=== PATIENT | male | born 1940 | race Two or more races ===

== ENCOUNTER 2018-08-03 16:08 | Inpatient (IN) | payer OTHER, MEDICARE, MEDICAID ==
[~2018-08-03] VITALS: Ht 170.2 cm; Wt 69.4 kg
--- NOTE | 2018-08-03 16:08 | NUR ---
[facility] TO ER BED 07
[2018-08-03 16:14] VITALS: BP 98/42
--- NOTE | 2018-08-03 16:15 | NUR ---
PT BIBA FOR WITNESSED SYCOPAL EPISODE AT [facility]. PT WAS VISITING WITH FAMILY AND WENT TO GO TO BATHROOM AND "PASSED OUT" PT WAS ASSISTED TO GROUND BY FAMILY. PT IS AWAKE AND ALERT ON ARRIVAL. PT HAS TRACH AND PEG TUBE IN PLACE. B/S 100 ON ARRIVAL. VSS. PMH: HYPOTENSION, EPIGLOTTIS CA
[2018-08-03] MEDS ORDERED: HYDR-5092 GT (16:31)
[2018-08-03] MEDS ORDERED: DORZ10SO3 OP (16:31)
[2018-08-03] MEDS ORDERED: CIPR7.5S OT (16:31)
[2018-08-03] MEDS ORDERED: CLOP75TA26 GT (16:31)
[2018-08-03] MEDS ORDERED: ATOR20TA GT (16:31)
[2018-08-03] MEDS ORDERED: BRIM10DR2 OP (16:31)
[2018-08-03] MEDS ORDERED: DOCU-299 GT (16:31)
[2018-08-03] MEDS ORDERED: HYDR10TA1 GT (16:48)
[2018-08-03] MEDS ORDERED: [UNRECOGNIZED DRUG - OTHER] PO (16:48)
[2018-08-03] MEDS ORDERED: XALOS OP (16:48)
[2018-08-03] MEDS ORDERED: LANS15EC28 GT (16:48)
[2018-08-03] MEDS ORDERED: LEVO0.083 GT (16:48)
[2018-08-03] MEDS ORDERED: NYST100022 PO (16:48)
[2018-08-03] MEDS ORDERED: LACT10SO1 GT (16:48)
[2018-08-03] MEDS ORDERED: ONDA8TAB PO (16:48)
[2018-08-03] MEDS ORDERED: NACL 0.9% 1,000 ML IV ONE (17:05)
--- NOTE | 2018-08-03 17:17 | NUR ---
LAB AT BEDSIDE
[2018-08-03 17:36] LABS: BASOPHILS % (AUTO) 0.2 % (0.0-2.0); EOSINOPHILS # (AUTO) 0.1 K/uL (0-0.4); EOSINOPHILS % (AUTO) 0.8 % (0.0-4.0); HEMATOCRIT 33.2 % (36-52); LYMPHOCYTES # (AUTO) 0.8 K/uL (2.0-11.5); LYMPHOCYTES % (AUTO) 11.7 % (20.5-51.1); MEAN CORPUSCULAR HEMOGLOBIN 35 pg (27-31); MEAN CORPUSCULAR HGB CONC 33 g/dL (33-37); MONOCYTES # (AUTO) 0.7 K/uL (0.8-1.0); MONOCYTES % (AUTO) 9.4 % (1.7-9.3); NEUTROPHILS # (AUTO) 5.4 K/uL (1.8-7.7); NEUTROPHILS % (AUTO) 77.9 % (42.2-75.2); PLATELET COUNT (AUTO) 217 K/uL (140-450); RED BLOOD CELL COUNT(AUTO) 3.11 MIL/uL (4.20-6.10); RED CELL DISTRIBUTION WIDTH 14.8 % (11.6-13.7)
[2018-08-03 18:09] LABS: ANION GAP 10.2 (8-16); ASPARTATE AMINOTRANSFERASE 18 U/L (15-37); CHLORIDE 98 mmol/L (98-107); CREATININE 0.7 mg/dL (0.7-1.3); GLUCOSE 107 mg/dL (74-106); POTASSIUM 4.2 mmol/L (3.5-5.1); SODIUM SERUM 133 mmol/L (136-145); TOTAL BILIRUBIN 0.3 mg/dL (0.0-1.0); UREA NITROGEN, BLOOD 18 mg/dL (7-18)
--- NOTE | 2018-08-03 19:34 | NUR ---
Dr. Medina examining patient.
--- NOTE | 2018-08-03 19:37 | NUR ---
AT 1937 PT WAS FOUND TO BE HYPOTENSIVE- B/P 51/29. DR ZAYAS AT BEDSIDE EVALUATING PT. PT WAS REPOSITIONED. HOB ELEVATED. 1 L NS BOLUS STARTED. B/P INCREASED AT 194 TO 91/70. FAMILY AT BEDSIDE. WILL CONTINUE TO MONITOR CLOSELY.
[2018-08-03] MEDS ORDERED: ONDANSETRON 4 MG/2 ML VIAL IVP ONE (20:00)
[2018-08-03] MEDS ORDERED: MORPHINE SULFATE 4 MG/ML SYR IVP ONE (20:00)
--- NOTE | 2018-08-03 20:14 | NUR ---
Pt report given to EMA Vaughn. Transfer of care at this time. Pt is stable; vss updated. Family at bedside.
[2018-08-03] MEDS ORDERED: fentaNYL 0.05 MG/ML VIAL IVP ONE (20:15)
[2018-08-03] MEDS ORDERED: ALBUTEROL 0.083% 2.5 MG/3 ML NEBU INH PRN (20:30)
[2018-08-03] MEDS ORDERED: MORPHINE SULFATE 4 MG/ML SYR IVP PRN (20:30)
[2018-08-03] MEDS ORDERED: ONDANSETRON 4 MG/2 ML VIAL IVP PRN (20:30)
[2018-08-03] MEDS ORDERED: MORPHINE SULFATE 2 MG/ML SYR IVP PRN (20:30)
[2018-08-03] MEDS ORDERED: LORazepam 2 MG/ML VIAL IVP PRN (20:30)
--- NOTE | 2018-08-03 20:35 | NUR ---
MEDICATION ADM, PT POSITIONED FOR COMFORT. DAUGHTER AT BEDSIDE. PT ACTING APPRORPRIATLY TO BASELINE.
[2018-08-03 20:55] VITALS: BP 143/87
--- NOTE | 2018-08-03 20:55 | NUR ---
REPORT RECEIVED FROM ED NURSE AT BEDSIDE. PT IN STABLE CONDITION. AAOX4. INTRODUCED SELF TO PT AND FAMILY. BOARD UPDATED. NO COMPLAINTS OF PAIN. NO SOB ON TRACH TO T-PIECE@4LPM. AFEBRILE. IV L AC 18 RUNNING LR@80ML/HR PATENT AND INTACT. SKIN WARM, DRY, AND INTACT WITH NO OPEN WOUNDS. BED LOCKED IN LOW POSITION. CALL TERAN WITHIN REACH. SAFETY PRECAUTION IN PLACE. ALL NEEDS MET AT THIS TIME. Addendum: 08/04/18 at 0135 by Timmy Feranndez RN ER REPORTS ABRASIONS ON THE LEFT UPPER BACK. BUT NO OPEN WOUNDS. Addendum: 08/04/18 at 0137 by Timmy Fernandez RN GTUBE IN PLACE.
--- NOTE | 2018-08-03 20:55 | NUR ---
APatient will be admitted to care of Dr. Lira. Admited to Med-Surg. Patient went to room 124-B via gurverona, by RN and EMT; patients son at bedside; VSS and patient acting appropriatly to baseline at this time. Belongings list completed. Report to EMA Warner.
[2018-08-03] MEDS: BRIMONIDINE TARTRATE 0.2% OP 5 ML BTL OP SCH (21:00)
[2018-08-03] MEDS: LATANOPROST 0.005% OP 2.5 ML BTL OP SCH (21:00)
--- NOTE | 2018-08-03 21:00 | NUR ---
ALPHAGAN AND TRUSOPT UNAVAILABLE. UNABLE TO GIVE MEDICATION.
[2018-08-03] MEDS ORDERED: HYDROCORTISONE 10 MG TAB GT SCH (22:00)
[2018-08-03] MEDS: LACTATED RINGERS 1,000 ML IV SCH (22:00)
--- NOTE | 2018-08-03 22:00 | NUR ---
LACTATED RINGER HUNG AND RUNNING@80ML/HR.
--- NOTE | 2018-08-03 22:10 | NUR ---
FRANCISCO VALVE CHANGED.
--- NOTE | 2018-08-03 22:15 | NUR ---
CORTEF GIVEN THROUGH GTUBE. PT TOLERATED WELL.
--- NOTE | 2018-08-04 | NUR ---
PT WOUND COVERED BY TRANSPARENT DRESSING AND TAPE. THERE ARE MULTIPLE WOUNDS. UNABLE TO ASSESS WOUND.
--- NOTE | 2018-08-04 00:10 | NUR ---
PT SLEEPING COMFORTABLY SUPINE BUT AROUSABLE. NO S/S OF DISTRESS NOTED. WILL CONTINUE TO MONITOR.
--- NOTE | 2018-08-04 01:30 | NUR ---
PT SLEEPING COMFORTABLY IN BED. NO S/S OF DISTRESS NOTED. RESPIRATIONS EVEN, UNLABORED, AND WNL. WILL CONTINUE TO MONITOR.
[2018-08-04] MEDS ORDERED: TRANSPARENT DRESSING MC PRN (02:30)
[2018-08-04] MEDS: ACETAMINOPHEN 325 MG TAB PO PRN ×2 (04:42→11:57)
[2018-08-04] MEDS: HYDROCORTISONE 10 MG TAB GT SCH ×3 (04:42→20:26)
--- NOTE | 2018-08-04 05:09 | NUR ---
Discovered trach patient. Replaced soiled portex 8 inner cannula and gauze. Pt coughed up sputum plug mixed with old blood. Placed on 30% cool aerosol. EMA Warner aware.
--- NOTE | 2018-08-04 06:00 | NUR ---
UNABLE TO OBTAIN MEDICATION SYNTHROID 0.088 MG UNTIL PHARMACY COMES. WILL ENDORSE TO MORNING SHIFT TO TALK TO PHARMACY AND GIVEN.
[2018-08-04 06:01] LABS: FREE T4 (FREE THYROXINE) 0.57 ng/dL (0.76-1.46); THYROID STIMULATING HORMONE 38.55 uIU/mL (0.34-3.74)
[2018-08-04 06:05] LABS: ALBUMIN 2.5 g/dL (3.4-5.0); ANION GAP 9.3 (8-16); ASPARTATE AMINOTRANSFERASE 14 U/L (15-37); CHLORIDE 103 mmol/L (98-107); CREATININE 0.8 mg/dL (0.7-1.3); GLUCOSE 124 mg/dL (74-106); MAGNESIUM 1.9 mg/dL (1.8-2.4); POTASSIUM 4.3 mmol/L (3.5-5.1); SODIUM SERUM 136 mmol/L (136-145); TOTAL BILIRUBIN 0.4 mg/dL (0.0-1.0); UREA NITROGEN, BLOOD 15 mg/dL (7-18)
[2018-08-04] MEDS ORDERED: LEVOTHYROXINE 0.088 MG TAB GT SCH (06:30)
[2018-08-04 06:42] LABS: BASOPHILS % (AUTO) 0.3 % (0.0-2.0); EOSINOPHILS # (AUTO) 0.1 K/uL (0-0.4); HEMATOCRIT 29.8 % (36-52); LYMPHOCYTES # (AUTO) 1.9 K/uL (2.0-11.5); MEAN CORPUSCULAR HEMOGLOBIN 36 pg (27-31); MEAN CORPUSCULAR HGB CONC 34 g/dL (33-37); MEAN CORPUSCULAR VOLUME 106.9 fL (80-94); MONOCYTES # (AUTO) 0.7 K/uL (0.8-1.0); MONOCYTES % (AUTO) 11.8 % (1.7-9.3); NEUTROPHILS % (AUTO) 52.9 % (42.2-75.2); PLATELET COUNT (AUTO) 229 K/uL (140-450); RED BLOOD CELL COUNT(AUTO) 2.79 MIL/uL (4.20-6.10); WHITE BLOOD COUNT (AUTO) 5.6 K/uL (4.8-10.8)
--- NOTE | 2018-08-04 07:15 | NUR ---
REPORT GIVEN TO AM NURSE AT BEDSIDE. PT IN STABLE CONDITION.
--- NOTE | 2018-08-04 07:17 | NUR ---
RECEIVED BEDSIDE REPORT FROM ACCOUNT GROUP SUPERVISOR NURSE FOR CONTINUITY OF CARE. PATIENT IS AWAKE AND RESTING ON BED AT THIS TIME. PATIENT IS AAOX4. PATIENT SPEAKS LITHUANIAN AND ABLE TO UNDERSTAND SOME OCCITAN. PATIENT IS ABLE TO MAKE NEEDS KNOWN AND COMMUNICATE BY SHAKING, NODDING HEAD AND BY HAND GESTURES.RESPIRATION EVEN AND UNLABORED ON 4LPM VIA T-PIECE. DENIES PAIN AND SOB. WHEN ASK IF HE HAS ANY PAIN, PATIENT SHAKES HIS HEAD. NO SIGNS OF DISTRESS NOTED. IV ON LAC 18G, INTACT AND CLEAN, INFUSING PER MD ORDER. G-TUBE ON ABDOMINAL AREA NOTED, NOT FEEDING AT THIS TIME. LEFT ANKLE SKIN TEAR AND L UPPER SHOULDER ABRASION NOTED, WOUND CONSULT ORDER AND PENDING. DISCUSSED PLAN OF CARE WITH PATIENT, AND PATIENT NODDED HIS HEAD. BED IN LOW POSITION AND CALL LIGHT WITHIN REACH. INSTRUCTED PATIENT TO USE THE CALL LIGHT FOR ANY ASSISTANCE, PATIENT IS AWARE.
--- NOTE | 2018-08-04 08:10 | NUR ---
ADMINISTERED LEVOTHYROID VIA G-TUBE PER MD ORDER, FLUSH BEFORE AND AFTER MED ADMINISTER, PATIENT TOLERATED WELL. PATIENT IS RESTING ON BED AT THIS TIME. NO SIGNS OF DISTRESS NOTED. FALL RISK PROTOCOL IN PLACE. SAFETY MEASURES IN PLACE. BED IN LOW POSITION AND CALL LIGHT WITHIN REACH. INSTRUCTED PATIENT TO USE THE CALL LIGHT FOR ANY ASSISTANCE AND PATIENT WAS AWARE.
[2018-08-04 08:32] VITALS: BP 116/71
[2018-08-04] MEDS: BRIMONIDINE TARTRATE 0.2% OP 5 ML BTL OP SCH ×2 (09:18→20:27)
[2018-08-04] MEDS: DORZOLAMIDE 2% OP 10 ML BTL OP SCH ×2 (09:19→20:28)
--- NOTE | 2018-08-04 09:20 | NUR ---
REASON FOR EVALUATION: LEFT LOWER LEG WOUNDS SKIN ASSESSMENT DONE ON THIS 77 Y/O MALE PATIENT FROM [facility] TO [facility], WITH INITIAL DIAGNOSIS OF SYNCOPE. PAST MEDICAL HISTORY INCLUDE SQUAMOUS CELL CARCINOMA WITH CHEMOTHERAPY. ALL ABOVE INFORMATION WAS OBTAINED FROM THE ADMISSION H&P. PATIENT IS AWAKE, ORIENTED TO PERSON, PLACE, DATE AND TIME. PT. WITH TRACH. SKIN WARM TO TOUCH WNL, TOENAILS ARE LONG AND THICKENED, NO EDEMA, NO HAIR GROWTH, BLE ARE DRY AND FLAKY, NEEDS LIMITED ASSISTANCE IN TURNING. PLAN OF CARE DISCUSSED WITH PRIMARY RN. CLARIFICATION: LEFT ANKLE NO SKIN TEAR INTEGUMENTARY: -MULTIPLE SKIN TEARS TO BILATERAL LOWER EXTREMITIES WITH LARGEST TO LLE ANTERIOR COOPER 5 CM IN LENGTH AND STERIL STRIPS IN PLACE, WOUND BEDS ARE PINK AND MOIST, NO ODOR, NO S/S OF INFECTION, ROBERT WOUND SKIN INTACT -MULTIPLE DRY FRONTAL SCABS WITH OLD HEALED SCAR TO LEFT FACIAL TOWARD LEFT EAR AND TO RIGHT LATERAL ANKLES -BLANCHABLE REDNESS TO SACRALCOCCYX, RIGHT AND LEFT HEELS AND R/L MEDIAL FIRST METATARSAL -TRACH STOMA SITE ROBERT-SKIN CLEAN AND INTACT RECOMMENDATIONS: -CLEANSE MULTIPLE SKIN TEAR TO BLE WITH NS, PAT DRY, APPLY DRY DRESSING QD AND PRN WITH SOILING. DO NOT REMOVE STERI STRIPS UNLESS HEAVILY SOILED -ENCOURAGE AND ASSIST PT TO TURN AND REPOSITION PATIENT Q 2H -ASSESS AND MONITOR SKIN CONDITION DURING POSITION CHANGE, PLEASE PAY PARTICULAR ATTENTION TO SACRALCOCCYX, ELBOWS AND HEELS -OFFLOAD BILATERAL HEELS BY PLACING PILLOWS UNDER CALVES AT ALL TIMES, UNLESS OTHERWISE CONTRAINDICATED -PRESSURE REDISTRIBUTION SURFACE THERAPY -BLE ARTERIAL AND VENOUS U/S PENDING RESULTS -KEEP SKIN CLEAN AND DRY AT ALL TIMES. RECOMMENDATIONS DISCUSSED WITH PRIMARY RN PLEASE CONTACT WOUND CARE NURSE FOR ANY QUESTIONS AND CHANGES IN SKIN CONDITION. Addendum: 08/04/18 at 1333 by Reuben Vyas (Grace) RN WOUND TREATMENT CARE EXPLAINED TO PT. AND WITH LOPEZ BOO, SALES AGENT PROTECTIVE SERVICE, TRANSLATES TO SPANISH, ON NECK SKIN ALTERATION, SKIN INTACT , NO OPEN WOUND, SLIGHTLY REDNESS WITH FEW SCARS AND SCABS LIKED POSSIBLE SKIN CANCER, INFORM PT. TO CONTINUE TO FOLLOW ONCOLOGY OUT PATIENT. SKIN TEARS TO BLE NO S/S OF INFECTIONS. PT IS ON IV VANCOMYCIN FOR CELLULITIS. AND PT. VERBALIZES UNDERSTANDING.
--- NOTE | 2018-08-04 09:22 | NUR ---
ADMINISTERED EYE DROPS PER MD ORDER, PATIENT TOLERATED WELL. PATIENT IS AWAKE AND RESTING ON BED. DENIES PAIN AND SOB. NO SIGNS OF DISTRESS NOTED. BED IN LOW POSITION AND CALL LIGHT WITHIN REACH. INSTRUCTED PATIENT TO USE THE CALL LIGHT FOR ANY ASSISTANCE AND PATIENT WAS AWARE.
--- NOTE | 2018-08-04 09:50 | NUR ---
SOA ENGINEER IS CHANGING PATIENT AND FAMILY IS BY BEDSIDE. NO SIGNS OF DISTRESS NOTED,
--- NOTE | 2018-08-04 10:10 | NUR ---
PROVIDED ORAL CARE TO PATIENT, AND PATIENT TOLERATED WELL. NO SIGNS OF DISTRESS NOTED. IS BY BEDSIDE. SAFETY MEASURES IN PLACE. BED IN LOW POSITION AND CALL LIGHT WITHIN REACH.
[2018-08-04] MEDS: LACTATED RINGERS 1,000 ML IV SCH ×2 (10:18→21:29)
--- NOTE | 2018-08-04 11:23 | NUR ---
PATIENT IS SITTING UP ON BED. DENIES DIZZINESS AND SOB. NO SIGNS OF DISTRESS NOTED. FAMILY IS BY BEDSIDE. OFF LOAD BILATERAL HEELS PRESSURE WITH PILLOWS. SAFETY MEASURES IN PLACE. BED IN LOW POSITION AND CALL LIGHT WITHIN REACH. INSTRUCTED PATIENT AND FAMILY TO USE THE CALL LIGHT FOR ASSISTANCE AND ALL AWARE.
--- NOTE | 2018-08-04 11:45 | NUR ---
DR WORRELL IS ASSESSING AND TALKING TO PATIENT AND PATIENT'S FAMILY AT BEDSIDE. NO SIGNS OF DISTRESS NOTED. SAFETY MEASURES IN PLACE. BED IN LOW POSITION AND CALL LIGHT WITHIN REACH.
--- NOTE | 2018-08-04 11:57 | NUR ---
PATIENT COMPLAINED OF 3/10 HEADACHE, ADMINISTERED PRN PAIN MED ACETAMINOPHEN VIA G-TUBE, PATIENT TOLERATED WELL. PATIENT IS AWAKE AND LISTENING TO MUSIC ON BED. FAMILY IS BY BEDSIDE. SAFETY MEASURES IN PLACE. BED IN LOW POSITION AND CALL LIGHT WITHIN REACH. INSTRUCTED PATIENT AND FAMILY TO USE CALL LIGHT FOR ANY ASSISTANCE AND ALL VERBALIZED OK.
[2018-08-04] MEDS ORDERED: LEVOTHYROXINE 0.025 MG TAB PO SCH (12:55)
[2018-08-04] MEDS ORDERED: VANCOMYCIN PER PHARMACY MC PRN (13:05)
[2018-08-04] MEDS: GAUZE TP SCH (13:33)
--- NOTE | 2018-08-04 13:34 | NUR ---
ADMINISTERED MED PER MD ORDER VIA G-TUBE, FLUSH BEFORE AND AFTER,MED ADMINISTER, PATIENT TOLERATED WELL. PATIENT IS LYING ON BED AND RESTING. IS BY BEDSIDE. SAFETY MEASURES IN PLACE. BED IN LOW POSITION AND CALL LIGHT WITHIN REACH.
--- NOTE | 2018-08-04 13:49 | NUR ---
Spoke to f the patient and his daughter Selwyn and stated that has cancer and unable to care for patient at this time at home. Daughter said that they all work and no one will be with dad at home for long period. Daughter wants dad to go [place] SNF but [place] [facility] [facility] since they [place] in [place] [facility]. will inform MD and daughter will call back with name of SNF in [place]
--- NOTE | 2018-08-04 14:11 | NUR ---
Daughter called and gave the name of SNF in [place], [facility] [place]. called [phone] and spoke to Tate in admitting and do have a male bed with trach, Faxed all papers [phone].
[2018-08-04] MEDS: VANCOMYCIN 750 MG in DEXTROSE 5% 250 ML IV SCH (14:29)
--- NOTE | 2018-08-04 14:42 | NUR ---
Faxed all papers to Mati at [facility] at [phone]. phone number [phone]
--- NOTE | 2018-08-04 14:46 | NUR ---
Called [facility] per Lakeshia recommendation and spoke to Karen and no male bed available.
--- NOTE | 2018-08-04 14:47 | NUR ---
manager quality improvement Lakeshia at [facility] stated that [facility] in [place] will not accept patient her ground products director will not accept patient to go to [facility]. Lakeshia stated to try [facility], [facility] and places in [place]. Spoke to daughter of the patient and does not want [place] area. I asked Lakeshia to assist with placement as well.
--- NOTE | 2018-08-04 15:00 | NUR ---
STARTED G-TUBE FEEDING AT 55ML/HR, PATIENT TOLERATED WELL. PATIENT IS RESTING ON BED AND IS BY BEDSIDE. NO SIGNS OF DISTRESS NOTED, SAFETY MEASURE IN PLACE. BED IN LOW POSITION AND CALL LIGHT WITHIN REACH. INSTRUCTED PATIENT AND TO UES THE CALL LIGHT FOR ANY ASSISTANCE AND BOTH ARE AWARE.
[2018-08-04 16:00] VITALS: BP 115/74
--- NOTE | 2018-08-04 16:05 | NUR ---
CHECKED RESIDUAL AND RECEIVED <10ML, PATIENT TOLERATED FEEDING WELL. PATIENT IS AWAKE AND RESTING ON BED AT THIS TIME. IS BY BEDSIDE. NO SIGNS OF DISTRESS NOTED. SAFETY MEASURES IN PLACE. BED IN LOW POSITION AND CALL LIGHT WITHIN REACH.
--- NOTE | 2018-08-04 16:34 | NUR ---
JOSIAH faxed clinicals to the following SNFs for review: [facility] [phone] [facility] [phone] [facility] [phone] [facility] [phone] Per Director of Case Management, [facility] is still pending review and will call nursing station. JOSIAH was informed that Davon from [facility] will meet with patient for evaluation. Davon was informed to contact nursing station. Davon's contact information is [phone]. JOSIAH/GADIEL will follow up as needed.
--- NOTE | 2018-08-04 17:21 | NUR ---
PATIENT IS DOING ECHOCARDIOGRAM AT BEDSIDE. NO SIGNS OF DISTRESS NOTED. DAUGHTER RANBREANNA AND IS BY BEDSIDE. SAFETY MEASURES IN PLACE. BED IN LOW POSITION AND CALL LIGHT WITHIN REACH. INSTRUCTED PATIENT AND FAMILY TO USE THE CALL LIGHT FOR ANY ASSISTANCE AND ALL VERBALIZED UNDERSTANDING.
--- NOTE | 2018-08-04 19:10 | NUR ---
RECEIVED BEDSIDE REPORT FROM DAY SHIFT NURSE. PATIENT IS AWAKE, ALERT, AND COOPERATIVE. RESPIRATION EVEN UNLABORED ON T-PIECE 4L. NO DISTRESS NOTED. SKIN IS WARM AND DRY. IV PATENT AND INTACT. PATIENT SPEAK MALTESE AND ABLE TO UNDERSTAND SOME ST HELENIAN. G-TUBE NOTED. LEFT ANKLE SKIN TEAR AND LEFT UPPER SHOULDER ABRASION NOTED. FAMILY AT BEDSIDE. PLAN OF CARE WAS DISCUSSED. ALL SAFETY MEASURES IN PLACE. BED IS AT LOW POSITION. CALL LIGHT WITHIN REACH. WILL CONTINUE TO MONITOR.
--- NOTE | 2018-08-04 19:17 | NUR ---
ENDORSED PATIENT AT BEDSIDE TO VEHICLE AND EQUIPMENT CLEANER NURSE FOR CONTINUITY OF CARE. PATIENT IS AWAKEN AND RESTING ON BED AT THIS TIME. FAMILY AT BEDSIDE. NO SIGNS OF DISTRESS NOTED. SAFETY MEASURES IN PLACE.
--- NOTE | 2018-08-04 20:00 | NUR ---
INITIAL ASSESSMENT DONE. VITALS WERE TAKEN. PATIENT BP 88/59. PRN BP MEDS ADMINISTERED PER ORDER. WILL CONTINUE TO MONITOR.
[2018-08-04] MEDS: MIDODRINE 5 MG TAB PO PRN (20:26)
[2018-08-04] MEDS: LATANOPROST 0.005% OP 2.5 ML BTL OP SCH (20:27)
--- NOTE | 2018-08-04 20:30 | NUR ---
RT INCREASE O2 NOW ITS AT 6L. PATIENT TOLERATING IT WELL. WILL CONTINUE TO MONITOR.
--- NOTE | 2018-08-04 21:00 | NUR ---
ALL SCHEDULED MEDS WERE GIVEN PER ORDER NO ASE NOTED. WILL CONTINUE TO MONITOR.
--- NOTE | 2018-08-04 21:12 | NUR ---
RECHECKED PATIENT BP. PATIENT BP 90/57 WILL CONTINUE TO MONITOR.
--- NOTE | 2018-08-04 22:30 | NUR ---
PATIENT SLEEPING RESPIRATION EVEN UNLABORED ON TRACH TO T-PIECE 6L. NO DISTRESS NOTED WILL CONTINUE TO MONITOR
[2018-08-05] VITALS: BP 112/72
--- NOTE | 2018-08-05 | NUR ---
VITALS WERE TAKEN. PATIENT CONDITION STABLE. NO DISTRESS NOTED. WILL CONTINUE TO MONITOR.
[2018-08-05] MEDS: LACTATED RINGERS 1,000 ML IV SCH ×2 (00:28→21:04)
[2018-08-05] MEDS: VANCOMYCIN 750 MG in DEXTROSE 5% 250 ML IV SCH ×2 (01:16→13:21)
--- NOTE | 2018-08-05 02:00 | NUR ---
CHECKED ON PATIENT. PATIENT SLEEPING RESPIRATION EVEN UNLABORED ON 6L TRACH TO T-PIECE. NO DISTRESS NOTED. WILL CONTINUE TO MONITOR.
--- NOTE | 2018-08-05 04:20 | NUR ---
PATIENT TOOK OFF HIS INNER CANNULA FROM THE TRACH. CALLED RT TO INSERT NEW ONE. NO DISTRESS NOTED. WILL CONTINUE TO MONITOR.
--- NOTE | 2018-08-05 04:52 | NUR ---
INNER CANNULA REPLACED PATIENT WAS SUCTIONED AIRWAY IS PATENT AND CLEAR AT THIS TIME. SPO2 98 HEART RATE 88 NO CHANGE IN CONDITION PATIENT IS STABLE AND ALERT.
[2018-08-05] MEDS: HYDROCORTISONE 10 MG TAB GT SCH ×3 (05:32→21:02)
[2018-08-05] MEDS: LEVOTHYROXINE 0.1 MG TAB GT SCH (05:32)
--- NOTE | 2018-08-05 05:51 | NUR ---
CHECKED G-TUBE RESIDUAL OBTAINED 5CC. PATIENT TOLERATING THE FEEDING. WILL CONTINUE TO MONITOR
[2018-08-05 07:08] LABS: BASOPHILS % (AUTO) 0.2 % (0.0-2.0); EOSINOPHILS # (AUTO) 0.1 K/uL (0-0.4); EOSINOPHILS % (AUTO) 1.4 % (0.0-4.0); HEMATOCRIT 31.7 % (36-52); HEMOGLOBIN 10.8 g/dL (12.0-18.0); LYMPHOCYTES # (AUTO) 1.3 K/uL (2.0-11.5); LYMPHOCYTES % (AUTO) 25.3 % (20.5-51.1); MEAN CORPUSCULAR HEMOGLOBIN 36 pg (27-31); MEAN CORPUSCULAR HGB CONC 34 g/dL (33-37); MEAN CORPUSCULAR VOLUME 105.6 fL (80-94); MONOCYTES # (AUTO) 0.8 K/uL (0.8-1.0); MONOCYTES % (AUTO) 14.4 % (1.7-9.3); NEUTROPHILS # (AUTO) 3.1 K/uL (1.8-7.7); NEUTROPHILS % (AUTO) 58.7 % (42.2-75.2); PLATELET COUNT (AUTO) 214 K/uL (140-450); RED CELL DISTRIBUTION WIDTH 14.8 % (11.6-13.7); WHITE BLOOD COUNT (AUTO) 5.3 K/uL (4.8-10.8)
--- NOTE | 2018-08-05 07:25 | NUR ---
RECEIVED BEDSIDE REPORT FROM EMA GILLIAM. PT STABLE, SLEEPING, BUT EASILY AROUSABLE. DENIES PAIN OR SOB. NO SIGNS OF DISTRESS NOTED. ON T-PIECE AT 6L/MIN. NO REDNESS, SWELLING, OR INFLAMMATION NOTED ON IV SITE. CALL TERAN WITHIN REACH. BED IN LOWEST POSITION, BED ALARM ON. SAFETY MEASURES IN PLACE. PLAN OF CARE REVIEWED.
--- NOTE | 2018-08-05 07:26 | NUR ---
ENDORSED PATIENT TO DAY SHIFT NURSE FOR CONTINUITY OF CARE. PATIENT CONDITION IS STABLE.
[2018-08-05 07:48] LABS: ALBUMIN 2.6 g/dL (3.4-5.0); ANION GAP 10.3 (8-16); ASPARTATE AMINOTRANSFERASE 14 U/L (15-37); CARBON DIOXIDE 31.1 mmol/L (21-32); CHLORIDE 99 mmol/L (98-107); CREATININE 0.7 mg/dL (0.7-1.3); GLUCOSE 101 mg/dL (74-106); POTASSIUM 4.4 mmol/L (3.5-5.1); SODIUM SERUM 136 mmol/L (136-145); TOTAL BILIRUBIN 0.3 mg/dL (0.0-1.0); UREA NITROGEN, BLOOD 16 mg/dL (7-18)
[2018-08-05 08:00] VITALS: BP 129/78
--- NOTE | 2018-08-05 09:30 | NUR ---
PATIENT HAS BEEN SCREENED AND CATEGORIZED HIGH NUTRITION RISK. PATIENT WILL BE SEEN WITHIN 1-2 DAYS OF ADMISSION. 08/04/18-08/05/[address]
[2018-08-05] MEDS: DORZOLAMIDE 2% OP 10 ML BTL OP SCH ×2 (09:53→21:07)
[2018-08-05] MEDS: BRIMONIDINE TARTRATE 0.2% OP 5 ML BTL OP SCH ×2 (09:54→21:07)
[2018-08-05] MEDS: ACETAMINOPHEN 325 MG TAB PO PRN (09:58)
--- NOTE | 2018-08-05 09:58 | NUR ---
ADMINISTERED SCHEDULED MEDICATIONS AND PRN TYLENOL FOR 6/10 HEADACHE. PT TOLERATED WELL. NO OTHER NEEDS AT THIS TIME. FAMILY AT THE BEDSIDE.
--- NOTE | 2018-08-05 10:16 | NUR ---
PT PULLED OUT IV, CATHETER TIP INTACT, BLEEDING CONTROLLED. REINSERTED NEW IV ON LEFT UA 20G. ASYMPTOMATIC, INTACT, AND PATENT. PT TOLERATED WELL.
--- NOTE | 2018-08-05 11:20 | NUR ---
FAMILY AT THE BEDSIDE. PT STABLE.
[2018-08-05] MEDS: GAUZE TP SCH (13:21)
--- NOTE | 2018-08-05 13:25 | NUR ---
ADMINISTERED SCHEDULED MEDICATIONS, PT TOLERATED WELL. RESIDUAL CHECKED, 98ML. NO OTHER NEEDS AT THIS TIME.
--- NOTE | 2018-08-05 14:11 | NUR ---
CALLED FOLLOWING SNF's TO SEE PT HAS BEEN ACCEPTED ZUNILDA SHARMA [phone] LEFT MESSAGE ME[facility] [phone], PER ADIS, FAXED INFORMATION FOR [facility] [phone] [facility] (ADMISSION) NO BED AVAILABLE
--- NOTE | 2018-08-05 14:51 | NUR ---
MEI ARCEO CALLED TO INFORM THAT PATIENT HAS BEEN ACCEPTED. SHE WILL CALL US BACK WITH ROOM NUMBER.
--- NOTE | 2018-08-05 15:50 | NUR ---
VITAL SIGNS TAKEN, PT STABLE. FAMILY AT THE BEDSIDE.
[2018-08-05 16:00] VITALS: BP 99/64
--- NOTE | 2018-08-05 16:02 | NUR ---
CALLED [facility] RAM[facility] [phone], TO FOLLOW UP ON BED, PER ADIS, THEY ARE NOW UNABLE TO ACCEPT THIS PATIENT.
[2018-08-05 16:50] VITALS: BP 130/81
--- NOTE | 2018-08-05 17:20 | NUR ---
08/05/18 RD INITIAL ASSESSMENT COMPLETED PLEASE REFER TO NUTRITION ASSESSMENT UNDER CARE ACTIVITY FOR ESTIMATED NUTRITIONAL NEEDS. RD RECOMMENDATIONS: 1.RECOMMEND CHANGING PT�S TUBE FEEDING FORMULA TO TWOCAL HN AT 45 ML/HR TO PROVIDE 2160 KCAL, 90 GM OF PROTEIN, AND 783 ML OF FREE WATER + 250 ML OF FREE WATER Q6H (WILL MEET 100% OF ESTIMATED ENERGY AND PROTEIN NEEDS) --THIS WILL BETTER MEET PT�S NUTRITIONAL NEEDS 2. CONSIDER ORDERING 1 TAB OF MVI/MIN DAILY TO PROMOTE WOUND HEALING. --PT WITH MULTIPLE SKIN TEARS. 3. RD WILL F/U 2-3 DAYS; HIGH RISK. CLAUDIA DE PAZ RD
--- NOTE | 2018-08-05 17:45 | NUR ---
PT AWAKE AND ALERT, RESTING IN BED. AT THE BEDSIDE. NO SIGNS OF DISTRESS NOTED. WILL CONTINUE TO MONITOR PT.
--- NOTE | 2018-08-05 19:15 | NUR ---
ENDORSED PT TO RN BIMAL FOR CONTINUITY OF CARE. PT STABLE.
--- NOTE | 2018-08-05 19:15 | NUR ---
RECEIVED REPORT FROM AM SHIFT NURSE FOR CONTINUITY OF CARE. PATIENT IS AWAKE, ALERT, SITTING UP IN BED WITH AT BEDSIDE. PATIENT IS ON 6L O2 VIA TRACH TUBE. HAS A LEFT UPPER ARM IV 20 GA. ON GTUBE FEEDING. DENIES ANY PAIN AT THIS TIME. WILL MONITOR PATIENT THROUGHOUT SHIFT.
--- NOTE | 2018-08-05 20:00 | NUR ---
PT ALSO HAS RT LOWER LEG DRESSING ASIDE FROM X2 DRESSING ON THE LT LOWER LEG.
[2018-08-05] MEDS: LATANOPROST 0.005% OP 2.5 ML BTL OP SCH (21:06)
--- NOTE | 2018-08-05 21:07 | NUR ---
ADMINISTERED MEDICATION THROUGH G-TUBE, AND OPHTHALMIC MEDICATIONS, ORDERED. PERFORMED ORAL CARE. PATIENT TOLERATED THEM WELL. HUNG NEW LACTATED RINGER AT 80 ML/HR. WILL CONTINUE TO MONITOR PATIENT.
--- NOTE | 2018-08-05 22:00 | NUR ---
EMA LANCE ENGINEERING TEAM SUPERVISOR MADE AWARE THAT MD ORDERED COMPRESSION STOCKING FOR PT. HE SAID IT IS NOT AVAILABLE . WILL ENDORSE TO AM NURSE.
--- NOTE | 2018-08-05 23:00 | NUR ---
MADE ROUNDS. PATIENT IS LYING DOWN, ASLEEP, WITH NO SIGNS OF DISTRESS. WILL CONTINUE TO MONITOR PATIENT.
[2018-08-06] VITALS (7 sets, daily range): BP systolic 54–146; BP diastolic 35–81
--- NOTE | 2018-08-06 00:15 | NUR ---
PATIENT LYING DOWN IN BED, ASLEEP. HUNG A NEW FEEDING BAG. VITAL SIGNS TAKEN AND CHARTED. PATIENT DENIES ANY PAIN AT THIS TIME. WILL CONTINUE TO MONITOR PATIENT.
[2018-08-06] MEDS: VANCOMYCIN 750 MG in DEXTROSE 5% 250 ML IV SCH ×2 (01:42→13:31)
--- NOTE | 2018-08-06 01:42 | NUR ---
HUNG IV ANTIBIOTICS. PATIENT LYING DOWN ASLEEP, WITH NO SIGNS OF DISTRESS. WILL CONTINUE TO MONITOR PATIENT
--- NOTE | 2018-08-06 02:30 | NUR ---
PATIENT LYING DOWN, APPEARS TO BE ASLEEP WITH NO SIGNS OF DISTRESS. WILL CONTINUE TO MONITOR PATIENT.
--- NOTE | 2018-08-06 04:00 | NUR ---
MADE ROUNDS. PATIENT LYING IN BED, ASLEEP, WITH NO SIGNS OF DISTRESS. WILL CONTINUE TO MONITOR PATIENT.
--- NOTE | 2018-08-06 04:44 | NUR ---
NEEDS ATTENDED. ANOTHER MOUTH CARE DONE ON PT. NO C/O ANY DISCOMFORT NOTED.
[2018-08-06] MEDS: LEVOTHYROXINE 0.1 MG TAB GT SCH (05:48)
[2018-08-06] MEDS: HYDROCORTISONE 10 MG TAB GT SCH ×3 (05:48→21:50)
--- NOTE | 2018-08-06 06:00 | NUR ---
ADMINISTERED MEDICATIONS THROUGH GTUBE ORDERED. NO RESIDUAL ASPIRATED. PATIENT TOLERATED IT WELL. WILL CONTINUE TO MONITOR PATIENT.
--- NOTE | 2018-08-06 07:20 | NUR ---
ENDORSED PATIENT TO AM SHIFT NURSE FOR CONTINUITY OF CARE. PATIENT IS LYING DOWN, AWAKE, ALERT, AND IN STABLE CONDITION. BED IS IN LOW POSITION, SIDE RAILS ARE UP, AND CALL LIGHT WITHIN REACH.
--- NOTE | 2018-08-06 07:22 | NUR ---
RECEIVED BED SIDE REPORT FROM CALENDER MACHINE OPERATOR HELPER RN BIMAL AND SONIDO. PT AWAKE, T-PIECE TO TRACH HOOKED UP TO 6L O2. 1 DRESSING ON LOWER LEFT ANKLE, ANOTHER [id number] ABOVE THE LEFT ANKLE DRESSING, AND ANOTHER DRESSING ON THE RIGHT UPPER ANKLE. PT ON G TUBE FEEDING JEVITY 1.2 RUNNING AT 55CC WITH FWF 250CC Q6H. BILAT HEEL PROTECTORS OFF. L FOREARM 22G RUNNING LF AT 80CC/HR. URINAL AT BEDSIDE. APHASIC, PT IS INDEPENDENT AND CAN SUCTION AND USE THE URINAL HIMSELF. BED ALARM ON, WILL CONTINUE TO MONITOR
--- NOTE | 2018-08-06 09:11 | NUR ---
caalled to pt's room to snx pt. small amt of thick yellow secretions, changed inner cannula pt is awake and alert.
[2018-08-06] MEDS: BRIMONIDINE TARTRATE 0.2% OP 5 ML BTL OP SCH ×2 (09:44→21:50)
[2018-08-06] MEDS: DORZOLAMIDE 2% OP 10 ML BTL OP SCH ×2 (09:45→21:50)
--- NOTE | 2018-08-06 09:49 | NUR ---
GAVE PT HIS 2 EYEDROPS/ PT REFUSED TO PUT ON BILAT HEEL PROTECTORS
--- NOTE | 2018-08-06 10:08 | NUR ---
[facility] CAN'T ACCEPT THIS PATIENT PER EMILIANO.
--- NOTE | 2018-08-06 10:11 | NUR ---
ZUNILDA SHARMA [phone] SPOKE WITH MIGUEL ANGEL, SHE WILL CHECK TO SEE IF PATIENT HAS BEEN ACCEPTED AND CALL BACK
--- NOTE | 2018-08-06 10:23 | NUR ---
ZUNILDA MICHELLE CALLED BACK AND STATED PATIENT WAS DENIED DUE TO INSURANCE.
--- NOTE | 2018-08-06 10:50 | NUR ---
PT'S GRANDDAUGHTER PT FELT DIZZY WITH A GOULD. PT LOOKED PALE AND DIAPHORETIC. INITAL BP 54/35, RETOOK AND WAS 63/35. MADE ARCHITECTURE ANALYST DWAYNE LEVINE. ORDERED TWO 500CC BOLUS THEN TO SET RATE AT 100CC/HR. BLOOD DUGAR 129. STAT BMP AND CBC ORDERED WELL STAT EKG. PT WAS NON-RESPONSIVE FOR A COUPLE MINUTES.
[2018-08-06] MEDS: LACTATED RINGERS 1,000 ML IV SCH (10:59)
--- NOTE | 2018-08-06 11:10 | NUR ---
PT'S BP NOW 80/55, PT MORE RESPONSIVE AND AWAKE. PT COMPLAINS OF A MINOR GOULD. PT DOES NOT LOOK PALE ANYMORE OR DIAPHORETIC. WILL CONTINUE TO MONITOR
[2018-08-06] MEDS ORDERED: NACL 0.9% 500 ML IV SCH (11:45)
[2018-08-06] MEDS: ACETAMINOPHEN 325 MG TAB PO PRN (11:58)
[2018-08-06] MEDS: MIDODRINE 5 MG TAB PO PRN (11:58)
--- NOTE | 2018-08-06 12:00 | NUR ---
SUCTIONED MODERATE AMOUNT OF WHITE SECRETIONS FROM MOUTH. BP 112/71. PT NOT DIAPHORETIC OR PALE. WILL CONTINUE TO MONITOR
[2018-08-06 12:07] LABS: BASOPHILS % (AUTO) 0.5 % (0.0-2.0); EOSINOPHILS % (AUTO) 0.9 % (0.0-4.0); HEMATOCRIT 31.5 % (36-52); HEMOGLOBIN 10.5 g/dL (12.0-18.0); LYMPHOCYTES # (AUTO) 1.1 K/uL (2.0-11.5); LYMPHOCYTES % (AUTO) 23.1 % (20.5-51.1); MEAN CORPUSCULAR HEMOGLOBIN 35 pg (27-31); MEAN CORPUSCULAR HGB CONC 33 g/dL (33-37); MEAN CORPUSCULAR VOLUME 106.5 fL (80-94); MONOCYTES # (AUTO) 0.5 K/uL (0.8-1.0); NEUTROPHILS # (AUTO) 3.1 K/uL (1.8-7.7); NEUTROPHILS % (AUTO) 64.5 % (42.2-75.2); PLATELET COUNT (AUTO) 210 K/uL (140-450); RED BLOOD CELL COUNT(AUTO) 2.96 MIL/uL (4.20-6.10); RED CELL DISTRIBUTION WIDTH 14.6 % (11.6-13.7); WHITE BLOOD COUNT (AUTO) 4.9 K/uL (4.8-10.8)
[2018-08-06 12:24] LABS: ALBUMIN 2.5 g/dL (3.4-5.0); ANION GAP 8.9 (8-16); ASPARTATE AMINOTRANSFERASE 14 U/L (15-37); CHLORIDE 100 mmol/L (98-107); CREATININE 0.7 mg/dL (0.7-1.3); GLUCOSE 119 mg/dL (74-106); POTASSIUM 3.9 mmol/L (3.5-5.1); SODIUM SERUM 137 mmol/L (136-145); TOTAL BILIRUBIN 0.3 mg/dL (0.0-1.0); UREA NITROGEN, BLOOD 12 mg/dL (7-18)
--- NOTE | 2018-08-06 12:40 | NUR ---
SX SCANT BROWN
[2018-08-06] MEDS: GAUZE TP SCH (13:32)
--- NOTE | 2018-08-06 15:00 | NUR ---
PT'S BP 123/71, MAP 88. FAMILY AT BEDSIDE. PT CURRENTLY SLEEPING AND IN NO RESPIRATORY DISTRESS AND DOES NOT APPEAR IN PAIN. WILL CONTINUE TO MONITOR
--- NOTE | 2018-08-06 16:39 | NUR ---
PT COMPLAINS NO DIZZINESS OR GOULD, PT NOT PALE OR DIAPHORETIC. USING URINAL NOW. WILL CONTINUE TO MONITOR
--- NOTE | 2018-08-06 17:58 | NUR ---
STARTED G TUBE FEEDING. PRIMED PRIOR. SETTING SET AT 55CC/HR, FWF 250CC Q6H.
--- NOTE | 2018-08-06 19:30 | NUR ---
RECEIVED REPORT FROM AM SHIFT NURSE FOR CONTINUITY OF CARE. PATIENT IS IN STABLE CONDITION. ON 6L O2 TRACH TO T-PIECE. DENIES ANY PAIN AT THIS TIME. BED IS IN LOW POSITION, SIDE RAILS ARE UP, AND CALL LIGHT WITHIN REACH. WILL MONITOR PATIENT THROUGHOUT SHIFT.
--- NOTE | 2018-08-06 19:30 | NUR ---
ENDORSED PT TO EMT BASIC RN BIMAL. PT IN STABLE CONDITION
--- NOTE | 2018-08-06 21:30 | NUR ---
HUNG NEW LACTATED RINGERS IV FLUID.
[2018-08-06] MEDS: LATANOPROST 0.005% OP 2.5 ML BTL OP SCH (21:50)
--- NOTE | 2018-08-06 21:50 | NUR ---
ADMINISTERED G-TUBE AND EYE DROP MEDICATIONS ORDERED. G-TUBE PLACEMENT VERIFIED AND RESIDUAL AMOUNT 40 ML. PATIENT TOLERATED MEDICATIONS WELL. WILL CONTINUE MONITOR PATIENT.
--- NOTE | 2018-08-06 23:30 | NUR ---
MADE ROUNDS. PATIENT LYING DOWN IN BED, ASLEEP, WITH NO SIGNS OF DISTRESS. WILL CONTINUE TO MONITOR PATIENT.
[2018-08-07] VITALS: BP 133/88
--- NOTE | 2018-08-07 00:30 | NUR ---
VITAL SIGNS TAKEN AND CHARTED. PATIENT LYING DOWN IN BED, ASLEEP, WITH NO SIGNS OF DISTRESS. WILL CONTINUE TO MONITOR PATIENT.
[2018-08-07] MEDS: VANCOMYCIN 750 MG in DEXTROSE 5% 250 ML IV SCH ×2 (01:50→14:35)
--- NOTE | 2018-08-07 01:50 | NUR ---
HUNG IV ANTIBIOTICS PIGGY BACK. PATIENT APPEARS TO BE ASLEEP, WITH NO SIGNS OF DISTRESS. WILL CONTINUE TO MONITOR PATIENT.
--- NOTE | 2018-08-07 04:00 | NUR ---
VITAL SIGNS TAKEN AND CHARTED. PATIENT IS LYING DOWN, ASLEEP, WITH NO SIGNS OF DISTRESS. WILL CONTINUE TO MONITOR PATIENT.
[2018-08-07 04:19] VITALS: BP 133/89
--- NOTE | 2018-08-07 05:52 | NUR ---
DID TRACH CARE FOR PT. CHANGED PT INNER CANULA PORTEX 8, CHANGED DRESSING WITH A SMALL-MODERATE AMOUNT OF YELLOW DRAINAGE, CHANGED PTS TRACH TIES WITH NO ISSUES AND RE-SECURED. PT TOLERATED VERY WELL. NO ISSUES . WILL CONTINUE TO MONITOR THE PT
[2018-08-07] MEDS: HYDROCORTISONE 10 MG TAB GT SCH ×3 (05:55→20:42)
[2018-08-07] MEDS: LEVOTHYROXINE 0.1 MG TAB GT SCH (05:55)
--- NOTE | 2018-08-07 07:03 | NUR ---
WILL ENDORSE PATIENT TO AM SHIFT NURSE FOR CONTINUITY OF CARE. PATIENT IS LYING DOWN IN BED, ASLEEP. PATIENT IS IN STABLE CONDITION.
--- NOTE | 2018-08-07 07:10 | NUR ---
RECEIVED REPORT FROM TANK BUILDER HELPER NURSE. PT LYING IN BED, AAOX4, NON-VERBAL BUT ABLE TO MAKE NEEDS KNOWN BY POINTING AT REQUESTS. LUNG SOUNDS CLEAR, RESPIRATIONS EVEN AND UNLABORED ON 6L O2 VIA TRACH TO T-PIECE. PT HAS A PRODUCTIVE COUGH WITH SMALL AMOUNT OF MUCUS. IV ON LT UPPER ARM 20 GA RUNNING IVF PER ORDER. IV DRESSING CLEAN, DRY, AND INTACT. PT HAS A JOB PLACEMENT COUNSELOR. ACTIVE BOWEL SOUNDS, LBM REPORTED 08/06. G-TUBE IN PLACE TO LT. UPPER QUADRANT, NO RESIDUALS AT THIS TIME, PT IS TOLERATING FEEDING WELL. SKIN COLOR IS APPROPRIATE TO ETHNICITY, WARM TO TOUCH. PT HAS LACERATIONS ON BOTH LEGS, DRESSINGS ARE CLEAN, DRY, AND INTACT. NO EDEMA NOTED AT THIS TIME. REVIEWED PLAN OF CARE WITH PT, PT GAVE THUMBS UP TO SHOW UNDERSTANDING. PT IS ON FALL PRECAUTION, NOTED YELLOW SIGN ON DOOR, YELLOW GOWN, YELLOW BAND AND YELLOW SOCKS. SAFETY MEASURES IN PLACE, BED ON LOW POSITION, BED ALARM ON, CALL LIGHT WITHIN REACH. WILL CONTINUE TO MONITOR. Addendum: 08/07/18 at 0953 by Mariaelena Jauregui RN CLARIFICATION: PT IS ON 6L O2 VIA TRACH MASK.
[2018-08-07 08:00] VITALS: BP 146/91
--- NOTE | 2018-08-07 08:38 | NUR ---
FOLLOW UP EMILIANO GILLETTE [facility], LEFT MESSAGE. WILL FOLLOW UP.
[2018-08-07] MEDS: BRIMONIDINE TARTRATE 0.2% OP 5 ML BTL OP SCH ×2 (08:55→20:42)
[2018-08-07] MEDS: DORZOLAMIDE 2% OP 10 ML BTL OP SCH ×2 (08:56→20:42)
--- NOTE | 2018-08-07 09:40 | NUR ---
SON NAREN AT BEDSIDE. PT CONFIRMED THAT INFORMATION MAY BE SHARED WITH SON NAREN AND DAUGHTER JEREMI. ORAL CARE GIVEN. NO DISTRESS AT THIS TIME.
--- NOTE | 2018-08-07 10:39 | NUR ---
DOCTOR AT BEDSIDE, DISCUSSING SNF PLACEMENT AND DIAGNOSIS WITH PATIENT AND FAMILY.
--- NOTE | 2018-08-07 11:39 | NUR ---
Discharge Planning SW faxed clinical information to the following facilities: [facility] -[phone] [facility] - [phone] [facility] - [phone] [facility] - [phone] SW/CM will follow up as needed.
[2018-08-07 12:00] VITALS: BP 141/88
[2018-08-07] MEDS: LACTATED RINGERS 1,000 ML IV SCH ×3 (12:00→23:45)
[2018-08-07] MEDS: GAUZE TP SCH (13:38)
--- NOTE | 2018-08-07 15:36 | NUR ---
RECEIVED CALL FROM YARITZA FROM [facility]. PER YARITZA, SHE RECOMMENDS NEW FEEDING OF TWO CARMEN HN WITH GOAL RATE 40 ML/HR, START AT 20 ML/HR AND INCREASE BY 10 ML EVERY HOUR WITH 100ML WATER FLUSH Q6H.
[2018-08-07 16:00] VITALS: BP 124/83
--- NOTE | 2018-08-07 17:17 | NUR ---
PT NOTIFIED NURSE THAT HE ACCIDENTALLY SCRATCHED SKIN ON LEFT FOREHEAD. BROKEN SKIN WITH MINIMAL SEROUS DRAINAGE NOTED. CLEANSED AREA WITH NS, PATTED DRY WITH GAUZE, AND LEFT OPEN TO AIR.
--- NOTE | 2018-08-07 17:30 | NUR ---
PT'S SON NOTIFIED NURSE THAT [facility] DOCTOR WANTS TO SPEAK WITH DR. RICHARDSON REGARDING PT'S CHEMO SCHEDULE FOR THURSDAY 08/10. WILL ENDORSE TO ASSOCIATE DRAFTER NURSE.
--- NOTE | 2018-08-07 18:07 | NUR ---
GT feeding of Jevity 1.2 discontinued at this time. Current residual 50ml, abd soft. Initiated GT feeding of TwoCal HN @ 20ml/hr. Pt currently sitting upright in bed, watching videos in his tablet, no signs of distress, FLACC 0. Call light within reach. Will cont to monitor.
--- NOTE | 2018-08-07 19:00 | NUR ---
GT residual 0ml at this time. Pt resting in bed, awake, respirations even & nonlabored, no signs of aspiration, abd soft. GT feeding if TwoCal HN increased to 30ml/hr. Call light within reach.
--- NOTE | 2018-08-07 19:15 | NUR ---
RECEIVED BEDSIDE REPORT FROM DAY SHIFT NURSE. PATIENT IS AWAKE, ALERT, AND COOPERATIVE. RESPIRATION EVEN UNLABORED ON T-PIECE 4L. NO DISTRESS NOTED. SKIN IS WARM AND DRY. IV PATENT AND INTACT. PATIENT SPEAK TELUGU AND ABLE TO UNDERSTAND SOME CAMBODIAN. G-TUBE NOTED. BILATERAL LOWER EXTREMITY SKIN TEAR NOTED. PLAN OF CARE WAS DISCUSSED. ALL SAFETY MEASURES IN PLACE. BED IS AT LOW POSITION. CALL LIGHT WITHIN REACH. WILL CONTINUE TO MONITOR.
--- NOTE | 2018-08-07 19:15 | NUR ---
ENDORSED PT TO FILTER PULP WASHER NURSE FOR CONTINUITY OF CARE. NO SIGNS OF DISTRESS NOTED AT THIS TIME.
[2018-08-07 20:00] VITALS: BP 138/87
--- NOTE | 2018-08-07 20:00 | NUR ---
INITIAL ASSESSMENT DONE. VITALS WERE TAKEN. CHECKED G-TUBE RESIDUAL. OBTAINED 0CC. WILL CONTINUE TO MONITOR.
[2018-08-07] MEDS: LATANOPROST 0.005% OP 2.5 ML BTL OP SCH (20:42)
--- NOTE | 2018-08-07 21:00 | NUR ---
ALL SCHEDULED MEDS WERE GIVEN AND TOLERATED THEM WELL. WILL CONTINUE TO MONITOR.
--- NOTE | 2018-08-07 22:30 | NUR ---
PATIENT IN BED SLEEPING RESPIRATION EVEN UNLABORED ON 6L TRACH TO T-PIECE. NO DISTRESS NOTED. WILL CONTINUE TO MONITOR.
[2018-08-08] VITALS (12 sets, daily range): BP systolic 50–140; BP diastolic 31–90
--- NOTE | 2018-08-08 | NUR ---
VITALS WERE TAKEN. PATIENT CONDITION STABLE. NO DISTRESS NOTED. WILL CONTINUE TO MONITOR.
[2018-08-08] MEDS: VANCOMYCIN 750 MG in DEXTROSE 5% 250 ML IV SCH ×2 (01:57→13:35)
--- NOTE | 2018-08-08 02:00 | NUR ---
CHECKED PATIENT. PATIENT SLEEPING RESPIRATION EVEN UNLABORED ON 6L TRACH TO T-PIECE. NO DISTRESS NOTED. WILL CONTINUE TO MONITOR.
--- NOTE | 2018-08-08 04:00 | NUR ---
VITALS WERE TAKEN. PATIENT CONDITION STABLE. NO DISTRESS NOTED. WILL CONTINUE TO MONITOR.
--- NOTE | 2018-08-08 04:50 | NUR ---
RT AT BEDSIDE. PATIENT SUCTIONED OBTAINED SMALL AMOUNT OF SECRETION. WILL CONTINUE TO MONITOR.
--- NOTE | 2018-08-08 05:01 | NUR ---
SXN'D PT WITH 10 FR CATHETER USING STERILE TECHNIQUE. NO SOB OR DISTRESS AT THIS TIME. PT IS COMFORTABLE IN BED. PT DOES NOT WANT TRACH CARE NOW. WILL CONTINUE TO MONITOR.
[2018-08-08] MEDS: HYDROCORTISONE 10 MG TAB GT SCH ×3 (05:31→21:19)
[2018-08-08] MEDS: LEVOTHYROXINE 0.1 MG TAB GT SCH (05:31)
--- NOTE | 2018-08-08 06:24 | NUR ---
PATIENT WANTS TO TAKE OFF HIS INNER CANNULA TOLD HIM NOT TO AND WAIT FOR RT. PATIENT BECOME AGITATED AND PULLED OUT INNER CANNULA. RT CAME AND REPLACE INNER CANNULA. WILL CONTINUE TO MONITOR.
--- NOTE | 2018-08-08 07:15 | NUR ---
ENDORSED PATIENT TO DAY SHIFT NURSE. PATIENT IS STABLE AT THIS TIME
--- NOTE | 2018-08-08 07:30 | NUR ---
RECEIVED REPORT FROM SUSPENSION CORD TIER NURSE. PT AAOX4, NONVERBAL BUT ABLE TO MAKE NEEDS KNOWN BY POINTING AT REQUESTS. RESPIRATIONS EVEN AND UNLABORED ON O2 6L VIA TRACH MASK. PT ON DEBRIDGING MACHINE OPERATOR. BOWEL SOUNDS ACTIVE, GTUBE IN PLACE, NO RESIDUALS AT THIS TIME AND FLUSHING WELL, DRESSING CLEAN, DRY AND INTACT. TUBE FEEDING TWO CARMEN HN RUNNING PER ORDER. IV ON LT UPPER ARM 20 GA RUNNING IVF PER ORDER, DRESSING CLEAN, DRY AND INTACT. SKIN COLOR IS APPROPRIATE TO ETHNICITY, WARM TO TOUCH. SKIN TEAR TO BILATERAL LEGS NOTED WITH DRESSING CLEAN, DRY AND INTACT, AND TO LEFT FOREHEAD LEFT OPEN TO AIR. NO EDEMA NOTED. REVIEWED PLAN OF CARE WITH PT, PT NODDED TO SHOW UNDERSTANDING. WILL CONTINUE TO MONITOR.
[2018-08-08] MEDS: BRIMONIDINE TARTRATE 0.2% OP 5 ML BTL OP SCH ×2 (08:53→21:19)
[2018-08-08] MEDS: DORZOLAMIDE 2% OP 10 ML BTL OP SCH ×2 (08:53→21:20)
--- NOTE | 2018-08-08 09:00 | NUR ---
GIVEN MEDICATIONS PER ORDER. NO SIGNS OF DISTRESS AT THIS TIME.
--- NOTE | 2018-08-08 10:04 | NUR ---
PHYSICAL THERAPIST AT BEDSIDE, BP 50/31, HR 71. PT HAD SYNCOPAL EPISODE, PT IMMEDIATELY CALLED FOR NURSE. PT ASSISTED TO SUPINE POSITION IN BED WITH LEGS SLIGHTLY ELEVATED. G-TUBE FEEDING HELD. PT ALERT, ABLE TO COMMUNICATE NEEDS, STATES HE FEELS DIZZY. WILL MONITOR AND MEDICATE.
[2018-08-08] MEDS: MIDODRINE 5 MG TAB PO PRN (10:06)
--- NOTE | 2018-08-08 10:06 | NUR ---
MIDODRINE GIVEN PER ORDER. CURRENT BP 69/40, HR 75.
--- NOTE | 2018-08-08 10:38 | NUR ---
RECEIVED ORDERS FROM DR. RICHARDSON FOR NEURO CONSULT. LEFT VM WITH DR. POWERS.
--- NOTE | 2018-08-08 11:55 | NUR ---
RECEIVED A CALL FROM [facility], SHE PROVIDED THIS MARKETING INFORMATION ANALYST WITH LISTS OF FACILITY THAT ARE CONTRACTED WITH THEM. [facility] [phone], [facility] [phone], [facility] [phone], [facility] [phone] AND [facility] [phone]. CONTACTED [facility]IS [facility] AT [phone], SPOKE TO EMILIANO. HE STATED THEY CAN NOT ACCEPT THE PATIENT BECAUSE OF THE CHEMOTHERAPY. PER EMMA OF [facility] AT [phone], WILL REVIEW CLINICALS. PROVIDED ME OF FAX NUMBER [phone]. FAXED ALL CLINICALS. PER [facility] AT [phone], ADMISSIONS DEPT IS NOT AVAILABLE AT THIS TIME. SHE PROVIDED ME OF DIRECT NUMBER TO CONTACT [phone]. WILL FOLLOW UP. CONTACTED [facility] CARRO[facility] AT [phone] AND GOT TRANSFERRED TO ADMISSIONS DEPT, NO ANSWER, LEFT MESSAGE. WILL FOLLOW UP. CALLED [facility] AT [phone] SPOKE TO ELIZABETH, ASKED TO BE TRANSFERRED TO ADMISSIONS DEPT, NO ANSWER, MESSAGE LEFT. WILL FOLLOW UP.
[2018-08-08] MEDS: LACTATED RINGERS 1,000 ML IV SCH (12:15)
--- NOTE | 2018-08-08 12:15 | NUR ---
PER EMMA RAMESH AT [facility] [phone], THEY HAVE AN AVAILABLE BED AT THIS TIME, BUT STATED THAT WE NEED TO CONTACT THE FAMILY BECAUSE THEY REFUSED PREVIOUS REFERRAL. JOSIAH MADE AWARE.
--- NOTE | 2018-08-08 12:44 | NUR ---
SX LG THICK DARK YELLOW FAMILY BEDSIDE
--- NOTE | 2018-08-08 13:30 | NUR ---
CONTACTED [facility] OF [facility] AT [phone] REGARDING CHEMO THERAPY. SHE STATED INSURANCE WILL COVER CHEMO THERAPY.
[2018-08-08] MEDS: GAUZE TP SCH (13:35)
--- NOTE | 2018-08-08 13:48 | NUR ---
PER DUC RAMESH AT [facility] [phone], THEY CAN NOT ACCEPT THE PATIENT DUE TO CHEMOTHERAPY.
--- NOTE | 2018-08-08 13:55 | NUR ---
CONTACTED [facility]A CARROLL AT [phone], ABLE TO SPEAK TO NAI. SHE REQUESTED CLINICALS TO BE FAXED. ALL CLINICALS FAXED TO [phone].
--- NOTE | 2018-08-08 14:09 | NUR ---
Solar Installation Crew Supervisor Note: Unit Technician Katheryn and I met with patient and patient's son Nichelle at bedside to discuss patient's discharge plan. Per Nichelle, patient does not want to return to [facility] upon discharge because he stated room was too cold and it was too noisy. He also reported [facility] staff did not check to see if patient was okay. He told me nor patient or patient's family notified [facility] staff of their concerns. I explained to him facilities have been contacted and at this time there is no accepting facility. He reported patient was at [facility] in the past and also did not like care he received there. Nichelle told Katheryn and I he wanted a facility close to their home and reported [facility] is too far. I explained to him Unit Technician Katheryn has contacted facilities that are contracted with [facility] including some that are close to their home and some that are not. He verbalized understanding. I offered to contact server administrator from [facility] and ask him if he is able to meet with patient and patient's son Nichelle to discuss concerns. He agreed. I called and spoke with server administrator Kiya from [facility] he told me he was able to come in 15 minutes to meet with patient and patient's son Nichelle. Addendum: 08/08/18 at 1515 by Ayse Tong SS Per Susanne from [facility] , they cannot accommodate patient due to chemo. Per patient's son Nichelle, he spoke with server administrator Luis Angel from [facility] and Luis Angel told him patient they can accept patient. I left a message with Sia at [facility] for Luis Angel to please call me.
--- NOTE | 2018-08-08 14:30 | NUR ---
Son Nichelle is tearful & informs this nurse that he spoke with the oncologist at [facility], and they informed him that "they can't do anything for my dad anymore." Pt also aware of this news, & has informed Nichelle that he wants to keep fighting & they will get another opinion from a different doctor. Active listening provided & offered assistance as needed. Pt & family are thankful & states "we'll be ok."
--- NOTE | 2018-08-08 14:40 | NUR ---
Engineering Assistant from [facility] at bedside speaking with pt, spouse, & son. Pt currently resting on semifowlers in bed, respirations even & nonlabored, no signs of distress. Call light within reach.
--- NOTE | 2018-08-08 16:00 | NUR ---
Per [facility] pharmacist, vancomycin order is due for renewal. Spoke to Dr Horton on the phone re: vancomycin. Per , cont vancomycin per pharmacy dosing. Order noted.
--- NOTE | 2018-08-08 16:03 | NUR ---
08/08/18 INITIAL ASSESSMENT COMPLETED PLEASE REFER TO NUTRITION ASSESSMENT UNDER CARE ACTIVITY FOR ESTIMATED NUTRITIONAL NEEDS. CONTINUE TWO CARMEN HN AT 45 ML/HR -THIS WILL PROVIDE 2,160 KCAL, 90 MG OF PROTEIN AND 738 ML OF FREE WATER, WHICH MEETS 100% OF ESTIMATED NEEDS. 2. FREE WATER FLUSH [address] TO FOLLOW-UP 2-3 DAYS, HIGH RISK YARITZA SERRANO RD
[2018-08-08] MEDS ORDERED: VANCOMYCIN PER PHARMACY MC PRN (16:30)
--- NOTE | 2018-08-08 16:45 | NUR ---
ARRANGED TRANSPORT WITH DG HERNANDEZ WITH RT PROVIDED THE AUTH # [id number] AND PLACE IT WILL CALL NOTIFIED RONEY CHARGE NURSE
--- NOTE | 2018-08-08 17:35 | NUR ---
Received telephone order from Dr. Horton for CT Head w/o contrast for syncope. Order noted.
[2018-08-08] MEDS: ACETAMINOPHEN 325 MG TAB PO PRN (17:54)
--- NOTE | 2018-08-08 19:15 | NUR ---
RECEIVED BEDSIDE REPORT FROM DAY SHIFT NURSE. PATIENT IS AWAKE, ALERT, AND COOPERATIVE. FAMILY AT BEDSIDE. RESPIRATION EVEN UNLABORED ON T-PIECE 4L. NO DISTRESS NOTED. SKIN IS WARM AND DRY. IV PATENT AND INTACT. PATIENT SPEAK LUXEMBOURGISH AND ABLE TO UNDERSTAND SOME IRISH. G-TUBE NOTED. BILATERAL LOWER EXTREMITY SKIN TEAR NOTED. PLAN OF CARE WAS DISCUSSED. ALL SAFETY MEASURES IN PLACE. BED IS AT LOW POSITION. CALL LIGHT WITHIN REACH. WILL CONTINUE TO MONITOR.
--- NOTE | 2018-08-08 19:20 | NUR ---
ENDORESED PT TO FINANCIAL ADVISOR TRAINEE NURSE. PT HAS NO SIGNS OF DISTRESS AT THIS TIME.
--- NOTE | 2018-08-08 20:00 | NUR ---
INITIAL ASSESSMENT DONE. VITALS WERE TAKEN. OBTAINED 0CC RESIDUAL FORM G-TUBE. WILL CONTINUE TO MONITOR.
--- NOTE | 2018-08-08 20:24 | NUR ---
PT TRACH WITH PORTEX 8 ON COOL AEROSOL RESTING COMFORTABLY. NO ISSUES AT THIS TIME. WILL CONTINUE TO MONITOR THE PT
--- NOTE | 2018-08-08 21:00 | NUR ---
ALL SCHEDULED MEDS WERE GIVEN AND TOLERATING THEM WELL. WILL CONTINUE TO MONITOR.
[2018-08-08] MEDS: LATANOPROST 0.005% OP 2.5 ML BTL OP SCH (21:19)
--- NOTE | 2018-08-08 22:00 | NUR ---
TOOK PATIENT TO RADIOLOGY FOR CT-SCAN. NO DISTRESS NOTED. WILL CONTINUE TO MONITOR.
--- NOTE | 2018-08-08 23:30 | NUR ---
PATIENT ACCIDENTALLY PULLED HIS IV. NO ACTIVE BLEEDING NOTED. IV CANNULA INTACT. INSERTED NEW IV SITE TO LEFT FOREARM 24G. WILL CONTINUE TO MONITOR.
[2018-08-09] VITALS: BP 127/70
--- NOTE | 2018-08-09 | NUR ---
VITALS WERE TAKEN. PATIENT CONDITION STABLE. BP IS WITHIN THE NORMAL LIMITS. WILL CONTINUE TO MONITOR.
[2018-08-09] MEDS: LACTATED RINGERS 1,000 ML IV SCH ×2 (01:14→14:17)
[2018-08-09] MEDS ORDERED: VANCOMYCIN 750 MG in DEXTROSE 5% 250 ML IV SCH (02:00)
--- NOTE | 2018-08-09 02:00 | NUR ---
CHECKED PATIENT. PATIENT SLEEPING RESPIRATION EVEN UNLABORED ON TRACH TO T-PIECE. NO DISTRESS NOTED. WILL CONTINUE TO MONITOR.
[2018-08-09 04:00] VITALS: BP 124/75
[2018-08-09] MEDS: LEVOTHYROXINE 0.1 MG TAB GT SCH (05:38)
[2018-08-09] MEDS: HYDROCORTISONE 10 MG TAB GT SCH ×2 (05:38→13:28)
--- NOTE | 2018-08-09 07:28 | NUR ---
ENDORSED PATIENT TO DAY SHIFT NURSE. PATIENT IS STABLE AT THIS TIME.
[2018-08-09 08:00] VITALS: BP_SYST 113; BP_SYST 135; BP_SYST 71; BP_DIAS 43; BP_DIAS 69; BP_DIAS 89
--- NOTE | 2018-08-09 08:00 | NUR ---
PATIENT WAS AWAKE, ALERT. RESPIRATION EVEN, UNLABOR ON 28% VIA TRACH MASK. SKIN DRY AND WARM. IV PATENT AND INTACT. GTUBE DRY AND IN PLACE. ORTHOSTATIC WAS DONE PER ORDER. DENIED PAIN, SOB AT THIS TIME. PLAN OF CARE WAS DISCUSSED WITH PATIENT. BED AT LOW POSITION, SIDE RAILS UP. CALL LIGHT WITHIN REACH
--- NOTE | 2018-08-09 08:32 | NUR ---
CONTACTED LEO LARA AT [phone], ABLE TO SPEAK TO LUCIANO (SUPERVISOR HOUSECLEANER). SHE STATED [facility] ATTENDANT IS NOT IN YET, PROVIDED HER WITH PHONE NUMBER TO RETURN THE CALL. SHE STATED SHE WILL RELAY THE MESSAGE. WILL FOLLOW UP.
--- NOTE | 2018-08-09 08:34 | NUR ---
LATE ENTRY FOR 08/08/18: MET WITH PATIENT'S SON CASI AND DAUGHTER SHABNAM, MADE THEM AWARE THAT THERE IS ONE FACILITY ACCEPTING THE PATIENT WHICH IS [facility] IN [place]. THEY BOTH SAID "IT IS TOO FAR FOR US, WE LIVE IN [place]. WE WANT TO SEE HIM EVERYDAY." AND TA RAHMAN MADE THEM AWARE THAT THE CLOSEST FACILITY WHO IS WILLING TO ACCEPT THE PATIENT IS [facility], BUT THEY STATED THAT THEIR FATHER DO NOT WISH TO GO BACK THERE BECAUSE THE ROOM IS TOO NOISY AND IT HAS 3 BEDS AND IF [facility] CAN PROVIDE A PRIVATE ROOM THEY WILL CONSIDER RETURNING THERE. CALLED UTE DIAMOND SANDER OF [facility] AND MADE HIM AWARE OF FAMILY'S CONCERNS. HE STATED HE IS HAPPY TO MEET WITH THEM. PATIENT'S FAMILY MADE AWARE. [facility] DIAMOND SANDERUTE CAME TO MEET WITH PATIENT'S FAMILY. WHILE TALKING TO PATIENT'S SON CASI, CASI RECEIVED A PHONE CALL FROM THE PATIENT'S ONCOLOGIST REGARDING PATIENT'S CONDITION. PER PATIENT'S SON THE DOCTOR TOLD HIM THAT THEY WILL NOT DO CHEMOTHERAPY ANYMORE, BECAUSE THERE IS NOT MUCH THEY CAN DO.
[2018-08-09] MEDS: DORZOLAMIDE 2% OP 10 ML BTL OP SCH (09:49)
[2018-08-09] MEDS: BRIMONIDINE TARTRATE 0.2% OP 5 ML BTL OP SCH (09:50)
--- NOTE | 2018-08-09 10:00 | NUR ---
PATIENT WAS RESTING COMFORTABLY. RESPIRATION EVEN, UNLABOR ON TRACH COLLAR. NO DISTRESS NOTED AT THIS TIME. SUPPLY CHAIN DIRECTOR WAS AT BEDSIDE
--- NOTE | 2018-08-09 10:19 | NUR ---
SPOKE TO SHARRI (BRASS POURER) AT [facility] [phone], SHE STATED NO MALE SUBACUTE BEDS AT THIS TIME. WILL INFORM PATIENT'S FAMILY.
--- NOTE | 2018-08-09 10:43 | NUR ---
Sock Knitting Machine Operator Note: Late entry for 08/08/18: Servomechanism Designer Katheyrn and I met with patient and patient's son Nichelle at bedside. He stated he does not feel comfortable having patient transfer to a facility at this time because patient's blood pressure has not been stable. He expressed feeling upset and worried about patient because he received a phone call from patient's oncologist from [facility] and oncologist told Annabel there is nothing else they can do for patient regarding cancer. Hiteshtaty told us they (patient and patient's family) have been fighting against cancer for 3 years and he is not going to give up on patient. I provided counseling support during conversation. I explained to him that health insurance plan has right to bill patient for additional day or days patient remains in hospital after MD determines patient is medically stable and there is discharge order. Nichelle verbalized understanding. He once stated he does not think patient is medically stable to transfer to any a facility at this time. Applications Project Manager and/or Servomechanism Designer will continue to follow up as needed.
[2018-08-09 11:00] VITALS: BP_SYST 102; BP_SYST 127; BP_SYST 94; BP_DIAS 59; BP_DIAS 62; BP_DIAS 65
--- NOTE | 2018-08-09 11:56 | NUR ---
PATIENT WAS AWAKE, ALERT. RESPIRATION EVEN, UNLABOR ON 28% TRACH COLLAR. DENIED PAIN, SOB AT THIS TIME. NO DISTRESS NOTED. FAMILY AT BEDSIDE
[2018-08-09 12:00] VITALS: BP 112/69
[2018-08-09] MEDS: GAUZE TP SCH (13:28)
--- NOTE | 2018-08-09 13:30 | NUR ---
PATIENT WAS AWAKE, ALERT. FEEDING RESIDUAL WAS 0, PATIENT TOLERATED FEEDING WELL. MED WAS GIVEN PER ORDER. IVF WAS CHANGED. WOUND CARE WAS GIVEN, DRESSINGS WERE CHANGED PER ORDER. NO DISTRESS NOTED AT THIS TIME
[2018-08-09 13:34] LABS: ANION GAP 8.4 (8-16); CARBON DIOXIDE 32.6 mmol/L (21-32); CHLORIDE 99 mmol/L (98-107); CREATININE 0.7 mg/dL (0.7-1.3); GLUCOSE 114 mg/dL (74-106); SODIUM SERUM 136 mmol/L (136-145); UREA NITROGEN, BLOOD 15 mg/dL (7-18)
--- NOTE | 2018-08-09 13:45 | NUR ---
RECEIVED A CALL FROM ELEMENTARY SCHOOL MUSIC TEACHER MAMI, INFORMING THIS PATTERN MECHANIC THAT PATIENT HAD BEEN CLEARED BY NEUROLOGY. CONTACTED PATIENT'S SON CASI AT [phone], MADE HIM AWARE OF THE DC PLAN FOR TODAY. REMINDED HIM WELL THAT [facility] [place] THE PATIENT [place]. HE STATED "LET ME CALL MY OLDER BROTHER AND DISCUSS THE PLAN." WILL FOLLOW UP.
--- NOTE | 2018-08-09 14:37 | NUR ---
CONTACTED PATIENT'S SON CASI AT [phone] TO FOLLOW UP. HE STATED "MY SISTER SHABNAM WILL BE THERE, YOU CAN DISCUSS THINGS WITH HER. I AM IN [place] RIGHT NOW."
--- NOTE | 2018-08-09 15:00 | NUR ---
RECEIVED A CALL FROM [facility], SHE STATED THAT THEY HAVE A 2 BED ROOM AVAILABLE FOR PATIENT. PATIENT WILL GO TO ROOM 24A. PER KELLIE [facility] MAY USE THE SAME AUTHORIZATION FOR [facility] TRANSPORT. Addendum: 08/09/18 at 1603 by Katheryn Helm ADDITIONAL NOTES: ACCEPTING PHYSICIAN IS DOCTOR MIGUEL
--- NOTE | 2018-08-09 15:20 | NUR ---
SPOKE TO PATIENT'S SON AT BEDSIDE, INFORMED HIM THAT [facility] HAS A 2 BED ROOM AVAILABLE. HE IS AGREEABLE WITH TRANSFER.
[2018-08-09 16:00] VITALS: BP 123/71
--- NOTE | 2018-08-09 16:00 | NUR ---
PATIENT WAS AWAKE, ALERT. RESPIRATION EVEN, UNLABOR ON 28% TRACH. DENIED PAIN, SOB. NO DISTRESS NOTED AT THIS TIME
--- NOTE | 2018-08-09 16:01 | NUR ---
CALLED [facility] FOR TRANSPORT, SPOKE TO PRISCILLA. BEHAVIORAL THERAPIST WILL BE AT 1830, PRIMARY RN MADE AWARE.
--- NOTE | 2018-08-09 16:13 | NUR ---
MADE PATIENT'S FAMILY AWARE OF TRANSPORT PASTEURISER OPERATOR AT 1830, HE IS AGREEABLE. CHARGE NURSE DWAYNE MADE AWARE WELL.
--- NOTE | 2018-08-09 16:15 | NUR ---
DISCHARGE INSTRUCTION WAS GIVEN AND EXPLAINED TO PATIENT AND FAMILY, SON CHARLENE. FAMILY VERBALIZED UNDERSTANDING.
--- NOTE | 2018-08-09 16:29 | NUR ---
CALLED AND GAVE REPORT WITH JOANNA RN AT [facility]. FAMILY CHARLENE WAS MADE AWARE OF SUPERVISOR FISH HATCHERY TIME 630PM. FAMILY VERBALIZED UNDERSTANDING
--- NOTE | 2018-08-09 18:45 | NUR ---
REPORT WAS GIVEN TO EMT AT BEDSIDE. IV WAS REMOVED, CATHETER INTACT, NO ACTIVE BLEEDING SEEN. GTUBE IS PATENT AND INTACT. ALL BELONGINGS WERE TAKEN WITH THE FAMILY. PATIENT IS BEING TRANSFERRED TO [facility]. WOUND PICTURES WERE TAKEN. PATIENT IS STABLE AT THIS TIME
== END 2018-08-09 18:45 | DRG 204 ==
LOC: MED 16:08 → MTU 20:31 → OBSVTOIN 08-05 19:24
PROVIDERS: ADMIT Internal Medicine Pulmonary Disease; ATTEND Internal Medicine Pulmonary Disease
DX: I95.1 Orthostatic hypotension (principal); J96.21 Acute and chronic respiratory failure with hypoxia; E44.0 Moderate protein-calorie malnutrition; Z93.0 Tracheostomy status; Z99.81 Dependence on supplemental oxygen; R13.10 Dysphagia, unspecified; E27.40 Unspecified adrenocortical insufficiency; C32.1 Malignant neoplasm of supraglottis; G90.8 Other disorders of autonomic nervous system; I25.10 Atherosclerotic heart disease of native coronary artery without angina pectoris; I10 Essential (primary) hypertension; E03.9 Hypothyroidism, unspecified; H40.9 Unspecified glaucoma; Z92.21 Personal history of antineoplastic chemotherapy; Z79.899 Other long term (current) drug therapy; Z95.1 Presence of aortocoronary bypass graft; Z87.891 Personal history of nicotine dependence
CPT/HCPCS: 96361; 96374; 96375; 99285; G0378; 36415; 70450; 70490; 71045; 80048; 80053; 80202; 82948; 83735; 84439; 84443; 84484; 85025; 87081; 93005; 94640; 95816; 97110; 97116; 97161-GP; 97530; J2270; J2405; J3010; J3370; J7030; J7060; J7120; J7613; Q0092

== ENCOUNTER 2018-12-05 21:16 | Inpatient (IN) | payer OTHER, MEDICAID ==
[~2018-12-05] VITALS: Ht 175.3 cm; Wt 76.2 kg
[~2018-12-05 21:16] MED LIST: ATOR20TA GT; BRIM10DR2 OP; CIPR7.5S OT; CLOP75TA26 GT; DOCU-299 GT; DORZ10SO3 OP; HYDR-5092 GT; HYDR10TA1 GT; LACT10SO1 GT; LANS15EC28 PO; LEVO0.083 GT; NYST100022 PO; ONDA8TAB GT; XALOS OP; [UNRECOGNIZED DRUG - OTHER] PO
[2018-12-05 21:21] VITALS: BP 138/82
--- NOTE | 2018-12-05 21:35 | NUR ---
PT BIBA BLS FOR ABNORMAL LABS. HEMOGLOBIN 6.7 TODAY. PT SEEN AT [facility] TODAY FOR HYDRATION. PTS SON STATES THAT THE PTS LT ARM WAS SWOLLEN PRIOR TO HYDARTION. PT C/O CONSTANT HEAD PAIN AND WAS GIVEN A NORCO AT 2100. RR EVEN AND UNLABORED. PT ON 4L VIA T-TUBE. VSS. FAMILY AT BEDSIDE. MEDHX: ESOPHAGEAL CANCER, EPILEPSY ALLERGIES: DENIES
--- NOTE | 2018-12-05 22:07 | NUR ---
SON LEFT PHONE NUMBER, REQUESTS CALL FOR PT STATUS CHANGE. [facility]: [phone]
[2018-12-05] MEDS ORDERED: ASPI-1718 GT (22:31)
[2018-12-05] MEDS ORDERED: SYN.1 PO (22:32)
[2018-12-05 22:41] LABS: BASOPHILS % (AUTO) 0.1 % (0.0-2.0); EOSINOPHILS % (AUTO) 0.1 % (0.0-4.0); HEMATOCRIT 21.6 % (36-52); HEMOGLOBIN 7.5 g/dL (12.0-18.0); LYMPHOCYTES # (AUTO) 0.8 K/uL (2.0-11.5); LYMPHOCYTES % (AUTO) 24.5 % (20.5-51.1); MEAN CORPUSCULAR HEMOGLOBIN 36 pg (27-31); MEAN CORPUSCULAR HGB CONC 35 g/dL (33-37); MEAN CORPUSCULAR VOLUME 104.6 fL (80-94); MONOCYTES # (AUTO) 0.7 K/uL (0.8-1.0); MONOCYTES % (AUTO) 20.7 % (1.7-9.3); NEUTROPHILS # (AUTO) 1.9 K/uL (1.8-7.7); NEUTROPHILS % (AUTO) 54.6 % (42.2-75.2); PLATELET COUNT (AUTO) 180 K/uL (140-450); RED BLOOD CELL COUNT(AUTO) 2.07 MIL/uL (4.20-6.10); RED CELL DISTRIBUTION WIDTH 19.8 % (11.6-13.7); WHITE BLOOD COUNT (AUTO) 3.5 K/uL (4.8-10.8)
[2018-12-05 22:59] LABS: ALBUMIN 2.4 g/dL (3.4-5.0); ANION GAP 10.1 (8-16); ASPARTATE AMINOTRANSFERASE 23 U/L (15-37); CARBON DIOXIDE 29.7 mmol/L (21-32); CHLORIDE 82 mmol/L (98-107); CREATININE 0.5 mg/dL (0.7-1.3); GLUCOSE 126 mg/dL (74-106); POTASSIUM 3.8 mmol/L (3.5-5.1); TOTAL BILIRUBIN 0.5 mg/dL (0.0-1.0); UREA NITROGEN, BLOOD 15 mg/dL (7-18)
--- NOTE | 2018-12-05 23:00 | NUR ---
PT RESTING IN BED WITH EYES CLOSED. PT AROUSABLE TO NAME. GRAND DAUGHTER AT BEDSIDE. VSS AT THIS TIME. WILL CONTINUE TO MONITOR.
[2018-12-05 23:15] LABS: SODIUM SERUM 118 mmol/L (136-145)
[2018-12-05 23:19] LABS: PROTHROMBIN TIME 10.1 secs (10.8-13.4)
[2018-12-05] MEDS ORDERED: ATOR20TA PO (23:19)
--- NOTE | 2018-12-05 23:24 | NUR ---
DR ZAYAS AT BEDSIDE.
[2018-12-05] MEDS ORDERED: NACL 0.9% 1,000 ML IV ONE (23:30)
[2018-12-05] MEDS ORDERED: MORPHINE SULFATE 4 MG/ML SYR IVP PRN (23:30)
[2018-12-05] MEDS ORDERED: LORazepam 2 MG/ML VIAL IVP PRN (23:30)
[2018-12-05] MEDS ORDERED: ONDANSETRON 4 MG/2 ML VIAL IVP PRN (23:30)
[2018-12-06] MEDS ORDERED: NACL 0.9% 1,000 ML IV ONE
--- NOTE | 2018-12-06 00:20 | NUR ---
RECEIVED REPORT FROM ER NURSE. PATIENT IS AWAKE, TRACH TO T-PIECE 5L O2. ADMITTING DIAGNOSIS LOW HEMOGLOBIN. RESPIRATION EVEN UNLABORED ON TRACH TO T-PIECE 5L O2. SKIN IS WARM AND DRY. KRISTIAN/BLE BRUISES NOTED. IV PATENT AND INTACT. DENIES PAIN. HEART RATE REGULAR. S1&S2 NOTED. LUNGS SOUNDS CLEAR ON AUSCULTATION. BOWEL SOUNDS ACTIVE IN ALL 4 QUADRANTS. ABDOMEN SOFT AND NON-TENDER. G-TUBE NOTED. MRSA SCREEN DONE. ORIENT PATIENT TO THE ROOM, STAFF, AND CALL LIGHT. PLAN OF CARE WAS UP TO DATE. ALL SAFETY MEASURES IN PLACE. BED IS AT LOW POSITION. CALL LIGHT WITHIN REACH. WILL CONTINUE TO MONITOR.
--- NOTE | 2018-12-06 00:25 | NUR ---
Patient will be admitted to care of DR ZIMMER. Admited to TELE. Will go to room 107-B. Belongings list completed. Report to EMA GILLIAM.
--- NOTE | 2018-12-06 00:45 | NUR ---
PATIENT BP 168/[address] WORRELL, NO NEW ORDERS RECEIVED. WILL CONTINUE TO MONITOR.
--- NOTE | 2018-12-06 01:00 | NUR ---
INSERT FLEMING CATHETER 16FR. PATIENT TOLERATED IT WELL. YELLOW URINE DRAINING NOTED. COLLECTED URINE SPECIMEN FOR URINE OSMOLARITY, SODIUM, AND POTASSIUM. SEND URINE SPECIMEN TO THE LAB. WILL CONTINUE TO MONITOR.
[2018-12-06 01:35] VITALS: BP 168/107
[2018-12-06 01:37] LABS: ALBUMIN 2.6 g/dL (3.4-5.0); ANION GAP 9.1 (8-16); ASPARTATE AMINOTRANSFERASE 24 U/L (15-37); CARBON DIOXIDE 31.8 mmol/L (21-32); CHLORIDE 83 mmol/L (98-107); CREATININE 0.5 mg/dL (0.7-1.3); GLUCOSE 127 mg/dL (74-106); POTASSIUM 3.9 mmol/L (3.5-5.1); SODIUM SERUM 120 mmol/L (136-145); TOTAL BILIRUBIN 0.6 mg/dL (0.0-1.0); UREA NITROGEN, BLOOD 14 mg/dL (7-18)
--- NOTE | 2018-12-06 02:00 | NUR ---
I CALLED LAB AND F/U W/SEND URINE TO [facility] FOR NA URINE,K URINE AND OSMOLALITY.THEY DON'T FIND PERSON TO TAKE IT TO [facility].
--- NOTE | 2018-12-06 02:23 | NUR ---
CALLED LAB FOR FOLLOW UP WITH URINE SPECIMEN FOR NA, K, AND OSMOLALITY. AWAITING FOR WASHER REPAIRMAN SERVICE TO SEND URINE TO [facility].
--- NOTE | 2018-12-06 02:58 | NUR ---
TALKED W/RAY IN LAB SHE STATED THAT SHE CALLED [facility] BUT DIDN'T ANSWER.SO URINE STILL IS IN THE LAB.
[2018-12-06] MEDS: NACL 0.9% 500 ML IV SCH ×2 (03:00→12:01)
--- NOTE | 2018-12-06 03:29 | NUR ---
SAEID FROM LAB CALLED AND SAID THAT [facility] CALLED BACK AND THEY WILL SEND URINE TO [facility].I TOLD HER THAT TELL IT IS URGENT ORDER.SHE SAID SHE WILL CALL [facility] AND TELL THEM THAT ORDER IS URGENT.
[2018-12-06 04:00] VITALS: BP 156/104
--- NOTE | 2018-12-06 04:00 | NUR ---
VITALS WERE TAKEN. PATIENT IN STABLE CONDITION. NO DISTRESS NOTED. WILL CONTINUE TO MONITOR.
[2018-12-06 04:42] LABS: ALBUMIN 2.5 g/dL (3.4-5.0); ANION GAP 13.5 (8-16); ASPARTATE AMINOTRANSFERASE 24 U/L (15-37); CARBON DIOXIDE 27.1 mmol/L (21-32); CHLORIDE 83 mmol/L (98-107); CREATININE 0.4 mg/dL (0.7-1.3); GLUCOSE 121 mg/dL (74-106); POTASSIUM 3.6 mmol/L (3.5-5.1); SODIUM SERUM 120 mmol/L (136-145); TOTAL BILIRUBIN 0.6 mg/dL (0.0-1.0); UREA NITROGEN, BLOOD 13 mg/dL (7-18)
[2018-12-06 04:50] LABS: FREE T4 (FREE THYROXINE) 0.86 ng/dL (0.76-1.46); THYROID STIMULATING HORMONE 11.71 uIU/mL (0.34-3.74)
[2018-12-06] MEDS: HYDROCORTISONE NA SUCC 100 MG/2 ML VIAL IV SCH ×3 (05:37→20:48)
[2018-12-06] MEDS: LEVOTHYROXINE 0.075 MG TAB PO SCH (05:38)
--- NOTE | 2018-12-06 06:08 | NUR ---
SUCTIONED PATIENT. PATIENT IS IRRITATED AND WANTS TO TAKE OFF HIS INNER CANNULA TRACH. PAGED RT TWICE ALREADY. WILL CONTINUE TO MONITOR.
[2018-12-06 06:12] LABS: URINE SODIUM, RANDOM 27 mmol/l (40-220)
[2018-12-06 06:13] LABS: HEMATOCRIT 23.2 % (36-52); MEAN CORPUSCULAR HEMOGLOBIN 36 pg (27-31); MEAN CORPUSCULAR HGB CONC 34 g/dL (33-37); MEAN CORPUSCULAR VOLUME 105.4 fL (80-94); PLATELET COUNT (AUTO) 201 K/uL (140-450); RED CELL DISTRIBUTION WIDTH 19.8 % (11.6-13.7); WHITE BLOOD COUNT (AUTO) 4.7 K/uL (4.8-10.8)
[2018-12-06 06:13] LABS: POTASSIUM,URINE RANDOM 35 mmol/L (12-75)
--- NOTE | 2018-12-06 07:19 | NUR ---
ENDORSED PATIENT TO DAY SHIFT NURSE. PATIENT IN STABLE CONDITION.
--- NOTE | 2018-12-06 07:26 | NUR ---
Received report from turn out worker nurse. Pt sleeping in bed. No signs of distress noted. No C/O pain. Call light in reach. Trach intact. [id number]
[2018-12-06 08:00] VITALS: BP 150/80
--- NOTE | 2018-12-06 08:30 | NUR ---
Pt resting in bed, awake, no signs of distress. Right wrist IV intact with ongoing NS @ 70ml/h. Dr Albert arrived to see pt, gave verbal order to hold IVF. Order carried out. Right wrist IV on saline lock. Son & at bedside talking to physician re: POC.
--- NOTE | 2018-12-06 08:31 | NUR ---
PATIENT HAS BEEN SCREENED AND CATEGORIZED HIGH NUTRITION RISK. PATIENT WILL BE SEEN WITHIN 1-2 DAYS OF ADMISSION. 12/06/18-12/07/[address]
[2018-12-06] MEDS: ASPIRIN 81 MG TAB.CHEW PO SCH (08:52)
[2018-12-06] MEDS: CLOPIDOGREL 75 MG TAB GT SCH (08:52)
[2018-12-06] MEDS ORDERED: DORZOLAMIDE OP SCH (09:00)
[2018-12-06] MEDS ORDERED: BRIMONIDINE OP SCH (09:00)
[2018-12-06 09:03] LABS: ANION GAP 11.7 (8-16); CARBON DIOXIDE 28.6 mmol/L (21-32); CHLORIDE 84 mmol/L (98-107); CREATININE 0.4 mg/dL (0.7-1.3); GLUCOSE 109 mg/dL (74-106); POTASSIUM 3.3 mmol/L (3.5-5.1); SODIUM SERUM 121 mmol/L (136-145); UREA NITROGEN, BLOOD 12 mg/dL (7-18)
[2018-12-06 09:07] LABS: METAMYELOCYTES % 1 % (0-0); MYELOCYTES % 1 % (0-0)
[2018-12-06] MEDS: ENOXAPARIN 40 MG/0.4 ML SYR SUBQ SCH (09:08)
[2018-12-06 09:09] LABS: MONOCYTES % (MANUAL) 20 % (5-12)
[2018-12-06 09:11] LABS: LYMPHOCYTES % (MANUAL) 18 % (20-46)
--- NOTE | 2018-12-06 10:15 | NUR ---
CHANGE PTS MUSE, INNER CANNULA PORTEX 8
[2018-12-06 12:00] VITALS: BP 123/73
--- NOTE | 2018-12-06 12:42 | NUR ---
Spoke to Dr Lira on the phone & read back sodium, potassium & magnesium lab results. New orders received, noted & carried out.
[2018-12-06] MEDS ORDERED: MAG SULF 2000 MG/WATER PREMIX 100 ML IV ONE (12:45)
[2018-12-06 12:53] LABS: ANION GAP 13.1 (8-16); CARBON DIOXIDE 28.2 mmol/L (21-32); CHLORIDE 85 mmol/L (98-107); CREATININE 0.4 mg/dL (0.7-1.3); GLUCOSE 109 mg/dL (74-106); POTASSIUM 3.3 mmol/L (3.5-5.1); UREA NITROGEN, BLOOD 11 mg/dL (7-18)
[2018-12-06 13:08] LABS: SODIUM SERUM 123 mmol/L (136-145)
[2018-12-06] MEDS ORDERED: POTASSIUM CHLORIDE 20% 40 MEQ/15 ML UDC GT SCH (13:15)
--- NOTE | 2018-12-06 13:27 | NUR ---
12/06/18 RD INITIAL ASSESSMENT COMPLETED PLEASE REFER TO NUTRITION ASSESSMENT UNDER CARE ACTIVITY FOR ESTIMATED NUTRITIONAL NEEDS. 1. RECOMMEND VITAL 1.2 AF @ 75 ML/HR X 24 HR WITH FREE WATER FLUSH OF 115 ML Q4H -THIS WILL PROVIDE 1800 ML OF VOLUME, 2160 KCAL AND 135 GM OF PROTEIN. THIS MEETS 100% OF ESTIMATED NEEDS 2. RD TO FOLLOW-UP 2-3 DAYS, HIGH RISK YARITZA SERRANO RD
--- NOTE | 2018-12-06 15:30 | NUR ---
GT feeding of Vital AF 1.2 initiated @ 75ml/h as ordered. GT residual = 35ml prior to start. Abd soft, nondistended, bowel sounds active on all quads. HOB elevated @ 30. Call light within reach.
[2018-12-06 16:00] VITALS: BP 140/86
--- NOTE | 2018-12-06 16:30 | NUR ---
Pt resting in bed, watching TV. No signs of distress. Son & at bedside. Call light within reach.
[2018-12-06 17:15] LABS: ANION GAP 11.5 (8-16); CARBON DIOXIDE 28.7 mmol/L (21-32); CHLORIDE 88 mmol/L (98-107); CREATININE 0.5 mg/dL (0.7-1.3); GLUCOSE 114 mg/dL (74-106); POTASSIUM 4.2 mmol/L (3.5-5.1); SODIUM SERUM 124 mmol/L (136-145); UREA NITROGEN, BLOOD 10 mg/dL (7-18)
--- NOTE | 2018-12-06 19:15 | NUR ---
RECEIVED BEDSIDE REPORT FROM DAY SHIFT NURSE. PATIENT IS AWAKE AND ALERT. RESPIRATION EVEN UNLABORED ON TRACH TO T-PIECE. NO DISTRESS NOTED. SKIN IS WARM AND DRY. IV PATENT AND INTACT. FLEMING CATHETER DRAINING YELLOW URINE NOTED. G-TUBE FEEDING RUNNING AT 75CC/HR NOTED. PLAN OF CARE WAS DISCUSSED. ALL SAFETY MEASURES IN PLACE. BED IS AT LOW POSITION. CALL LIGHT WITHIN REACH. WILL CONTINUE TO MONITOR.
--- NOTE | 2018-12-06 19:30 | NUR ---
Report given to pm nurse George. Pt resting in bed, no signs of distress.
[2018-12-06 20:00] VITALS: BP 100/67
--- NOTE | 2018-12-06 20:00 | NUR ---
CHECKED G-TUBE RESIDUAL. OBTAINED 100CC. WILL CONTINUE TO MONITOR
--- NOTE | 2018-12-06 20:00 | NUR ---
INITIAL ASSESSMENT DONE. VITALS WERE TAKEN. PATIENT IS ASKING FOR SLEEPING AID. WILL PAGE
--- NOTE | 2018-12-06 20:04 | NUR ---
DR. DILLARD GAVE AN ORDER FOR 5MG AMBIEN PO PRN HS.
--- NOTE | 2018-12-06 20:45 | NUR ---
ALL SCHEDULED MEDS WERE GIVEN. ALSO ADMINISTERED PRN AMBIEN PER ORDER. PATIENT STATED HE WANTS TO SLEEP. WILL CONTINUE TO MONITOR.
[2018-12-06] MEDS: ATORVASTATIN 20 MG TAB GT SCH (20:48)
[2018-12-06] MEDS: ZOLPIDEM 5 MG TAB PO PRN (20:49)
--- NOTE | 2018-12-06 21:00 | NUR ---
DR. ARMIJO GAVE AN ORDER TO START PATIENT IV FLUIDS NS@100ML/HR FOR 500ML THEN DECREASED TO 75ML TOTAL OF 2L. MAINTAINED STRICT I&OS. Addendum: 12/07/18 at 0409 by George Kaminski RN DR. ARMIJO GAVE AN ORDER TO START PATIENT IV FLUIDS NS@100ML/HR FOR 500ML. THEN DECREASED NS RATE TO 75ML/HR GIVE 3 BAG FOR A TOTAL OF 1500ML.
[2018-12-06 21:29] LABS: ANION GAP 15.4 (8-16); CARBON DIOXIDE 24.5 mmol/L (21-32); CHLORIDE 87 mmol/L (98-107); CREATININE 0.6 mg/dL (0.7-1.3); GLUCOSE 159 mg/dL (74-106); POTASSIUM 3.9 mmol/L (3.5-5.1); SODIUM SERUM 123 mmol/L (136-145); UREA NITROGEN, BLOOD 13 mg/dL (7-18)
[2018-12-06] MEDS ORDERED: NACL 0.9% 500 ML IV SCH (22:00)
[2018-12-06] MEDS ORDERED: SODIUM CHLORIDE 1 GM TAB PO SCH (22:15)
--- NOTE | 2018-12-06 22:30 | NUR ---
SODIUM TAB IS NOT AVAILABLE ON THE FLOOR. ITS NOT GIVEN WILL ENDORSED TO DAY SHIFT NURSE.
[2018-12-07] VITALS (10 sets, daily range): BP systolic 90–129; BP diastolic 50–77
--- NOTE | 2018-12-07 00:11 | NUR ---
VITALS WERE TAKEN. PATIENT IN STABLE CONDITION. NO DISTRESS NOTED. WILL CONTINUE TO MONITOR.
--- NOTE | 2018-12-07 02:24 | NUR ---
CHECKED ON PATIENT. PATIENT SLEEPING RESPIRATION EVEN UNLABORED ON ROOM AIR. NO DISTRESS NOTED. WILL CONTINUE TO MONITOR.
--- NOTE | 2018-12-07 04:00 | NUR ---
FIRST 500ML OF NS BAG DONE. WILL ADMINISTERED ANOTHER BAG OF NS AT THE RATE OF 75ML/HR.
--- NOTE | 2018-12-07 04:10 | NUR ---
VITALS WERE TAKEN. PATIENT IN STABLE CONDITION. SUCTIONED PATIENT OBTAINED SMALL AMOUNT OF WHITE SECRETION. WILL CONTINUE TO MONITOR.
[2018-12-07] MEDS: NACL 0.9% 500 ML IV SCH ×2 (04:48→10:45)
[2018-12-07] MEDS: LEVOTHYROXINE 0.075 MG TAB PO SCH (05:40)
[2018-12-07] MEDS: HYDROCORTISONE NA SUCC 100 MG/2 ML VIAL IV SCH ×3 (05:40→20:25)
--- NOTE | 2018-12-07 05:54 | NUR ---
HANG G-TUBE FEEDING PATIENT TOLERATING IT WELL. CHECKED RESIDUAL OBTAINED 20CC. WILL CONTINUE TO MONITOR.
--- NOTE | 2018-12-07 06:40 | NUR ---
PATIENT WANTS TO BE SUCTIONED. SUCTIONED PATIENT OBTAINED SMALL AMOUNT OF SECRETION. PATIENT IS TRYING TO PULL OUT HIS INNER CANNULA. INSTRUCT HIM NOT TO PULL AND CALLED RT TO DO DEEP SUCTIONING.
--- NOTE | 2018-12-07 06:43 | NUR ---
PATIENT PULLED HIS INNER CANNULA. PLACED A NEW INNER CANNULA. NO DISTRESS NOTED. WILL CONTINUE TO MONITOR.
--- NOTE | 2018-12-07 06:45 | NUR ---
RT AT BEDSIDE SUCTIONING PATIENT NO DISTRESS NOTED.
[2018-12-07 06:53] LABS: ANION GAP 10.1 (8-16); CARBON DIOXIDE 29.7 mmol/L (21-32); CHLORIDE 90 mmol/L (98-107); CREATININE 0.6 mg/dL (0.7-1.3); GLUCOSE 194 mg/dL (74-106); POTASSIUM 3.8 mmol/L (3.5-5.1); SODIUM SERUM 126 mmol/L (136-145); UREA NITROGEN, BLOOD 21 mg/dL (7-18)
--- NOTE | 2018-12-07 06:59 | NUR ---
PATIENT WENT GRAY ON TELE MONITOR. WENT TO SEE PATIENT. PATIENT IS UNRESPONSIVE. WEAK PULSE. SPO2 85%. CALLED CODE DEMIAN.
--- NOTE | 2018-12-07 07:00 | NUR ---
CODE BLUE STARTED
--- NOTE | 2018-12-07 07:17 | NUR ---
CODE BLUE ENDED
--- NOTE | 2018-12-07 07:25 | NUR ---
TRANSFER PATIENT TO ICU
--- NOTE | 2018-12-07 07:30 | NUR ---
RECEIVED PATIENT TRANSFERRED FROM [facility], BEDSIDE REPORT OBTAINED, PT IS AAOX1, ABLE TO FOLLOW COMMANDS AND MAKE NEEDS KNOWN. VSS, DENIES PAIN, TRACH TO T-PIECE WITH FIO2 50, NO S/S OF DISTRESS, CLEAR LUNG SOUNDS FORREST. O2 SAT 96%, DENIES CHEST PAIN, A-FIB ON PERISHABLE FRUIT INSPECTOR, CAP REFILL <2 SEC, SOFT ABDOMEN WITH ACTIVE BOWEL SOUNDS, GT IN PLACE, PATENT, RUNNING VITAL AF AT 75ML/HR, NO RESIDUALS AT THIS TIME, INCONTINENT, FLEMING CATHETER IN PLACE WITH CLOUDY YELLOW URINE VIA GRAVITY, ABLE TO MOVE ALL EXTREMITIES, GENERALIZED WEAKNESS NOTED, IV SITE TO RIGHT WRIST 20GA, PATENT RUNNING NS AT 75 ML/HR, AFEBRILE, SKIN IS WARM AND DRY TO TOUCH, SKIN TEAR NOTED TO LEFT FOREARM, HOB ELEVATED TO 30 DEGREES, SAFETY MEASURES IN PLACE, CALL LIGHT WITHIN REACH, WILL CONTINUE TO MONITOR.
--- NOTE | 2018-12-07 07:40 | NUR ---
PAGE DR. WORRELL. AWAITING FOR HIS CALL.
--- NOTE | 2018-12-07 07:53 | NUR ---
call place to son twice [phone], phone no answer will endorsed to ICU to ff up.
--- NOTE | 2018-12-07 09:05 | NUR ---
PT'S SON CAME IN TO SEE PATIENT AT BEDSIDE, UPDATED PATIENT'S CONDITION, QUESTIONS ANSWERED.
[2018-12-07] MEDS: ASPIRIN 81 MG TAB.CHEW PO SCH (09:14)
[2018-12-07] MEDS: CLOPIDOGREL 75 MG TAB GT SCH (09:16)
[2018-12-07] MEDS: ENOXAPARIN 40 MG/0.4 ML SYR SUBQ SCH (09:18)
--- NOTE | 2018-12-07 09:30 | NUR ---
SCHEDULED MEDICATION GIVEN VIA GT, PT TOLERATED WELL.
--- NOTE | 2018-12-07 10:00 | NUR ---
NO S/S OF DISTRESS, VSS, PAIN TO MID CHEST, A-FIB ON CAUSTICS LOADER, NO CHANGES, PAIN MEDICATION GIVEN, WILL CONTINUE TO MONITOR.
--- NOTE | 2018-12-07 11:20 | NUR ---
DR. WORRELL CAME IN TO SEE PATIENT, UPDATED PATIENT'S CONDITION, WILL FOLLOW UP WITH NEW ORDERS
[2018-12-07] MEDS: MORPHINE SULFATE 2 MG/ML SYR IVP PRN ×2 (11:26→18:47)
--- NOTE | 2018-12-07 12:00 | NUR ---
PT RESTING IN BED, NO S/S OF DISTRESS, VSS, DENIES PAIN, POSITION CHANGED FOR OFF LOAD PRESSURE.
--- NOTE | 2018-12-07 14:00 | NUR ---
NO CHANGED OF CONDITION AT THIS TIME, VSS, DENIES PAIN. POSITION CHANGED FOR COMFORT.
[2018-12-07 14:14] LABS: BASOPHILS % (AUTO) 0.2 % (0.0-2.0); HEMATOCRIT 21.4 % (36-52); HEMOGLOBIN 7.3 g/dL (12.0-18.0); LYMPHOCYTES # (AUTO) 0.7 K/uL (2.0-11.5); LYMPHOCYTES % (AUTO) 9.1 % (20.5-51.1); MEAN CORPUSCULAR HEMOGLOBIN 36 pg (27-31); MEAN CORPUSCULAR HGB CONC 34 g/dL (33-37); MEAN CORPUSCULAR VOLUME 106.1 fL (80-94); MONOCYTES # (AUTO) 0.8 K/uL (0.8-1.0); MONOCYTES % (AUTO) 10.4 % (1.7-9.3); NEUTROPHILS # (AUTO) 6.3 K/uL (1.8-7.7); NEUTROPHILS % (AUTO) 80.3 % (42.2-75.2); PLATELET COUNT (AUTO) 210 K/uL (140-450); RED BLOOD CELL COUNT(AUTO) 2.02 MIL/uL (4.20-6.10); WHITE BLOOD COUNT (AUTO) 7.9 K/uL (4.8-10.8)
[2018-12-07 14:23] LABS: APPEARANCE,URINE CLEAR (CLEAR); BILIRUBIN,URINE NEGATIVE (NEGATIVE); BLOOD, URINE TRACE-I (NEGATIVE); COLOR,URINE YELLOW (YELLOW); LEUKOCYTE ESTERASE ,URINE NEGATIVE (NEGATIVE); NITRITE, URINE NEGATIVE (NEGATIVE); UGLUCOSE 3+ (NEGATIVE)
[2018-12-07] MEDS ORDERED: DEXTROSE 5% 1,000 ML IV ONE (14:35)
[2018-12-07] MEDS ORDERED: NACL 0.9% 1,000 ML IV SCH (14:55)
[2018-12-07 15:53] LABS: CARBON DIOXIDE 29.3 mmol/L (21-32); CHLORIDE 90 mmol/L (98-107); CREATININE 0.6 mg/dL (0.7-1.3); GLUCOSE 194 mg/dL (74-106); POTASSIUM 3.3 mmol/L (3.5-5.1); SODIUM SERUM 128 mmol/L (136-145); UREA NITROGEN, BLOOD 23 mg/dL (7-18)
--- NOTE | 2018-12-07 16:00 | NUR ---
PT IS RESTING IN BED, NO S/S OF DISTRESS, VSS, DENIES PAIN, PM CARE AND FLEMING CATHETER CARE AND ORAL CARE PROVIDED, PT TOLERATED WELL. POSITION CHANGED FOR OFF LOAD PRESSURE.
[2018-12-07] MEDS ORDERED: NACL 0.9% 200 ML IV ONE (16:15)
--- NOTE | 2018-12-07 16:15 | NUR ---
SPOKE TO DR. ARMIJO ABOUT PT'S HGB 7.3, NA 128, K 3.3, CARMEN 6.9, NEW ORDER OBTAINED.
[2018-12-07] MEDS ORDERED: CALCIUM GLUCONATE 10% 1,000 MG in NACL 0.9% 100 ML IV SCH (17:00)
--- NOTE | 2018-12-07 18:00 | NUR ---
PT IS RESTING IN BED, NO S/S OF DISTRESS, FAMILY MEMBERS AT BEDSIDE, VSS, DENIES PAIN, POSITION CHANGED FOR OFF LOAD PRESSURE.
[2018-12-07] MEDS: ZOLPIDEM 5 MG TAB PO PRN (18:47)
--- NOTE | 2018-12-07 19:25 | NUR ---
RECEIVED REPORT FROM AM NURSE, PT AT BED EYES CLOSED, BREATHING REGULARLY, TRACH TO TPS FIO2 30%, LUNG SOUNDS CLEAR THROUGHOUT, DIMINISHED AT BASES, HEART RATE REGULAR, S1S2 PRESENT, SINUS RHYTHM ON MONITOR, CAP REFILL <3S, PULSES 2+ BILATERAL UPPER AND LOWER EXTREMITIES, ABDOMEN, SOFT, ROUND, NONDISTENDED, NONTENDER, BOWEL SOUNDS ACTIVE IN ALL QUADRANTS, PT HAS GTUBE RUNNING VITAL AF 1.2 AT 70 ML/HR, NO WATER FLUSH, BLADDER, SOFT, ROUND, NONDISTENDED, NONTENDER, FLEMING CATHETER IN PLACE, DRAINING YELLOW URINE. PT HAS GENERALIZED WEAKNESS, PT SKIN NON INTACT, BILATERAL ECCHYMOSIS ON ANTERIOR FOREARM, SKIN TEAR ON LEFT ARM, TEGADERM IN PLACE, PT HAS RIGHT WRIST AT 20 GAUGE RUNNING NS AT 40 ML/HR. HOB 30 DEGREES, SIDE RAILS UP X2, BED AT LOWEST POSITION.
--- NOTE | 2018-12-07 19:26 | NUR ---
REPORT GIVEN TO TOOL PUSHER NURSE AT BEDSIDE FOR CONTINUE OF CARE, PT IS IN STABLE CONDITION AT THIS TIME.
[2018-12-07] MEDS: ATORVASTATIN 20 MG TAB GT SCH (20:24)
[2018-12-07] MEDS: BRIMONIDINE TARTRATE 0.2% OP 5 ML BTL OP SCH (20:28)
[2018-12-07] MEDS: DORZOLAMIDE 2% OP 10 ML BTL OP SCH (20:28)
[2018-12-07] MEDS: LATANOPROST 0.005% OP 2.5 ML BTL OP SCH (21:00)
--- NOTE | 2018-12-07 21:30 | NUR ---
ADMINISTERED MEDICATIONS, REPOSITIONED PT. PT TOLERATED PROCEDURE WELL.
--- NOTE | 2018-12-07 23:45 | NUR ---
PT AT BED EYES CLOSED, BREATHING REGULARLY, TRACH TO T PIECE. PT AT STABLE CONDITION AT THIS TIME.
[2018-12-08] VITALS (11 sets, daily range): BP systolic 91–136; BP diastolic 53–84
--- NOTE | 2018-12-08 02:00 | NUR ---
REPOSITIONED PT. PT AT BED EYES CLOSED, BREATHING REGULARLY, TRACH TO T PIECE. PT AT STABLE CONDITION AT THIS TIME.
[2018-12-08 06:29] LABS: HEMATOCRIT 22.7 % (36-52); HEMOGLOBIN 7.6 g/dL (12.0-18.0); MEAN CORPUSCULAR HEMOGLOBIN 36 pg (27-31); MEAN CORPUSCULAR HGB CONC 34 g/dL (33-37); MEAN CORPUSCULAR VOLUME 107.5 fL (80-94); PLATELET COUNT (AUTO) 236 K/uL (140-450); RED BLOOD CELL COUNT(AUTO) 2.11 MIL/uL (4.20-6.10); RED CELL DISTRIBUTION WIDTH 21.8 % (11.6-13.7)
[2018-12-08] MEDS: LEVOTHYROXINE 0.075 MG TAB PO SCH (06:31)
[2018-12-08] MEDS: HYDROCORTISONE NA SUCC 100 MG/2 ML VIAL IV SCH ×2 (06:31→22:09)
--- NOTE | 2018-12-08 07:08 | NUR ---
RECEIVE BEDSIDE REPORT FROM SAGR[employer] DATABASE ADMINISTRATION ASSOCIATE RN, FOR CONTINUITY OF CARE. PATIENT IS AAOX2, ABLE TO FOLLOW COMMANDS AND MAKE NEEDS KNOWN. PATIENT SKIN IS WARM, DRY, AFEBRILE, INTACT. PATIENT HAS T-PIECE, BREATHING EVEN AND UNLABORED. HE IS SR ON MONITOR, COMPLAINS OF ABD PAIN 7/10. PATIENT HAS GT IN PLACE TO FEEDING. HE HAS FLEMING CATHETER IN PLACE. HOB IS 30 DEGREES, SIDE RAILS UP 3X, BED LOCKED IN LOW POSITION. CALL LIGHT WITHIN REACH. NO SIGNS OF DISTRESS NOTED, WILL CONTINUE TO MONITOR.
[2018-12-08] MEDS: MORPHINE SULFATE 2 MG/ML SYR IVP PRN (08:07)
[2018-12-08] MEDS: CLOPIDOGREL 75 MG TAB GT SCH (08:07)
[2018-12-08] MEDS: ASPIRIN 81 MG TAB.CHEW PO SCH (08:07)
[2018-12-08] MEDS: BRIMONIDINE TARTRATE 0.2% OP 5 ML BTL OP SCH ×2 (08:21→22:13)
[2018-12-08] MEDS: ENOXAPARIN 40 MG/0.4 ML SYR SUBQ SCH (08:22)
[2018-12-08] MEDS: DORZOLAMIDE 2% OP 10 ML BTL OP SCH ×2 (08:22→21:00)
--- NOTE | 2018-12-08 08:34 | NUR ---
SCHEDULED MEDS GIVEN AND GAVE PRN MORPHINE 2MG IVP, PATIENT TOLERATED WELL
--- NOTE | 2018-12-08 09:16 | NUR ---
DR. ARMIJO IS HERE TO SEE PATIENT, UPDATED ON PATIENT'S CONDITION. WILL FOLLOW UP ON ANY ORDERS.
[2018-12-08 10:10] LABS: ANION GAP 7.8 (8-16); CARBON DIOXIDE 32.7 mmol/L (21-32); CHLORIDE 95 mmol/L (98-107); CREATININE 0.6 mg/dL (0.7-1.3); GLUCOSE 200 mg/dL (74-106); POTASSIUM 3.5 mmol/L (3.5-5.1); SODIUM SERUM 132 mmol/L (136-145); UREA NITROGEN, BLOOD 26 mg/dL (7-18)
[2018-12-08 11:22] LABS: LYMPHOCYTES % (MANUAL) 8 % (20-46); MONOCYTES % (MANUAL) 8 % (5-12)
--- NOTE | 2018-12-08 11:52 | NUR ---
DR. WORRELL IS HERE TO SEE AND EXAMINE PATIENT, UPDATED ON PATIENT'S CONDITION, WILL FOLLOW UP ON ANY ORDERS
--- NOTE | 2018-12-08 11:53 | NUR ---
DR. WORRELL SPOKE WITH PATIENT'S DAUGHTER ON THE PHONE
[2018-12-08] MEDS ORDERED: DOCUSATE 100 MG/10 ML UDC GT PRN (13:00)
--- NOTE | 2018-12-08 15:14 | NUR ---
12/08/18 RD FOLLOW UP COMPLETED PLEASE REFER TO NUTRITION ASSESSMENT UNDER CARE ACTIVITY FOR ESTIMATED NUTRITIONAL NEEDS. 1. RECOMMEND VITAL 1.2 AF @ 75 ML/HR X 24 HR WITH FREE WATER FLUSH OF 115 ML Q4H -THIS WILL PROVIDE 1800 ML OF VOLUME, 2160 KCAL AND 135 GM OF PROTEIN. THIS MEETS 100% OF ESTIMATED NEEDS 2. RD TO FOLLOW-UP 2-3 DAYS, HIGH RISK YARITZA SERRANO RD
--- NOTE | 2018-12-08 15:23 | NUR ---
TRANSFERRED PATIENT TO [facility] BED 107 B VIA BED, ACCOMPANIED BY FAMILY AND SHEET ROCK APPLICATOR. NO SIGNS OF DISTRESS NOTED. ENDORSED CONTINUITY OF CARE TO FARIBA RICE RN.
--- NOTE | 2018-12-08 15:30 | NUR ---
PT COUGHING, TRACH SUCTIONED, THICK GREEN SECRETIONS WITH SMALL BLOOD CLOTS, PT CONTINUES TO REQUEST SUCTIONING, PT REMOVED INNER CANNULA FROM TRACH, AND WANTS IT REPLACED, RT CALLED.
--- NOTE | 2018-12-08 15:45 | NUR ---
PT DEEP SUCTIONED BY RT, THICK SECRETION AND BLOOD CLOTS REMOVED, PT SATISFIED WITH RESULTS NOW.
--- NOTE | 2018-12-08 16:30 | NUR ---
PT SLEEPING QUIETLY IN NO ACUTE DISTRESS, PT REMAINS ON CONTINUOUS PULSE OX AND STATISTICS INTERN, SON, MARY AT BEDSIDE.
--- NOTE | 2018-12-08 17:47 | NUR ---
PT AWAKE ALERT, RESP EVEN UNLABORED, COMMUNICATING WITH SON APPROPRIATELY, REQUESTS SLEEP MEDICATION AT AROUND 7PM, PT DENIES PAIN, O2 SAT 95%, 30 %FIO2 TRACH TO VENT
--- NOTE | 2018-12-08 18:04 | NUR ---
[facility] ANNALEE HERNANDEZ [phone]
[2018-12-08] MEDS: ZOLPIDEM 5 MG TAB PO PRN (19:24)
--- NOTE | 2018-12-08 19:25 | NUR ---
REPORT GIVEN TO HARDENING MACHINE OPERATOR HELPER NURSE, PT IN STABLE CONDITION. RT AT BEDSIDE.
[2018-12-08] MEDS: ALBUTEROL 0.083% 2.5 MG/3 ML NEBU IH PRN (19:30)
--- NOTE | 2018-12-08 19:30 | NUR ---
RECIEVED REPORT FROM AM RN. PT AWAKE, MAKING GESTURES STATING HE WILL LIKE HIS PILL NOW, NURSE UNDERSTOOD BECAUSE SON TRANSLATED BEFORE LEAVING THE ROOM, PT WANTED HIS SLEEPING PILLS EARLY. PT IN NAD.
[2018-12-08] MEDS: ATORVASTATIN 20 MG TAB GT SCH (22:08)
[2018-12-08] MEDS: LATANOPROST 0.005% OP 2.5 ML BTL OP SCH (22:11)
--- NOTE | 2018-12-08 22:32 | NUR ---
LAVAGED AND SXNED PT VIA TRACH. PT HAD LG AMTS OF THICK BLOODY YELLOW SECRETIONS
--- NOTE | 2018-12-08 23:20 | NUR ---
MED PASS DONE. NSG SHIFT ASSESSMENT COMPLETED. PT SUCTIONED BY RESPIRATORY. AT PRESENT PATIENT ASLEEP, NAD NOTED.
[2018-12-09 04:20] VITALS: BP 133/73
--- NOTE | 2018-12-09 04:30 | NUR ---
PT AM CARE DONE. VS DONE, TUBE FEEDING NEW EXCHANGE COMPLETED, TOME SET ON NIGHT STAND. PT MADE GESTURES OF DIFFICULTY BREATHING, RESP CALLED FOR ASSESSMENT OF TRACHE. S/P SUCTIONING AND CANULA CHANGED OUT PT IS CALM, RESTING W/ HIS EYES CLOSED AFTER GESTURING WITH THUMBS UP.
--- NOTE | 2018-12-09 04:57 | NUR ---
0450 lavaged and sxned pt. trach care done. changed tie and gauze. patient has a red bloody trach and wound below trach.
[2018-12-09] MEDS: LEVOTHYROXINE 0.075 MG TAB PO SCH (06:11)
--- NOTE | 2018-12-09 07:34 | NUR ---
REPORT TO CLIFF BOO. PT REMAINS IN BED WITH CONTACT PRECAUTIONS. NAD NOTED. Addendum: 12/09/18 at 0737 by Agency Gabriel BOO RN ENTRY ERROR.... PT IS NOT ON CONTACT PRECAUTIONS
--- NOTE | 2018-12-09 07:34 | NUR ---
REPORT TO AM RN. PT W/ T PIECE TO FIO2 @30 %. NIGHT RESP. THERAPIST CLEANED AND CHANGED OUT CANNULA, AND NECK BAND. PT ASLEEP NAD NOTED.
--- NOTE | 2018-12-09 07:35 | NUR ---
RECEIVED REPORT FROM EMA FRANKLIN. PATIENT IN BED, T PIECE TO FIO2@ 30% INTACT. RESPIRATION EVEN AND UNLABORED. IV INTACT TO RIGHT WRIST 20G SL. GT FEEDING INFUSING AT 75ML/HR. NO ACUTE DISTRESS NOTED. WILL CONTINUE TO MONITOR. CALL LIGHT WITHIN REACH.
[2018-12-09] MEDS: ALBUTEROL 0.083% 2.5 MG/3 ML NEBU IH PRN (07:43)
[2018-12-09 08:00] VITALS: BP 110/65
[2018-12-09] MEDS: ASPIRIN 81 MG TAB.CHEW PO SCH (08:54)
[2018-12-09] MEDS: CLOPIDOGREL 75 MG TAB GT SCH (08:54)
[2018-12-09] MEDS: HYDROCORTISONE NA SUCC 100 MG/2 ML VIAL IV SCH (08:54)
[2018-12-09] MEDS: DORZOLAMIDE 2% OP 10 ML BTL OP SCH (08:59)
[2018-12-09] MEDS: BRIMONIDINE TARTRATE 0.2% OP 5 ML BTL OP SCH (08:59)
[2018-12-09] MEDS: ENOXAPARIN 40 MG/0.4 ML SYR SUBQ SCH (09:00)
--- NOTE | 2018-12-09 09:00 | NUR ---
AM MEDICATIONS GIVEN ORDERED VIA GT. GT IS PATENT AND INTACT. NOTED GT RESIDUAL 160ML. FEEDING ON HOLD. WILL MONITOR. PATIENT IS ALERT, AWAKE ORIENTED X2. TRACH INTACT. RESPIRATION EVEN AND UNLABORED. NO ACUTE DISTRESS NOTED. NOTED IV TO RIGHT WRIST NON PATENT. REINSERTED IV TO RIGHT FOREARM WITH 22G.
--- NOTE | 2018-12-09 11:40 | NUR ---
RECEIVED ORDERS FROM DR. GARVEY, PAT[place] [facility] [place] FAMILY AWARE.
--- NOTE | 2018-12-09 11:58 | NUR ---
CALLED SARWAT AT [facility] [place], PT CAN RETURN TO ROOM 24B AFTER 5PM, WILL ARRANGE [facility] FOR INSTRUMENT AND CONTROL TECHNICIAN AT 5PM.
[2018-12-09 12:00] VITALS: BP 95/51
--- NOTE | 2018-12-09 12:10 | NUR ---
SET UP PT'S TRANSPORTATION THRU [facility] WITH RT, SPOKE WITH BART, ETA WILL BE AT 1730 HRS. DWAYNE-RN MADE AWARE.
--- NOTE | 2018-12-09 12:25 | NUR ---
Matrix Drier Tender Note: I faxed patient's clinical information to [facility].
--- NOTE | 2018-12-09 12:30 | NUR ---
PCS FAXED TO [facility], CONFIRMATION ATTACHED TO CHART.
--- NOTE | 2018-12-09 13:30 | NUR ---
PATIENT C/O 5/10 HEADACHE, REQUESTED TO HAVE TYLENOL. PATIENT REFUSED MORPHINE FOR PAIN PRN. PAGED DR. GARVEY TIE IN HAND FOR DR. WORRELL FOR TYLENOL ORDERS.
--- NOTE | 2018-12-09 13:56 | NUR ---
I\L SX LARGE THICK YELLOW SECRETIONS , BEDSIDE
[2018-12-09 16:00] VITALS: BP 107/61
--- NOTE | 2018-12-09 16:00 | NUR ---
PATIENT C/O CONSTIPATION. COLACE GIVEN ORDERED. Addendum: 12/09/18 at 1740 by Tyler Perez RN DENIES PAIN AT THIS TIME.
--- NOTE | 2018-12-09 17:30 | NUR ---
AT BEDSIDE. PATIENT IS PICKED UP BY [facility] TO TRANSFER BACK TO [facility] [place]. ALL BELONGINGS GIVEN AND DISCHARGE INSTRUCTIONS.
[2018-12-25] MEDS ORDERED: MULT-1640 PO (16:34)
== END 2018-12-09 17:42 | DRG 641 ==
LOC: MED 21:16 → MTU 23:33 → MIC 12-07 07:31 → MTU 12-08 15:00
PROVIDERS: ADMIT Internal Medicine Pulmonary Disease; ATTEND Internal Medicine Pulmonary Disease
PROC: 5A12012 Performance of Cardiac Output, Single, Manual (ICD-10-PCS; principal; 2018-12-07)
DX: E87.1 Hypo-osmolality and hyponatremia (principal); E44.0 Moderate protein-calorie malnutrition; J96.10 Chronic respiratory failure, unspecified whether with hypoxia or hypercapnia; C32.1 Malignant neoplasm of supraglottis; D64.9 Anemia, unspecified; D89.9 Disorder involving the immune mechanism, unspecified; G90.9 Disorder of the autonomic nervous system, unspecified; R13.10 Dysphagia, unspecified; I25.10 Atherosclerotic heart disease of native coronary artery without angina pectoris; J45.909 Unspecified asthma, uncomplicated; G40.909 Epilepsy, unspecified, not intractable, without status epilepticus; E78.5 Hyperlipidemia, unspecified; N18.9 Chronic kidney disease, unspecified; E02 Subclinical iodine-deficiency hypothyroidism; Z79.82 Long term (current) use of aspirin; Z79.899 Other long term (current) drug therapy; Z95.1 Presence of aortocoronary bypass graft; Z93.0 Tracheostomy status; Z68.24 Body mass index [BMI] 24.0-24.9, adult; D63.0 Anemia in neoplastic disease
CPT/HCPCS: 36415; 80048; 80053; 81003; 82533; 82948; 83735; 83935; 84133; 84300; 84439; 84443; 84484; 85025; 85610; 85730; 86886; 86900; 86901; 87081; 94640; 99285; J0610; J1650; J1720; J2270; J3475; J7030; J7613

== ENCOUNTER 2018-12-18 05:40 | Inpatient (IN) | payer OTHER, MEDICAID ==
[~2018-12-18] VITALS: Ht 177.8 cm; Wt 72.6 kg
[~2018-12-18 05:40] MED LIST changes: +ASPI-1718 GT; +ATOR20TA PO; -LEVO0.083 GT; +SYN.1 PO
--- NOTE | 2018-12-18 05:40 | NUR ---
PT PREMA ALS. TAKEN TO BED 10
[2018-12-18 05:43] VITALS: BP 80/52
--- NOTE | 2018-12-18 05:44 | NUR ---
Dr. Baker examining patient.
[2018-12-18] MEDS ORDERED: NACL 0.9% 1,000 ML IV ONE (05:53)
[2018-12-18] MEDS ORDERED: MEROPENEM 500 MG in NACL 0.9% 100 ML IV ONE (05:55)
[2018-12-18] MEDS ORDERED: VANCOMYCIN 1,000 MG in DEXTROSE 5% 250 ML IV ONE (05:55)
--- NOTE | 2018-12-18 05:57 | NUR ---
78 Y/O MALE BIB AMBULANCE. PRESENTS TO ED WITH CHIEF COMPLAINT OF SOB. PER NATURAL FABRICATOR, PT WAS AT RETIREMENT ON 15L O2 VIA T-BAR BUT SPO2 WAS DECLINING TO 70%. ARRIVED TO ED AND PLACED ON 15L O2 AND SPO2 AT 94%. PT DENIES ANY CHEST PAIN. NO SIGNS OF RESPIRATORY DISTRESS. PT VSS. ERMD AWARE. WILL CONTINUE TO MONITOR.
[2018-12-18] MEDS ORDERED: MEROPENEM 1,000 MG VIAL IV ONE (06:00)
[2018-12-18] MEDS ORDERED: VANCOMYCIN 1,000 MG VIAL ONE (06:01)
[2018-12-18] MEDS ORDERED: PRO5 GT (06:02)
--- NOTE | 2018-12-18 06:13 | NUR ---
X-Ray at bedside.
[2018-12-18 06:21] LABS: BASOPHILS % (AUTO) 0.1 % (0.0-2.0); EOSINOPHILS % (AUTO) 0.1 % (0.0-4.0); HEMATOCRIT 33.5 % (36-52); LYMPHOCYTES # (AUTO) 0.4 K/uL (2.0-11.5); LYMPHOCYTES % (AUTO) 4.6 % (20.5-51.1); MEAN CORPUSCULAR HEMOGLOBIN 34 pg (27-31); MEAN CORPUSCULAR HGB CONC 33 g/dL (33-37); MEAN CORPUSCULAR VOLUME 102.1 fL (80-94); MONOCYTES # (AUTO) 0.8 K/uL (0.8-1.0); MONOCYTES % (AUTO) 9.2 % (1.7-9.3); NEUTROPHILS # (AUTO) 7.5 K/uL (1.8-7.7); PLATELET COUNT (AUTO) 263 K/uL (140-450); RED BLOOD CELL COUNT(AUTO) 3.28 MIL/uL (4.20-6.10); RED CELL DISTRIBUTION WIDTH 23.6 % (11.6-13.7); WHITE BLOOD COUNT (AUTO) 8.7 K/uL (4.8-10.8)
--- NOTE | 2018-12-18 06:45 | NUR ---
PERFORMED STRAIGHT CATHERIZATION 15FR WITH NETO RN. PT TOLERATED PROCEDURE. RECEIVED 100ML RETURN.
[2018-12-18 06:47] LABS: ALBUMIN 2.1 g/dL (3.4-5.0); ANION GAP 9.8 (8-16); ASPARTATE AMINOTRANSFERASE 21 U/L (15-37); CARBON DIOXIDE 33.2 mmol/L (21-32); CHLORIDE 94 mmol/L (98-107); CREATININE 0.7 mg/dL (0.7-1.3); GLUCOSE 155 mg/dL (74-106); PROTHROMBIN TIME 10.8 secs (10.8-13.4); SODIUM SERUM 133 mmol/L (136-145); TOTAL BILIRUBIN 0.5 mg/dL (0.0-1.0); UREA NITROGEN, BLOOD 25 mg/dL (7-18)
[2018-12-18 07:20] VITALS: BP 91/55
--- NOTE | 2018-12-18 07:20 | NUR ---
RECEIVED PT FROM ER NURSE, PT IS AWAKE AND FAMILY ON THE BEDSIDE, PT IS ON A TRACH TO T- TUBE AT 15L, SATURATING AT 96%, PERIPHERAL LINE ON THE RT FOOT G. 20 WITH VANCOMYCIN INFUSING AT 165ML/HR, VITAL SIGNS TAKEN AND IS STABLE, PT IS APHASIC WITH G-TUBE IN PLACE, , HAS A LEFT ARM SKIN TEAR, EDEMATOUS AND SACRAL REDNESS NOTED, NO SIGN OF DISTRESS NOTED AND WILL CONTINUE TO BE MONITORED
--- NOTE | 2018-12-18 07:20 | NUR ---
PT ADMITTED TO [facility] 112A. TRANSFERRED VIA [facility] WITH [facility] EMT; PT STABLE CONDITION. REPORT GIVEN TO CHRISTINA BOO. PT CARE TRANSFERRED TO RECEIVING RN.
--- NOTE | 2018-12-18 08:05 | NUR ---
PATIENT HAS BEEN SCREENED AND CATEGORIZED HIGH NUTRITION RISK. PATIENT WILL BE SEEN WITHIN 1-2 DAYS OF ADMISSION. 12/18/18-12/19/[address]
--- NOTE | 2018-12-18 08:19 | NUR ---
INFORMED DR. TELLO THAT PT'S BP IS 77/52, 77/46 AND MADE A TELEPHONE ORDER TO GIVE PT MIDODRINE 10MG PO Q8H, ORDER VERIFIED AND ACKNOWLEDGED AND WILL CARRY OUT ORDER.
[2018-12-18] MEDS ORDERED: MIDODRINE 5 MG TAB PO SCH (09:00)
--- NOTE | 2018-12-18 10:35 | NUR ---
MRSA SWAB DONE AND SAMPLE SENT TO LAB.
[2018-12-18 11:19] LABS: APPEARANCE,URINE CLEAR (CLEAR); BILIRUBIN,URINE NEGATIVE (NEGATIVE); BLOOD, URINE NEGATIVE (NEGATIVE); COLOR,URINE YELLOW (YELLOW); LEUKOCYTE ESTERASE ,URINE NEGATIVE (NEGATIVE); NITRITE, URINE NEGATIVE (NEGATIVE); PH,URINE 7.5 (5.0-9.0); UGLUCOSE TRACE (NEGATIVE)
[2018-12-18 11:31] LABS: RBC,URINE 0-5 /HPF (0-5); WBC,URINE 0-5 /HPF (0-5)
[2018-12-18 12:00] VITALS: BP 114/74
--- NOTE | 2018-12-18 12:43 | NUR ---
12/18/18 RD INITIAL ASSESSMENT COMPLETED PLEASE REFER TO NUTRITION ASSESSMENT UNDER CARE ACTIVITY FOR ESTIMATED NUTRITIONAL NEEDS. 1. CONTINUE NPO MEDICALLY NECESSARY 2. RECOMMEND VITAL AF 1.2 @ 75 ML/HR X 24 HOURS WITH FREE WATER FLUSH OF 35 ML/HR -THIS WILL PROVIDE 1800 ML OF VOLUME, 2160 KCAL, 135 GM OF PROTEIN WHICH WILL MEET 100% OF ESTIMATED NEEDS 3. RD TO FOLLOW-UP 2-3 DAYS, HIGH RISK YARITZA SERRANO, ROSA
--- NOTE | 2018-12-18 12:45 | NUR ---
PT IS ASLEEP AND CALM ON THE BED, NO SIGN OF DISTRESS NOTED.
[2018-12-18] MEDS: MIDODRINE 5 MG TAB PO SCH ×2 (13:12→21:49)
[2018-12-18 16:00] VITALS: BP 140/86
--- NOTE | 2018-12-18 19:15 | NUR ---
RECEIVED BEDSIDE REPORT FROM DAY SHIFT NURSE, DASHA. PT SLEEPING IN BED. PT IS ON A TRACH TO T- TUBE AT 15L, SATURATING AT 96%, IV SITE ON R FOOT 20G, PATENT, INTENT, ASYMPTOMATIC. PT IS APHASIC. G-TUBE IN PLACE, , HAS A LEFT ARM SKIN TEAR, EDEMATOUS AND SACRAL REDNESS NOTED, NO SIGN OF DISTRESS NOTED. ACCORDING TO DASHA, DR. TELLO ADMITTED PT BUT NO MEDICATION RECONCILE DONE. WILL CALL FOR MEDICATION ORDER. BOARD UPDATED, BED IN LOW POSITION, CALL LIGHT WITHIN REACH.
[2018-12-18 20:00] VITALS: BP 121/75
--- NOTE | 2018-12-18 20:00 | NUR ---
CALL DR. WORRELL, FOR MEDICATION ORDER; HOWEVER, HE DOES NOT WANT TO ORDER ANY MEDICATION D/T HE DOES NOT KNOW PATIENT. REPORTED TO CHARGE NURSE, ADAN. ACCORDING TO ADAN, IT IS ONLY WAY TO CONTACT DR. TELLO TO GET MEDICATION ORDER BUT DR. TELLO IS NOT AVAILABLE. SO NOTHING BUT WAIT UNTIL DR. TELLO IS AVAILABLE IN THE MORNING.
--- NOTE | 2018-12-18 21:49 | NUR ---
CHECK BP, 74/55, GIVEN MIDODRINE MD ORDERED. PT TOLERATED WELL. WILL CONTINUE TO MONITOR.
--- NOTE | 2018-12-18 23:59 | NUR ---
VS CHECKED, WITHIN PT'S BASELINE. BED IN LOW POSITION, CALL LIGHT WITHIN REACH.
[2018-12-19] VITALS: BP 126/79
--- NOTE | 2018-12-19 02:00 | NUR ---
PT PULLED T BAR, PT BREATHING LABORED WHILE RT ADJUSTED T BAR. PT BREATHING EVEN AND UNLABORED AFTER RT ADJUSTED T BAR. WILL CONTINUE TO MONITOR.
[2018-12-19 04:00] VITALS: BP 93/68
[2018-12-19] MEDS: MIDODRINE 5 MG TAB PO SCH (05:38)
--- NOTE | 2018-12-19 05:38 | NUR ---
BP 94/68, GIVEN MIDODRINE MD ORDERED. PT TOLERATED WELL, WILL CONTINUE TO MONITOR.
--- NOTE | 2018-12-19 05:41 | NUR ---
0120 found patients oxygen via trach t-piece off patient. patient must of pulled it off. patient was having respiratory distress. connected patient back to his oxygen via trach t-piece and gave him 100% fio2. patients sats improved and patient became less sob.
--- NOTE | 2018-12-19 05:46 | NUR ---
patient has no sob at this time. did trach care. patient has a large wound at trach site.sxned large amounts of thick yellow reddish secretions. changed cool aerosol water
--- NOTE | 2018-12-19 07:15 | NUR ---
ENDORSED PT TO DAY SHIFT NURSE, PT IN STABLE CONDITION.
--- NOTE | 2018-12-19 07:45 | NUR ---
RECEIVED HAND OFF REPORT FROM PM RN PT AWAKE IN BED PT APPEARS STABLE. TRACH TO T PIECE. SP02 MONITORING IN PLACE. GTUBE RUNNING. HEAD OF THE BED ELEVATED ABOVE 30 DEGREES, WILL CONTINUE TO MONITOR.
[2018-12-19 08:06] VITALS: BP 124/80
--- NOTE | 2018-12-19 08:10 | NUR ---
0840 PT TAKEN TO AND RETURNED FROM [facility] DECREASED FIO2 TO 40% AFTER ARRIVING TO ROOM WITH COOL AEROSOL FAMILY PRESENT
--- NOTE | 2018-12-19 08:20 | NUR ---
PT TAKEN OFF UNIT FOR CHEST CT. HALIE BOO WITH RADIOLOGY AND RT AT BEDSIDE. PT REMOVED FROM GTUBE. TRACH IN PLACE. PT ON TRANSPORT MONITORING.
--- NOTE | 2018-12-19 09:00 | NUR ---
PT RETURNED BACK TO THE UNIT. PT IS BACK ON TELE MONITORING PT IS TRACH TO T PIECE. PT AT BEDSIDE. ALL SAFETY MEASURES ARE IN PLACE PT HAS SP02 MONITORING IN PLACE WILL CONTINUE TO MONITOR PT
--- NOTE | 2018-12-19 10:15 | NUR ---
RADIOLOGIST AT BEDSIDE. WITH ULTRASOUND FOR ULTRASOUND GUIDED THORACENTESIS CONSENT IS SIGNED AND I WAS PRESENT FOR THE TIME OUT
[2018-12-19] MEDS ORDERED: LACTULOSE 20 GM/30 ML UDC GT PRN (10:50)
[2018-12-19] MEDS ORDERED: HYDROcodone/APAP 10/325 MG 1 TAB TAB GT PRN (10:50)
[2018-12-19] MEDS ORDERED: ONDANSETRON 4 MG TAB GT PRN (10:50)
--- NOTE | 2018-12-19 11:46 | NUR ---
FREQUENT ROUNDING ON PT PT APPEARS STABLE AND IN NO APPARENT DISTRESS. ALL SAFETY MEASURES ARE IN PLACE WILL CONTINUE TO MONITOR.
[2018-12-19] MEDS ORDERED: [UNRECOGNIZED DRUG - OTHER] PO SCH (12:00)
[2018-12-19 12:30] VITALS: BP 140/68
[2018-12-19] MEDS: NYSTATIN 500 MU/5 ML UDC GT SCH ×3 (12:59→23:58)
[2018-12-19] MEDS: MIDODRINE 5 MG TAB GT SCH ×2 (13:00→20:12)
[2018-12-19] MEDS ORDERED: DEXAMETHASONE OT SCH (13:00)
[2018-12-19] MEDS ORDERED: CIPROFLOXACIN HCL OT SCH (13:00)
[2018-12-19] MEDS ORDERED: MIDODRINE 5 MG TAB GT SCH (13:00)
--- NOTE | 2018-12-19 13:20 | NUR ---
FREQUENT ROUNDING ON PT PT APPEARS STABLE AND IN NO APPARENT DISTRESS. ALL SAFETY MEASURES ARE IN PLACE ALL SAFETY MEASURES ARE IN PLACE.
--- NOTE | 2018-12-19 13:26 | NUR ---
I\L SX PT MOD YELLOW AT BEDSIDE
--- NOTE | 2018-12-19 15:34 | NUR ---
FREQUENT ROUNDING ON PT PT APPEARS STABLE AND IN NO APPARENT DISTRESS. ALL SAFETY MEASURES ARE IN PLACE WILL CONTINUE TO MONITOR
[2018-12-19 15:47] LABS: APPEARANCE,SPUN,BODY FLUID CLEAR (CLEAR); APPEARANCE,UNSPUN,BODY FLUID CLEAR (CLEAR); COLOR,BODY FLUID LT YELLOW (LT YELLOW); GLUCOSE,BODY FLUID 148 mg/dL; SPECIMENTYPE,BODY FLUID THORACENTESIS; TOTAL VOLUME,BODY FLUID 1650 mL
[2018-12-19 16:48] VITALS: BP 120/81
--- NOTE | 2018-12-19 17:13 | NUR ---
FREQUENT ROUNDING ON PT PT APPEARS STABLE AND IN NO APPARENT DISTRESS. ALL SAFETY MEASURES ARE IN PLACE WILL CONTINUE TO MONITOR
[2018-12-19 17:39] LABS: RBC, BODY FLUID 244 /cu. mm.; WBC, BODY FLUID 0 /cu. mm.
--- NOTE | 2018-12-19 19:24 | NUR ---
ENDORSED PT TO PM RN PT APPEARS STABLE AND IN NO APPARENT DISTRESS. TRACH TO T PIECE GTUBE INFUSING HEAD OF BED ABOVE 30 DEGREES ALL SAFETY MEASURES ARE IN PLACE
--- NOTE | 2018-12-19 19:25 | NUR ---
RECEIVED BEDSIDE REPORT FROM DAY RN, PT IS AWAKE AND PT IS APHASIC UNDERSTANDS SOME ARABIC PRIMARILY THAI, PT IS ON A TRACH TO T- TUBE AT 10L, SATURATING AT 91%, RESPIRATIONS ARE EQUAL AND UNLABORED. PERIPHERAL LINE ON THE RT FOOT G. 20 SL. WITH G-TUBE IN PLACE, PT IS ON GLUCERNA AT 65/H FWF 100/Q6H. HOB ELEVATED. HAS A LEFT ARM SKIN TEAR, EDEMATOUS AND SACRAL REDNESS NOTED, NO SIGN OF DISTRESS NOTED. POC DISCUSSED WITH PT. CALL LIGHT IS WITHIN REACH AND WILL CONTINUE TO BE MONITORED.
--- NOTE | 2018-12-19 19:56 | NUR ---
RECEIVED PATIENT TRACH TO COOL AEROSOL AT 40% FIO2, PULSE OX SAT 93%. AIRWAY SECURE AND PATENT. SUCTIONED MODERATE AMOUNT OF THICK, YELLOW SECRETIONS. NO ACUTE RESPIRATORY DISTRESS NOTED AT THIS TIME. WILL CONTINUE TO MONITOR.
[2018-12-19 20:00] VITALS: BP 100/67
--- NOTE | 2018-12-19 20:12 | NUR ---
VSS B/P 100/67 HR 88 NACHO MEDICATION GIVEN PROAMATINE VIA G TUBE, PT TOLERATED WELL. NO RESIDUAL. CALL LIGHT IS WITHIN REACH. WILL CONTINUE TO MONITOR.
[2018-12-19] MEDS ORDERED: DORZOLAMIDE OP SCH (21:00)
[2018-12-19] MEDS ORDERED: NON-FORMULARY ITEM (Dorzolamide HCl/Timolol Maleat (Cosopt Eye Drops) 1 DROP) OP SCH (21:00)
[2018-12-19] MEDS ORDERED: LATANOPROST 0.005% OP 2.5 ML BTL OP SCH (21:00)
[2018-12-19] MEDS ORDERED: BRIMONIDINE OP SCH (21:00)
[2018-12-19] MEDS ORDERED: HYDROcodone/APAP 10/325 MG 1 TAB TAB ONE (21:27)
--- NOTE | 2018-12-19 21:29 | NUR ---
ADMINISTERED NORCO FOR PAIN VIA G TUBE PT TOLERATED WELL.
--- NOTE | 2018-12-19 22:30 | NUR ---
PT IS SLEEPING COMFORTABLY IN BED. NO S/S OF DISTRESS. CALL LIGHT IS WITHIN REACH. BELONGINGS ARE AT BEDSIDE WITHIN REACH. WILL ROUND FREQUENTLY
--- NOTE | 2018-12-19 23:58 | NUR ---
VITAL SIGNS ARE WITHIN NORMAL LIMITS. NACHO MEDICATION GIVEN VIA G TUBE. PT TOLERATED WELL. ALL NEEDS MET AT THIS TIME. WILL CONTINUE TO MONITOR.
[2018-12-20] VITALS: BP 115/73
--- NOTE | 2018-12-20 02:15 | NUR ---
PATIENT IS SLEEPING COMFORTABLY IN BED. NO S/S OF DISTRESS. WILL CONTINUE TO MONITOR.
--- NOTE | 2018-12-20 04:00 | NUR ---
PT IS SLEEPING COMFORTABLY IN BED. CHEST RISE AND FALL. ALL SAFETY MEASURES ARE IN PLACE. CALL LIGHT IS WITHIN REACH
[2018-12-20] MEDS: NYSTATIN 500 MU/5 ML UDC GT SCH ×2 (05:21→12:21)
[2018-12-20] MEDS: MIDODRINE 5 MG TAB GT SCH ×2 (05:21→12:20)
--- NOTE | 2018-12-20 05:21 | NUR ---
NACHO MEDICATIONS GIVEN PER ORDERS. ALL SAFETY MEASURES ARE IN PLACE. CALL LIGHT IS WITHIN REACH
[2018-12-20 05:25] VITALS: BP 108/73
--- NOTE | 2018-12-20 06:30 | NUR ---
NEW BAG OF GLUCERNA STARTED PER ORDERS AT 65ML/H FWF 100ML Q6H. PT TOLERATED WELL. ALL SAFETY MEASURES ARE IN PLACE.
[2018-12-20 07:16] LABS: HEMATOCRIT 34.3 % (36-52); HEMOGLOBIN 11.3 g/dL (12.0-18.0); MEAN CORPUSCULAR HEMOGLOBIN 33 pg (27-31); MEAN CORPUSCULAR HGB CONC 33 g/dL (33-37); MEAN CORPUSCULAR VOLUME 101.2 fL (80-94); PLATELET COUNT (AUTO) 270 K/uL (140-450); RED BLOOD CELL COUNT(AUTO) 3.39 MIL/uL (4.20-6.10); RED CELL DISTRIBUTION WIDTH 23.6 % (11.6-13.7)
--- NOTE | 2018-12-20 07:19 | NUR ---
GAVE BEDSIDE REPORT TO DAY RN. PT ENDORSED IN STABLE CONDITION.
[2018-12-20 07:23] LABS: ANION GAP 9.1 (8-16); CARBON DIOXIDE 32.9 mmol/L (21-32); CHLORIDE 95 mmol/L (98-107); CREATININE 0.6 mg/dL (0.7-1.3); GLUCOSE 132 mg/dL (74-106); SODIUM SERUM 133 mmol/L (136-145); UREA NITROGEN, BLOOD 18 mg/dL (7-18)
--- NOTE | 2018-12-20 07:40 | NUR ---
RECEIVED BEDSIDE REPORT FROM PM RN PT AWAKE IN BED PT APPEARS STABLE AND IN NO APPARENT DISTRESS. ALL SAFETY MEASURES ARE IN PLACE WILL WILL CONTINUE TO MONITOR. Addendum: 12/20/18 at 1020 by Nohemi Root RN PT GTUBE INFUSING AT 65ML/HR. PT HEAD OF THE BED ELEVATED ABOVE 30 DEGREES. PT TRACH TO T PIECE ALL SAFETY MEASURES ARE IN PLACE.
[2018-12-20] MEDS ORDERED: LEVOTHYROXINE 0.1 MG TAB GT SCH (08:00)
[2018-12-20] MEDS ORDERED: ASPIRIN 81 MG TAB.CHEW GT SCH (08:00)
[2018-12-20 08:45] VITALS: BP 119/71
[2018-12-20] MEDS ORDERED: HYDROCORTISONE 10 MG TAB GT SCH (09:00)
[2018-12-20] MEDS ORDERED: ATORVASTATIN 20 MG TAB GT SCH (09:00)
[2018-12-20] MEDS ORDERED: CLOPIDOGREL 75 MG TAB GT SCH (09:00)
[2018-12-20] MEDS ORDERED: LANSOPRAZOLE 30 MG CAPDR GT SCH (09:00)
[2018-12-20 09:14] LABS: LACTATE DEHYDROGENASE 216 IU/L (121-224)
--- NOTE | 2018-12-20 09:46 | NUR ---
FREQUENT ROUNDING ON PT PT APPEARS STABLE AND IN NO APPARENT DISTRESS. PT FAMILY AT BEDSIDE. TRACH TO T PIECE. GTUBE FEEDING INFUSING. HEAD OF BED ELEVATED ABOVE 30 DEGREES WILL CONTINUE TO MONITOR
--- NOTE | 2018-12-20 10:17 | NUR ---
unable to administer cortef at this time both pyxis are empty informed pharmacy attempted multiple times since 0800.
[2018-12-20 11:10] LABS: EOSINOPHILS % (MANUAL) 1 % (0-4); LYMPHOCYTES % (MANUAL) 18 % (20-46); MONOCYTES % (MANUAL) 2 % (5-12)
--- NOTE | 2018-12-20 11:51 | NUR ---
FREQUENT ROUNDING ON PT PT APPEARS STABLE AND IN NO APPARENT DISTRESS ALL SAFETY MEASURES ARE IN PLACE WILL CONTINUE TO MONITOR
--- NOTE | 2018-12-20 11:51 | NUR ---
REASON FOR EVALUATION: MULTIPLE WOUNDS SKIN ASSESSMENT DONE ON THIS 78 Y/O MALE PATIENT FROM SNF TO [facility], WITH INITIAL DIAGNOSIS OF SYNCOPE. PAST MEDICAL HISTORY INCLUDE SQUAMOUS CELL CARCINOMA LEFT LATERAL NECK. ALL ABOVE INFORMATION WAS OBTAINED FROM THE ADMISSION H&P. PATIENT IS AWAKE, ORIENTED TO PERSON, PLACE, DATE AND TIME. PT. WITH TRACH, GT. SKIN WARM TO TOUCH WNL, NO EDEMA, NO HAIR GROWTH, BLE ARE DRY AND FLAKY. PLAN OF CARE DISCUSSED WITH PRIMARY RN. AND PT. PT NOD HIS HEAD. INTEGUMENTARY: -UPPER EXTREMITIES WITH MULTIPLE ECCHYMOSIS AND THIN FRAGILE SKIN -MULTIPLE SKIN TEARS TO BILATERAL UPPER EXTREMITIES LEFT ARM, RIGHT ELBOW, AND WITH LARGEST T O LEFT FOREARM 3X0.5CM SKIN FLAPPED AND STERIL STRIPS IN PLACE, WOUND BEDS ARE PINK AND MOIST, NO ODOR, NO S/S OF INFECTION, ROBERT WOUND SKIN INTACT -LEFT LATERAL NECK SQUAMOUS CELL CARCINOMA LESIONS 2X7CM, WOUND BED YELLOW AND BROWN, SMALL AMOUNT PURULENT DRAINAGE WITH MILD ODOR, ROBERT-WOUND SKIN INTACT. -BLANCHABLE REDNESS TO SACRALCOCCYX SKIN INTACT -TRACH STOMA SITE ROBERT-SKIN CLEAN AND INTACT RECOMMENDATIONS: -CLEANSE MULTIPLE SKIN TEAR TO LEFT FOREARM AND RIGHT ELBOW WITH NS, PAT DRY, APPLY STERI-STRIPS PRN WITH SOILING. CLEANSE LEFT LATERAL NECK CARCINOMA LESIONS WITH NS, PAT DRY, APPLY ALGINATE DRESSING AND COVER WITH DRY DRESSING PRN IF SOILING -APPLY OPTIC FOAM TO SACRALCOCCYX Q5D AND PRN IF SOILING -ENCOURAGE AND ASSIST PT TO TURN AND REPOSITION PATIENT Q 2H -ASSESS AND MONITOR SKIN CONDITION DURING POSITION CHANGE -OFFLOAD BILATERAL HEELS BY PLACING PILLOWS UNDER CALVES AT ALL TIMES, UNLESS OTHERWISE CONTRAINDICATED -PRESSURE REDISTRIBUTION SURFACE THERAPY -KEEP SKIN CLEAN AND DRY AT ALL TIMES. RECOMMENDATIONS DISCUSSED WITH PRIMARY RN
[2018-12-20] MEDS ORDERED: DRY DRESSING TP PRN (11:55)
[2018-12-20] MEDS ORDERED: ALGINATE ROPE TP PRN (11:55)
[2018-12-20 12:34] VITALS: BP 104/61
--- NOTE | 2018-12-20 13:17 | NUR ---
FREQUENT ROUNDING ON PT PT APPEARS STABLE AND IN NO APPARENT DISTRESS. ALL SAFETY MEASURES ARE IN PLACE WILL CONTINUE TO MONITOR
--- NOTE | 2018-12-20 13:53 | NUR ---
12/20/18 RD FOLLOW UP COMPLETED PLEASE REFER TO NUTRITION ASSESSMENT UNDER CARE ACTIVITY FOR ESTIMATED NUTRITIONAL NEEDS. 1. CONTINUE GLUCERNA 1.2 @ 65 ML/HR X 24 HR -THIS WILL PROVIDE 1560 ML, 1872 KCAL, AND 93 GM OF PROTEIN WHICH WILL MEET 100% OF ESTIMATED NEEDS 2. CONTINUE FREE WATER FLUSH [address] TO FOLLOW-UP 2-3 DAYS, HIGH RISK YARITZA SERRANO RD
--- NOTE | 2018-12-20 15:02 | NUR ---
PTS FAMILY WANTS PT TO SLEEP NO TRACH DONE
--- NOTE | 2018-12-20 15:22 | NUR ---
PAGED DR. TELLO ABOUT RESULT OF LEFT UPPER EXTREMITY ULTRASOUND
--- NOTE | 2018-12-20 16:24 | NUR ---
SPOKE WITH DR. TELLO VIA PHONE INFORMED HIM ABOUT US VENOUS LEFT UPPER EXTREMITY IMPRESSION: OCCULSIVE THROMBUS IN LEFT AXILLARY VEIN. PARTIAL OCCULSIVE THROMBUS IN LEFT (A) MID SUBCLAVIAN VEIN (B) PROXIMAL BASILIC VEIN RECEIVED TORB ORDER
[2018-12-20 16:45] VITALS: BP 95/62
--- NOTE | 2018-12-20 17:03 | NUR ---
DISCHARGE PLANNING : PT IS RETURNING TO [facility] ROOM NUMBER [id number] ARRANGED TRANSPORT WITH [facility] BU[facility]FORMAN[facility] SPECIALIST TIME WITH IN 60 MINUTES
[2018-12-20 17:25] VITALS: BP 95/64
[2018-12-20] MEDS ORDERED: APIX2.5 PO (17:31)
[2018-12-20] MEDS ORDERED: APIX2.5 GT (17:31)
--- NOTE | 2018-12-20 17:45 | NUR ---
called pt hair sellers is aware of [facility] called gave report removed iv. Addendum: 12/20/18 at 1748 by Nohemi Root RN gave report to praneeth saenz
[2018-12-20] MEDS ORDERED: APIXABAN 2.5 MG TAB PO SCH (21:00)
[2018-12-23 06:38] LABS: LD1 FRACTION 21 % (17-32); LD2 FRACTION 36 % (25-40); LD3 FRACTION 21 % (17-27); LD4 FRACTION 13 % (5-13); LD5 FRACTION 9 % (4-20)
[2018-12-25] MEDS ORDERED: MULT-1640 PO (16:34)
== END 2018-12-20 17:50 | DRG 146 ==
LOC: MED 05:40 → MTU 06:39
PROVIDERS: ADMIT Internal Medicine Pulmonary Disease; ATTEND Internal Medicine Pulmonary Disease
PROC: 0W9B3ZZ Drainage of Left Pleural Cavity, Percutaneous Approach (ICD-10-PCS; principal; 2018-12-18)
DX: C32.1 Malignant neoplasm of supraglottis (principal); J96.21 Acute and chronic respiratory failure with hypoxia; J69.0 Pneumonitis due to inhalation of food and vomit; E44.0 Moderate protein-calorie malnutrition; J98.11 Atelectasis; J91.8 Pleural effusion in other conditions classified elsewhere; E03.9 Hypothyroidism, unspecified; E78.5 Hyperlipidemia, unspecified; I10 Essential (primary) hypertension; I25.10 Atherosclerotic heart disease of native coronary artery without angina pectoris; J45.909 Unspecified asthma, uncomplicated; R13.10 Dysphagia, unspecified; Z85.21 Personal history of malignant neoplasm of larynx; Z93.1 Gastrostomy status; Z92.21 Personal history of antineoplastic chemotherapy; Z95.1 Presence of aortocoronary bypass graft; Z93.0 Tracheostomy status; Z79.82 Long term (current) use of aspirin; Z79.899 Other long term (current) drug therapy; Z68.23 Body mass index [BMI] 23.0-23.9, adult
CPT/HCPCS: 36415; 36600; 71045; 71250; 76604; 76942; 80048; 80053; 81001; 82803; 82945; 83605; 83625; 84157; 85025; 85610; 85730; 87040; 87070; 87081; 87086; 87186; 87205; 88305; 88313; 88342; 89051; 93005; 93971; 96365; 99291; A4649; C1758; J2001; J2185; J3370; Q0092

== ENCOUNTER 2018-12-25 14:09 | Emergency (ER) | payer OTHER, MEDICAID ==
[~2018-12-25] VITALS: Ht 180.3 cm; Wt 83.9 kg
[~2018-12-25 14:09] MED LIST changes: +APIX2.5 GT; -ATOR20TA PO; +LANS15EC28 GT; -LANS15EC28 PO; +PRO5 GT
[2018-12-25 14:13] VITALS: BP 107/66
--- NOTE | 2018-12-25 14:13 | NUR ---
[place] [facility] 1. RN evaluating patient at bedside.
[2018-12-25] MEDS ORDERED: TETRACAINE HCL/PF 0.5% OPTH 4 ML BTL OP ONE (14:20)
[2018-12-25] MEDS ORDERED: FLUORESCEIN OPTH STRIP 1 MG OP ONE (14:20)
[2018-12-25] MEDS ORDERED: NACL 0.9% 1,000 ML IV ONE (14:40)
--- NOTE | 2018-12-25 15:09 | NUR ---
PT BIBA WITH C/O 4 SEIZURES TODAY AT FACILITY [facility]. FAMILY REPORTS LAST SEIZURE LASTED 1.5 MINUTES. PT REPORTS BODYACHES AND SAYS THAT HE IS "SORE", PT RATES PAIN 4/10 AT THIS TIME. PT IS NONVERBAL AND IS ON 5L O2 VIA TRACH. PEERL 3MM BRISK. BILATERAL MOTOR STRENGTH NORMAL. SEIZURE PADS IN PLACE. FAMILY AT BEDSIDE. PT POSITIONED FOR COMFORT. ER MD AWARE OF PT STATUS. NKA HX: HTN, THROAT CANCER RX: FAMILY IS UNABLE TO RECALL AT THIS TIME.
[2018-12-25 15:59] LABS: BASOPHILS % (AUTO) 0.2 % (0.0-2.0); EOSINOPHILS % (AUTO) 0.3 % (0.0-4.0); HEMATOCRIT 32.2 % (36-52); HEMOGLOBIN 10.7 g/dL (12.0-18.0); LYMPHOCYTES # (AUTO) 0.6 K/uL (2.0-11.5); LYMPHOCYTES % (AUTO) 8.4 % (20.5-51.1); MEAN CORPUSCULAR HEMOGLOBIN 34 pg (27-31); MEAN CORPUSCULAR HGB CONC 33 g/dL (33-37); MEAN CORPUSCULAR VOLUME 102.6 fL (80-94); MONOCYTES # (AUTO) 0.5 K/uL (0.8-1.0); MONOCYTES % (AUTO) 7.1 % (1.7-9.3); NEUTROPHILS # (AUTO) 6.2 K/uL (1.8-7.7); PLATELET COUNT (AUTO) 258 K/uL (140-450); RED BLOOD CELL COUNT(AUTO) 3.13 MIL/uL (4.20-6.10); RED CELL DISTRIBUTION WIDTH 23.8 % (11.6-13.7); WHITE BLOOD COUNT (AUTO) 7.4 K/uL (4.8-10.8)
--- NOTE | 2018-12-25 16:10 | NUR ---
Right upper chest port a cath accessed in x1 attempt utilizing sterile technique. Pt tolerated procedure well.
[2018-12-25 16:11] LABS: ANION GAP 10.2 (8-16); CARBON DIOXIDE 30.6 mmol/L (21-32); CHLORIDE 95 mmol/L (98-107); CREATININE 0.6 mg/dL (0.7-1.3); GLUCOSE 135 mg/dL (74-106); POTASSIUM 4.8 mmol/L (3.5-5.1); SODIUM SERUM 131 mmol/L (136-145); UREA NITROGEN, BLOOD 24 mg/dL (7-18)
--- NOTE | 2018-12-25 16:14 | NUR ---
BP 89/61. ER MD COREY MADE AWARE. NO NEW ORDERS, WILL CONTINUE TO MONITOR.
[2018-12-25 16:18] LABS: ALBUMIN 2.1 g/dL (3.4-5.0); ASPARTATE AMINOTRANSFERASE 34 U/L (15-37); TOTAL BILIRUBIN 0.8 mg/dL (0.0-1.0)
--- NOTE | 2018-12-25 16:27 | NUR ---
FAMILY MEMBER CONTACT INFO: TIFFANY [phone]
[2018-12-25] MEDS ORDERED: MULT-1640 GT (16:34)
[2018-12-25] MEDS ORDERED: MAGN400T7 GT (16:34)
[2018-12-25] MEDS ORDERED: MAGN400S60 GT (16:40)
[2018-12-25] MEDS ORDERED: ACET-2619 GT (16:40)
[2018-12-25] MEDS ORDERED: NA P133E RC (16:40)
[2018-12-25] MEDS ORDERED: BISA-213 RC (16:40)
--- NOTE | 2018-12-25 17:34 | NUR ---
REPORT CALLED TO NURSE FRAUSTO AT [facility] AT [phone].
--- NOTE | 2018-12-25 17:42 | NUR ---
RESPIRATORY AT BEDSIDE.
--- NOTE | 2018-12-25 18:41 | NUR ---
Patient discharged with v/s stable. Written and verbal after care instructions given and explained. Patient verbalized understanding. Ambulatory with steady gait. All questions addressed prior to discharge. Advised to follow up with PMD.
[2018-12-25 18:42] VITALS: BP 107/66
== END 2018-12-25 18:41 ==
LOC: MED 14:09
DX: R56.9 Unspecified convulsions (principal); E03.9 Hypothyroidism, unspecified; J45.909 Unspecified asthma, uncomplicated; Z95.1 Presence of aortocoronary bypass graft; Z85.09 Personal history of malignant neoplasm of other digestive organs; Z79.82 Long term (current) use of aspirin; Z79.899 Other long term (current) drug therapy
CPT/HCPCS: 36415; 80053; 85025; 99283; J7030

== ENCOUNTER 2018-12-28 07:52 | Inpatient (IN) | payer OTHER, MEDICAID ==
[~2018-12-28] VITALS: Ht 180.3 cm; Wt 68.0 kg
[2018-12-28 07:52] VITALS: BP 135/115
[~2018-12-28 07:52] MED LIST changes: +ACET-2619 GT; +BISA-213 RC; -DORZ10SO3 OP; -LANS15EC28 GT; +LANS15EC28 PO; +MAGN400S60 GT; +MAGN400T7 GT; +MULT-1640 PO; +NA P133E RC; -[UNRECOGNIZED DRUG - OTHER] PO
--- NOTE | 2018-12-28 07:52 | NUR ---
Patient PREMA ALS accompanied by Chandra CARSON 151 from [facility], transferred to bed 10. RN evaluating patient at bedside.
--- NOTE | 2018-12-28 07:53 | NUR ---
Dr. Powers is evaluating the patient at bedside.
--- NOTE | 2018-12-28 07:58 | NUR ---
Respiratory therapist at bedside for AB[facility].
--- NOTE | 2018-12-28 08:00 | NUR ---
BIBA from [facility] for SOB, possible syncope/seizures. Per patient's son, he was alerted by his PMD that patient needs to be transferred to the ED for a lung problem. Per son, "right lung has collapsed in the CXR".
[2018-12-28] MEDS ORDERED: DOCU-299 PO (08:03)
[2018-12-28] MEDS ORDERED: HYDR-5092 PO (08:03)
[2018-12-28] MEDS ORDERED: ALBUTEROL SULFATE/IPRATROPIU 3 ML SOL IH ONE ×2 (08:10→08:12)
[2018-12-28] MEDS ORDERED: hydrALAZINE 20 MG/ML VIAL IVP ONE (08:15)
[2018-12-28] MEDS ORDERED: NACL 0.9% 500 ML IV ONE (08:15)
--- NOTE | 2018-12-28 08:15 | NUR ---
Right chest wall portacath accessed utilizing asceptic technique with good blood return.
[2018-12-28] MEDS ORDERED: LACTULOSE 20 GM/30 ML UDC GT ONE (08:20)
[2018-12-28] MEDS ORDERED: NACL 0.9% 1,000 ML IV ONE ×2 (08:20→09:50)
--- NOTE | 2018-12-28 08:26 | NUR ---
RECEIVED PT FROM ENT. PT HAD TO BE BAGGED TO MAINTAIN SATS FROM 88-93%. PT WAS THEN PLACED ON COOL AEROSOL 40% 10L. SUCTIONED THICK, YELLOW, BLOOD-TINGED SECRETIONS OUT OF TRACH SITE. PT SPO2 BETWEEN 88-93%. DUONEB TX GIVEN W NO ADVERSE REACTIONS NOTED. BREATH SOUNDS DECREASED ON THE LEFT SIDE. LEFT CHEST EXPANSION DIMINISHED. WILL MONITOR.
[2018-12-28 08:42] LABS: HEMATOCRIT 30.4 % (36-52); MEAN CORPUSCULAR HEMOGLOBIN 34 pg (27-31); MEAN CORPUSCULAR HGB CONC 33 g/dL (33-37); MEAN CORPUSCULAR VOLUME 102.8 fL (80-94); PLATELET COUNT (AUTO) 241 K/uL (140-450); RED BLOOD CELL COUNT(AUTO) 2.95 MIL/uL (4.20-6.10); RED CELL DISTRIBUTION WIDTH 23.7 % (11.6-13.7); WHITE BLOOD COUNT (AUTO) 9.5 K/uL (4.8-10.8)
[2018-12-28 08:44] LABS: ANION GAP 8.1 (8-16); CARBON DIOXIDE 33.6 mmol/L (21-32); CHLORIDE 95 mmol/L (98-107); CREATININE 0.5 mg/dL (0.7-1.3); GLUCOSE 157 mg/dL (74-106); POTASSIUM 3.7 mmol/L (3.5-5.1); SODIUM SERUM 133 mmol/L (136-145); UREA NITROGEN, BLOOD 18 mg/dL (7-18)
--- NOTE | 2018-12-28 08:45 | NUR ---
PT SPO2 AT 88%, COOL AEROSOL INCREASED TO 60% AT 12L. PT SPO2 93%.
[2018-12-28 08:49] LABS: PROTHROMBIN TIME 10.8 secs (10.8-13.4)
[2018-12-28 09:00] LABS: LYMPHOCYTES % (MANUAL) 6 % (20-46); MONOCYTES % (MANUAL) 9 % (5-12)
[2018-12-28 09:04] LABS: ASPARTATE AMINOTRANSFERASE 29 U/L (15-37); TOTAL BILIRUBIN 0.3 mg/dL (0.0-1.0)
[2018-12-28] MEDS ORDERED: VANCOMYCIN 1,000 MG in DEXTROSE 5% 250 ML IV ONE (09:50)
[2018-12-28] MEDS ORDERED: PIPERACILLIN/TAZOBACTAM 3.375 GM in DEXTROSE 5% 50 ML IV ONE (09:50)
[2018-12-28] MEDS ORDERED: PIPERACILLIN/TAZOBACTAM 3.375 GM VIAL IV ONE (09:53)
[2018-12-28] MEDS ORDERED: VANCOMYCIN 1,000 MG VIAL ONE (09:53)
[2018-12-28] MEDS ORDERED: MORPHINE SULFATE 2 MG/ML SYR IVP PRN (10:05)
[2018-12-28] MEDS ORDERED: LORazepam 2 MG/ML VIAL IVP PRN (10:05)
[2018-12-28] MEDS ORDERED: ONDANSETRON 4 MG/2 ML VIAL IVP PRN (10:05)
[2018-12-28] MEDS ORDERED: MORPHINE SULFATE 4 MG/ML SYR IVP PRN (10:05)
[2018-12-28] MEDS ORDERED: PRO5 GT (10:13)
[2018-12-28] MEDS ORDERED: CILOS OP (10:22)
[2018-12-28] MEDS ORDERED: DORZ10SO23 OP (10:22)
[2018-12-28] MEDS ORDERED: KEP500 GT (10:22)
[2018-12-28] MEDS ORDERED: CLOP75TA26 GT (10:22)
[2018-12-28] MEDS ORDERED: HYDR10TA1 GT (10:22)
[2018-12-28] MEDS ORDERED: MAGN400T7 GT (10:22)
[2018-12-28] MEDS ORDERED: LEVO0.155 GT (10:22)
[2018-12-28] MEDS ORDERED: ATOR20TA GT (10:22)
[2018-12-28] MEDS ORDERED: [UNRECOGNIZED DRUG - CODE] GT (10:22)
--- NOTE | 2018-12-28 10:35 | NUR ---
Dispo and medical decision making, inpatient admission for further management. Patient and family updated accordingly.
--- NOTE | 2018-12-28 10:56 | NUR ---
CM DC PLANNING: THIS IS A 78 YO MALE PATIENT FROM [facility], ADMITTED DUE TO SOB. PAST MEDICAL HISTORY OF HTN AND EPIGLOTTITIS CA. CHRONIC TRACH TO T BAR AT 40% FIO2. CHRONIC G TUBE. ON LEVOFLOXACIN AND VANCOMYCIN. NA 133. DC PLAN PENDING ON PATIENT'S RESPONSE TO TREATMENT.
[2018-12-28 11:00] VITALS: BP 112/77
--- NOTE | 2018-12-28 11:00 | NUR ---
RECEIVED PT FROM ED NURSE SILKE. PT IS ACCOMPANIED BY FAMILY MEMBERS. PT IS TRACH TO T-PIECE 60%. LUNGS ARE DIMINISHED. G-TUBE IS IN PLACE. R CHEST PORTACATH IN PLACE INFUSING VANCO 125 ML/HR, AND NS 125 ML/HR. PT IS NON-VERBAL, BUT IS ORIENTED TO SELF, PLACE, AND SITUATION. HE RESPONDS TO HIS FAMILY MEMBERS BY WRITING ON A PAD IN IRISH. L ARM IS WRAPPED WITH GAUZE BECAUSE IT HAS BEEN WEEPING, ACCORDING TO FAMILY. VS APON ADMISSION: BP 112/77, HR 82, TEMP 97.5, O2 88%, RR 20. ACCORDING TO DR WORRELL, O2 SATS TO MAINTAIN ABOVE 88%. IF THEY DROP, TO NOTIFY DR WORRELL. RT IS AWARE.
--- NOTE | 2018-12-28 11:01 | NUR ---
PT TRANSFERRED TO 106A WITHOUT COMPLICATIONS. PT PLACED BACK ON 60% T PIECE 12L FOLLOWING ARRIVAL TO NEW ROOM. NO RESP DISTRESS NOTED AT THIS TIME. WILL MONITOR.
--- NOTE | 2018-12-28 11:02 | NUR ---
PER VERBAL DR WORRELL, CALL IF PT DECOMPENSATES AND NEEDS VENTILATOR.
--- NOTE | 2018-12-28 11:30 | NUR ---
SKIN ASSESSMENT UPON ADMISSION: BLANCEHABLE REDNESS ON THE SACRAL-COCCYC AREA NOTED. PT'S BILAT UE'S NOTED TO HAVE EXTENSIVE BRUISING AND ECCHYMOSIS. L FOREARM HAS A LARGE PURPLE BRUISE WITH A SMALL AREA OF OPEN SKIN, PER FAMILY THIS IS DUE TO A PREVIOUS IV SITE. LUE IS ALSO WEEPING. PT CAME IN WITH HIS L FOREMARM WRAPPED WITH GAUZE. I APPLIED VERSATEL DRESSING ONTO THE OPEN SKIN AREA AND REWRAPPED WITH NEW GAUZE.
--- NOTE | 2018-12-28 12:05 | NUR ---
OBTAINED PT FAMILY'S CONSENT FOR TUNNELED CATHETER PLACEMENT FOR THORACENTESIS.
--- NOTE | 2018-12-28 14:00 | NUR ---
CALLED [facility] TO FIND OUT WHEN PT HAD ASPIRIN AND PLAVIX LAST. THEY TOLD ME 12/27, AT 0900. I NOTIFIED THE CLINICAL FIELD SPECIALIST.
[2018-12-28] MEDS: LEVOFLOXACIN 750 MG/D5W PREMIX 150 ML IV SCH (14:28)
[2018-12-28] MEDS: MIDODRINE 5 MG TAB GT SCH ×2 (14:28→20:17)
[2018-12-28 16:00] VITALS: BP 97/52
--- NOTE | 2018-12-28 16:00 | NUR ---
PT HAVING THORACENTESIS AT THIS TIME WITH DR KUMAR. TIME OUT FORM COMPLETED.
--- NOTE | 2018-12-28 16:30 | NUR ---
THORACENTESIS COMPLETED, PT TOLERATED WELL, 1500 ML YELLOWISH FLUID REMOVED. FLUID SPECIMENS TAKEN TO LAB.
--- NOTE | 2018-12-28 17:21 | NUR ---
PT IS AWAKE AND VISITING WITH FAMILY AT BEDSIDE. Addendum: 12/28/18 at 1726 by Jordyn Hernandez RN POST THORACENTESIS VS: BP 81/54, HR 85, O2 98%, TEMP 97.4, RR 18.
--- NOTE | 2018-12-28 17:58 | NUR ---
PT BP BACK UP TO 106/62 AT THIS TIME
[2018-12-28] MEDS ORDERED: DOCUSATE SODIUM 100 MG GELCAP PO SCH (19:00)
--- NOTE | 2018-12-28 19:10 | NUR ---
PT'S FAMILY BROUGHT PT'S PO HYDROCORTISONE AND TWO EYE DROP MEDICATIONS FROM [facility]. PHARMACY ALREADY GONE FOR THE DAY. I PACKAGED THE MEDICATIONS IN A MED BAG AND PLACED THEM IN THE MED ROOM BIN FOR PHARMACY TO TAKE IN THE MORNING. ENDORSED TO THE METAL ORGAN PIPE MAKER NURSE.
--- NOTE | 2018-12-28 19:15 | NUR ---
PT ENDORSED TO AUTOMATIC CORN GRINDER OPERATOR NURSE IN STABLE CONDITION
--- NOTE | 2018-12-28 19:17 | NUR ---
RECEIVED BEDSIDE REPORT FROM AM SHIFT NURSE. PATIENT IS LYING IN BED AWAKE WITH FAMILY AT BEDSIDE. PT IS ON TRACH TO T-PIECE. NOTED WITH GAUZE WRAPPED AROUND LEFT ARM DUE TO WEEPING. IV ACCESS, PORTACATH ON RIGHT CHEST, PATENT AND INTACT. PT NOTED WITH GTUBE, INFUSING FEEDING. TOLERATED WELL. PT ON SEIZURE PRECAUTIONS, SAFETY MEASURES IN PLACE. BED IN LOW. INITIAL ASSESSMENT DONE. WILL CONTINUE TO MONITOR PATIENT. Addendum: 12/28/18 at 2227 by Alondra Burch RN PT ALSO ON TELE MONITORING. Addendum: 12/28/18 at 2244 by Alondra Burch RN CALL LIGHT PLACED WITHIN PT REACH.
[2018-12-28 20:10] VITALS: BP 96/66
[2018-12-28] MEDS: ATORVASTATIN 20 MG TAB GT SCH (20:17)
[2018-12-28] MEDS: levETIRAcetam 100 MG/ML ORASYR GT SCH (20:17)
[2018-12-28] MEDS: DOCUSATE 100 MG/10 ML UDC GT SCH (20:17)
[2018-12-28] MEDS ORDERED: LATANOPROST 0.005% OP 2.5 ML BTL OP SCH (21:00)
[2018-12-28] MEDS ORDERED: NON-FORMULARY ITEM (Dorzolamide HCl/Timolol Maleat (Dorzolamide-Timolol Eye Drops) 1 DROP) OP SCH (21:00)
--- NOTE | 2018-12-28 21:06 | NUR ---
ROUNDS DONE. VISIBLE CHEST RISE AND FALL NOTED. WILL CONTINUE TO MONITOR PATIENT.
--- NOTE | 2018-12-28 23:20 | NUR ---
ROUNDS DONE. PT RESTING WITH EYES CLOSED. VISIBLE CHEST RISE AND FALL NOTED. WILL CONTINUE TO MONITOR PATIENT.
[2018-12-29 00:10] VITALS: BP 100/58
--- NOTE | 2018-12-29 01:32 | NUR ---
ROUNDS DONE. PATIENT SUCTIONED. NO DISTRESS NOTED. WILL CONTINUE TO MONITOR PATIENT.
--- NOTE | 2018-12-29 03:47 | NUR ---
ROUNDS DONE. NO DISTRESS OR SOB NOTED. CALL LIGHT WITHIN PT REACH. WILL CONTINUE TO MONITOR PATIENT.
[2018-12-29 04:10] VITALS: BP 112/43
[2018-12-29] MEDS: LEVOTHYROXINE 0.075 MG TAB GT SCH (05:37)
[2018-12-29] MEDS: LANSOPRAZOLE 30 MG CAPDR GT SCH (05:37)
[2018-12-29] MEDS: MIDODRINE 5 MG TAB GT SCH ×3 (05:37→21:59)
[2018-12-29 06:48] LABS: BASOPHILS % (AUTO) 0.4 % (0.0-2.0); EOSINOPHILS % (AUTO) 0.4 % (0.0-4.0); HEMATOCRIT 29.7 % (36-52); HEMOGLOBIN 9.9 g/dL (12.0-18.0); LYMPHOCYTES # (AUTO) 0.9 K/uL (2.0-11.5); LYMPHOCYTES % (AUTO) 9.7 % (20.5-51.1); MEAN CORPUSCULAR HEMOGLOBIN 34 pg (27-31); MEAN CORPUSCULAR HGB CONC 34 g/dL (33-37); MEAN CORPUSCULAR VOLUME 102.4 fL (80-94); MONOCYTES # (AUTO) 0.9 K/uL (0.8-1.0); MONOCYTES % (AUTO) 9.6 % (1.7-9.3); NEUTROPHILS # (AUTO) 7.3 K/uL (1.8-7.7); NEUTROPHILS % (AUTO) 79.9 % (42.2-75.2); PLATELET COUNT (AUTO) 227 K/uL (140-450); RED CELL DISTRIBUTION WIDTH 23.4 % (11.6-13.7); WHITE BLOOD COUNT (AUTO) 9.2 K/uL (4.8-10.8)
--- NOTE | 2018-12-29 07:02 | NUR ---
PT IN STABLE CONDITION. CALL LIGHT WITHIN PATIENT REACH. WILL ENDORSE TO AM SHIFT NURSE FOR CONTINUITY OF CARE.
--- NOTE | 2018-12-29 07:08 | NUR ---
RECEIVED BED SIDE REPORT FROM WHANAU SUPPORT WORKER NURSE, PT IN STABLE CONDITION. CALL LIGHT WITHIN PATIENT REACH. WILL CONTINUE TO MONITOR
[2018-12-29 07:19] LABS: ANION GAP 10.6 (8-16); ASPARTATE AMINOTRANSFERASE 23 U/L (15-37); CARBON DIOXIDE 30.1 mmol/L (21-32); CHLORIDE 97 mmol/L (98-107); CREATININE 0.5 mg/dL (0.7-1.3); GLUCOSE 147 mg/dL (74-106); MAGNESIUM 1.2 mg/dL (1.8-2.4); POTASSIUM 3.7 mmol/L (3.5-5.1); SODIUM SERUM 134 mmol/L (136-145); TOTAL BILIRUBIN 0.4 mg/dL (0.0-1.0); UREA NITROGEN, BLOOD 12 mg/dL (7-18)
[2018-12-29 08:00] VITALS: BP 114/84
--- NOTE | 2018-12-29 08:14 | NUR ---
PATIENT HAS BEEN SCREENED AND CATEGORIZED HIGH NUTRITION RISK. PATIENT WILL BE SEEN WITHIN 1-2 DAYS OF ADMISSION. 12/29/[address]
[2018-12-29] MEDS ORDERED: NON-FORMULARY ITEM (Multivitamin-Min/Iron/FA/Vit K (Multi-Day Plus Minerals Tablet) 1 TAB) GT SCH (09:00)
[2018-12-29] MEDS ORDERED: MAGNESIUM OXIDE 400 MG GT SCH (09:00)
[2018-12-29] MEDS ORDERED: HYDROCORTISONE 5 MG GT SCH (09:00)
[2018-12-29] MEDS ORDERED: NON-FORMULARY ITEM (Lansoprazole* (Prevacid 24Hr*) 30 MG) GT SCH (09:00)
[2018-12-29] MEDS ORDERED: HYDROCORTISONE 10 MG TAB GT SCH ×2 (09:00)
[2018-12-29] MEDS: CLOPIDOGREL 75 MG TAB GT SCH (09:36)
[2018-12-29] MEDS: DOCUSATE 100 MG/10 ML UDC GT SCH ×2 (09:37→21:59)
[2018-12-29] MEDS: MAGNESIUM OXIDE 400 MG TAB GT SCH (09:38)
[2018-12-29] MEDS: ASPIRIN 81 MG TAB.CHEW GT SCH (09:38)
[2018-12-29] MEDS: MULTIVITAMIN/MINERALS 1 TAB GT SCH (09:38)
[2018-12-29] MEDS: levETIRAcetam 100 MG/ML ORASYR GT SCH ×2 (09:39→21:59)
--- NOTE | 2018-12-29 09:42 | NUR ---
SCHEDULED MEDS GIVEN TO PATIENT. PATIENT TOLERATED WELL, NO DISTRESS NOTED. WILL CONTINUE TO MONITOR.
[2018-12-29] MEDS: HYDROCORTISONE 5 MG GT SCH (09:45)
[2018-12-29] MEDS: DORZOLAMIDE OP SCH ×2 (09:46→21:00)
[2018-12-29] MEDS: TIMOLOL EYE OP SCH ×2 (09:46→21:00)
[2018-12-29] MEDS: NYSTATIN 500 MU/5 ML UDC GT SCH (09:47)
[2018-12-29] MEDS: ALBUTEROL 0.083% 2.5 MG/3 ML NEBU INH PRN (10:05)
--- NOTE | 2018-12-29 10:05 | NUR ---
SATURATION 98% ON SUPPLEMENTAL OXYGEN AT 10 LPM VIA COOL AEROSOL TO TRACH POST HHN THERAPY TOTRATED FIO2 TO 35%/7 LPM SY/RN NOTIFIED
[2018-12-29] MEDS ORDERED: FUROSEMIDE 20 MG/2 ML VIAL IVP SCH (11:46)
--- NOTE | 2018-12-29 11:57 | NUR ---
RECEIVED AN ORDER FOR HIGHER LEVEL OF CARE TRANSFER TO [facility] FOR TUNNELED CATHETER PLACEMENT. CONTACTED [facility] AT [phone], ABLE TO SPEAK TO CLARISSE (PHOTOGRAPHIC ENGINEER) REGARDING REFERRAL. SHE PROVIDED ME WITH FAX NUMBER [phone]. ALL CLINICALS FAXED TO THE PROVIDED NUMBER. SPOKE TO DR WORRELL REGARDING ORDER. HE STATED DR. ELIZA WOOD WILL BE THE ACCEPTING PHYSICIAN. CONTACTED CLARISSE AT [facility] AGAIN, SHE STATED SHE DID NOT RECEIVE ANY CALLS FROM DR. WOOD YET. SHE ALSO STATED THAT FAXED REFERRALS ARE JUST COMING THROUGH. SHE WILL REVIEW SOON SHE RECEIVES EVERYTHING. Addendum: 12/29/18 at 1352 by Katheryn Helm CM CONTACTED [facility], ABLE TO SPEAK TO CLARISSE REGARDING REFERRAL. SHE RECOMMENDED AN OUT PATIENT PROCEDURE BECAUSE THEY DO NOT HAVE ANY AVAILABLE BEDS AT THIS TIME AND THEY ARE HOLDING IT FOR THEIR ED. SENT A PAGE TO DR WORRELL. AWAITING FOR CALL BACK. Addendum: 12/29/18 at 14[address] Helm CM DR. WORRELL CALLED BACK AND MADE AWARE OF [facility]'S RECOMMENDATION. HE STATED THAT WE NEED TO TRANSFER THE PATIENT OUT. CONTACTED CLARISSE OF [facility]. MADE HER AWARE THAT PER DR. WORRELL, PATIENT NEED TO BE TRANSFERRED OUT. SHE STATED SHE WILL KEEP THE PATIENT ON THEIR LIST. WILL FOLLOW UP. Addendum: 12/30/18 at 1104 by [address]yn Helm CM DR. GUTIERREZ MADE AWARE THAT STILL NO BEDS AT [facility]. HE STATED HE SPOKE TO THE FAMILY. HE ALSO STATED TO [place]ERR[place] [facility] [place]AC[place]. MET WITH THE PATIENT'S GRAND DAUGHTER JEREMI TO DISCUSS HIGHER LEVEL TRANSFER. SHE IS AGREEABLE TO THE PLAN AND STATED "[facility] IS AVAILABLE". [place]AL [place] [facility] [facility] AND [facility]. CONTACTED [facility] AT [phone], ABLE TO SPEAK TO SOLO REGARDING REFERRAL. SHE STATED SHE WILL OPEN THE CASE AND WILL WAIT FOR THE PACKET AND WILL GO FROM THERE. SHE ALSO STATED THAT THEY CHECK FOR BED AVAILABILITIES EVERY 4 HOURS. WILL CONTACT ME SOON BED IS AVAILABLE. RECEIVED A CALL FROM JATINDER OF [facility] [place], SHE STATED SHE WILL REVIEW THE REFERRAL. Addendum: 12/30/18 at 1125 by Katheryn Helm RECEIVED A CALL FROM YA AT [facility] TO GATHER MORE INFORMATION REGARDING THE PATIENT. SHE STATED SHE WILL REVIEW THE REFERRAL AND WILL CONTACT ME IF SHE NEEDED MORE INFORMATION. Addendum: 12/30/18 at 1209 by Katheryn Helm PER PATIENT'S GRAND DAUGHTER JEREMI, THE FAMILY DECIDED TO WAIT UNTIL TUESDAY FOR [facility]. SHE ALSO STATED I CAN GO AHEAD AND CANCEL REFERRAL SENT TO [facility], [facility] AND [facility]. AND THAT THE FAMILY PREFER [facility]. Addendum: 12/30/18 at 1235 by Katheryn Helm CM SOLO REINOSO [facility], JATINDER OF [facility] AND YA OF [facility] MADE AWARE TO DISREGARD REFERRAL PER FAMILY'S REQUEST. Addendum: 12/30/18 at 1445 by Katheryn Helm CM CONTACTED CLARISSE REINOSO [facility] TO FOLLOW UP REFERRAL. SHE STATED NO BEDS AVAILABLE YET. Addendum: 12/30/18 at 1447 by Katheryn Helm CM CONT: PER CLARISSE REINOSO [facility], NO ACCEPTING PHYSICIAN YET. I REMINDED HER THAT PER DR. WORRELL YESTERDAY, DR. ELIZA WOOD WILL ACCEPT THE PATIENT. SHE STATED THAT DR. WOOD DID NOT CALL HER YET. WILL FOLLOW UP Addendum: 12/30/18 at 1714 by Katheryn Helm CM PER CHARGE NURSE PATIENT'S SON HALIE REQUESTED TO SPEAK TO ME. MET WITH HIM AT THE BEDSIDE. HE CLAIMED HE IS THE MEDICAL DECISION MAKER, BUT WHEN ASK IF HE HAS ANY SIGNED PAPERWORKS HE SAID NO. HE STATED HE WANTS HIS FATHER TO BE TRANSFERRED TO ANY AVAILABLE HOSPITALS BECAUSE THE BP IS GOING LOW AT THIS TIME. I INFORMED HER THAT I CONTACT THE FACILITIES WHERE I FAXED THE REFERRALS EARLIER. Addendum: 12/30/18 at 1729 by Katheryn Helm CM CORRECTION: "I INFORMED HIM THAT I WILL CONTACT THE FACILITIES WHERE I FAXED THAT REFERRAL EARLIER." CONTACTED [facility] [place] [phone], ABLE TO SPEAK TO JATINDER. SHE STATED THEIR PHYSICIAN DECLINED BECAUSE THE PATIENT GOES TO [facility] FOR CHEMOTHERAPY. CONTACTED [facility] TRANSFER CENTER, ABLE TO SPEAK TO SOLO. SHE STATED SHE WILL REOPEN THE REFERRAL. CONTACTED [facility], ABLE TO SPEAK TO YA AT TRANSFER CENTER. SHE STATED SHE WILL START LOOKING FOR A BED. Addendum: 12/30/18 at 1735 by Katheryn Helm CM RECEIVED A CALL FROM JEFFERY FROM [facility], SHE STATED NO BEDS AVAILABLE AT THIS TIME BUT CAN CALL AGAIN TOMORROW TO FOLLOW UP. CHARGE NURSE RUSTY MADE AWARE. Addendum: 01/01/19 at 1059 by Ayse Soto CM Message received on VM from Sandi from [facility] requesting a chest s-ray to continue processing acceptance for higher level of care. Records were faxed to . Sw will continue to follow-up. Yesi SotoMOHAMUD Ext [phone] Addendum: 01/01/19 at 1549 by Nerissa Pfeiffer CM DC PLANNING: CALLED [facility] SPOKE WITH REYNA ,STATED STILL WAITING FOR THE IR TO REVIEW THE CASE AND CALLED BACK. PER LAURA MCKEON SPOKE WITH ELIE MCKEON RECOMMENDATION TO DO THE PROCEDURE OUT PATIENT. NOTIFIED DR WORRELL THE RECOMMENDATION AND DR WORRELL STATED TO DO THE THORACENTESIS TOMORROW AT [facility] AND DC BACK TO [facility] . CM TO FOLLOW Addendum: 01/02/19 at 1142 by Katheryn Helm CM POSSIBLE DC BACK TO [facility] TODAY AFTER THORACENTESIS. Addendum: 01/03/19 at 1409 by Katheryn Helm CM SCHEDULED FOR THORACENTESIS TOMORROW 01/04/[address] JOHNSON Addendum: 01/04/19 at 1158 by Katheryn Helm CM RECEIVED AN ORDER TO DC BACK TO SNF AFTER CATHETER PLACEMENT. FRANCISCO MENDOZA AWARE. CLINICALS FAXED TO [facility]. Addendum: 01/04/19 at 1616 by Katheryn Helm CM PER [facility], PATIENT WILL GO TO ROOM 23A UNDER DR. MIGUEL. PATIENT'S SON MARY MADE AWARE. TRANSPORT WITH [facility] SET UP BY VIKASH BENITEZ CM WILL BE AT 1700. PRIMARY RN YUE MADE AWARE.
[2018-12-29 12:00] VITALS: BP 93/57
[2018-12-29] MEDS: LEVOFLOXACIN 750 MG/D5W PREMIX 150 ML IV SCH (12:13)
--- NOTE | 2018-12-29 12:15 | NUR ---
SCHEDULED MEDS GIVEN TO PATIENT. PATIENT TOLERATED WELL, NO DISTRESS NOTED. WILL CONTINUE TO MONITOR.
--- NOTE | 2018-12-29 12:40 | NUR ---
12/29/18 RD INITIAL ASSESSMENT COMPLETED PLEASE REFER TO NUTRITION ASSESSMENT UNDER CARE ACTIVITY FOR ESTIMATED NUTRITIONAL NEEDS. 1. CONTINUE GLUCERNA 1.2 @ 50 ML/HR WITH PROSOURCE TID TOLERATED -THIS WILL PROVIDE 1620 KCAL, 117 GM OF PROTEIN AND 1200 ML OF VOLUME WHICH MEETS 83% OF ESTIMATED CALORIE NEEDS AND 100% OF ESTIMATED PROTEIN NEEDS. 2. CONTINUE FREE WATER FLUSH OF [address] TO FOLLOW-UP 2-3 DAYS, HIGH RISK YARITZA SERRANO RD
[2018-12-29] MEDS: GAUZE TP SCH (13:03)
[2018-12-29 14:00] VITALS: BP 110/64
--- NOTE | 2018-12-29 14:40 | NUR ---
PER PRIMARY RN REQUEST WOUND ASSESSMENT DONE, WOUNDS WITH NO CHANGE OF CONDITION COMPARE TO LAST ADMISSION, SKIN TEARS NO S/S OF INFECTION, +2 EDEMA TO LEFT FOREARM WITH WEEPING SKIN. AT BED SIDE. PLAN OF CARE DISCUSSED WITH PRIMARY RN. AND PT. PT NOD HIS HEAD. INTEGUMENTARY: -UPPER EXTREMITIES WITH MULTIPLE ECCHYMOSIS AND THIN FRAGILE SKIN -MULTIPLE SKIN TEARS TO BILATERAL UPPER EXTREMITIES LEFT ARM, RIGHT ELBOW, WOUND BEDS ARE PINK AND MOIST, NO ODOR, NO S/S OF INFECTION, ROBERT WOUND SKIN INTACT, COVERED WITH VERSATEL DRESSING -LEFT LATERAL NECK SQUAMOUS CELL CARCINOMA LESIONS 2X7CM, WOUND BED BROWN DRY SCAB WITH NO ODOR, ROBERT-WOUND SKIN INTACT. RECOMMENDATIONS: -CLEANSE MULTIPLE SKIN TEAR TO LEFT FOREARM AND RIGHT ELBOW WITH NS, PAT DRY, APPLY STERI-STRIPS PRN WITH SOILING. CLEANSE LEFT LATERAL NECK CARCINOMA LESIONS WITH NS, PAT DRY, APPLY ALGINATE DRESSING AND COVER WITH DRY DRESSING PRN IF SOILING -APPLY OPTIC FOAM TO SACRALCOCCYX Q5D AND PRN IF SOILING -ENCOURAGE AND ASSIST PT TO TURN AND REPOSITION PATIENT Q 2H -ASSESS AND MONITOR SKIN CONDITION DURING POSITION CHANGE -OFFLOAD BILATERAL HEELS BY PLACING PILLOWS UNDER CALVES AT ALL TIMES, UNLESS OTHERWISE CONTRAINDICATED -PRESSURE REDISTRIBUTION SURFACE THERAPY -KEEP SKIN CLEAN AND DRY AT ALL TIMES. RECOMMENDATIONS DISCUSSED WITH PRIMARY RN
--- NOTE | 2018-12-29 15:17 | NUR ---
PATIENT'S SON AND AT THE BEDSIDE, PATIENT CALM NO DISTRESS NOTED. WILL CONTINUE TO MONITOR
[2018-12-29] MEDS ORDERED: MIDODRINE 5 MG TAB GT PRN (15:30)
--- NOTE | 2018-12-29 15:49 | NUR ---
Seamer Panty Hose Note: Basic Screen: Yes High Risk DC Screen Yes Name: MARY MONTANO Home Relationship: SON Pre-Admission Living Arrangements: SNF Healthcare Decision Maker: Next of Kin Advance Directive No Physician Orders for Life Sustaining Treatment Form No Patient/Family Have Educational Needs No Discipline: Case Mgt/Social Svcs Tentative Discharge Plan/Destination: SNF/ECF Will require assistance post discharge: No Referred to Customer Acquisition Manager: No Tentative Discharge Plan Summary: Patient is a 78 year old male admitted for pleural effusion. Patient has PMHX of cancer of the epiglottis, asthma, chronic respiratory failure, status post traceostomy, and currently on T-bar. [facility] SW contacted [facility] to verify demographics. Per [facility], patient is not a penitentiary patient and is on subacute unit. Patient however does have a bed hold per [facility]. [facility] reports that patient has no advanced directive on file and patient's healthcare decision maker is son, Mary Montano [phone]. No further needs identified. Signature: EVELINE Bautista Date: Dec 29, 2018 Time: 15:49
[2018-12-29] MEDS: ALBUMIN HUMAN 25% 100 ML IV SCH ×2 (16:17→18:37)
--- NOTE | 2018-12-29 19:10 | NUR ---
RECEIVED BEDSIDE REPORT FROM AM SHIFT NURSE. PATIENT IS LYING IN BED WITH EYES CLOSED. PT IS ON TRACH TO T-PIECE. NOTED WITH GAUZE WRAPPED AROUND LEFT ARM DUE TO WEEPING. IV ACCESS, PORTACATH ON RIGHT CHEST, PATENT AND INTACT. PT NOTED WITH GTUBE, INFUSING FEEDING. TOLERATED WELL. PT ON SEIZURE PRECAUTIONS, SAFETY MEASURES IN PLACE. BED IN LOW. CALL LIGHT WITHIN PATIENT REACH. INITIAL ASSESSMENT DONE. WILL CONTINUE TO MONITOR PATIENT.
[2018-12-29 20:05] VITALS: BP 85/48
--- NOTE | 2018-12-29 20:10 | NUR ---
VITAL SIGNS DONE. NO DISTRESS OR SOB NOTED. WILL CONTINUE TO MONITOR PATIENT.
[2018-12-29] MEDS: LATANOPROST EYE DROPS OP SCH (21:00)
[2018-12-29] MEDS: ATORVASTATIN 20 MG TAB GT SCH (21:59)
--- NOTE | 2018-12-29 22:34 | NUR ---
ROUNDS DONE. PT RESTING WITH EYES CLOSED. NO DISTRESS OR SOB NOTED. WILL CONTINUE TO MONITOR PATIENT.
[2018-12-30] VITALS (7 sets, daily range): BP systolic 103–149; BP diastolic 61–95
--- NOTE | 2018-12-30 00:01 | NUR ---
VITALS SIGNS TAKEN AT THIS TIME. VISIBLE CHEST RISE AND FALL NOTED. WILL CONTINUE TO MONITOR PT.
--- NOTE | 2018-12-30 01:33 | NUR ---
RT CALLED TO BEDSIDE. PT WAS COUGHING OUT BRIGHT RED BLOOD FROM TRACH. RT STATES HE CAME IN TO SUCTION PATIENT AND HE SUCTIONED BLOOD CLOTS. T-PIECE CHANGED AND PT CLEANED. NO DISTRESS OR SOB NOTED. WILL CONTINUE TO MONITOR PATIENT.
--- NOTE | 2018-12-30 03:00 | NUR ---
WHILE SUCTIONING PATIENT WE NOTICED BRIGHT RED SECRETIONS COMING FROM TRACH. PATIENT IS STABLE AND ALERT NO RESP DISTRESS AT THIS TIME. SUCTIONING WILL BE DONE PRN AT THIS TIME AND RN WAS NOTIFIED. WE WILL CLOSELY MONITOR PATIENTS TRACH AT THIS TIME.
--- NOTE | 2018-12-30 04:07 | NUR ---
VITAL SIGNS CHECKED AT THIS TIME. PATIENT RESTING WITH EYES CLOSED. NO DISTRESS OR SOB NOTED. WILL CONTINUE TO MONITOR PATIENT.
[2018-12-30] MEDS: MIDODRINE 5 MG TAB GT SCH ×3 (05:55→21:52)
[2018-12-30] MEDS: LANSOPRAZOLE 30 MG CAPDR GT SCH (05:55)
[2018-12-30] MEDS: LEVOTHYROXINE 0.075 MG TAB GT SCH (05:55)
--- NOTE | 2018-12-30 06:05 | NUR ---
CHLORHEXIDINE WIPES/ BATH DONE WITH ASSIST FROM BLOCKERS SKIVER. NO SOB OR DISTRESS NOTED.
--- NOTE | 2018-12-30 06:29 | NUR ---
PT IN STABLE CONDITION. CALL LIGHT WITHIN PATIENT REACH. WILL ENDORSE TO AM SHIFT NURSE FOR CONTINUITY OF CARE.
--- NOTE | 2018-12-30 07:05 | NUR ---
RECEIVED BED SIDE REPORT FROM NIGHT NURSE, PATIENT IS COMFORTABLE AND NO DISTRESS NOTED. WILL CONTINUE TO MONITOR.
[2018-12-30 07:20] LABS: BASOPHILS % (AUTO) 0.3 % (0.0-2.0); EOSINOPHILS # (AUTO) 0.1 K/uL (0-0.4); EOSINOPHILS % (AUTO) 0.8 % (0.0-4.0); HEMATOCRIT 28.2 % (36-52); HEMOGLOBIN 9.4 g/dL (12.0-18.0); LYMPHOCYTES # (AUTO) 0.8 K/uL (2.0-11.5); MEAN CORPUSCULAR HEMOGLOBIN 34 pg (27-31); MEAN CORPUSCULAR HGB CONC 33 g/dL (33-37); MEAN CORPUSCULAR VOLUME 101.9 fL (80-94); MONOCYTES # (AUTO) 1.1 K/uL (0.8-1.0); MONOCYTES % (AUTO) 14.9 % (1.7-9.3); NEUTROPHILS # (AUTO) 5.6 K/uL (1.8-7.7); PLATELET COUNT (AUTO) 237 K/uL (140-450); RED BLOOD CELL COUNT(AUTO) 2.77 MIL/uL (4.20-6.10); RED CELL DISTRIBUTION WIDTH 23.5 % (11.6-13.7); WHITE BLOOD COUNT (AUTO) 7.6 K/uL (4.8-10.8)
[2018-12-30 07:29] LABS: ALBUMIN 2.7 g/dL (3.4-5.0); ASPARTATE AMINOTRANSFERASE 18 U/L (15-37); CARBON DIOXIDE 31.3 mmol/L (21-32); CHLORIDE 97 mmol/L (98-107); CREATININE 0.5 mg/dL (0.7-1.3); GLUCOSE 144 mg/dL (74-106); POTASSIUM 3.3 mmol/L (3.5-5.1); SODIUM SERUM 134 mmol/L (136-145); TOTAL BILIRUBIN 0.3 mg/dL (0.0-1.0); UREA NITROGEN, BLOOD 11 mg/dL (7-18)
[2018-12-30] MEDS: ALBUTEROL 0.083% 2.5 MG/3 ML NEBU INH PRN (07:47)
--- NOTE | 2018-12-30 07:47 | NUR ---
AT THE BEDSIDE WITH RT FOR BREATHING TREATMENT, PATIENT CALM IN BED. WILL FOLLOW UP.
--- NOTE | 2018-12-30 08:16 | NUR ---
RECEIVED PT FROM DRIVER UTILITY WORKER ON 35% COOL AERESOL. CHANGED PT INLINE SX CATHER AND GAVE ALB PRN DUE TO WHEEZES ON THE RIGHT LOWER LUNG. OT TOLERATED TX WELL.
[2018-12-30] MEDS: MAGNESIUM OXIDE 400 MG TAB GT SCH (08:55)
[2018-12-30] MEDS: DOCUSATE 100 MG/10 ML UDC GT SCH ×2 (08:55→21:51)
[2018-12-30] MEDS: NYSTATIN 500 MU/5 ML UDC GT SCH (08:55)
[2018-12-30] MEDS: CLOPIDOGREL 75 MG TAB GT SCH (08:55)
[2018-12-30] MEDS: MULTIVITAMIN/MINERALS 1 TAB GT SCH (08:55)
--- NOTE | 2018-12-30 08:55 | NUR ---
SCHEDULED MEDS GIVEN TO PATIENT VIA G-TUBE, G-TUBE INTACT AND PATIENT WITH 30 ML OF RESIDUAL NOTED. PATIENT TOLERATED MEDS WELL. SON AT BEDSIDE WILL CONTINUE TO MONITOR.
[2018-12-30] MEDS: ASPIRIN 81 MG TAB.CHEW GT SCH (08:56)
[2018-12-30] MEDS: HYDROCORTISONE 5 MG GT SCH (08:56)
[2018-12-30] MEDS: levETIRAcetam 100 MG/ML ORASYR GT SCH ×2 (08:56→21:52)
--- NOTE | 2018-12-30 09:09 | NUR ---
SPOKE TO CLARISSE MCKEON AT [facility] [place] AT [phone], SHE STATED ACCEPTING DR ISRAEL SANZ CALLED HER TO BE THE ACCEPTING DOCTOR AND THAT THEY STILL HAVE NO BED AVAILABLE AT THIS TIME.
[2018-12-30] MEDS: TIMOLOL EYE OP SCH ×2 (09:30→21:53)
[2018-12-30] MEDS: CHLORHEXADINE GLUC 2% CLOTH TP SCH (09:30)
[2018-12-30] MEDS: DORZOLAMIDE OP SCH ×2 (09:30→21:53)
--- NOTE | 2018-12-30 10:30 | NUR ---
PATIENT CALM IN BED, WITH AND SON AT THE BEDSIDE. WILL FOLLOW UP ON PLACEMENT WITH [facility] FOR TUNNELED CATHETER PLACEMENT. WILL CONTINUE TO MONITOR
[2018-12-30] MEDS ORDERED: POTASSIUM CHLORIDE 20% 40 MEQ/15 ML UDC GT SCH (11:00)
[2018-12-30] MEDS: LEVOFLOXACIN 750 MG/D5W PREMIX 150 ML IV SCH (11:14)
[2018-12-30] MEDS: GAUZE TP SCH (13:00)
--- NOTE | 2018-12-30 13:06 | NUR ---
AT THE BEDSIDE WITH PATIENT FOR BLOOD PRESSURE RECHECK. BP FLUCTUATING SYSTOLIC IN THE 90'S. BP MED GIVEN. WILL CONTINUE TO MONITOR.
--- NOTE | 2018-12-30 13:47 | NUR ---
PATIENT IS IN STABLE CONDITION, BLOOD PRESSURE STABILIZED 113/69 WILL CONTINUE TO MONITOR
--- NOTE | 2018-12-30 15:48 | NUR ---
AT THE BEDSIDE WITH PATIENT FOR SUCTIONING. NO RESP DISTRESS NOTED. OX AT 96%. WILL CONTINUE TO MONITOR
[2018-12-30] MEDS: HYDROcodone/APAP 10/325 MG 1 TAB TAB PO PRN ×2 (17:57→18:00)
--- NOTE | 2018-12-30 18:07 | NUR ---
SCHEDULED MEDS GIVEN TO PATIENT. PATIENT IS CALM WITH SON AT THE BEDSIDE. NO DISTRESS NOTED. WILL CONTINUE TO MONITOR.
--- NOTE | 2018-12-30 19:25 | NUR ---
GAVE REPORT TO PLUMBER NURSE FOR CONTINUITY OF CARE. PATIENT IN STABLE CONDITION.
--- NOTE | 2018-12-30 19:25 | NUR ---
RECIEVED PT. NON VEBAL - WITH TRACH TO AEROSOL 35% , O2 SAT 92% , NO SIGNS OF ACUTE DISTRESS NOTED AT THIS TIME , COMMUNICATING THRU HAND GESTURES , HEAD NOODING - BY THIS MEANS PT DENIES PAIN , ON G TUBE - ON CONT. TPN - SOFT ABD. , USES URINAL , WITH OLD BRUISES ON LEFT ARM , WITH ALEJANDRA CATH ON LEFT CHEST , ON BODY SHOP MANAGER. ON SAFETY / FALL PRECAUTION PROTOCOL - CALL LIGHT WITHIN REACH .PLAN OF CARE DISCUSSED AND VERBALIZE UNDERSTANDING BY MEANS OF THUMBS UP. WILL CONT. TO MONITOR.
--- NOTE | 2018-12-30 20:10 | NUR ---
RECEIVED TRACH PT WITH PORTEX SIZE 8 ON COOL AEROSOL 35%, SP02 93%, AND COARSE BREATH SOUNDS. NO RESPIRATORY DISTRESS NOTED. PRN TX NOT GIVEN. SUCTIONED SMALL AMOUNT OF THICK RED SECRETIONS FROM TRACH TUBE. AIRWAY IS PATENT. WILL CONTINUE TO MONITOR PT
[2018-12-30] MEDS: ATORVASTATIN 20 MG TAB GT SCH (21:52)
[2018-12-30] MEDS: LATANOPROST EYE DROPS OP SCH (21:53)
--- NOTE | 2018-12-30 22:00 | NUR ---
MADE ROUNDS . NO SIGNS OF ACUTE DISTRESS NOTED AT THIS TIME . O2 SAT 92% - WILL CONT. TO MONITOR.
[2018-12-31] VITALS (7 sets, daily range): BP systolic 85–144; BP diastolic 57–91
--- NOTE | 2018-12-31 00:11 | NUR ---
MADE ROUNDS , O2 SAT 91% , COMFORTABLY RESTING ON BED - NO SIGNS OF ACUTE DISTRESS NOTED AT THIS TIME. CALL LIGHT WITHIN REACH.
--- NOTE | 2018-12-31 00:30 | NUR ---
PAGED DR LUPIS REYNA ABOUT BLOOD C/S RESULT - WAITING FOR CALL BACK.
[2018-12-31] MEDS ORDERED: ACETAMINOPHEN 325 MG TAB PO PRN (01:25)
[2018-12-31] MEDS ORDERED: ACETAMINOPHEN 325 MG TAB ONE (01:31)
--- NOTE | 2018-12-31 02:22 | NUR ---
DR ESTELLE REYNA CALL BACK - INFORM RESULT OF BLOOD C/S - NO FURTHER ORDER MADE .
--- NOTE | 2018-12-31 03:56 | NUR ---
C/O STOMACH HYPER ACIDITY - PER WRITTEN SLATE - REFER TO DR REYNA THRU PAGER - WAITING FOR CALL BACK .
[2018-12-31] MEDS: MIDODRINE 5 MG TAB GT SCH ×3 (04:19→20:05)
[2018-12-31] MEDS: LANSOPRAZOLE 30 MG CAPDR GT SCH (05:50)
[2018-12-31] MEDS: LEVOTHYROXINE 0.075 MG TAB GT SCH (05:51)
[2018-12-31 07:05] LABS: BASOPHILS % (AUTO) 0.3 % (0.0-2.0); EOSINOPHILS # (AUTO) 0.1 K/uL (0-0.4); EOSINOPHILS % (AUTO) 0.9 % (0.0-4.0); HEMATOCRIT 31.2 % (36-52); HEMOGLOBIN 10.5 g/dL (12.0-18.0); LYMPHOCYTES # (AUTO) 0.9 K/uL (2.0-11.5); LYMPHOCYTES % (AUTO) 15.3 % (20.5-51.1); MEAN CORPUSCULAR HEMOGLOBIN 34 pg (27-31); MEAN CORPUSCULAR HGB CONC 34 g/dL (33-37); MEAN CORPUSCULAR VOLUME 101.7 fL (80-94); MONOCYTES # (AUTO) 1.2 K/uL (0.8-1.0); MONOCYTES % (AUTO) 19.3 % (1.7-9.3); NEUTROPHILS # (AUTO) 3.9 K/uL (1.8-7.7); NEUTROPHILS % (AUTO) 64.2 % (42.2-75.2); PLATELET COUNT (AUTO) 281 K/uL (140-450); RED BLOOD CELL COUNT(AUTO) 3.07 MIL/uL (4.20-6.10); RED CELL DISTRIBUTION WIDTH 24.3 % (11.6-13.7)
--- NOTE | 2018-12-31 07:05 | NUR ---
RECEIVED REPORT FROM EXECUTIVE SEARCH CONSULTANT NURSE. PT AWAKE AND ORIENTED, NON-VERBAL, ABLE TO MAKE NEEDS KNOWN WITH HAND GESTURES AND IPAD. NOTED PORT-A-CATH ON RT SUBCLAVIAN RUNNING IVF PER ORDER, DRESSING CLEAN AND INTACT. PT ON TRACH TO AEROSOL 25%. NOTED OPEN WOUND ON ANTERIOR PART OF NECK, AREA CLEAN AND DRY, JUAN LUIS. NOTED G-TUBE, RUNNING GLUCERNA PER ORDR. LBM 12/31, ABD SOFT, ACTIVE BS. NOTED BRUISES ON LT ARM, WILL CONTINUE TO MONITOR. PT ON FALL RISK PRECAUTIONS, SAFETY MEASURES IN PLACE, CALL LIGHT WITHIN REACH. REVIEWED POC WITH PT, WILL NEED REINFORCEMENT.
[2018-12-31 07:33] LABS: ALBUMIN 2.5 g/dL (3.4-5.0); ANION GAP 12.1 (8-16); ASPARTATE AMINOTRANSFERASE 21 U/L (15-37); CARBON DIOXIDE 27.9 mmol/L (21-32); CHLORIDE 95 mmol/L (98-107); CREATININE 0.5 mg/dL (0.7-1.3); GLUCOSE 149 mg/dL (74-106); SODIUM SERUM 131 mmol/L (136-145); TOTAL BILIRUBIN 0.3 mg/dL (0.0-1.0); UREA NITROGEN, BLOOD 17 mg/dL (7-18)
--- NOTE | 2018-12-31 07:45 | NUR ---
TRACH TUBING DISPLACED, REAPPLIED WITH O2 SAT 90%. PT HAS NO SIGNS OF RESPIRATORY DISTRESS AT THIS TIME. WILL CONTINUE TO MONITOR.
[2018-12-31] MEDS: ASPIRIN 81 MG TAB.CHEW GT SCH (08:00)
[2018-12-31] MEDS: CLOPIDOGREL 75 MG TAB GT SCH (09:00)
[2018-12-31] MEDS: CHLORHEXADINE GLUC 2% CLOTH TP SCH (09:00)
--- NOTE | 2018-12-31 09:16 | NUR ---
FOUND TRACH TUBING DISPLACED AT THIS TIME. NOTED BLOOD IN TUBING, SUCTIONED TRACH AND FOUND CLOT. REPORTED TO RESPIRATORY THERAPIST. PT HAS NO SIGNS OF RESPIRATORY DISTRESS, NO ACCESSORY MUSCLE USE NOTED, O2 SAT 95%. WILL REPORT TO PHYSICIAN REGARDING PT'S CONDITION.
[2018-12-31] MEDS ORDERED: RACEPINEPHRINE 2.25% 13.5 MG/0.5 ML NEBU INH SCH (09:35)
--- NOTE | 2018-12-31 09:36 | NUR ---
REPORTED UPDATE REGARDING PT'S CONDITION TO DR. GUTIERREZ. RECEIVED AND CARRIED OUT ORDERS. PER PHYSICIAN, OK TO HOLD ASPIRIN AND PLAVIX AT THIS TIME. WILL CONTINUE TO MONITOR FOR S/S OF BLEEDING.
[2018-12-31] MEDS: DOCUSATE 100 MG/10 ML UDC GT SCH ×2 (09:59→20:04)
[2018-12-31] MEDS: MAGNESIUM OXIDE 400 MG TAB GT SCH (10:00)
[2018-12-31] MEDS: NYSTATIN 500 MU/5 ML UDC GT SCH (10:03)
[2018-12-31] MEDS: MULTIVITAMIN/MINERALS 1 TAB GT SCH (10:04)
[2018-12-31] MEDS: HYDROcodone/APAP 10/325 MG 1 TAB TAB PO PRN ×2 (10:06→20:05)
[2018-12-31] MEDS: levETIRAcetam 100 MG/ML ORASYR GT SCH ×2 (10:06→20:04)
[2018-12-31] MEDS: HYDROCORTISONE 5 MG GT SCH (10:07)
[2018-12-31] MEDS: LEVOFLOXACIN 750 MG/D5W PREMIX 150 ML IV SCH (10:24)
[2018-12-31] MEDS: DORZOLAMIDE OP SCH ×2 (10:26→21:51)
[2018-12-31] MEDS: TIMOLOL EYE OP SCH ×2 (10:26→21:51)
--- NOTE | 2018-12-31 10:35 | NUR ---
RECEIVED CALL FROM MANJINDER IN [facility]. GIVEN UPDATE ON PT'S CONDITION, PER MANJINDER WILL CALL BACK IF PATIENT IS ACCEPTED.
--- NOTE | 2018-12-31 11:30 | NUR ---
BLOOD PRESSURE AT 85/57, HR 66. NOTIFIED DR. GUTIERREZ, PER PHYSICIAN ADMINISTER MIDODRINE 5 MG AT THIS TIME. WILL REASSESS B/P WITHIN 1 HOUR.
--- NOTE | 2018-12-31 12:20 | NUR ---
BLOOD PRESSURE AT 107/71, HR 66. PT HAS NO SIGNS OF DISTRESS AT THIS TIME.
[2018-12-31] MEDS: GAUZE TP SCH (13:30)
--- NOTE | 2018-12-31 14:10 | NUR ---
SUCTIONED PT PER REQUEST, NOTED BRIGHT RED DRAINAGE, NO NOTED CLOTS. WILL CONTINUE TO MONITOR. O2 SAT 92%, NO RESPIRATORY DISTRESS.
--- NOTE | 2018-12-31 14:21 | NUR ---
Pt on t-piece CCA FIO2 40%, SPO2 97%, Pt FIO2 decreased to 30% flow of 9, SPO2 95%. RN aware.
--- NOTE | 2018-12-31 16:20 | NUR ---
VS WITHIN NORMAL LIMITS, PT HAS NO C/O PAIN, FLACC 0.
--- NOTE | 2018-12-31 17:00 | NUR ---
RECEIVED CALL FROM [facility], NO OPEN BEDS AT THIS TIME BUT WILL CALL IN 4 HOURS IF BED BECOMES AVAILABLE.
--- NOTE | 2018-12-31 17:40 | NUR ---
PT REPOSITIONED IN BED, NO DISTRESS NOTED. FAMILY AT BEDSIDE.
--- NOTE | 2018-12-31 19:05 | NUR ---
ENDORSED PT TO CENTER HOLE REAMER NURSE ROSEMARIE. PT HAS NO SIGNS OF DISTRESS AT THIS TIME.
--- NOTE | 2018-12-31 19:06 | NUR ---
RECEIVED BEDSIDE REPORT FROM AM SHIFT NURSE. PATIENT IS LYING IN BED WITH EYES CLOSED. NO SOB OR DISTRESS NOTED. PT IS ON TRACH TO T-PIECE WITH O2 SATURATION OF 98% AT FIO2 OF 30%. IV ACCESS ON RIGHT CHEST PORTACATH, PATENT AND INFUSING WELL. GTUBE IN PLACE WITH FEEDING INFUSING WELL. ON SEIZURE AND FALL PRECAUTION, SAFETY MEASURES IN PLACE. BED IN LOW. INITIAL ASSESSMENT DONE. CALL LIGHT WITHIN PATIENT REACH. BOARD UPDATED. WILL CONTINUE TO MONITOR PATIENT.
[2018-12-31] MEDS: ATORVASTATIN 20 MG TAB GT SCH (20:05)
--- NOTE | 2018-12-31 20:20 | NUR ---
RECEIVED TRACH PT WITH PORTEX SIZE 8 ON COOL AEROSOL 30%, SP02 92% AND CRACKLES BREATH SOUNDS. NO RESPIRATORY DISTRESS NOTED. PRN TX NOT GIVEN. SUCTIONED SMALL AMOUNT OF THIN RED SECRETIONS FROM TRACH TUBE. AIRWAY IS PATENT. WILL CONTINUE TO MONITOR PT
--- NOTE | 2018-12-31 21:10 | NUR ---
[facility] CALLED THAT NO BED AVAILABLE AT THIS TIME IF SOMETHING COMES UP ARE WE STILL IN NEED OF AND I SAID YES.
--- NOTE | 2018-12-31 21:30 | NUR ---
ROUNDS DONE. PATIENT RESTING WITH EYES CLOSED. NO SOB OR DISTRESS NOTED. WILL CONTINUE TO MONITOR PATIENT.
[2018-12-31] MEDS: LATANOPROST EYE DROPS OP SCH (21:51)
--- NOTE | 2018-12-31 23:02 | NUR ---
ROUNDS DONE. PATIENT RESTING WITH EYES CLOSED. VISIBLE CHEST RISE AND FALL NOTED. WILL CONTINUE TO MONITOR PATIENT.
[2019-01-01] VITALS (7 sets, daily range): BP systolic 87–131; BP diastolic 55–78
--- NOTE | 2019-01-01 00:10 | NUR ---
VITALS TAKEN AT THIS TIME. WILL CONTINUE TO MONITOR PATIENT.
--- NOTE | 2019-01-01 02:10 | NUR ---
ROUNDS DONE. PATIENT RESTING WITH EYES CLOSED. NO SOB OR DISTRESS NOTED. WILL CONTINUE TO MONITOR PATIENT.
--- NOTE | 2019-01-01 05:10 | NUR ---
PT SX MUSE CATHETER, TRACH TIE, AND DRESSING CHANGED. AIRWAY PATENT, PT RESTING IN BED ON COOL AEROSOL 30% @ 9L WITH SP02 92%. PT IN NO RESPIRATORY DISTRESS.
[2019-01-01] MEDS: MIDODRINE 5 MG TAB GT SCH ×3 (06:08→21:26)
[2019-01-01] MEDS: LANSOPRAZOLE 30 MG CAPDR GT SCH (06:08)
[2019-01-01] MEDS: LEVOTHYROXINE 0.075 MG TAB GT SCH (06:08)
[2019-01-01 06:44] LABS: BASOPHILS % (AUTO) 0.3 % (0.0-2.0); EOSINOPHILS # (AUTO) 0.1 K/uL (0-0.4); EOSINOPHILS % (AUTO) 0.9 % (0.0-4.0); HEMATOCRIT 32.4 % (36-52); HEMOGLOBIN 10.7 g/dL (12.0-18.0); LYMPHOCYTES # (AUTO) 0.8 K/uL (2.0-11.5); MEAN CORPUSCULAR HEMOGLOBIN 34 pg (27-31); MEAN CORPUSCULAR HGB CONC 33 g/dL (33-37); MONOCYTES % (AUTO) 17.1 % (1.7-9.3); NEUTROPHILS % (AUTO) 67.7 % (42.2-75.2); PLATELET COUNT (AUTO) 254 K/uL (140-450); RED BLOOD CELL COUNT(AUTO) 3.17 MIL/uL (4.20-6.10); RED CELL DISTRIBUTION WIDTH 24.1 % (11.6-13.7); WHITE BLOOD COUNT (AUTO) 5.9 K/uL (4.8-10.8)
--- NOTE | 2019-01-01 07:05 | NUR ---
PT IN STABLE CONDITION. CALL LIGHT WITHIN PATIENT REACH. ENDORSED TO AM SHIFT NURSE FOR CONTINUITY OF CARE.
[2019-01-01 07:13] LABS: ALBUMIN 2.4 g/dL (3.4-5.0); ANION GAP 11.1 (8-16); ASPARTATE AMINOTRANSFERASE 20 U/L (15-37); CARBON DIOXIDE 30.7 mmol/L (21-32); CHLORIDE 95 mmol/L (98-107); CREATININE 0.5 mg/dL (0.7-1.3); GLUCOSE 132 mg/dL (74-106); POTASSIUM 3.8 mmol/L (3.5-5.1); SODIUM SERUM 133 mmol/L (136-145); TOTAL BILIRUBIN 0.3 mg/dL (0.0-1.0); UREA NITROGEN, BLOOD 17 mg/dL (7-18)
--- NOTE | 2019-01-01 07:34 | NUR ---
Received report from material handler 1st shift nurse. Pt is in stable condition. Call light in reach.
[2019-01-01] MEDS: ASPIRIN 81 MG TAB.CHEW GT SCH (08:00)
--- NOTE | 2019-01-01 08:00 | NUR ---
suctioned pt this morning, noted bloody secretions. Did not give aspirin. notified Soraya Coffey. Call light in reach. Family be bedside.
[2019-01-01] MEDS: MULTIVITAMIN/MINERALS 1 TAB GT SCH (08:31)
[2019-01-01] MEDS: CLOPIDOGREL 75 MG TAB GT SCH (08:31)
[2019-01-01] MEDS: levETIRAcetam 100 MG/ML ORASYR GT SCH ×2 (08:32→21:05)
[2019-01-01] MEDS: NYSTATIN 500 MU/5 ML UDC GT SCH (08:32)
[2019-01-01] MEDS: MAGNESIUM OXIDE 400 MG TAB GT SCH (08:32)
[2019-01-01] MEDS: DOCUSATE 100 MG/10 ML UDC GT SCH ×2 (08:32→21:05)
[2019-01-01] MEDS: DORZOLAMIDE OP SCH ×2 (08:35→21:06)
[2019-01-01] MEDS: TIMOLOL EYE OP SCH ×2 (08:35→21:06)
[2019-01-01] MEDS: HYDROCORTISONE 5 MG GT SCH (08:36)
[2019-01-01] MEDS: HYDROcodone/APAP 10/325 MG 1 TAB TAB PO PRN ×3 (08:51→21:29)
[2019-01-01] MEDS: CHLORHEXADINE GLUC 2% CLOTH TP SCH (09:08)
[2019-01-01] MEDS: ALBUTEROL 0.083% 2.5 MG/3 ML NEBU INH PRN ×2 (09:24→19:00)
--- NOTE | 2019-01-01 09:30 | NUR ---
Pt is in bed in stable condition. Call light in reach. Family by bedside.
--- NOTE | 2019-01-01 11:00 | NUR ---
Pt is in bed resting in stable condition. Repositioned patient. Call light in reach. Family by bedside
[2019-01-01] MEDS: LEVOFLOXACIN 750 MG/D5W PREMIX 150 ML IV SCH (12:43)
--- NOTE | 2019-01-01 13:30 | NUR ---
Left upper clavicle wound dressing assessed. Old dressing was soaked in NS and removed. Wound cleaned with NS pat dry. New dressing applied. No active bleeding noted. Pt tolerated dressing change well. Call light in reach. Family at bedside.
[2019-01-01] MEDS: GAUZE TP SCH (14:00)
--- NOTE | 2019-01-01 14:01 | NUR ---
Spoke to [facility] transfer [facility] at [facility] regarding transfer for higher level for the drainage tube insertion (pig tail) to drain thoracentesis. No bed available, and recommended that can be schedule as outpatient per the IR radiology. Cannot be schedule today, but will try tomorrow if schedule available. will inform
--- NOTE | 2019-01-01 15:00 | NUR ---
Pt is in bed resting in stable condition. Repositioned patient. Call light in reach. Family by bedside
--- NOTE | 2019-01-01 15:24 | NUR ---
01/01/19 RD FOLLOW UP COMPLETED PLEASE REFER TO NUTRITION ASSESSMENT UNDER CARE ACTIVITY FOR ESTIMATED NUTRITIONAL NEEDS. 1. CONTINUE GLUCERNA 1.2 @ 50 ML/HR WITH PROSOURCE TID TOLERATED -THIS WILL PROVIDE 1620 KCAL, 117 GM OF PROTEIN AND 1200 ML OF VOLUME WHICH MEETS 83% OF ESTIMATED CALORIE NEEDS AND 100% OF ESTIMATED PROTEIN NEEDS. 2. CONTINUE FREE WATER FLUSH OF [address] TO FOLLOW-UP 2-3 DAYS, HIGH RISK YARITZA SERRANO RD
--- NOTE | 2019-01-01 17:00 | NUR ---
ASLEEP RESTING WELL WITHOUT SOB NOTED GOOD EQUAL CHEST RISE SATURATION 94% ON SUPPLEMENTAL OXYGEN VIA COOL AEROSOL AT 30%/6 LPM TO TRACHEOSTOMY TUBE/INLINE SUCTION CATHETER DEEP TRACHEAL SUCTION FOR MODERATE THICK BLOODY SECRETIONS WITH SCATTERED PLUGS AIRWAY PATENT MALE FAMILY/FRIEND IN ROOM AT THIS TIME
--- NOTE | 2019-01-01 17:00 | NUR ---
Pt is in bed resting in stable condition. Repositioned patient. Call light in reach. Family by bedside
--- NOTE | 2019-01-01 19:09 | NUR ---
RECEIVED PATIENT TRACH PORTEX 8 TBAR TO COOL AEROSOL AT 30% FIO2. PULSE OX SAT 95%. PRN TX ADMINISTERED. TOLERATED WELL WITHOUT ADVERSE SIDE EFFECTS. SUCTIONED SMALL AMOUNT OF THIN, BLOODY SECRETIONS. NO ACUTE DISTRESS NOTED AT THIS TIME. WILL CONTINUE TO MONITOR.
--- NOTE | 2019-01-01 19:20 | NUR ---
Shift report given to night worker nurse. Pt is in bed in stable condition. Call light in reach.
--- NOTE | 2019-01-01 19:21 | NUR ---
Received endorsement from AM shift RN; patient A/Ox2, able to make needs known by hand gestures, bedbound. Introduced self, updated board. No SOB or distress noted, on trach to t-piece, O2 running at 6LPM. IV site noted on right subclavian Port-A-Cath, running IVF at 10mL/hr. G-tube in place. Bed in the lowest position, call light within reach. Initial assessment done. Will continue to monitor.
--- NOTE | 2019-01-01 20:35 | NUR ---
Vitals taken, no distress noted.
[2019-01-01] MEDS: ATORVASTATIN 20 MG TAB GT SCH (21:05)
[2019-01-01] MEDS: LATANOPROST EYE DROPS OP SCH (21:06)
--- NOTE | 2019-01-01 21:45 | NUR ---
Due meds given, tolerated well. G-tube residual 40mL.
--- NOTE | 2019-01-01 23:55 | NUR ---
Received a call from Dennise in [facility]; stated that there are no beds at this time for patient, but will call back in 4 hours to do follow-up to see if there are beds available.
[2019-01-02] VITALS: BP 155/89
--- NOTE | 2019-01-02 00:02 | NUR ---
Vitals taken, no distress noted.
--- NOTE | 2019-01-02 02:38 | NUR ---
Rounds done; patient asleep, eyes closed, visible chest rise and fall noted.
[2019-01-02 04:00] VITALS: BP 90/63
--- NOTE | 2019-01-02 04:20 | NUR ---
Vitals taken, no distress noted. Patient resting comfortably, visible chest rise and fall noted.
[2019-01-02] MEDS: LEVOTHYROXINE 0.075 MG TAB GT SCH (05:42)
[2019-01-02] MEDS: HYDROcodone/APAP 10/325 MG 1 TAB TAB PO PRN (05:42)
[2019-01-02] MEDS: LANSOPRAZOLE 30 MG CAPDR GT SCH (05:43)
[2019-01-02] MEDS: MIDODRINE 5 MG TAB GT SCH ×3 (05:43→20:33)
--- NOTE | 2019-01-02 06:10 | NUR ---
Vitals stable, due meds given. Will endorse to AM shift RN for continuity of care.
--- NOTE | 2019-01-02 07:15 | NUR ---
RECEIVED BEDSIDE REPORT FROM DIRECTOR TEEN POST NURSE. PT IS ASLEEP, NO S/S OF ACUTE DISTRESS, NO SOB NOTED. PT IS TRACH TO T-PIECE 9 L/MIN. TUBE FEEDING GLUCERNA 1.2 RUNNING 50 ML/HR, WITH WATER FLUSHES 50 ML Q8H. PORTACATH NOTED ON THE R CHEST INFUSING NS 10 ML/HR. L FA IS WRAPPED DUE TO WEEPING. L NECK LESIONS ARE COVERED WITH DRY DRESSING. FALL PRECAUTIONS IN PLACE. CALL LIGHT IS WITHIN REACH.
[2019-01-02 07:18] LABS: BASOPHILS % (AUTO) 0.4 % (0.0-2.0); EOSINOPHILS % (AUTO) 0.7 % (0.0-4.0); HEMATOCRIT 29.5 % (36-52); HEMOGLOBIN 9.7 g/dL (12.0-18.0); LYMPHOCYTES % (AUTO) 15.1 % (20.5-51.1); MEAN CORPUSCULAR HEMOGLOBIN 34 pg (27-31); MEAN CORPUSCULAR HGB CONC 33 g/dL (33-37); MEAN CORPUSCULAR VOLUME 102.6 fL (80-94); MONOCYTES # (AUTO) 0.9 K/uL (0.8-1.0); MONOCYTES % (AUTO) 13.8 % (1.7-9.3); NEUTROPHILS # (AUTO) 4.5 K/uL (1.8-7.7); PLATELET COUNT (AUTO) 247 K/uL (140-450); RED BLOOD CELL COUNT(AUTO) 2.88 MIL/uL (4.20-6.10); RED CELL DISTRIBUTION WIDTH 24.5 % (11.6-13.7); WHITE BLOOD COUNT (AUTO) 6.4 K/uL (4.8-10.8)
[2019-01-02 07:39] LABS: ALBUMIN 2.2 g/dL (3.4-5.0); ANION GAP 10.2 (8-16); ASPARTATE AMINOTRANSFERASE 19 U/L (15-37); CARBON DIOXIDE 28.7 mmol/L (21-32); CHLORIDE 97 mmol/L (98-107); CREATININE 0.5 mg/dL (0.7-1.3); GLUCOSE 136 mg/dL (74-106); POTASSIUM 3.9 mmol/L (3.5-5.1); SODIUM SERUM 132 mmol/L (136-145); TOTAL BILIRUBIN 0.3 mg/dL (0.0-1.0); UREA NITROGEN, BLOOD 16 mg/dL (7-18)
[2019-01-02 08:00] VITALS: BP 131/90
[2019-01-02] MEDS: CHLORHEXADINE GLUC 2% CLOTH TP SCH (09:00)
[2019-01-02] MEDS: DOCUSATE 100 MG/10 ML UDC GT SCH ×2 (09:16→20:33)
[2019-01-02] MEDS: levETIRAcetam 100 MG/ML ORASYR GT SCH ×2 (09:16→20:33)
[2019-01-02] MEDS: MULTIVITAMIN/MINERALS 1 TAB GT SCH (09:17)
[2019-01-02] MEDS: MAGNESIUM OXIDE 400 MG TAB GT SCH (09:17)
[2019-01-02] MEDS: TIMOLOL EYE OP SCH ×2 (09:18→20:33)
[2019-01-02] MEDS: DORZOLAMIDE OP SCH ×2 (09:18→20:33)
[2019-01-02] MEDS: HYDROCORTISONE 5 MG GT SCH (09:19)
[2019-01-02] MEDS ORDERED: NYSTATIN 500 MU/5 ML UDC GT SCH (09:22)
--- NOTE | 2019-01-02 09:40 | NUR ---
AM MEDS ADMINISTERED VIA THE GT, PT TOLERATED WELL. PT IS HAVING ABD US AT THIS TIME. Addendum: 01/02/19 at 0941 by Jordyn Hernandez RN CHEST* US
[2019-01-02 12:00] VITALS: BP 121/82
--- NOTE | 2019-01-02 12:33 | NUR ---
PT CLEANED AND CHANGED, BED SHEETS CHANGED. TOLERATED WELL.
[2019-01-02] MEDS: GAUZE TP SCH (13:00)
[2019-01-02 16:00] VITALS: BP 104/65
--- NOTE | 2019-01-02 17:30 | NUR ---
PT SEEN BY DR ELDER FOR PLEURX CATHETER PLACEMENT EVAL.
--- NOTE | 2019-01-02 17:32 | NUR ---
PER DR ELDER, HE CAN DO PT'S PLEURX CATHETER PLACEMENT ON TUESDAY, 01/04
--- NOTE | 2019-01-02 18:18 | NUR ---
TRIED TO CALL PT'S SON LAURA TO OBTAIN CONSENT FOR PLEURX CATHETER PLACEMENT, CALLED THREE TIMES, NO ANSWER. WILL ENDORSE TO THE NEXT SHIFT NURSE.
--- NOTE | 2019-01-02 19:10 | NUR ---
PT ENDORSED TO MOLDING PROCESS TECHNICIAN NURSE IN STABLE CONDITION.
--- NOTE | 2019-01-02 19:11 | NUR ---
RECEIVED BEDSIDE REPORT FROM DAY RN. PT IS AWAKE AND ALERT, HUNGARIAN SPEAKING . NO S/S OF ACUTE DISTRESS, NO SOB NOTED. PT IS TRACH TO T-PIECE 6 L/MIN. TUBE FEEDING GLUCERNA 1.2 RUNNING 50 ML/HR, WITH WATER FLUSHES 50 ML Q8H. PORTACATH NOTED ON THE R CHEST INFUSING NS 10 ML/HR. L FA IS WRAPPED DUE TO WEEPING. L NECK LESIONS ARE COVERED WITH DRY DRESSING. FALL PRECAUTIONS IN PLACE. POC DISCUSSED WITH PT. CALL LIGHT IS WITHIN REACH.
[2019-01-02 20:00] VITALS: BP 86/47
[2019-01-02] MEDS: ATORVASTATIN 20 MG TAB GT SCH (20:32)
[2019-01-02] MEDS: LATANOPROST EYE DROPS OP SCH (20:33)
--- NOTE | 2019-01-02 20:33 | NUR ---
PTS B/P LOW NACHO PROAMATINE GIVEN. B/P 86/47 HR 70. PT ON TRACH TO T-PIECE AT 6L SAT 92%. OTHER NACHO MEDICATIONS GIVEN VIA G-TUBE. PT WITH NO RESIDUAL. ALL NEEDS MET AT THIS TIME. CALL LIGHT IS WITHIN REACH.
--- NOTE | 2019-01-02 22:19 | NUR ---
PATIENT IS SLEEPING COMFORTABLY IN BED. CHEST RISE AND FALL. NO S/S OF DISTRESS. CALL LIGHT IS WITHIN REACH.
[2019-01-03] VITALS: BP 104/69
--- NOTE | 2019-01-03 | NUR ---
VITAL SIGNS ARE WITHIN NORMAL LIMITS. NO S/S OF DISTRESS. CALL LIGHT IS WITHIN REACH.
--- NOTE | 2019-01-03 01:05 | NUR ---
PATIENT WAS CLEANED AND REPOSITION FOR COMFORT. CALL LIGHT IS WITHIN REACH.
--- NOTE | 2019-01-03 02:29 | NUR ---
PATIENT IS SLEEPING COMFORTABLY IN BED. CHEST RISE AND FALL. SAFETY MEASURES ARE IN PLACE. CALL LIGHT IS WITHIN REACH.
[2019-01-03 04:00] VITALS: BP 132/90
--- NOTE | 2019-01-03 04:00 | NUR ---
VITAL SIGNS ARE WITHIN NORMAL LIMITS. ALL NEEDS MET AT THIS TIME. CALL LIGHT IS WITHIN REACH.
[2019-01-03] MEDS: LEVOTHYROXINE 0.075 MG TAB GT SCH (05:35)
[2019-01-03] MEDS: LANSOPRAZOLE 30 MG CAPDR GT SCH (05:35)
[2019-01-03] MEDS: MIDODRINE 5 MG TAB GT SCH ×3 (05:36→20:32)
[2019-01-03] MEDS: HYDROcodone/APAP 10/325 MG 1 TAB TAB PO PRN ×2 (05:44→19:49)
--- NOTE | 2019-01-03 07:28 | NUR ---
GAVE BEDSIDE REPORT TO DAY RN. PT ENDORSED IN STABLE CONDITION.
--- NOTE | 2019-01-03 07:34 | NUR ---
RECEIVED BEDSIDE REPORT FROM PATIENT BILLER RN. PT IS AAOX4, PORTUGUESE SPEAKING . NO S/S OF ACUTE DISTRESS, NO SOB NOTED. PT IS TRACH TO T-PIECE @ 6 L/MIN SATING 96%. TUBE FEEDING GLUCERNA 1.2 RUNNING 50 ML/HR, WITH WATER FLUSHES 50 ML Q8H. PORTACATH NOTED ON THE R CHEST INFUSING NS 10 ML/HR. L FA IS WRAPPED DUE TO WEEPING. L NECK LESIONS ARE COVERED WITH DRY DRESSING. FALL PRECAUTIONS IN PLACE. POC DISCUSSED WITH PT. CALL LIGHT IS WITHIN REACH. BED IN LOW POSITION. WILL ROUND FREQUENTLY ON PT.
[2019-01-03 07:58] LABS: BASOPHILS % (AUTO) 0.4 % (0.0-2.0); EOSINOPHILS % (AUTO) 0.6 % (0.0-4.0); HEMATOCRIT 30.8 % (36-52); HEMOGLOBIN 10.3 g/dL (12.0-18.0); LYMPHOCYTES % (AUTO) 15.6 % (20.5-51.1); MEAN CORPUSCULAR HEMOGLOBIN 34 pg (27-31); MEAN CORPUSCULAR HGB CONC 33 g/dL (33-37); MEAN CORPUSCULAR VOLUME 102.2 fL (80-94); MONOCYTES # (AUTO) 0.7 K/uL (0.8-1.0); MONOCYTES % (AUTO) 11.5 % (1.7-9.3); NEUTROPHILS # (AUTO) 4.6 K/uL (1.8-7.7); NEUTROPHILS % (AUTO) 71.9 % (42.2-75.2); PLATELET COUNT (AUTO) 246 K/uL (140-450); RED BLOOD CELL COUNT(AUTO) 3.02 MIL/uL (4.20-6.10); RED CELL DISTRIBUTION WIDTH 24.2 % (11.6-13.7); WHITE BLOOD COUNT (AUTO) 6.4 K/uL (4.8-10.8)
[2019-01-03 08:00] VITALS: BP 132/91
[2019-01-03 08:24] LABS: ALBUMIN 2.2 g/dL (3.4-5.0); ANION GAP 12.6 (8-16); ASPARTATE AMINOTRANSFERASE 19 U/L (15-37); CARBON DIOXIDE 27.3 mmol/L (21-32); CHLORIDE 96 mmol/L (98-107); CREATININE 0.5 mg/dL (0.7-1.3); GLUCOSE 139 mg/dL (74-106); POTASSIUM 3.9 mmol/L (3.5-5.1); SODIUM SERUM 132 mmol/L (136-145); TOTAL BILIRUBIN 0.3 mg/dL (0.0-1.0); UREA NITROGEN, BLOOD 14 mg/dL (7-18)
[2019-01-03] MEDS: DORZOLAMIDE OP SCH ×3 (09:00→20:17)
[2019-01-03] MEDS: TIMOLOL EYE OP SCH ×3 (09:00→20:17)
--- NOTE | 2019-01-03 09:54 | NUR ---
ADMINISTERED MORNING MEDS TO PT. PT TOLERATED WELL. WILL CONTINUE TO ROUND FREQUENTLY ON PT. BED IN LOW POSITION, CALL LIGHT WITHIN REACH.
[2019-01-03] MEDS: MULTIVITAMIN/MINERALS 1 TAB GT SCH (09:58)
[2019-01-03] MEDS: levETIRAcetam 100 MG/ML ORASYR GT SCH ×2 (09:58→20:21)
[2019-01-03] MEDS: NYSTATIN 500 MU/5 ML UDC GT SCH (09:58)
[2019-01-03] MEDS: MAGNESIUM OXIDE 400 MG TAB GT SCH (09:58)
[2019-01-03] MEDS: DOCUSATE 100 MG/10 ML UDC GT SCH ×2 (09:59→20:21)
[2019-01-03] MEDS: HYDROCORTISONE 5 MG GT SCH (09:59)
[2019-01-03] MEDS: CHLORHEXADINE GLUC 2% CLOTH TP SCH (10:00)
--- NOTE | 2019-01-03 11:39 | NUR ---
PT RESTING IN BED. ALL NEEDS MET. WILL CONTINUE TO ROUND FREQUENTLY ON PT. FAMILY VISITING IN ROOM WITH PT.
[2019-01-03 12:00] VITALS: BP 143/70
[2019-01-03] MEDS: GAUZE TP SCH (13:43)
--- NOTE | 2019-01-03 13:54 | NUR ---
PROAMATINE HELD DUE TO PT BP BEING 143/70. PT IN STABLE CONDITION. WILL CONTINUE TO ROUND FREQUENTLY ON PT.
--- NOTE | 2019-01-03 15:57 | NUR ---
PT RESTING IN BED. ALL NEEDS MET. PT DENIES PAIN OR SOB. FAMILY AT BEDSIDE. WILL CONTINUE TO ROUND FREQUENTLY ON PT. BED IN LOW POSITION, CALL LIGHT WITHIN REACH.
[2019-01-03 16:00] VITALS: BP 147/74
--- NOTE | 2019-01-03 17:18 | NUR ---
PT REFUSED TRACH CARE
--- NOTE | 2019-01-03 17:48 | NUR ---
PT RESTING WITH FAMILY AT BEDSIDE. ALL NEEDS MET.
--- NOTE | 2019-01-03 19:30 | NUR ---
RECEIVED BEDSIDE REPORT FROM AM SHIFT EMA DÍAZ, FOR PT'S CONTINUITY OF CARE. PT IS AAOX4, JAPANESE SPEAKING, NON-VERBAL, FAMILY MEMBERS AT BEDSIDE, HAS TRACH TO T-PIECE WITH 6L O2, IS ON GLASS LAMINATING OPERATOR, HAS LUQ G-TUBE WITH GLUCERNA CONTINUOUS FEEDING, HAS RIGHT SUBCLAVIAN PORTACATH, HAS LESIONS ON NECK FROM CARCINOMA SCARS, LEFT FA WEEPING EDEMA WITH DRESSING, C/O GEN PAIN. EXPLAINED TO PT AND FAMILY MEMBERS THE YOUTH PASTOR ROUTINE, THEY VERBALIZED UNDERSTANDING. SAFETY PRECAUTION IN PLACE, SEIZURE PRECAUTION IN PLACE, AND CALL LIGHT IS WITHIN REACH. WILL MONITOR PT THROUGHOUT SHIFT.
--- NOTE | 2019-01-03 19:44 | NUR ---
ENDORSED PT TO SPANISH INTERPRETER/TRANSLATOR FOR CONTINUITY OF CARE. PT IN STABLE CONDITION AT THIS TIME.
[2019-01-03 20:00] VITALS: BP 119/119
[2019-01-03] MEDS: LATANOPROST EYE DROPS OP SCH (20:18)
--- NOTE | 2019-01-03 20:20 | NUR ---
ADMINISTERED SCHEDULED GT AND OPTH MEDICATIONS ORDERED. GT PLACEMENT VERIFIED WITH TOTAL RESIDUAL OF 25ML. PT TOLERATED IT WELL. WILL CONTINUE TO MONITOR PT.
[2019-01-03] MEDS: ATORVASTATIN 20 MG TAB GT SCH (20:22)
--- NOTE | 2019-01-03 22:00 | NUR ---
PT CALLED FOR RN, REQUESTED FOR SUCTION. SUCTIONED MINIMAL SPUTUM. PT DENIES ANY PAIN. WILL CONTINUE TO MONITOR PT.
[2019-01-04] VITALS: BP 95/64
--- NOTE | 2019-01-04 | NUR ---
VS CHECKED AND CHARTED. PT DENIES ANY PAIN. STOPPED GT FEEDING, PT NPO STATUS. WILL CONTINUE TO MONITOR PT.
--- NOTE | 2019-01-04 02:40 | NUR ---
MADE ROUNDS. PT ASLEEP WITH NO SIGNS OF DISTRESS. WILL CONTINUE TO MONITOR PT.
[2019-01-04 04:00] VITALS: BP 156/88
--- NOTE | 2019-01-04 04:30 | NUR ---
VS CHECKED AND CHARTED. PT ASLEEP WITH NO SIGNS OF DISTRESS. WILL CONTINUE TO MONITOR PT.
[2019-01-04] MEDS: MIDODRINE 5 MG TAB GT SCH ×2 (05:00→13:00)
[2019-01-04 06:09] LABS: BASOPHILS % (AUTO) 0.3 % (0.0-2.0); EOSINOPHILS % (AUTO) 0.7 % (0.0-4.0); HEMATOCRIT 30.5 % (36-52); HEMOGLOBIN 10.2 g/dL (12.0-18.0); LYMPHOCYTES # (AUTO) 0.9 K/uL (2.0-11.5); LYMPHOCYTES % (AUTO) 16.4 % (20.5-51.1); MEAN CORPUSCULAR HEMOGLOBIN 34 pg (27-31); MEAN CORPUSCULAR HGB CONC 33 g/dL (33-37); MEAN CORPUSCULAR VOLUME 102.2 fL (80-94); MONOCYTES # (AUTO) 0.6 K/uL (0.8-1.0); MONOCYTES % (AUTO) 11.4 % (1.7-9.3); NEUTROPHILS % (AUTO) 71.2 % (42.2-75.2); PLATELET COUNT (AUTO) 209 K/uL (140-450); RED BLOOD CELL COUNT(AUTO) 2.99 MIL/uL (4.20-6.10); RED CELL DISTRIBUTION WIDTH 24.4 % (11.6-13.7); WHITE BLOOD COUNT (AUTO) 5.7 K/uL (4.8-10.8)
[2019-01-04] MEDS: LANSOPRAZOLE 30 MG CAPDR GT SCH (06:26)
[2019-01-04] MEDS: LEVOTHYROXINE 0.075 MG TAB GT SCH (06:26)
--- NOTE | 2019-01-04 06:35 | NUR ---
ADMINISTERED SCHEDULED GT MEDICATION ORDERED. PT DENIES ANY PAIN AT THIS TIME. WILL ENDORSE TO AM SHIFT RN FOR PT'S CONTINUITY OF CARE.
[2019-01-04 06:46] LABS: ALBUMIN 2.3 g/dL (3.4-5.0); ANION GAP 11.3 (8-16); ASPARTATE AMINOTRANSFERASE 21 U/L (15-37); CARBON DIOXIDE 28.5 mmol/L (21-32); CHLORIDE 98 mmol/L (98-107); CREATININE 0.5 mg/dL (0.7-1.3); GLUCOSE 114 mg/dL (74-106); POTASSIUM 3.8 mmol/L (3.5-5.1); SODIUM SERUM 134 mmol/L (136-145); TOTAL BILIRUBIN 0.4 mg/dL (0.0-1.0); UREA NITROGEN, BLOOD 14 mg/dL (7-18)
--- NOTE | 2019-01-04 07:47 | NUR ---
Received report from fast food shift supervisor nurse. Pt is in stable condition. Call light in reach.
--- NOTE | 2019-01-04 07:58 | NUR ---
PT IS ON COOL AERESOL AT 35%. SAT 98%. B/S WERE CLEAR ON THE RIGHT AND DIMINISHED ON THE LEFT.NO RESP. DISTRESS NOTED.
[2019-01-04 08:00] VITALS: BP 145/93
[2019-01-04] MEDS: DOCUSATE 100 MG/10 ML UDC GT SCH ×2 (09:00→10:15)
[2019-01-04] MEDS: NYSTATIN 500 MU/5 ML UDC GT SCH ×2 (09:00→10:16)
--- NOTE | 2019-01-04 10:00 | NUR ---
Pt is resting in bed in stable condition. by bedside. Call light in reach.
[2019-01-04] MEDS: levETIRAcetam 100 MG/ML ORASYR GT SCH ×2 (10:15→10:54)
[2019-01-04] MEDS: MULTIVITAMIN/MINERALS 1 TAB GT SCH (10:16)
[2019-01-04] MEDS: HYDROCORTISONE 5 MG GT SCH ×2 (10:17→10:56)
[2019-01-04] MEDS: MAGNESIUM OXIDE 400 MG TAB GT SCH ×2 (10:17→10:55)
[2019-01-04] MEDS: DORZOLAMIDE OP SCH ×2 (10:26→10:55)
[2019-01-04] MEDS: TIMOLOL EYE OP SCH ×2 (10:26→10:55)
[2019-01-04 12:00] VITALS: BP 148/79
--- NOTE | 2019-01-04 12:30 | NUR ---
Pt is resting in bed in stable condition. Call light in reach.
[2019-01-04] MEDS ORDERED: LABETALOL 100 MG/20 ML VIAL ONE (12:59)
[2019-01-04] MEDS: GAUZE TP SCH (13:00)
[2019-01-04] MEDS ORDERED: KETAMINE 500 MG/5 ML VIAL ONE (13:09)
[2019-01-04] MEDS ORDERED: ONDANSETRON 4 MG/2 ML VIAL IVP PRN (13:25)
[2019-01-04] MEDS ORDERED: HYDROmorphone 1 MG/ML AMP IVP PRN (13:25)
--- NOTE | 2019-01-04 13:30 | NUR ---
Pt off unit for insertion of left chest tube placement. Pt accompanied by family and OR nurse.
--- NOTE | 2019-01-04 15:35 | NUR ---
Pt came back from OR to unit with chest tube placement to left side. Family be bedside.
[2019-01-04] MEDS ORDERED: PNEUMOCOCCAL VACCINE 23 MCG/0.5 ML VIAL IMVAC SCH (15:40)
--- NOTE | 2019-01-04 15:58 | NUR ---
RECEIVED A CALL FROM EMA TURNER TO ASSIST IN HOLDING THE PT. TRACH TUBE SO HE CAN TAKE A PICTURE OF THE WOUNDS. WOUND PICTURE WAS COMPLETED. NEW GUAZE WAS PLACED ON THE PATIENT. FAMILY WAS AT BEDSIDE. PT WAS SAT 100%. NO RESPIRATORY DISTRESS NOTED.
--- NOTE | 2019-01-04 17:35 | NUR ---
Pt was discharged today to [facility]. Discharge instructions and packet was given to patient and family. Discharge packet given to transport personnels. Chest tube on left side with collection chamber intact. IV fluids were disconnected. G Tube flushed and patent. Trach connected to portable O2. Called [facility] and gave report to EMA Caal. Pt was to go to bed [address] Spring. Pt's wound picture to left neck area and left forearm was taken. No complains of pain. Pt's belongings with patient. Pt was taken in a gurney by transport personnels accompanied by son and . Arm band removed. Vital signs were stable at discharge.
--- NOTE | 2019-01-04 17:35 | NUR ---
RN CALLED TO HELP EMT LIFT THE PATIENT ON A JOURNEY. PT NEEDED SOME SX. PT PLACED ON 8 LPM TRACH COLLAR AND SENT WITH EMT
== END 2019-01-04 17:30 | DRG 146 ==
LOC: MED 07:52 → MTU 10:08
PROVIDERS: ADMIT Internal Medicine Pulmonary Disease; ATTEND Internal Medicine Pulmonary Disease
PROC: 0W9B3ZZ Drainage of Left Pleural Cavity, Percutaneous Approach (ICD-10-PCS; principal; 2018-12-29)
PROC: 0W9B30Z Drainage of Left Pleural Cavity with Drainage Device, Percutaneous Approach (ICD-10-PCS; 2019-01-04)
PROC: 0JH63XZ Insertion of Tunneled Vascular Access Device into Chest Subcutaneous Tissue and Fascia, Percutaneous Approach (ICD-10-PCS; 2019-01-04)
PROC: 3E0234Z Introduction of Serum, Toxoid and Vaccine into Muscle, Percutaneous Approach (ICD-10-PCS; 2019-01-04)
DX: C32.1 Malignant neoplasm of supraglottis (principal); J96.21 Acute and chronic respiratory failure with hypoxia; J98.11 Atelectasis; E44.0 Moderate protein-calorie malnutrition; J91.0 Malignant pleural effusion; J45.909 Unspecified asthma, uncomplicated; I25.10 Atherosclerotic heart disease of native coronary artery without angina pectoris; E03.9 Hypothyroidism, unspecified; K59.00 Constipation, unspecified; E78.5 Hyperlipidemia, unspecified; R13.10 Dysphagia, unspecified; Z85.21 Personal history of malignant neoplasm of larynx; Z93.0 Tracheostomy status; Z93.1 Gastrostomy status; Z79.899 Other long term (current) drug therapy; Z95.1 Presence of aortocoronary bypass graft; Z68.20 Body mass index [BMI] 20.0-20.9, adult; Z74.01 Bed confinement status; Z23 Encounter for immunization
CPT/HCPCS: 36415; 36600; 71045; 76604; 76942; 80053; 82803; 83605; 83735; 84484; 85025; 85610; 85730; 87040; 87081; 87186; 90732; 93005; 94640; 96361; 96365; 99285; A4649; J1644; J1940; J1956; J2001; J2543; J3370; J3490; J7030; J7060; J7613; J7620; P9046; Q0092

== ENCOUNTER 2019-01-08 09:05 | Inpatient (IN) | payer OTHER, MEDICAID ==
[~2019-01-08] VITALS: Ht 177.8 cm; Wt 65.8 kg
[~2019-01-08 09:05] MED LIST changes: -ACET-2619 GT; -BISA-213 RC; -BRIM10DR2 OP; +CILOS OP; -CIPR7.5S OT; -DOCU-299 GT; +DOCU-299 PO; +DORZ10SO23 OP; -HYDR-5092 GT; +HYDR-5092 PO; +KEP500 GT; -LACT10SO1 GT; +LEVO0.155 GT; -MAGN400S60 GT; -NA P133E RC; -NYST100022 PO; -ONDA8TAB GT; -SYN.1 PO; +[UNRECOGNIZED DRUG - CODE] GT
--- NOTE | 2019-01-08 09:05 | NUR ---
Pt francesco ALS from [facility] and placed in bed 10.
[2019-01-08 09:10] VITALS: BP 56/33
--- NOTE | 2019-01-08 09:10 | NUR ---
88 Y/O M ARRIVED BY EMS FROM [facility] WITH C/O SEVERE LETHARGY SINCE 7:00AM TODAY. PATIENT IS NONVERBAL WITH TRACH IN PLACE, COMMUNICATES THROUGH WRITING/SIGN. PRIMARY LANGUAGE CZECH. PATIENT HAS PORT A CATH FOR CHEMOTHERAPY, LEFT SIDECHEST TUBE PLACE LAST WEEK, TRACH, AND G TUBE IN PLACE.
[2019-01-08] MEDS ORDERED: NACL 0.9% 1,000 ML IV SCH (09:20)
--- NOTE | 2019-01-08 09:33 | NUR ---
NEW BP 107/65
--- NOTE | 2019-01-08 09:43 | NUR ---
xr at bedside.
[2019-01-08 09:46] LABS: HEMATOCRIT 28.8 % (36-52); HEMOGLOBIN 9.5 g/dL (12.0-18.0); MEAN CORPUSCULAR HEMOGLOBIN 35 pg (27-31); MEAN CORPUSCULAR HGB CONC 33 g/dL (33-37); MEAN CORPUSCULAR VOLUME 104.3 fL (80-94); PLATELET COUNT (AUTO) 196 K/uL (140-450); RED BLOOD CELL COUNT(AUTO) 2.76 MIL/uL (4.20-6.10); RED CELL DISTRIBUTION WIDTH 24.9 % (11.6-13.7); WHITE BLOOD COUNT (AUTO) 5.9 K/uL (4.8-10.8)
[2019-01-08 10:00] LABS: EOSINOPHILS % (MANUAL) 1 % (0-4); LYMPHOCYTES % (MANUAL) 15 % (20-46); MONOCYTES % (MANUAL) 13 % (5-12)
[2019-01-08 10:05] LABS: ASPARTATE AMINOTRANSFERASE 22 U/L (15-37); CARBON DIOXIDE 27.9 mmol/L (21-32); CHLORIDE 97 mmol/L (98-107); CREATININE 0.7 mg/dL (0.7-1.3); GLUCOSE 125 mg/dL (74-106); POTASSIUM 3.9 mmol/L (3.5-5.1); SODIUM SERUM 131 mmol/L (136-145); TOTAL BILIRUBIN 0.6 mg/dL (0.0-1.0); UREA NITROGEN, BLOOD 18 mg/dL (7-18)
--- NOTE | 2019-01-08 10:05 | NUR ---
PER PT SON, PT WANTS TO ATTEMPT TO USE URINAL BEFORE STRAIGHT CATH
[2019-01-08 10:06] LABS: ALBUMIN 2.1 g/dL (3.4-5.0)
[2019-01-08 10:11] LABS: PROTHROMBIN TIME 10.3 secs (10.8-13.4)
--- NOTE | 2019-01-08 10:38 | NUR ---
# 15 FR Urinary catheter inserted utilizing sterile technique. Immediate return of 200 ml clear urine noted. Urine sample collected and sent to lab. Pt tolerated procedure well.
[2019-01-08] MEDS ORDERED: PIPERACILLIN/TAZOBACTAM 3.375 GM in DEXTROSE 5% 50 ML IV ONE (10:50)
[2019-01-08] MEDS ORDERED: PRO5 PO (10:56)
[2019-01-08] MEDS ORDERED: PIPERACILLIN/TAZOBACTAM 3.375 GM VIAL IV ONE (11:00)
[2019-01-08 11:10] LABS: APPEARANCE,URINE CLEAR (CLEAR); BILIRUBIN,URINE NEGATIVE (NEGATIVE); BLOOD, URINE NEGATIVE (NEGATIVE); COLOR,URINE YELLOW (YELLOW); LEUKOCYTE ESTERASE ,URINE NEGATIVE (NEGATIVE); NITRITE, URINE NEGATIVE (NEGATIVE); UGLUCOSE NEGATIVE (NEGATIVE)
--- NOTE | 2019-01-08 12:15 | NUR ---
PATIENT ARRIVED VIA GURNEY. REPORT RECEIVED FROM LINE ORDERING CLINICIANEMA IRBY AT BEDSIDE FOR CONTINUITY OF CARE. PATIENT ALOC. RESPIRATIONS EVEN AND UNLABORED ON 4L O2 VIA TRACH TO TBAR. PATIENT IS SR WITH PVCS ON TELE MONITOR. RIGHT PORTACATH FOR CHEMOTHERAPY, AND RIGHT HAND IV 24G, SALINE LOCKED. PATIENT HAS GTUBE CLAMPED. HAS LEFT LATERAL CHEST TUBE, NO DRAINAGE AT THIS TIME. PATIENT HAS BLE BRUISING, BUE SKIN TEAR AND RIGHT ELBOW WOUND. PICTURES WILL BE TAKEN. ORIENTED FAMILY TO ROOM, CALL LIGHT. UPDATED BOARD. UPDATED SON AND ON PLAN OF CARE, THEY VERBALIZED UNDERSTANDING. SAFETY AND SEIZURE PRECAUTIONS IN PLACE, CALL LIGHT WITHIN REACH. BED ON LOWEST POSITION WITH ALARM ON. WILL CONTINUE TO MONITOR PATIENT.
[2019-01-08 12:20] VITALS: BP 106/69
--- NOTE | 2019-01-08 12:20 | NUR ---
Patient will be admitted to care of . Admited to MED SURG TELE. Will go to [id number]. Belongings list completed. Report to PIEDAD.
--- NOTE | 2019-01-08 13:00 | NUR ---
Dr. Horton in to see the patient. Spoke to family members. math and science instructor with him. Will wait for new orders.
[2019-01-08] MEDS ORDERED: ACETAMINOPHEN 325 MG TAB PO PRN (13:25)
[2019-01-08] MEDS ORDERED: MAG SULF 2000 MG/WATER PREMIX 50 ML IV PRN (13:25)
[2019-01-08] MEDS ORDERED: ONDANSETRON 4 MG/2 ML VIAL IVP PRN (13:25)
[2019-01-08] MEDS ORDERED: IPRATROPIUM 0.02% 0.5 MG/2.5 ML NEBU INH PRN (13:25)
[2019-01-08] MEDS ORDERED: ALBUTEROL 0.083% 2.5 MG/3 ML NEBU INH PRN (13:25)
[2019-01-08] MEDS ORDERED: HYDROcodone/APAP 10/325 MG 1 TAB TAB PO PRN (13:25)
[2019-01-08] MEDS ORDERED: MAGNESIUM OXIDE 400 MG TAB PO PRN (13:25)
[2019-01-08] MEDS ORDERED: POTASSIUM CHLORIDE 10 MEQ TABER PO PRN (13:25)
[2019-01-08] MEDS ORDERED: NACL 0.9% 250 ML IV SCH (14:45)
--- NOTE | 2019-01-08 14:45 | NUR ---
to 1505 PT TAKEN TO [facility]AN WITHOUT INCIDENT Addendum: 01/08/19 at 1515 by Alena Hager RT INNER CANNULA IS PATENT
--- NOTE | 2019-01-08 14:47 | NUR ---
Dr. Horton called back. Informed him of patient's fluctuating blood pressure. Dr. Horton ordered one time bolus of 250 ml of NS. Also new orders in for Head CT for ALOC. RN verbalized understanding, orders noted and will be carried out. Patient off floor, going to Radiology for CT of Chest and Head without contrast. Will wait for results and updated Dr. Horton.
--- NOTE | 2019-01-08 14:50 | NUR ---
CHEST TUBE BOTTLE FULL. CHEST TUBE CHANGED. 1000 OF PLEURAL FLUID OBTAINED.
[2019-01-08] MEDS ORDERED: HYDRAGUARD CREAM TP PRN (15:20)
--- NOTE | 2019-01-08 15:30 | NUR ---
PATIENT RETURNED FROM RADIOLOGY WITHOUT INCIDENT. IN STABLE CONDITION. FAMILY AT BEDSIDE. CALL LIGHT WITHIN REACH, WILL CONTINUE TO MONITOR PATIENT.
[2019-01-08 16:00] VITALS: BP 139/81
[2019-01-08] MEDS ORDERED: MIDODRINE 5 MG TAB GT SCH (16:00)
--- NOTE | 2019-01-08 16:00 | NUR ---
1600 ORDERED MEDICATION NOT GIVEN D/T PATIENT'S BLOOD PRESSURE 139/81. FAMILY AT BEDSIDE. WANTED TO SPEAK TO DR. RICHARDSON. WILL FORWARD THEIR MESSAGE.
--- NOTE | 2019-01-08 16:35 | NUR ---
PLEASE CONTINUE SAME WOUND CARE RECOMMENDATIONS: -CLEANSE MULTIPLE SKIN TEAR TO LEFT FOREARM AND RIGHT ELBOW WITH NS, PAT DRY, APPLY STERI-STRIPS PRN WITH SOILING. CLEANSE LEFT LATERAL NECK CARCINOMA LESIONS WITH NS, PAT DRY, APPLY ALGINATE DRESSING AND COVER WITH DRY DRESSING PRN IF SOILING -APPLY OPTIC FOAM TO SACRALCOCCYX Q5D AND PRN IF SOILING -ENCOURAGE AND ASSIST PT TO TURN AND REPOSITION PATIENT Q 2H -ASSESS AND MONITOR SKIN CONDITION DURING POSITION CHANGE -OFFLOAD BILATERAL HEELS BY PLACING PILLOWS UNDER CALVES AT ALL TIMES, UNLESS OTHERWISE CONTRAINDICATED -PRESSURE REDISTRIBUTION SURFACE THERAPY -KEEP SKIN CLEAN AND DRY AT ALL TIMES.
[2019-01-08] MEDS: ALBUTEROL SULFATE/IPRATROPIU 3 ML SOL IH PRN (18:57)
--- NOTE | 2019-01-08 19:00 | NUR ---
TOOK PICTURES OF WOUNDS ON PT UPPER ARMS, SEE SKIN AUDIT SHEETS.
--- NOTE | 2019-01-08 19:00 | NUR ---
COOL AEROSOL SET UP ON PATIENT VIA TRACH MUSE T- PIECE FOR SXNING. AT 40% FIO2. PT HAS PORTEX 8 TRACH SIZE. HHNTX GIVEN TO PT. PT HAS BILAT RHONCHI
--- NOTE | 2019-01-08 19:00 | NUR ---
CHEST TUBE CONTAINS 600 ML OF PLEURAL FLUID. WILL INFORM ENT SURGEON RN ABOUT SUCTIONING IF NEEDED.
--- NOTE | 2019-01-08 19:25 | NUR ---
RECIEVED PT SLEEPING BUT AWAKEABLE BY SHAKING , APHASIC BUT CAN COMMUNICATE BY HAND GESTURES AND HEAD NODDING, WITH TRACH TO O2 MIST AT 4LPM , WITH ALEJANDRA CATH ON THE RIGHT CHEST , ON EXTERNAL RELATIONS MANAGER , USES URINAL , ON CHEST TUBE CONNECTING TO DRAINAGE BOTTLE - CONNECTING TO SUCTION - BUT SUCTION OFF THIS TIME - NOD AM SHIFT ENDORSES TO ME SUCTION PRN , THE DRAINAGE ON THE CHEST TUBE DRAINAGE BOTTLE MARKED ON 1, 600 CC LIGHT BROWN IN COLOR OF DRAINAGE , NO BLEEDING NOTED AT THE CHEST OPENING SITE ,WITH ANOTHER SUCTION ( PORTABLE TYPE )AT BEDSIDE - FOR SUCTIONING OF TRACH PRN , WITH G TUBE BUT NO FEEDING ORDER YET , ON EASILY BRUISING - ON ELIQUIS , LOW TODD SCALE , ON S2 PRECAUTION , ON FALL /SAFETY PRECAUTION PROTOCOL - CALL LIGHT WITHIN REACH. PERIPHERAL IV SITE G24 AT LEFT HAND BUT NOT IVF ORDERS YET . ON HOOK ON O2 SAT CONTINOUSLY - O2 SAT WNL . WILL CONT. TO MONITOR Addendum: 01/09/19 at 0031 by Maria Antonia Castillo RN PLAN OF CARE DISCUSSED BUT POOR UNDERSTANDING DUE TO PRESENT MENTAL STATE.
--- NOTE | 2019-01-08 19:25 | NUR ---
REPORT GIVEN TO DIVISION MERCHANDISE MANAGER NURSE AT BEDSIDE FOR CONTINUITY OF CARE. PATIENT IN STABLE CONDITION. CURRENTLY GETTING BREATHING TREATMENT.
[2019-01-08 20:00] VITALS: BP 140/69
--- NOTE | 2019-01-08 20:25 | NUR ---
PAGED SPORTS EDITOR ( DR. GARVEY) ABOUT FURTHER ORDERS
--- NOTE | 2019-01-08 20:30 | NUR ---
DR JOELLEN MACIEL - I INFORMED HIM ABOUT THE DX AND C/O OF PT AND THE PT. IS WITH G TUBE BUT NO FEEDING ORDER YET - PER DR. GARVEY SAID KEEP THE DR. RICHARDSON ORDERS , BUT HE ORDER [id number] IVF FOR 50CC/HR .
[2019-01-08] MEDS ORDERED: DEXT 5% / NACL 0.9% 500 ML IV SCH (20:35)
[2019-01-08] MEDS ORDERED: LATANOPROST 0.005% OP 2.5 ML BTL OP SCH (21:00)
[2019-01-08] MEDS: DEXT 5% /NACL 0.9% 1,000 ML IV SCH (21:27)
[2019-01-08] MEDS: levETIRAcetam 100 MG/ML ORASYR GT SCH (21:35)
[2019-01-08] MEDS: ATORVASTATIN 20 MG TAB GT SCH (21:36)
[2019-01-08] MEDS: DOCUSATE 100 MG/10 ML UDC PO SCH (21:37)
[2019-01-08] MEDS: MIDODRINE 5 MG TAB GT SCH (21:38)
[2019-01-08] MEDS: XALATAN 0.005% OP SCH (21:40)
[2019-01-08] MEDS: APIXABAN 2.5 MG TAB GT SCH (21:40)
[2019-01-08] MEDS: EYE OP SCH (21:40)
--- NOTE | 2019-01-08 22:00 | NUR ---
MADE ROUNDS , NO SIGNS OF ACUTE DISTRESS NOTED AT THIS TIME , O2 SAT 99 % BP 140/77 , NO SAGRARIO PROGRESSING ON THE QUALITY AND QUANTITY OF CHEST DRAINAGE . SLEEPING BUT AWAKABLE BY SHAKING - OPENS EYES SPONTANEOUSLY. WILL CONT. TO MONITOR - CALL LIGHT WITHIN REACH.
[2019-01-09] VITALS (7 sets, daily range): BP systolic 85–142; BP diastolic 53–82
--- NOTE | 2019-01-09 01:38 | NUR ---
VISITING PATIENT - WAVING HIS HANDS HE REQUESTING FOR URINAL - PT VOIDED FREELY WITH 150 CC CLEAR U.O - NO COMPLAIN MADE AT THIS TIME . O2 SAT 99% , WILL CONT. TO MONITOR. - CALL LIGHT WITHIN REACH.
--- NOTE | 2019-01-09 04:00 | NUR ---
MADE ROUNDS - SLEEPING BY AWAKEABLE BY SHAKING , LIFT THUMB UP SIGNALS HE IS OK . O2 SAT 99%
[2019-01-09] MEDS: MIDODRINE 5 MG TAB GT SCH ×3 (05:00→21:00)
--- NOTE | 2019-01-09 06:00 | NUR ---
MADE ROUNDS , NO SIGN OF ACUTE DISTRESS NOTED AT THIS TIME - CALL LIGHT WITHIN REACH.
[2019-01-09] MEDS: LEVOTHYROXINE 0.075 MG TAB GT SCH (06:31)
[2019-01-09 07:14] LABS: BASOPHILS % (AUTO) 0.6 % (0.0-2.0); EOSINOPHILS % (AUTO) 0.5 % (0.0-4.0); HEMATOCRIT 28.9 % (36-52); HEMOGLOBIN 9.6 g/dL (12.0-18.0); LYMPHOCYTES % (AUTO) 21.5 % (20.5-51.1); MEAN CORPUSCULAR HEMOGLOBIN 35 pg (27-31); MEAN CORPUSCULAR HGB CONC 33 g/dL (33-37); MEAN CORPUSCULAR VOLUME 104.6 fL (80-94); MONOCYTES # (AUTO) 0.9 K/uL (0.8-1.0); MONOCYTES % (AUTO) 18.7 % (1.7-9.3); NEUTROPHILS # (AUTO) 2.7 K/uL (1.8-7.7); NEUTROPHILS % (AUTO) 58.7 % (42.2-75.2); PLATELET COUNT (AUTO) 182 K/uL (140-450); RED BLOOD CELL COUNT(AUTO) 2.77 MIL/uL (4.20-6.10); RED CELL DISTRIBUTION WIDTH 24.9 % (11.6-13.7); WHITE BLOOD COUNT (AUTO) 4.6 K/uL (4.8-10.8)
--- NOTE | 2019-01-09 07:20 | NUR ---
ENDORSED TO AM SHIFT . I TOLD HER CALL DR RICHARDSON FOR FEEDING ORDERS - PT AWAKEABLE BY SHAKING . O2 SAT WNL.
--- NOTE | 2019-01-09 07:25 | NUR ---
RECEIVED PATIENT FROM MAIL PROCESSOR RN, ARPITA. PATIENT IS AWAKE, AROUSABLE TO NAME WHEN CALLED. TRACH TO O2, 4L. CHEST TUBE PRESENT, RECEIVED DRAINAGE AT 1650. NO SIGNS OF DISTRESS NOTED. IV R HAND 24G RUNNING D51/2NS AT 50ML/HR. RIGHT PORTACATH PRESENT. G-TUBE IN PLACE, NO FEEDING RUNNING AT THIS TIME. SKIN LOOSE, BRUISING ON THE ARMS AND LOWER LEGS PRESENT. NON-PITTING EDEMA IN BOTH ARMS PRESENT. CAP REFILL <2 SECS. BED IN LOW POSITION. CALL LIGHT IS WITHIN REACH. FALL AND SEIZURE PRECAUTIONS
--- NOTE | 2019-01-09 08:26 | NUR ---
PATIENT HAS BEEN SCREENED AND CATEGORIZED HIGH NUTRITION RISK. PATIENT WILL BE SEEN WITHIN 1-2 DAYS OF ADMISSION. 01/09/[address]
[2019-01-09] MEDS: CLOPIDOGREL 75 MG TAB GT SCH (08:48)
[2019-01-09] MEDS: ASPIRIN 81 MG TAB.CHEW GT SCH (08:48)
--- NOTE | 2019-01-09 08:48 | NUR ---
GIVEN MORNING MEDS VIA G-TUBE. 0 RESIDUAL, NO FEEDING RUNNING AT THIS TIME. EXPLAINED INDICATIONS AND SIDE EFFECTS TO PATIENT. PATIENT TOLERATED WELL.
[2019-01-09] MEDS: APIXABAN 2.5 MG TAB GT SCH ×2 (08:52→21:07)
[2019-01-09] MEDS: DOCUSATE 100 MG/10 ML UDC PO SCH ×2 (08:53→21:00)
[2019-01-09] MEDS: levETIRAcetam 100 MG/ML ORASYR GT SCH ×2 (08:53→21:11)
--- NOTE | 2019-01-09 09:15 | NUR ---
SXN PT LARGE AMT BLOODY SECRETIONS CHANGED ALMAZ
--- NOTE | 2019-01-09 10:43 | NUR ---
chnaged water family at bedside
[2019-01-09 11:02] LABS: CARBON DIOXIDE 27.3 mmol/L (21-32); CHLORIDE 101 mmol/L (98-107); GLUCOSE 126 mg/dL (74-106); POTASSIUM 3.3 mmol/L (3.5-5.1); SODIUM SERUM 136 mmol/L (136-145)
[2019-01-09 11:03] LABS: ASPARTATE AMINOTRANSFERASE 20 U/L (15-37); CREATININE 0.6 mg/dL (0.7-1.3); TOTAL BILIRUBIN 0.6 mg/dL (0.0-1.0); UREA NITROGEN, BLOOD 13 mg/dL (7-18)
[2019-01-09] MEDS ORDERED: POTASSIUM CHLORIDE 20% 40 MEQ/15 ML UDC PO PRN (11:50)
--- NOTE | 2019-01-09 12:48 | NUR ---
01/09/19 RD INITIAL ASSESSMENT COMPLETED PLEASE REFER TO NUTRITION ASSESSMENT UNDER CARE ACTIVITY FOR ESTIMATED NUTRITIONAL NEEDS. 1. RECOMMEND GLUCERNA 1.2 @ 65 ML/HR X 24 HOURS -THIS WILL PROVIDE 1875 KCAL, 93 GM OF PROTEIN AND 1255 ML OF VOLUME WHICH PROVIDES 100% OF ESTIMATED KCAL NEEDS AND 95% OF PROTEIN NEEDS. 2. RECOMMEND FREE WATER FLUSH 50 ML Q8H OR PER MD ORDER D/T PLEURAL EFFUSION 3. RD TO FOLLOW-UP 2-3 DAYS, HIGH RISK YARITZA SERRANO RD
--- NOTE | 2019-01-09 14:14 | NUR ---
DC [age] YRS OLD MALE PATIENT WAS ADMITT[place] [facility] [place] WITH A DX OF SEPSIS . PT TRACH TO T PIECE , HX OF EPIGLOTTIS CA ,PT HAS A PLEURX CATHETER INSERTION BY DR ELDER. ADMINISTER IV ZOSYN , FOLLOW UP SPUTUM C&S, CULTURE AND CYTOLOGY OF THE FLUID SENT TO LAB. DC PLAN TO FOLLOW UP WITH [facility] TO ORDER THE CONTAINER. PT MIGHT GO BACK TO [facility] UP ON DISCHARGE.
[2019-01-09] MEDS ORDERED: VANCOMYCIN PER PHARMACY MC PRN (14:20)
[2019-01-09] MEDS: VANCOMYCIN 750 MG in DEXTROSE 5% 250 ML IV SCH (15:39)
--- NOTE | 2019-01-09 15:39 | NUR ---
GIVEN VANCOMYCIN AT 250 ML/HR VIA PORTACATH. EXPLAINED TO PT. THE PURPOSE AND SIDE EFFECTS. WILL CONTINUE TO MONITOR.
[2019-01-09] MEDS: DEXT 5% /NACL 0.9% 1,000 ML IV SCH (16:35)
--- NOTE | 2019-01-09 17:30 | NUR ---
STARTED TUBE-FEEDING GLUCERNA 1.2 AT 50 ML/HR, H20 FLUSH 100 ML/HR. WILL CONTINUE TO MONITOR.
--- NOTE | 2019-01-09 19:15 | NUR ---
ENDORSED PT TO BRASSWIND INSTRUMENT REPAIRER NURSE FOR CONTINUITY OF CARE.
--- NOTE | 2019-01-09 19:16 | NUR ---
RECEIVED PATIENT FROM AM SHIFT RN. PATIENT IS AWAKE,NONVERBAL BUT COMMUNICATING WITH SIGN LANGUAGE, RESPONDS TO NAME WHEN CALLED. TRACH TO O2, 4L. CHEST TUBE NOT ATTACHED TO CHEST TUBE DRAINAGE. NO SIGNS OF DISTRESS NOTED. IV RUNNING D51/2NS AT 50ML/HR VIA RIGHT PORTACATH . G-TUBE IN PLACE, W/ FEEDING AT 50 ML HR, WATER FLUSH 100ML Q 6. WITH MULTIPLE SKIN TEAR TO LEFT FOREARM RIGHT ELBOW; WITH LEFT LATERAL NECK CARCINOMA LESIONS; SACRALCOCCYX REDNESS. MULTIPLE BRUISES ON THE UPPER ARMS, SKIN LOOSE, BRUISING ON THE ARMS AND LOWER LEGS PRESENT. EDEMA ON LEFT ARM NOTED; LEFT UPPER ARM W/ SEROUS FLUID NOTED, INTACT SKIN . BED IN LOW POSITION. CALL LIGHT IS WITHIN REACH. FALL AND SEIZURE PRECAUTIONS Addendum: 01/10/19 at 0017 by Kayleen Cordero RN W/ CHEST TUBE DRESSING IN PLACE; W/ WOUND DRESSING AND VERSATEL ON SKIN TEARS IN PLACE
--- NOTE | 2019-01-09 20:40 | NUR ---
RT AT BEDSIDE, PER RT FIO2 AT 40%; 6L; O2 SAT AT 98%
[2019-01-09] MEDS: ATORVASTATIN 20 MG TAB GT SCH (21:00)
--- NOTE | 2019-01-09 21:00 | NUR ---
STARTED MEDICATING PATIENT, PT COMMUNICATING TO US THROUGH SIGN LANGUANGE. PT TOLERATING MEDICATION VIA G TUBE. WITH 15 ML RESIDUAL NOTED
[2019-01-09] MEDS: XALATAN 0.005% OP SCH (21:11)
[2019-01-09] MEDS: EYE OP SCH (21:11)
--- NOTE | 2019-01-09 21:29 | NUR ---
CHECKED ON VITALS 100/70; 76% O2 SAT DE SAT NOTED; 136 HR; TEMP 98.O NONVERBAL, NO FACIAL GRIMACING
--- NOTE | 2019-01-09 21:30 | NUR ---
PT'S CHECKED AND PT HAD AGONAL BREATHS. 10 MINS AGO, WAS MEDICATING PATIENT AND PATIENT WAS STILL RESPONDING AT 1999- PT'S EKG WAS 97 BPM; AND 2127- WINDERMAN SAID THAT PT'S EKG IS UP TO 136 INFORMED CHARGE NURSE, AND CHECKED ON PATIENT. Addendum: 01/10/19 at 0004 by Kayleen Cordero RN AMEND MARTIN 10 MINS AGO TO 60 MINS AGO WAS MEDICATING PT AND PT WAS STILL RESPONDING. LEFT BEDSIDE 10 MINS AGO.
--- NOTE | 2019-01-09 21:35 | NUR ---
RAPID RESPONSE ARRIVED; ASSESSED PATIENT, PT HOOKED TO BULLET CASTING OPERATOR BLOOD GLUCOSE CHECKED =236, RT AND MENTAL HEALTH PROGRAM SPECIALIST ARRIVED WITH CHARGE NURSE AND ASSIGNED NURSE AT BEDSIDE
--- NOTE | 2019-01-09 21:50 | NUR ---
[facility] CALLED TO INFORM THEM REGARDING PATIENTS CONDITION.
[2019-01-09] MEDS ORDERED: NACL 0.9% 1,000 ML IV SCH (22:00)
--- NOTE | 2019-01-09 22:00 | NUR ---
ORDERS FROM DR. RICHARDSON RECEIVED; CALLED HIM THROUGH [facility]. ORDERS TRANSCRIBED AND CARRIED OUT
--- NOTE | 2019-01-09 22:30 | NUR ---
TRANSFERRED TO ICU; VITAL SIGNS PRIOR TO TRANSFER 80/47 ; 67% DE SAT NOTED; 140 HR; TEMP 98
--- NOTE | 2019-01-09 22:45 | NUR ---
Ambu bagged pt to ICU without incident, placed on ventilator support at this time, settings AC 18, 500, +5, 100% received from Dr. Horton, tolerating well, spo2 97%, ABG to follow
--- NOTE | 2019-01-09 23:00 | NUR ---
PATIENT'S GRANDDAUGHTER, SON, AND CAME TO THE UNIT AND WENT TO THE ROOM. Addendum: 01/10/19 at 0007 by Kayleen Cordero RN AMEND TIME TO 0
--- NOTE | 2019-01-09 23:39 | NUR ---
RECEIVED PT VIA [facility]. PT AWAKE, ABLE TO FOLLOW SIMPLE COMMANDS. HEART RATE REGULAR ON MONITOR, S1&S2 PRESENT. PULSES 2+ BILAT UPPER AND LOWER EXTREMITY. TRACH TO VENT, ON ORDERED AC/VC VENT SETTINGS. LUNG SOUNDS CLEAR, DIMINISHED AT BASES. PT BREATHING REGULARLY AND UNLABORED. ALEJANDRA CATH ON RIGHT UPPER CHEST. CHEST TUBE ON LEFT CHEST, DRAINING BY GRAVITY. SEROSANGUINEOUS FLUID DRAINING. GTUBE WITH TUBE FEEDING 50 ML/HR. FLUID NS RUNNING BOLUS VIA ALEJANDRA CATH. FLEMING CATHETER INSERTED AT BEDSIDE. URINE COLOR CLEAR, YELLOW. SKIN COLOR IS WARM AND PALE. OPEN WOUND ON RIGHT ELBOW. TEMPERATURE 97.9F. GENERALIZED WEAKNESS. DENIES PAIN. HOB 30 DEGREES. BED LOCKED IN LOWEST POSITION.
[2019-01-10] VITALS (13 sets, daily range): BP systolic 92–151; BP diastolic 50–85
--- NOTE | 2019-01-10 00:08 | NUR ---
FAMILY AT BEDSIDE. PT AWAKE AND ALERT. ABLE TO FOLLOW SIMPLE COMMANDS. VITAL SIGNS STABLE. NO DISTRESS NOTED. CALL LIGHT WITHIN REACH. HOB 30 DEGREES. BED LOCKED IN LOWEST POSITION.
--- NOTE | 2019-01-10 00:37 | NUR ---
TITRATE PT FI02 TO 40%. PT IS SAT 100%
--- NOTE | 2019-01-10 01:15 | NUR ---
PT HAS EYES CLOSED. VITAL SIGNS STABLE. NO DISTRESS NOTED. PT REPOSITIONED. BED LOCKED IN LOWEST POSITON.
--- NOTE | 2019-01-10 02:40 | NUR ---
DR RICHARDSON AT BEDSIDE TO ASSESS PT AND UPDATE CONDITION. ORDERS RECEIVED.
[2019-01-10] MEDS: MIDODRINE 5 MG TAB GT SCH ×3 (04:08→21:35)
[2019-01-10] MEDS: VANCOMYCIN 750 MG in DEXTROSE 5% 250 ML IV SCH ×2 (04:09→15:54)
--- NOTE | 2019-01-10 04:20 | NUR ---
PT EYES CLOSED. VITAL SIGNS STABLE. NO SOB NOTED. FLACC 0. PT REPOSITIONED. HOB 30 DEGREES. BED LOCKED IN LOWEST POSITION.
--- NOTE | 2019-01-10 05:18 | NUR ---
PT IS IN STABLE CONDITION. CURRENT SETTINGS ARE 500,18,+5,30%. SAT 100
--- NOTE | 2019-01-10 06:25 | NUR ---
PT EYES CLOSED. VITAL SIGNS STABLE. NO DISTRESS NOTED. ORAL CARE PROVIDED. FLACC 0. PT REPOSITIONED. HOB 30 DEGREES. BED LOCKED IN LOWEST POSITION.
--- NOTE | 2019-01-10 07:26 | NUR ---
REPORT GIVEN TO AM NURSE FOR CONTINUITY OF CARE.
--- NOTE | 2019-01-10 07:30 | NUR ---
RECEIVED REPORT FROM PM NURSE AT THIS TIME. PT LYING IN BED, EASY TO AROUSE. ALERT AND ABLE TO MAKE NEEDS KNOWN. DENIES PAIN. ABLE TO FOLLOW SIMPLE COMMANDS HR NSR, ON MONITOR WITH S1 AND 2S PRESENT UPON AUSCULTATION. PULSES PRESENT TO UPPER AND LOWER EXTREMITIES. LUNGS CLEAR BILATERALLY WITH DIMINISHED SOUNDS TO BILAT BASES. RESPIRATIONS EVEN AND UNLABORED WITHOUT SOB. TRACH TO VENT INTACT AND FUNCTIONING PROPERLY C PRESCRIBER SETTINGS. CHEST TUBE INTACT TO LEFT, DRAINING TO GRAVITY WITH 140 ML OF BLOOD-TINGED DISCHARGE @ THIS TIME. ALEJANDRA-CATH TO RT CHEST WITH D5 RUNNING @ 50 Ml/HR. LT UE WITH NON-PITTING EDEMA NOTED. SCATTERED SCABS NOTED TO UPPER AND LOWER EXTREMITIES. NO S/S OF INFECTION OR DRAINAGE @ THIS TIME. ST NOTED TO RT ELBOW WITH CLEAN, DRY DRESSING INTACT. GT TO RT UPPER QUAD WITH GLUCERNA 1.2 RUNNING @ 50 CC/HR AND H2O FLUSH @ 100CC Q6 HOURS. INDWELLING URINARY CATH INTACT DRAINING CLEAR, STRAW-COLORED URINE TO GRAVITY. BED LOW AND LOCKED. CALL LIGHT WITHIN REACH. WILL CONTINUE TO MONITOR.
[2019-01-10] MEDS: ASPIRIN 81 MG TAB.CHEW GT SCH (07:48)
[2019-01-10] MEDS: LEVOTHYROXINE 0.075 MG TAB GT SCH (07:50)
[2019-01-10] MEDS: ALBUTEROL SULFATE/IPRATROPIU 3 ML SOL IH PRN (08:08)
--- NOTE | 2019-01-10 08:09 | NUR ---
RECEIVED ON A GE CARESCAPE R860 VENTILATOR PLUGGED INOT RED OUTLET TOLERATING WELL WITHOUT ADVERSE REACTIONS NOTED TO A PORTEX DCT #8 AIRWAY SECURED WITH A COREY TRACH TIE CUFF PRESSURE CHECKED NOTED AMBU BAG NOTED AT HOB LOC AWAKE AND ALERT EQUAL CHEST RISE BREATH SOUNDS DIMINISHED BILATERAL
--- NOTE | 2019-01-10 09:00 | NUR ---
XRAY AT [facility] EAT THIS TIME. Addendum: 01/10/19 at 1024 by Elissa Farrar RN XRAY AT BEDSIDE AT THIS TIME
[2019-01-10] MEDS: CLOPIDOGREL 75 MG TAB GT SCH (09:06)
[2019-01-10] MEDS: DOCUSATE 100 MG/10 ML UDC PO SCH (09:06)
[2019-01-10] MEDS: levETIRAcetam 100 MG/ML ORASYR GT SCH ×2 (09:06→21:34)
[2019-01-10] MEDS ORDERED: ALGINATE ROPE MC PRN (09:10)
--- NOTE | 2019-01-10 09:28 | NUR ---
ORAL CARE PROVIDED.
[2019-01-10] MEDS: APIXABAN 2.5 MG TAB GT SCH ×2 (09:44→21:38)
[2019-01-10 09:52] LABS: BASOPHILS % (AUTO) 0.4 % (0.0-2.0); EOSINOPHILS % (AUTO) 0.2 % (0.0-4.0); HEMATOCRIT 28.5 % (36-52); HEMOGLOBIN 9.3 g/dL (12.0-18.0); LYMPHOCYTES % (AUTO) 19.7 % (20.5-51.1); MEAN CORPUSCULAR HEMOGLOBIN 34 pg (27-31); MEAN CORPUSCULAR HGB CONC 33 g/dL (33-37); MEAN CORPUSCULAR VOLUME 104.8 fL (80-94); MONOCYTES % (AUTO) 18.9 % (1.7-9.3); NEUTROPHILS # (AUTO) 3.2 K/uL (1.8-7.7); NEUTROPHILS % (AUTO) 60.8 % (42.2-75.2); PLATELET COUNT (AUTO) 191 K/uL (140-450); RED BLOOD CELL COUNT(AUTO) 2.72 MIL/uL (4.20-6.10); WHITE BLOOD COUNT (AUTO) 5.2 K/uL (4.8-10.8)
[2019-01-10 10:09] LABS: ALBUMIN 1.9 g/dL (3.4-5.0); ANION GAP 10.7 (8-16); ASPARTATE AMINOTRANSFERASE 31 U/L (15-37); CHLORIDE 100 mmol/L (98-107); CREATININE 0.8 mg/dL (0.7-1.3); GLUCOSE 165 mg/dL (74-106); POTASSIUM 3.7 mmol/L (3.5-5.1); SODIUM SERUM 135 mmol/L (136-145); TOTAL BILIRUBIN 0.3 mg/dL (0.0-1.0); UREA NITROGEN, BLOOD 16 mg/dL (7-18)
--- NOTE | 2019-01-10 10:11 | NUR ---
PT RESTING IN BED AT THIS TIME. EASILY AROUSABLE. DENIES PAIN UPON QUESTIONING. WILL CONTINUE TO MONITOR FOR CHANGES.
--- NOTE | 2019-01-10 10:18 | NUR ---
RESTING WELL NO DISTRESS NOTED DEEP TRACHEAL SUCTION FOR SMALL THICK BLOOD Y SECRETIONS AIRWAY PATENT
--- NOTE | 2019-01-10 10:18 | NUR ---
RESTING WELL WITHOUT DISTRESS NOTED GOOD CHEST RISE DEEP TRACHEAL SUCTION FOR SMALL THICK BLOODY SECRETIONS AIRWAY PATENT
--- NOTE | 2019-01-10 10:23 | NUR ---
RESPIRATORY AT BEDSIDE.
--- NOTE | 2019-01-10 10:59 | NUR ---
SPOUSE AND SON AT BEDSIDE AT THIS TIME
--- NOTE | 2019-01-10 11:00 | NUR ---
DR. RICHARDSON IS HERE AT BEDSIDE WITH PATIENT'S FAMILY, STATES TO PLACE PATIENT ON T-PIECE. RECEIVED ORDER FOR TRANSFER TO TELEMETRY.
--- NOTE | 2019-01-10 11:05 | NUR ---
PER V.OMartin RICHARDSON PATIENT REMOVED FROM VENTILATOR AND PLACED ON A COOL AEROSOL AT 30% TO T-PIECE BY Renita MAYNARD RCP
--- NOTE | 2019-01-10 11:26 | NUR ---
RCV'D A VERBAL ORDER FRM CHANGE AT BEDSIDE TO CHANGE PT TO T-PIECE. CHARGE NURSE AT BEDSIDE. PT ON COOL AEROSOL. PT IS CALM. FAMILY AT BEDSIDE. NO SOB OR DISTRESS NOTED. VENTILATOR AT BEDSIDE FOR BACKUP. FIO2 30% SPO2 98%.
--- NOTE | 2019-01-10 11:45 | NUR ---
AWAKE AND ALERT GOOD CHEST RISE BREATH SOUNDS COARSE RHONCHI BILATERAL DEEP TRACHEAL SUCTION FOR LARGE BLOODY SECRETIONS WITH PLUGS AIRWAY PATENT TOLERATED PROCEDURE WELL WITHOUT INCIDENT FAMILY AT BEDSIDE
[2019-01-10] MEDS ORDERED: DOCUSATE 100 MG/10 ML UDC GT SCH (12:14)
--- NOTE | 2019-01-10 13:20 | NUR ---
AWAKE AND ALERT NO SOB NOTED GOOD CHEST RISES BREATH SOUNDS COARSE RHONCHI BILATERAL DEEP TRACHEAL SUCTIONA FOR MODERATE THICK BLOOD Y SECRETIONS AIRWAY PATENT SATURATION 98% ON SUPPLEMENTAL OXYGENT AT 30%/6 LPM VIA COOL AEROSOL TO INLINE SUCTION CATHETER/TRACHEOSTOMY TUBE
--- NOTE | 2019-01-10 13:21 | NUR ---
RESPIRATORY AT BEDSIDE. PT TOLERATING SUCTION WELL. FAMILY REMAINS AT BEDSIDE. NO ACUTE DISTRESS. WILL CONTINUE TO MONITOR.
--- NOTE | 2019-01-10 15:13 | NUR ---
FAMILY REMAINS AT BEDSIDE. PT IN GOOD SPIRITS. VSS.
[2019-01-10] MEDS: DEXT 5% /NACL 0.9% 1,000 ML IV SCH (18:06)
--- NOTE | 2019-01-10 19:00 | NUR ---
RECEIVED REPORT FROM AM SHIFT NURSE. PT AWAKE,O X 1, ON T-PIECE, NON VERBAL, RESPONDS TO TACTILE STIMULI. CAME FROM ICU EARLIER. WITH CHEST TUBE ON LEFT LATERAL CHEST W/ PLEURAL TUBE, RECEIVED 130 ML OF PLEURAL DRAINAGE FROM PREVIOUS SHIFT. W/ MULTIPLE SCABS , MULTIPLE BRUISES ON BILATERAL UE AND LE. WITH EPIGLOTTIS CA/ MASS ON THE CHEST, NECK AND MOUTH NOTED. RIGHT ELBOW SKIN TEAR W/ DRESSING IN PLACE. REDNESS ON THE BUTTOCKS NOTED.WITH ALEJANDRA CATH ON RIGHT CHEST; WITH GLUCERNA 1.2 G TUBE FEEDING ON ABDOMEN. PLACED ON LOW BED, CALL LIGHT WITHIN REACH. WILL MONITOR
--- NOTE | 2019-01-10 21:00 | NUR ---
PATIENT TURNED AND CLEANED TO ONE SIDE. PILLOWS PLACED FOR COMFORT.
--- NOTE | 2019-01-10 21:23 | NUR ---
PT HAS FACIAL GRIMACING, NORCO ADMINISTERED, WILL RE-ASSESS FOR PAIN LATER
[2019-01-10] MEDS: EYE OP SCH (21:35)
[2019-01-10] MEDS: ATORVASTATIN 20 MG TAB GT SCH (21:35)
[2019-01-10] MEDS: XALATAN 0.005% OP SCH (21:35)
--- NOTE | 2019-01-10 23:05 | NUR ---
PT CLEANED , PT AWAKE NOW AND POINTING TO HIS PENIS, INFORMED HIM THAT HE IS ON FLEMING CATHETER AND THAT HE CAN PEE FREELY AND THE FLEMIGN CATHETER WILL DRAIN IT.
[2019-01-11] VITALS: BP 138/85
--- NOTE | 2019-01-11 | NUR ---
PATIENT SLEEPING, STILL ON T-PIECE, CALM AND VITAL SIGNS STABLE. INFORMED SON, CASI.
[2019-01-11] MEDS: VANCOMYCIN 750 MG in DEXTROSE 5% 250 ML IV SCH (04:27)
[2019-01-11] MEDS: MIDODRINE 5 MG TAB GT SCH ×2 (04:43→13:06)
[2019-01-11 06:00] VITALS: BP 139/85
[2019-01-11] MEDS: LEVOTHYROXINE 0.075 MG TAB GT SCH (06:50)
--- NOTE | 2019-01-11 07:26 | NUR ---
ENDORSED TO NEXT SHIFT;CAN BE AWAKENED W/ TACTILE STIMULI. PT STABLE CONDITION FOR NOW
--- NOTE | 2019-01-11 07:27 | NUR ---
RECEIVED BEDSIDE REPORT FROM PM RN PT APPEARS STABLE AND IN NO APPARENT DISTRESS. ALL SAFETY MEASURES ARE IN PLACE PT HAS LEFT CHEST TUBE IN PLACE. PT IV IS USING PT ALEJANDRA CATH. PT HAS TRACH TO T PIECE. ALL SAFETY MEASURES ARE IN PLACE WILL CONTINUE TO MONITOR.
--- NOTE | 2019-01-11 08:26 | NUR ---
01/11/19 RD FOLLOW UP COMPLETED PLEASE REFER TO NUTRITION ASSESSMENT UNDER CARE ACTIVITY FOR ESTIMATED NUTRITIONAL NEEDS. 1. CONTINUE GLUCERNA 1.2 2 GOAL RATE 50 ML/HR WITH 100 ML FWF Q6, OR PER DOCTORS ORDERS D/T PLEURAL EFFUSION. REGIMEN PROVIDES >75% LOWER END OF ESTIMATED KCAL AND PROTEIN NEEDS. 2. RD TO FOLLOW-UP 2-3 DAYS, HIGH RISK 3. CONSIDER MVI W/MINERALS FOR SKIN INTEGRITY SUPPORT KEESHA MEJIA RD
[2019-01-11] MEDS: CLOPIDOGREL 75 MG TAB GT SCH (08:48)
[2019-01-11] MEDS: levETIRAcetam 100 MG/ML ORASYR GT SCH (08:48)
[2019-01-11] MEDS: ASPIRIN 81 MG TAB.CHEW GT SCH (08:48)
[2019-01-11] MEDS: APIXABAN 2.5 MG TAB GT SCH (08:49)
[2019-01-11] MEDS ORDERED: DOCUSATE 100 MG/10 ML UDC GT SCH (09:00)
[2019-01-11] MEDS: DEXT 5% /NACL 0.9% 1,000 ML IV SCH (09:00)
--- NOTE | 2019-01-11 09:24 | NUR ---
FREQUENT ROUNDING ON PT PT APPPEARS STABLE AND IN NO APPARENT DISTRESS. ALL SAFETY MEASURES ARE IN PLACE WILL CONTINUE TO MONITOR
[2019-01-11] MEDS: ALBUTEROL SULFATE/IPRATROPIU 3 ML SOL IH PRN (10:22)
--- NOTE | 2019-01-11 10:34 | NUR ---
STERILE WATER FOR AEROSOL MIST AT ADEQUATE LEVEL ON AND FUNCTIONING WELL POST TRACHEOSTOMY CARE CHANGED INLINE SUCTION CATHETER, OMINI FLEX FAMILY IN ROOM
--- NOTE | 2019-01-11 11:34 | NUR ---
FREQUENT ROUNDING ON PT PT APPEARS STABLE AND IN NO APPARENT DISTRESS. ALL SAFETY MEASURES ARE IN PLACE WILL CONTINUE TO MONITOR
[2019-01-11 12:00] VITALS: BP 111/65
--- NOTE | 2019-01-11 13:46 | NUR ---
FREQUENT ROUNDING ON PT PT APPEARS STABLE AND IN NO APPARENT DISTRESS. ALL SAFETY MEASURES ARE IN PLACE WILL CONTINUE TO MONITOR
[2019-01-11 15:07] VITALS: BP 111/65
[2019-01-11 16:20] VITALS: BP 119/64
--- NOTE | 2019-01-11 16:43 | NUR ---
AT 1600 HRS: FOLLOWED UP [facility] TO [facility] REGARDING BED FOR PT. SPOKE WITH BIGG FROM [facility], STATED PT IS GOING TO ROOM 24-B. SET UP ALS TRANSPORTATION THRU [facility], SPOKE WITH SY ETA IS AT 1740 HRS TODAY. CONTRERAS-RN ASSIGNED MADE AWARE.
--- NOTE | 2019-01-11 16:58 | NUR ---
CALLED [facility] AND GAVE REPORT TO ROBERTO CARLOS BOO. [phone]
--- NOTE | 2019-01-11 16:59 | NUR ---
FAMILY IS AT PT BEDSIDE, INFORMED FAMILY THAT THE PATIENT WILL BE GOING BACK TO [facility]. THIS EVENING
--- NOTE | 2019-01-11 17:03 | NUR ---
PCS FORM FAXED TO [facility], CONFIRMATION ATTACHED TO PT'S CHART.
--- NOTE | 2019-01-11 18:28 | NUR ---
DISCONTINUED FLEMING CATH. REMOVED CHEST TUBE WITH HOUSE SUPERVISIOR HALIE AND CLAMPED PLEURX CATH. PROVIDED EXTRA DRAINAGE CONTAINER FOR [facility]. DE ACCESSED ALEJANDRA CATH AND APPLIED BANDAGE. REMOVED ID BAND PROVIDED REPORT TO [facility]. GAVE DISCHARGE INSTRUCTIONS TO FAMILY. PROVIDED MEDICATION SHEET FOR [facility]. ALL SAFETY MEASURES ARE IN PLACE PT APPEARS STABLE AND IN NO APPARENT DISTRESS. [facility] AND FAMILY ACCOMPAINED PT DURING TRANSFER PT LEFT WITH ALL PERSONAL BELONGINGS
[2019-01-13 07:06] LABS: HEPATITIS A ANTIBODY IGM Negative (Negative); HEPATITIS B CORE AB TOTAL Negative (Negative); HEPATITIS B SURFACE ANTIBODY Non Reactive (.); HEPATITIS B SURFACE ANTIGEN Negative (Negative)
== END 2019-01-11 18:31 | DRG 208 ==
LOC: MED 09:05 → MTU 11:39 → MIC 01-09 22:30 → MTU 01-10 18:30
PROVIDERS: ADMIT Internal Medicine Pulmonary Disease; ATTEND Internal Medicine Pulmonary Disease
PROC: 5A1935Z Respiratory Ventilation, Less than 24 Consecutive Hours (ICD-10-PCS; principal; 2019-01-10)
PROC: 0BH17EZ Insertion of Endotracheal Airway into Trachea, Via Natural or Artificial Opening (ICD-10-PCS; 2019-01-10)
DX: J90 Pleural effusion, not elsewhere classified (principal); J96.10 Chronic respiratory failure, unspecified whether with hypoxia or hypercapnia; C32.1 Malignant neoplasm of supraglottis; E03.9 Hypothyroidism, unspecified; E78.5 Hyperlipidemia, unspecified; G40.909 Epilepsy, unspecified, not intractable, without status epilepticus; I25.10 Atherosclerotic heart disease of native coronary artery without angina pectoris; H40.9 Unspecified glaucoma; I10 Essential (primary) hypertension; R13.10 Dysphagia, unspecified; Z85.21 Personal history of malignant neoplasm of larynx; Z93.1 Gastrostomy status; Z95.1 Presence of aortocoronary bypass graft
CPT/HCPCS: 36415; 36600; 70450; 71045; 71250; 80053; 80202; 81003; 82803; 82948; 83605; 83735; 83880; 84157; 84484; 85025; 85610; 85730; 86702; 86704; 86706; 86708; 86709; 86803; 87040; 87070; 87075; 87081; 87086; 87186; 87205; 87340; 87804; 93005; 94003; 94640; 96361; 96365; 99285; C1758; J2543; J3370; J3475; J7030; J7042; J7060; J7620; Q0092

== ENCOUNTER 2019-01-14 17:44 | Inpatient (IN) | payer OTHER, MEDICAID ==
[~2019-01-14] VITALS: Ht 180.3 cm; Wt 71.2 kg
[~2019-01-14 17:44] MED LIST changes: -CILOS OP; -PRO5 GT; +PRO5 PO; -[UNRECOGNIZED DRUG - CODE] GT
--- NOTE | 2019-01-14 17:44 | NUR ---
[facility] TO ER BED 09
--- NOTE | 2019-01-14 17:45 | NUR ---
78/M biba from [facility] [place] of bleeding from the mouth and trach site. Per family, pt had been recently suctioned prior to EMS arrival. then noticed pt began bleeding from mouth shortly after. Per EMS, pt lost approximately 40-50ml of blood. Slow active bleeding noted from left corner of patient's mouth. Patient skin appears pale. Pt has a trach to t-piece but was being BVM by EMS with 100% oxygen. Pt placed in bed 9 by EMS, RT called to bedside. Dr. Rosario at bedside.
--- NOTE | 2019-01-14 17:48 | NUR ---
No pulse detected at this time. Dr. Rosario at bedside. CPR initiated.
--- NOTE | 2019-01-14 17:48 | NUR ---
See code sheet
--- NOTE | 2019-01-14 17:50 | NUR ---
IO established by Dr. Rosario to left lower leg.
--- NOTE | 2019-01-14 17:59 | NUR ---
ROSC acheived. Pt noted with a HR of 113, sinus tachycardia. BP 106/77. BS 124. RT to place patient on ventilator.
[2019-01-14] MEDS ORDERED: TRANEXAMIC ACID 1,000 MG/10 ML VIAL MC ONE (18:00)
[2019-01-14 18:20] VITALS: BP 106/77
--- NOTE | 2019-01-14 18:28 | NUR ---
XRAY AT BEDSIDE
--- NOTE | 2019-01-14 18:30 | NUR ---
TXA ADMIN BY DR FORDE.
[2019-01-14] MEDS ORDERED: MULT-1868 GT (18:35)
[2019-01-14 18:45] LABS: BASOPHILS % (AUTO) 0.3 % (0.0-2.0); EOSINOPHILS % (AUTO) 0.4 % (0.0-4.0); HEMATOCRIT 26.7 % (36-52); HEMOGLOBIN 8.5 g/dL (12.0-18.0); LYMPHOCYTES # (AUTO) 4.7 K/uL (2.0-11.5); LYMPHOCYTES % (AUTO) 44.6 % (20.5-51.1); MEAN CORPUSCULAR HEMOGLOBIN 34 pg (27-31); MEAN CORPUSCULAR HGB CONC 32 g/dL (33-37); MEAN CORPUSCULAR VOLUME 107.4 fL (80-94); MONOCYTES # (AUTO) 0.7 K/uL (0.8-1.0); MONOCYTES % (AUTO) 6.5 % (1.7-9.3); NEUTROPHILS # (AUTO) 5.1 K/uL (1.8-7.7); NEUTROPHILS % (AUTO) 48.2 % (42.2-75.2); PLATELET COUNT (AUTO) 216 K/uL (140-450); RED BLOOD CELL COUNT(AUTO) 2.49 MIL/uL (4.20-6.10); WHITE BLOOD COUNT (AUTO) 10.5 K/uL (4.8-10.8)
[2019-01-14 18:58] LABS: ANION GAP 15.7 (8-16); CARBON DIOXIDE 23.3 mmol/L (21-32); CHLORIDE 94 mmol/L (98-107); GLUCOSE 295 mg/dL (74-106); SODIUM SERUM 129 mmol/L (136-145); UREA NITROGEN, BLOOD 17 mg/dL (7-18)
[2019-01-14 19:04] LABS: ALBUMIN 1.6 g/dL (3.4-5.0); ASPARTATE AMINOTRANSFERASE 34 U/L (15-37); TOTAL BILIRUBIN 0.3 mg/dL (0.0-1.0)
--- NOTE | 2019-01-14 19:13 | NUR ---
Pt report given to Schuyler BOO. Transfer of care at this time.
--- NOTE | 2019-01-14 19:27 | NUR ---
REPORT TAKEN FROM ADI BOO. INTRODUCED MYSELF TO FAMILY, NO QUESTIONS AT THIS TIME. INFORMED THEM THAT HE WOULD BE ADMITTED TO THE ICU.
--- NOTE | 2019-01-14 19:39 | NUR ---
Dr. Mercado examining patient.
[2019-01-14 20:28] LABS: APPEARANCE,URINE SL CLOUDY (CLEAR); BILIRUBIN,URINE NEGATIVE (NEGATIVE); BLOOD, URINE NEGATIVE (NEGATIVE); COLOR,URINE YELLOW (YELLOW); LEUKOCYTE ESTERASE ,URINE NEGATIVE (NEGATIVE); NITRITE, URINE NEGATIVE (NEGATIVE); PH,URINE 6.5 (5.0-9.0); UGLUCOSE 1+ (NEGATIVE)
--- NOTE | 2019-01-14 20:32 | NUR ---
Family at bedside. vss on monitor.
[2019-01-14 20:48] LABS: RBC,URINE NONE SEEN /HPF (0-5); WBC,URINE NONE SEEN /HPF (0-5)
[2019-01-14 20:50] LABS: HYALINE CASTS, URINE 0-10 /LPF (None Seen); URINE AMORPHOUS URATE 2+ /HPF (None Seen)
[2019-01-14] MEDS ORDERED: ONDANSETRON 4 MG/2 ML VIAL IVP PRN (20:50)
[2019-01-14] MEDS ORDERED: ACETAMINOPHEN 325 MG TAB PO PRN (20:50)
[2019-01-14] MEDS ORDERED: LORazepam 2 MG/ML VIAL IVP PRN (20:50)
[2019-01-14] MEDS: LATANOPROST 0.005% OP 2.5 ML BTL OP SCH (21:00)
[2019-01-14] MEDS ORDERED: MIDODRINE 5 MG TAB PO SCH (21:00)
--- NOTE | 2019-01-14 21:07 | NUR ---
Dr. Lira at patient bedside.
--- NOTE | 2019-01-14 21:26 | NUR ---
PEAK PRESSURE ALARM GOING OFF. RT MADE AWARE.
--- NOTE | 2019-01-14 21:35 | NUR ---
LAB AT BEDSIDE.
--- NOTE | 2019-01-14 22:24 | NUR ---
PATIENT TRACH TO VENT. UNRESPONSIVE TO PAINFUL STIMULI. VSS ON MONITOR.
[2019-01-14] MEDS ORDERED: levETIRAcetam 100 MG/ML ORASYR GT SCH (23:00)
[2019-01-14] MEDS ORDERED: ATORVASTATIN 20 MG TAB GT SCH (23:00)
--- NOTE | 2019-01-14 23:00 | NUR ---
PT ARRIVED IN THE UNIT VIA GURNEY ACCOMPANIED BY EMT, RN AND RT. VS STABLE AT THIS TIME. PT CONNECTED TO BEDSIDE MONITOR. SR WITH PVCs NOTED. PT HAS BLOOD COMING OUT OF MOUTH AND TRACH. ORAL SUCTIONING DONE. PT CONNECTED TO VENT WITH CURRENT SETTINGS: FIO2 100%, TV 450, R14, AND PEEP 5. RESPIRATIONS EVEN AND UNLABORED. LUNGS SOUNDED COARSE. S1+S2 HEARD. PULSES PALPABLE. PT HAS GTUBE IN PLACE. 50ML RESIDUAL ASPIRATED. FLEMING CATHETER IN PLACE. DRAINING CLEAR AND YELLOW URINE. PT HAS RIGHT UPPER CHEST PERMACATH. PT HAS LEFT LEG IO. MRSA SPECIMEN COLLECTED. HOB 30 DEGREES. ALL SAFETY PRECAUTIONS ARE IN PLACE. WILL CONTINUE TO MONITOR PT.
--- NOTE | 2019-01-14 23:00 | NUR ---
REPORT GIVEN TO AIRPORT DUTY MANAGER. PATIENT TRANSPORTED ON MONITOR WITH RT AND EMT. STABLE DURING TRANSPORT.
[2019-01-15] VITALS (29 sets, daily range): BP systolic 63–155; BP diastolic 41–98
--- NOTE | 2019-01-15 00:21 | NUR ---
DR. WORRELL CALLED BACK THE UNIT. CLARIFIED DIET ORDER FOR PT. PER DR. WORRELL NPO EXCEPT MEDS.
[2019-01-15] MEDS ORDERED: PIPERACILLIN/TAZOBACTAM 3.375 GM VIAL IV ONE (00:48)
[2019-01-15] MEDS: PIPERACILLIN/TAZOBACTAM 3.375 GM in DEXTROSE 5% 50 ML IV SCH ×5 (01:00→23:38)
--- NOTE | 2019-01-15 02:10 | NUR ---
VS STABLE. NO CHANGE IN PT'S CONDITION AT THIS TIME. STILL HAS BLEEDING NOTED FROM THE TRACH. PT TURNED AND REPOSITIONED. FLEMING CATHETER STILL SECURED IN PLACE. RESPIRATIONS ARE EVEN AND UNLABORED. HOB 30 DEGREES. ALL SAFETY PRECAUTIONS ARE IN PLACE. WILL CONTINUE TO MONITOR PT.
--- NOTE | 2019-01-15 02:23 | NUR ---
0215 sxned patient large amounts of bright red blood and blood clots.
--- NOTE | 2019-01-15 04:00 | NUR ---
VAP ORAL CARE PERFORMED. PATIENT TOLERATED WELL. MILD BLOOD TINGED COLOR NOTED WHEN SUCTIONING. PATIENT BITES DOWN ON YONKER WHEN SUCTIONED. WILL CONTINUE TO MONITOR. AFEBRILE. Addendum: 01/16/19 at 0457 by Trinity Weston RN 01/16/2019 AT 0400 NOT 01/15/19
--- NOTE | 2019-01-15 04:17 | NUR ---
SR WITH PVCS ON MONITOR. VS STABLE. FLACC 0. PT UNABLE TO FOLLOW COMMANDS. IV LINES ARE PATENT, INTACT AND ASYMPTOMATIC. HOB STILL AT 30 DEGREES. ALL SAFETY PRECAUTIONS ARE IN PLACE. WILL CONTINUE TO MONITOR PT.
--- NOTE | 2019-01-15 05:40 | NUR ---
NO CHANGE IN PT'S CONDITION AT THIS TIME. PT TURNED AND REPOSITIONED. KEPT HOB AT 30 DEGREES. RESPIRATIONS EVEN AND UNLABORED. ALL SAFETY PRECAUTIONS ARE IN PLACE. WILL CONTINUE TO MONITOR PT.
[2019-01-15] MEDS: LEVOTHYROXINE 0.075 MG TAB GT SCH (06:00)
[2019-01-15 06:02] LABS: BASOPHILS % (AUTO) 0.1 % (0.0-2.0); EOSINOPHILS % (AUTO) 0.1 % (0.0-4.0); HEMATOCRIT 23.9 % (36-52); LYMPHOCYTES % (AUTO) 13.3 % (20.5-51.1); MEAN CORPUSCULAR HEMOGLOBIN 34 pg (27-31); MEAN CORPUSCULAR HGB CONC 34 g/dL (33-37); MEAN CORPUSCULAR VOLUME 102.5 fL (80-94); MONOCYTES # (AUTO) 0.7 K/uL (0.8-1.0); NEUTROPHILS # (AUTO) 5.9 K/uL (1.8-7.7); NEUTROPHILS % (AUTO) 77.5 % (42.2-75.2); PLATELET COUNT (AUTO) 221 K/uL (140-450); RED BLOOD CELL COUNT(AUTO) 2.33 MIL/uL (4.20-6.10); WHITE BLOOD COUNT (AUTO) 7.6 K/uL (4.8-10.8)
[2019-01-15 06:58] LABS: ALBUMIN 1.7 g/dL (3.4-5.0); ASPARTATE AMINOTRANSFERASE 26 U/L (15-37); CARBON DIOXIDE 26.8 mmol/L (21-32); CHLORIDE 97 mmol/L (98-107); CREATININE 0.7 mg/dL (0.7-1.3); GLUCOSE 133 mg/dL (74-106); MAGNESIUM 1.5 mg/dL (1.8-2.4); POTASSIUM 3.8 mmol/L (3.5-5.1); SODIUM SERUM 131 mmol/L (136-145); TOTAL BILIRUBIN 0.5 mg/dL (0.0-1.0); UREA NITROGEN, BLOOD 16 mg/dL (7-18)
[2019-01-15] MEDS ORDERED: DOCUSATE SODIUM 100 MG GELCAP PO SCH (07:00)
--- NOTE | 2019-01-15 07:14 | NUR ---
RECEIVED BEDSIDE REPORT FROM FLY LICENSING SPECIALIST RN, FOR CONTINUITY OF CARE. PATIENT IS LETHARGIC, OPENS EYES, NONVERBAL. PATIENT SKIN IS WARM, DRY, AFEBRILE, INTACT WITH REDNESS TO NECK AND DISCOLORATION OF UPPER EXTREMITIES. PATIENT HAS TRACH TO VENT, BREATHING EVEN AND UNLABORED. HE HAS CHEST TUBE PIGTAIL. HE IS SR WITH PVC ON MONITOR. FLACC 0. PATIENT HAS GTUBE IN PLACE, FLEMING CATHETER IN PLACE. NO SIGNS OF DISTRESS AT THIS TIME. HOB IS 30 DEGREES, SIDE RAILS UP 3X. WILL CONTINUE TO MONITOR
[2019-01-15] MEDS: MAGNESIUM OXIDE 400 MG TAB GT SCH (08:19)
[2019-01-15] MEDS: MULTIVITAMIN/MINERALS 1 TAB GT SCH (08:19)
[2019-01-15] MEDS: levETIRAcetam 100 MG/ML ORASYR GT SCH ×2 (08:19→20:15)
--- NOTE | 2019-01-15 08:41 | NUR ---
SCHEDULED MEDS ADMINISTERED, PATIENT TOLERATED WELL
--- NOTE | 2019-01-15 08:50 | NUR ---
PATIENT HAS BEEN SCREENED AND CATEGORIZED HIGH NUTRITION RISK. PATIENT WILL BE SEEN WITHIN 1-2 DAYS OF ADMISSION. 01/15/19-01/16/[address]
--- NOTE | 2019-01-15 08:58 | NUR ---
PATIENT'S SON AND AT BEDSIDE, UPDATED ON PATIENT'S CONDITIONS, ALL CONCERNS WERE DISCUSSED AND ANSWERED.
[2019-01-15] MEDS ORDERED: NON-FORMULARY ITEM (Lansoprazole* (Prevacid 24Hr*) 15 MG) PO SCH (09:00)
[2019-01-15] MEDS ORDERED: HYDROCORTISONE 5 MG GT SCH (09:00)
--- NOTE | 2019-01-15 10:16 | NUR ---
FIO2 TITRATED TO 50% BY . SPO2 98%. WILL CONTINUE TO MONITOR.
--- NOTE | 2019-01-15 10:29 | NUR ---
DR. GUTIERREZ IS HERE TO SEE AND EXAMINE PATIENT, STATES THAT HE WILL PUT IN CONSULT FOR NEURO TO SEE PATIENT. SPOKE WITH PATIENT'S SON REGARDING POC
--- NOTE | 2019-01-15 11:07 | NUR ---
WOUNDS TO LEFT NECK INCREASE IN SIZES COMPARE TO LAST ADMISSION, SKIN TEARS NO S/S OF INFECTION, DRY WITH VERSATEL DRESSING IN PLACE, AT BED SIDE. PLAN OF CARE DISCUSSED WITH PRIMARY RN. AND PT. PT NOD HIS HEAD. INTEGUMENTARY: -UPPER EXTREMITIES WITH MULTIPLE ECCHYMOSIS AND THIN FRAGILE SKIN -MULTIPLE SKIN TEARS TO BILATERAL UPPER EXTREMITIES LEFT ARM, RIGHT ELBOW, WOUND BEDS ARE PINK AND MOIST, NO ODOR, NO S/S OF INFECTION, ROBERT WOUND SKIN INTACT, COVERED WITH VERSATEL DRESSING -LEFT NECK ROBERT TRACH STOMA CARCINOMA LESIONS 3X8CM, WOUND BED 100% RED GRANULATING TISSUE, MOIST WITH NO ODOR, ROBERT-WOUND SKIN INTACT WITH DRY SCABS RECOMMENDATIONS: -CLEANSE MULTIPLE SKIN TEAR TO LEFT FOREARM AND RIGHT ELBOW WITH NS, PAT DRY, APPLY VERSATEL DRESSING PRN SOILING. CLEANSE LEFT LATERAL NECK CARCINOMA LESIONS WITH NS, PAT DRY, APPLY ALGINATE DRESSING AND COVER WITH DRY DRESSING PRN IF SOILING -APPLY OPTIC FOAM TO SACRALCOCCYX Q5D AND PRN IF SOILING -ENCOURAGE AND ASSIST PT TO TURN AND REPOSITION PATIENT Q 2H -ASSESS AND MONITOR SKIN CONDITION DURING POSITION CHANGE -OFFLOAD BILATERAL HEELS BY PLACING PILLOWS UNDER CALVES AT ALL TIMES, UNLESS OTHERWISE CONTRAINDICATED -PRESSURE REDISTRIBUTION SURFACE THERAPY -KEEP SKIN CLEAN AND DRY AT ALL TIMES.
[2019-01-15] MEDS ORDERED: ALGINATE ROPE MC PRN (11:15)
--- NOTE | 2019-01-15 11:33 | NUR ---
CLEANED AND GAVE PATIENT SPONGE BATH, REPOSITIONED PATIENT, TOLERATED WELL.
--- NOTE | 2019-01-15 13:17 | NUR ---
Asw Specialist Note: Basic Screen: Yes High Risk DC Screen Yes Name: MARY MONTANO Home Relationship: SON Pre-Admission Living Arrangements: SNF Healthcare Decision Maker: Next of Kin Other: ANNALEE MONTANO [phone] Advance Directive No Discipline: Case Mgt/Social Svcs Tentative Discharge Plan/Destination: SNF/ECF Will require assistance post discharge: No Referred to Shell Molding Roller Blast Operator: No Tentative Discharge Plan Summary: Patient is a 78-year-old male admitted for aspiration pneumonitis. Patient has PMHX of squamous cell carcinoma of epiglottis, chronic respiratory failure, has tracheostomy, dysphagia, hyperthyroidism, hyperlipidemia, glaucoma, debility and deconditioning, malignant pleural effusion w/ PleurX for draining. Patient was admitted from [facility]. SW contacted Daniela from admissions at [facility]. Per Daniela, patient is senior care and currently on a bed hold. Daniela stated that patient has no advanced directive on file and patient's healthcare decision maker is annalee Montano [phone]. Tentative discharge plan for patient is to [facility] to [facility]. No further needs identified. Signature: EVELINE Bautista Date: Jan 15, 2019 Time: 11:37
--- NOTE | 2019-01-15 13:40 | NUR ---
DISCHARGE PLANNIN78 Y/O MALE PATIENT FROM [facility], WHO CAME IN DUE TO MASSIVE HEMOPTYSIS. INITIAL DIAGNOSIS OF ASPIRATION PNEUMONIA AND ACUTE HYPOXIC RESPIRATORY FAILURE. PAST MEDICAL HISTORY OF SQUAMOUS CELL CA OF EPIGLOTTIS, CHRONIC RESPIRATORY FAILURE, TRACH AND MALIGNANT PLEURAL EFFUSION WITH PLEURX. LABS ON ADMISSION WBC 10.5-7.6, H/H 8.5-8.0, NA/K 129/4.0-131/3.8, BNP 799 AND MA 1.5. NEURO CONSULT WITH DR. LOPEZ FOR ANOXIC ENCEPHALOPATHY. CXR ON ADMISSION SHOWED SMALL LEFT PLEURAL EFFUSION, CARDIOMEGALY AND MILD PULMONARY VASCULAR CONGESTION. ON ZOSYN 3.375 GM Q6H. DC PLAN PENDING PATIENT'S RESPONSE TO TREATMENT. Addendum: 01/17/19 at 0904 by Katheryn Helm ON TRACH TO VENT FIO2 35%. STILL ON LEVOPHED DRIP. STILL ON ZOSYN. EEG DONE YESTERDAY. CURRENT LABS INCLUDE WBC 9.4, H/H 6.4/19.3 WITH ORDER TO TRANSFUSE 2 U PRBC, NA/K 137/2.9 WITH ORDER FOR K RIDER AND BUN/CREA 21/0.6. HEAD CT SHOWED MILD ATROPHY WITH CHRONIC CHANGES AND SINUS DISEASE. RIGHT CHEST TUBE IN PLACE. FC IN PLACE. EEG DONE 01/16/19. Addendum: 01/22/19 at 1324 by Katheryn Helm CM STILL ON TRACH TO VENT FIO2 100%. ON SOLU CORTEF 100MG DAILY. NEURO CONSULT IN PLACE.
--- NOTE | 2019-01-15 13:48 | NUR ---
01/15/19 RD INITIAL ASSESSMENT COMPLETED PLEASE REFER TO NUTRITION ASSESSMENT UNDER CARE ACTIVITY FOR ESTIMATED NUTRITIONAL NEEDS. 1. RECOMMEND VITAL AF 1.2 @ 65 ML/HR -THIS WILL PROVIDE 1440 ML OF VOLUME, 1728 KCAL, AND 108 GM OF PROTEIN WHICH MEETS 100% OF ESTIMATED NEEDS 2. RECOMMEND FREE WATER FLUSH OF [address] TO FOLLOW-UP 2-3 DAYS, HIGH RISK YARITZA SERRANO RD
--- NOTE | 2019-01-15 13:58 | NUR ---
SPOKE WITH VP STRATEGY REGARDING PATIENT'S DIET, STATES THAT SHE RECOMMENDS TO CHANGE FEEDING FROM JEVITY TO VITAL AF 1.2 SINCE IT CONTAINS MORE PROTEIN
--- NOTE | 2019-01-15 16:17 | NUR ---
FIO2 TITRATED TO 45%. PT NOT ALERT BUT NOT IN ANY DISTRESS AT THIS TIME. FAMILY IS BEDSIDE. WILL CONTINUE TO MONITOR.
--- NOTE | 2019-01-15 17:26 | NUR ---
STARTED PATIENT ON TUBE FEEDING, PATIENT TOLERATED WELL. NO RESIDUAL NOTED, WILL CONTINUE TO MONITOR
--- NOTE | 2019-01-15 18:40 | NUR ---
PAGED DR. GUTIERREZ REGARDING PT'S LOW BLOOD PRESSURE. AWAITING CALL BACK.
--- NOTE | 2019-01-15 18:45 | NUR ---
SPOKE WITH DR. LOPEZ REGARDING PT'S CONDITION. ORDER RECEIVED.
--- NOTE | 2019-01-15 19:20 | NUR ---
CHANGE OF SHIFT REPORT GIVEN BY DAY SHIFT WALT AT BEDSIDE. PATIENT UNRESPONSIVE. TRACH TO VENT. HAS DRIED BLOOD AROUND LIPS AND NECK ON TRACH COLLAR. RT PRESENT STATES PATIENT APPEARS MUCH BETTER AND NOT BLEEDING MUCH. DAY SHIFT NURSE STATES LOOSE SKIN TYPE ITEMS IN MOUTH. DAY SHIFT NURSES STATES UNCLEAR TO WHAT IT IS. PATIENT HAS FEW TEETH AND HAS PINK SOFT SKIN TYPE PIECES IN MOUTH THAT ARE ATTACHED TO MOUTH. WILL CONTINUE TO MONITOR. RT STATES ITS HIS TONGUE. SMALL AMOUNT OF BLOOD NOTED WHEN VAP ORAL CARE PERFORMED. RT PRESENT AND DAY SHIFT RN WHO STATES NORMAL FOR PATIENT. PATIENT LUNG SOUNDS CLEAR WITH REGULAR HEART RATE. RESPIRATIONS SYMMETRICAL AND UNLABORED. SR ON THE MONITOR AT THIS TIME BUT DAY NURSE STATES HAS PVCS. GTUBE PRESENT RUNNING TUBE FEEDING OF VITAL AF 1.2 AT 65 PER HOUR AND WATER FLUSH OF 100 Q6H. PATIENT HAS FLEMING CATHETER PRESENT RUNNING YELLOW URINE IN TUBING. RESPIRATORY STATES THEY HAVE NOT RECEIVED SPUTUM CULTURE YET D/T BLEEDING STILL. WILL RETRIEVE AT ANOTHER TIME. PATIENT HAS CHEST TUBE PIG TAILS PRESENT. FIO2 45-VT 450-RR 14-FLOW 40-PEEP 5. PATIENT HAS RU ALEJANDRA CATHETER USED BY DAY SHIFT FOR IV ANTIBIOTICS. PUPILS CHECKED. PATIENT REPOSITIONED AT THIS TIME. BP ON RIGHT UPPER ARM. ASKED TRUST MANAGER FOR SCDS. DAY SHIFT STATES PATIENT NOT STABLE TO TAKE TO CT FOR THEIR SHIFT. WILL FOLLOW UP WITH CT. BOWEL SOUNDS HYPOACTIVE. SKIN INTACT. SCAR ON LEFT CHEEK. BP LOW PER DAY SHIFT. 59/[address] GUTIERREZ PAGED BY CHARGE NURSE. BED IN LOWEST POSITION. FLACC 0. SIDE RAILS UP .SAFETY MEASURES IN PLACE. WHEN EXPLAINED AND GIVEN VAP ORAL CARE, PATIENT WAS BITING DOWN ON YONKER. WOULD STOP WHEN ATTEMPTING TO PULL YONKER SUCTION OUT OF MOUTH. WILL CONTINUE TO MONITOR AT THIS TIME.
[2019-01-15] MEDS: ALBUTEROL 0.083% 2.5 MG/3 ML NEBU INH PRN (19:27)
--- NOTE | 2019-01-15 20:03 | NUR ---
FAMILY, GRANDDAUGHTER PRESENT ,JEREMI, AT THIS TIME.
[2019-01-15] MEDS: MIDODRINE 5 MG TAB PO SCH (20:16)
[2019-01-15] MEDS: ATORVASTATIN 20 MG TAB GT SCH (20:17)
[2019-01-15] MEDS: LATANOPROST 0.005% OP 2.5 ML BTL OP SCH (20:19)
--- NOTE | 2019-01-15 20:25 | NUR ---
CHARGE NURSE PAGED DR. LARA FOR LOW BP
--- NOTE | 2019-01-15 20:45 | NUR ---
ORDER FOR COLACE ORDERED FOR 2100. HOUSE SUP. NOTIFIED. PER HOUSE SUP. PXYSIS DOWN AND UNABLE TO GET MEDICATION TO PATIENT. MEDICATION NOT AVAILABLE AT THIS TIME. MEDICATION HELD AND WILL ENDORSE/PASS ON TO DAY SHIFT NURSE.
--- NOTE | 2019-01-15 20:51 | NUR ---
PER DR. RICHARDSON. NOTIFIED DR. RICHARDSON . -GIVE SOLUCORTEF 100 MG IV Q8H. FIRST DOSE NOW (WAITING FOR CERTIFIED RESIDENTIAL MEDICATION AIDE TO GET MEDICATION ) -AWARE OF ZOSYN -POSSIBLE PICC LINE IF NO CENTRAL LINE WILL ENDORSE TO DAY SHIFT WE HAD CENTRAL LINE -LEVOPHED TO KEEP SBP ABOVE 90. -ALBUMIN ONE TIME DOSE 250 ML 5% -NORMAL SALINE 150 ML/HR
[2019-01-15] MEDS: DOCUSATE 100 MG/10 ML UDC GT SCH (20:55)
[2019-01-15] MEDS ORDERED: NOREPINEPHRINE 4 MG/4 ML VIAL IV ONE (20:59)
--- NOTE | 2019-01-15 21:00 | NUR ---
MEDICATION ADMINISTRATION ORDERED BY MD. PATIENT TOLERATED WELL. NO RESIDUAL. BP LOW. [facility] GUTIER[employer]. DR. RICHARDSON PROFILE SAW OPERATOR.
[2019-01-15] MEDS ORDERED: ALBUMIN HUMAN 5 % 250 ML IV ONE ×2 (21:02→21:15)
[2019-01-15] MEDS: NACL 0.9% 1,000 ML IV SCH (21:28)
[2019-01-15] MEDS ORDERED: methylPREDNISolone SS 125 MG/2 ML VIAL ONE (21:29)
--- NOTE | 2019-01-15 21:45 | NUR ---
PER HOT STRIP FINISHER SOLUCORTEF NOT AVAILABLE NOT GIVEN, SOLUMEDROL AVAILABLE TO GIVE. OK PER HOUSE SUP. CHARGE NURSE CALLED PHARMACY, OK PER CHARGE NURSE AND SOLUMEDROL OK TO GIVE PER PHARMACY.
--- NOTE | 2019-01-15 21:50 | NUR ---
STARTED LEVOPHED ORDERED PER DR. RICHARDSON
[2019-01-15] MEDS: NOREPINEPHRINE 4 MG in DEXTROSE 5% 250 ML IV PRN (21:56)
[2019-01-15] MEDS ORDERED: MAG SULF 2000 MG/WATER PREMIX 100 ML IV ONE (23:05)
[2019-01-15] MEDS ORDERED: MAG SULF 2000 MG/WATER PREMIX 50 ML IV ONE ×2 (23:23→23:29)
[2019-01-16] VITALS (105 sets, daily range): BP systolic 86–134; BP diastolic 37–87
--- NOTE | 2019-01-16 | NUR ---
VAP ORAL CARE PERFORMED. PATIENT TOLERATED WELL. MILD BLOOD TINGED COLOR NOTED WHEN SUCTIONING. PATIENT BITES DOWN ON YONKER WHEN SUCTIONED. WILL CONTINUE TO MONITOR. AFEBRILE.
[2019-01-16] MEDS: NACL 0.9% 1,000 ML IV SCH ×3 (04:02→17:54)
--- NOTE | 2019-01-16 04:34 | NUR ---
PAGED TO CLARIFY HIS ORDER OF FREYA SHERMAN IV.
[2019-01-16] MEDS ORDERED: HYDROCORTISONE NA SUCC 100 MG/2 ML VIAL IV SCH ×2 (05:00→17:42)
[2019-01-16] MEDS: MIDODRINE 5 MG TAB PO SCH ×3 (05:58→20:51)
[2019-01-16] MEDS: PIPERACILLIN/TAZOBACTAM 3.375 GM in DEXTROSE 5% 50 ML IV SCH ×3 (05:59→17:53)
[2019-01-16] MEDS: LEVOTHYROXINE 0.075 MG TAB GT SCH (06:00)
--- NOTE | 2019-01-16 06:00 | NUR ---
PATIENT CLEANED AND MOUTH SUCTIONED. PATIENT TOLERATED WELL. NO BM. NO OPEN SKIN. DRESSING VERSETAL DRESSINGS STILL INTACT. MILD EDEMA NOTED ON LEFT ARM. WILL ENDORSE TO DAY SHIFT. SKIN COLOR WNL. TOLERATING GTUBE WELL. REPOSITIONED AGAIN. DR. RICHARDSON WAS PAGED X2 BY DAY NURSE. NO ANSWER YET. WILL CONTINUE TO MONITOR.
--- NOTE | 2019-01-16 06:19 | NUR ---
STILL NO RETURN CALL FROM DR. RICHARDSON; PAGED HIM AGAIN REGARDING HIS ORDER OF FREYA SHERMAN.
--- NOTE | 2019-01-16 06:30 | NUR ---
rec'd pt on carescape vent settings ac 14 vt 450 peep 5 fio2 45% alarms on and audible and vent is plugged into red outlet no hhn given no signs of distress noted at this time, b\s are clear bilaterally, no sxn needed ambu bag at [facility] and pt is trach with portex 8
[2019-01-16 07:10] LABS: BASOPHILS % (AUTO) 0.1 % (0.0-2.0); HEMATOCRIT 21.2 % (36-52); LYMPHOCYTES # (AUTO) 0.6 K/uL (2.0-11.5); LYMPHOCYTES % (AUTO) 7.5 % (20.5-51.1); MEAN CORPUSCULAR HEMOGLOBIN 34 pg (27-31); MEAN CORPUSCULAR HGB CONC 33 g/dL (33-37); MEAN CORPUSCULAR VOLUME 103.8 fL (80-94); MONOCYTES # (AUTO) 0.2 K/uL (0.8-1.0); MONOCYTES % (AUTO) 2.4 % (1.7-9.3); NEUTROPHILS # (AUTO) 7.2 K/uL (1.8-7.7); PLATELET COUNT (AUTO) 258 K/uL (140-450); RED BLOOD CELL COUNT(AUTO) 2.04 MIL/uL (4.20-6.10); RED CELL DISTRIBUTION WIDTH 23.6 % (11.6-13.7)
--- NOTE | 2019-01-16 07:25 | NUR ---
DR. RICHARDSON FINALLY RETURNED MY PAGED AND HE SAID IT'S OKAY TO GIVE SOLU MEDROL INSTEAD OF HYDROCORTISONE AND CAN GIVE SOLUMEDROL SAME DOSE, SAME FREQUENCY AND SAME ROUTE.
--- NOTE | 2019-01-16 07:30 | NUR ---
DR. RICHARDSON WAS PAGED X2. AWARE. OK TO GIVEN SOLUMEDROL INSTEAD OF SOLUCORTEF PER CHARGE NURSE TELEPHONE CALL.
--- NOTE | 2019-01-16 07:30 | NUR ---
PT VSS. NO S/S/ OF DISTRESS NOTED. NO SOB. FLACC O. SAFETY MEASURES IN PLACE. ENDORSED TO DAY SHIFT.
--- NOTE | 2019-01-16 08:00 | NUR ---
INITIAL SHIFT ASSESSMENT DONE (SEE ASSESSMENT PART). WITHDRAWS EXTREMITIES AND OPEN EYES TO PAIN STIMULI. DOES NOT FOLLOW COMMAND. NO SIGNS OF PAIN OR AGITATION NOTED. TRACH TO VENT, TOLERATING CURRENT SETTINGS WELL. O2 SAT 98%. ST ON MONITOR. SBP IN 100'S-120'S. ON LEVOPHED DRIP AT 5 MCG/MIN. ON TUBE FEEDING VIA G-TUBE, TOLERATING WELL. NO RESIDUALS NOTED. HOB ELEVATED. UPDATED OF PLAN OF CARE. WILL CONTINUE TO MONITOR.
[2019-01-16 08:50] LABS: ANION GAP 13.6 (8-16); CARBON DIOXIDE 24.9 mmol/L (21-32); CHLORIDE 99 mmol/L (98-107); CREATININE 0.8 mg/dL (0.7-1.3); GLUCOSE 273 mg/dL (74-106); POTASSIUM 3.5 mmol/L (3.5-5.1); SODIUM SERUM 134 mmol/L (136-145); UREA NITROGEN, BLOOD 21 mg/dL (7-18)
[2019-01-16 09:08] LABS: HEMATOCRIT 21.4 % (36-52); LYMPHOCYTES # (AUTO) 0.7 K/uL (2.0-11.5); LYMPHOCYTES % (AUTO) 8.7 % (20.5-51.1); MEAN CORPUSCULAR HEMOGLOBIN 34 pg (27-31); MEAN CORPUSCULAR HGB CONC 33 g/dL (33-37); MEAN CORPUSCULAR VOLUME 103.2 fL (80-94); MONOCYTES # (AUTO) 0.3 K/uL (0.8-1.0); MONOCYTES % (AUTO) 4.1 % (1.7-9.3); NEUTROPHILS % (AUTO) 87.2 % (42.2-75.2); PLATELET COUNT (AUTO) 256 K/uL (140-450); RED BLOOD CELL COUNT(AUTO) 2.07 MIL/uL (4.20-6.10); RED CELL DISTRIBUTION WIDTH 22.8 % (11.6-13.7)
--- NOTE | 2019-01-16 10:00 | NUR ---
RESTING IN BED. NO SIGNS OF PAIN OR AGITATION NOTED. TOLERATING VENTILATOR WELL. O2 SAT 97-99%. ST ON MONITOR. SBP IN 120'S. LEVOPHED DRIP DECREASE TO 4 MCG/MIN. HOB ELEVATED. SON AND AT BEDSIDE. UPDATED OF STATUS AND PLAN OF CARE. WILL CONTINUE TO MONITOR.
[2019-01-16] MEDS: DOCUSATE 100 MG/10 ML UDC GT SCH ×2 (10:03→20:50)
[2019-01-16] MEDS: levETIRAcetam 100 MG/ML ORASYR GT SCH ×2 (10:04→20:51)
[2019-01-16] MEDS: MAGNESIUM OXIDE 400 MG TAB GT SCH (10:04)
[2019-01-16] MEDS: HYDROCORTISONE 10 MG GT SCH (10:05)
[2019-01-16] MEDS: MULTIVITAMIN/MINERALS 1 TAB GT SCH (10:05)
[2019-01-16] MEDS: PANTOPRAZOLE 40 MG INJ VIAL IVP SCH (10:05)
--- NOTE | 2019-01-16 11:00 | NUR ---
DIRECTOR OF COMMUNITY LIFE IS IN THE ROOM DOING EEG TO THE PATIENT.
[2019-01-16] MEDS ORDERED: SODIUM BICARBONATE 8.4% PFS 50 MEQ/50 ML SYR IVP SCH (12:00)
--- NOTE | 2019-01-16 12:00 | NUR ---
REASSESSMENT DONE. NEURO STATUS STILL THE SAME. NO SIGNS OF PAIN OR AGITATION NOTED. TOLERATING CURRENT VENTILATOR SETTINGS WELL. O2 SAT 97-98%. ST ON MONITOR. SBP IN 90'S-110'S. TOLERATING TUBE FEEDING WELL. NO RESIDUALS NOTED. HOB ELEVATED. SON AND ARE STILL IN THE ROOM. UPDATED OF PLAN OF CARE. WILL CONTINUE TO MONITOR.
[2019-01-16] MEDS: NOREPINEPHRINE 4 MG in DEXTROSE 5% 250 ML IV PRN (12:05)
--- NOTE | 2019-01-16 13:35 | NUR ---
TRANSPORTED TO CT SCAN DEPT BY ELIZABETH WITH PORTABLE NEIGHBORHOOD WORKER AND BAGGED BY RT LOMBARDO. ACCOMPANIED BY TWO CT SCAN TECHS AND ME.
--- NOTE | 2019-01-16 13:50 | NUR ---
BACK FROM CT SCAN. TOLERATED THE PROCEDURE WELL.
--- NOTE | 2019-01-16 14:00 | NUR ---
RESTING IN BED. NO SIGNS OF PAIN OR AGITATION NOTED. TOLERATING VENTILATOR WELL. O2 SAT 95-98%. ST ON MONITOR. SBP IN 80'S-130'S. HOB ELEVATED. WILL CONTINUE TO MONITOR.
--- NOTE | 2019-01-16 15:45 | NUR ---
LEFT CHEST TUBE PIGTAIL IS CONNECTED TO WATER SEAL CHEST DRAIN PER DR GUTIERREZ'S ORDER. NOTED BLOODY SECRETIONS ON THE TUBING, SMALL AMOUNT. WILL CONTINUE TO MONITOR.
--- NOTE | 2019-01-16 16:00 | NUR ---
REASSESSMENT DONE. NEURO STATUS UNCHANGED. NO SIGNS OF PAIN OR AGITATION NOTED. TOLERATING CURRENT VENTILATOR SETTINGS WELL. O2 SAT 97-98%. ST ON MONITOR. SBP IN 90'S-120'S. TOLERATING TUBE FEEDING WELL. NO RESIDUALS NOTED. HOB ELEVATED. IS STILL IN THE ROOM. UPDATED OF PLAN OF CARE. WILL CONTINUE TO MONITOR.
--- NOTE | 2019-01-16 17:00 | NUR ---
SBP IN 110'S-120'S. LEVOPHED DRIP DECREASE TO 3 MCG/MIN. WILL CONTINUE TO MONITOR.
--- NOTE | 2019-01-16 18:00 | NUR ---
RESTING IN BED. NO SIGNS OF PAIN OR AGITATION NOTED. TOLERATING VENTILATOR WELL. O2 SAT 97-98%. SR ON MONITOR. SBP IN 80'S-110'S. HOB ELEVATED. FAMILY AT BEDSIDE. UPDATED OF STATUS AND PLAN OF CARE. WILL CONTINUE TO MONITOR.
--- NOTE | 2019-01-16 19:30 | NUR ---
RECEIVED BEDSIDE REPORT FROM MORNING NURSE. PATIENT UNRESPONSIVE. TRACH TO VENT WITH VENT SETTING AC MODE, FIO2 45%, VT 450, RATE 14, PEEP 5. HX OF SQUAMOUS CELL CARCINOMA OF EPIGLOTTIS. RIGHT UPPER CHEST PORT A CATH WITH RUNNING NS 150ML/HR, LEVOPHED 3MCG/MIN= 15.24ML/HR. G TUBE TO FEEDING WITH VITAL AF 65ML/HR WITH FWF 100ML Q6. CONNECTING LEFT CHEST TUBE PIGTAIL TO WATER SEAL CHEST DRAIN BY GRAVITY. FLEMING CATH IN PLACE WITH CLEAR YELLOW URINE NOTED. SWELLING LEFT ARM NOTED. HOB ELEVATED 30 DEGREE, BILATERAL SIDE RAILS UP WITH PADS FOR SEIZURE PRECAUTIONS. CALL LIGHT WITHIN REACH. BED IN LOW POSITION. WILL CONTINUE TO MONITOR.
[2019-01-16] MEDS: ALBUTEROL 0.083% 2.5 MG/3 ML NEBU INH PRN (19:37)
--- NOTE | 2019-01-16 19:49 | NUR ---
RECEIVED PATIENT TRACH TO MECHANICAL VENTILATOR AT DOCUMENTS SETTINGS. VENT CHECK DONE. VENT PLUGGED INTO RED OUTLET WITH WHEELS LOCKED. VENT ALARMS ON AND AUDIBLE. AMBU BAG AT [facility]. PRN BREATHING TX ADMINISTERED. TOLERATED TX WELL WITHOUT ADVERSE SIDE EFFECTS. AIRWAY SECURE AND PATENT. SUCTIONED SMALL AMOUNT OF THIN, RED BLOODY SECRETIONS. NO ACUTE RESPIRATORY DISTRESS NOTED AT THIS TIME. WILL CONTINUE TO MONITOR. Addendum: 01/16/19 at 2150 by Luz Cain RT TITRATED FIO2 FROM 45% TO 40%, SPO2 99%.
[2019-01-16] MEDS: LATANOPROST 0.005% OP 2.5 ML BTL OP SCH (20:50)
[2019-01-16] MEDS: ATORVASTATIN 20 MG TAB GT SCH (20:51)
--- NOTE | 2019-01-16 21:48 | NUR ---
VENT CHECK DONE. NO ACUTE RESPIRATORY DISTRESS NOTED AT THIS TIME. FIO2 TITRATE TO 35%, PULSE OX SAT 98%. RN NOTIFIED. WILL CONTINUE TO MONITOR.
--- NOTE | 2019-01-16 22:00 | NUR ---
ADMINISTERED SCHEDULED MEDICATIONS, NO ACUTE DISTRESS NOTED. BP STABLE WITH LEVOPHED DRIP. WILL CONTINUE TO MONITOR.
[2019-01-17] VITALS (85 sets, daily range): BP systolic 86–132; BP diastolic 41–94
[2019-01-17] MEDS: NACL 0.9% 1,000 ML IV SCH ×4 (00:08→18:56)
[2019-01-17] MEDS: PIPERACILLIN/TAZOBACTAM 3.375 GM in DEXTROSE 5% 50 ML IV SCH ×4 (00:08→18:00)
--- NOTE | 2019-01-17 00:30 | NUR ---
NO ACUTE DISTRESS, TOLERATED WELL WITH VENT AND TUBE FEEDING. FLACC 0. WILL CONTINUE TO MONITOR.
[2019-01-17] MEDS: ALBUTEROL 0.083% 2.5 MG/3 ML NEBU INH PRN ×2 (01:11→06:39)
--- NOTE | 2019-01-17 01:20 | NUR ---
VENT CHECK DONE. PRN BREATHING TX ADMINISTERED. TOLERATED WELL WITHOUT ADVERSE SIDE EFFECTS. NO ACUTE RESPIRATORY DISTRESS NOTED. SUCTIONED MODERATE AMOUNT OF THICK, RED BLOODY SECRETIONS. WILL CONTINUE TO MONITOR.
--- NOTE | 2019-01-17 04:00 | NUR ---
FROM CHEST TUBE PIGTAIL, SEROSANGUNEOUS DRAINAGE NOTED. NO BLEEDING FROM MOUTH AND TRACT. WILL CONTINUE TO MONITOR.
[2019-01-17] MEDS: MIDODRINE 5 MG TAB PO SCH ×3 (05:33→20:50)
[2019-01-17] MEDS: LEVOTHYROXINE 0.075 MG TAB GT SCH (05:34)
--- NOTE | 2019-01-17 06:00 | NUR ---
NO ACUTE DISTRESS NOTED. FLACC 0. TOLERATED WELL WITH VENT AND TUBE FEEDING, LESS THAN 10 CC RESIDUAL NOTED. WILL CONTINUE TO MONITOR.
[2019-01-17 06:15] LABS: ANION GAP 11.3 (8-16); CARBON DIOXIDE 27.6 mmol/L (21-32); CHLORIDE 101 mmol/L (98-107); CREATININE 0.6 mg/dL (0.7-1.3); GLUCOSE 238 mg/dL (74-106); SODIUM SERUM 137 mmol/L (136-145); UREA NITROGEN, BLOOD 21 mg/dL (7-18)
[2019-01-17 06:18] LABS: POTASSIUM 2.9 mmol/L (3.5-5.1)
[2019-01-17 06:22] LABS: MEAN CORPUSCULAR HEMOGLOBIN 35 pg (27-31); MEAN CORPUSCULAR HGB CONC 33 g/dL (33-37); MEAN CORPUSCULAR VOLUME 104.7 fL (80-94); PLATELET COUNT (AUTO) 249 K/uL (140-450); RED BLOOD CELL COUNT(AUTO) 1.85 MIL/uL (4.20-6.10); RED CELL DISTRIBUTION WIDTH 23.5 % (11.6-13.7); WHITE BLOOD COUNT (AUTO) 9.4 K/uL (4.8-10.8)
--- NOTE | 2019-01-17 06:40 | NUR ---
RECEIVED PT ON CARESCAPE ON DOCUMENTED SETTINGS, ALARMS ARE ON AND AUDIBLE, PTS TRACH PORTEX 8 IS SECURE, PT IN HF NOT ALERT BS DIMINISHED, WARD NURSE OBTAINED TAKEN TO LAB, HHN GIVEN I\L WITH 2.5 MG ALBUTEROL BMV HOB, VENT PLUGGED INTO RED OUTLET, WILL CONTINUE TO MONITOR
[2019-01-17 06:52] LABS: HEMATOCRIT 19.3 % (36-52); HEMOGLOBIN 6.4 g/dL (12.0-18.0)
[2019-01-17 07:56] LABS: LYMPHOCYTES % (MANUAL) 7 % (20-46); METAMYELOCYTES % 1 % (0-0); MONOCYTES % (MANUAL) 9 % (5-12); MYELOCYTES % 1 % (0-0)
[2019-01-17] MEDS ORDERED: KCL 20 MEQ/WATER INJ PREMIX 200 ML IV SCH (08:00)
--- NOTE | 2019-01-17 08:00 | NUR ---
INITIAL SHIFT ASSESSMENT DONE (SEE ASSESSMENT PART). OPEN EYES SPONTANEOUSLY BUT NOT TO COMMAND. WITHDRAWS EXTREMITIES TO PAIN STIMULI. DOES NOT FOLLOW COMMAND. NO SIGNS OF PAIN OR AGITATION NOTED. TRACH TO VENT, TOLERATING CURRENT SETTINGS WELL. O2 SAT 93-98%. ST WITH PVC'S ON MONITOR. SBP IN 100'S-110'S. ON LEVOPHED DRIP AT 3 MCG/MIN. ON TUBE FEEDING VIA G-TUBE, TOLERATING WELL. NO RESIDUALS NOTED. HOB ELEVATED. LEFT CHEST TUBE PIGTAIL TO WATER SEAL CHEST DRAIN BY GRAVITY, PATENT, INTACT, AND WITH SEROSANGUINOUS DRAINAGE. UPDATED OF PLAN OF CARE. WILL CONTINUE TO MONITOR.
[2019-01-17] MEDS: NOREPINEPHRINE 4 MG in DEXTROSE 5% 250 ML IV PRN (08:04)
[2019-01-17] MEDS: PANTOPRAZOLE 40 MG INJ VIAL IVP SCH (08:53)
[2019-01-17] MEDS: MULTIVITAMIN/MINERALS 1 TAB GT SCH (08:53)
[2019-01-17] MEDS: DOCUSATE 100 MG/10 ML UDC GT SCH ×2 (08:53→20:50)
[2019-01-17] MEDS: HYDROCORTISONE NA SUCC 100 MG/2 ML VIAL IV SCH (08:53)
[2019-01-17] MEDS: levETIRAcetam 100 MG/ML ORASYR GT SCH ×2 (08:53→20:50)
[2019-01-17] MEDS: MAGNESIUM OXIDE 400 MG TAB GT SCH (08:54)
[2019-01-17] MEDS: HYDROCORTISONE 10 MG GT SCH (08:54)
--- NOTE | 2019-01-17 09:40 | NUR ---
AND SON ARE IN THE ROOM. UPDATED OF STATUS AND PLAN OF CARE.
--- NOTE | 2019-01-17 10:00 | NUR ---
RESTING IN BED. NO SIGNS OF PAIN OR AGITATION NOTED. TOLERATING VENTILATOR FAIRLY. O2 SAT 93-96%. ST ON MONITOR. SBP IN 90'S-110'S. HOB ELEVATED. SON AND STILL AT BEDSIDE. WILL CONTINUE TO MONITOR.
--- NOTE | 2019-01-17 11:15 | NUR ---
SBP IN 100'S-120. LEVOPHED DRIP DECREASE TO 2 MCG/MIN. WILL CONTINUE TO MONITOR.
--- NOTE | 2019-01-17 11:50 | NUR ---
DR GUTIERREZ IS IN THE ROOM. UPDATED OF STATUS. NEW ORDERS RECEIVE. MD TALK TO THE IN THE ROOM AND SON MARY ON THE PHONE.
--- NOTE | 2019-01-17 12:00 | NUR ---
REASSESSMENT DONE. NEURO STATUS STILL THE SAME. NO SIGNS OF PAIN OR AGITATION NOTED. TOLERATING CURRENT VENTILATOR SETTINGS WELL. O2 SAT 94-96%. ST ON MONITOR. SBP IN 100'S. TOLERATING TUBE FEEDING WELL. NO RESIDUALS NOTED. HOB ELEVATED. IS STILL IN THE ROOM. UPDATED OF PLAN OF CARE. WILL CONTINUE TO MONITOR.
--- NOTE | 2019-01-17 12:30 | NUR ---
STARTED TRANSFUSION OF 1ST UNIT OF PRBC AFTER PROPERLY CHECKING WITH OTHER RN, EMA FAM. WILL CONTINUE TO MONITOR.
--- NOTE | 2019-01-17 12:45 | NUR ---
PRBC TRANSFUSION GOING-ON, TOLERATING WELL. NO REACTION TO THE BLOOD NOTED. WILL CONTINUE TO MONITOR.
--- NOTE | 2019-01-17 13:50 | NUR ---
DR. LOPEZ HERE TO SEE AND EXAMINE PT. ACCORDING TO DR. LOPEZ HE HAS SPOKEN TO PT'S SON MARY NERI: EEG FINDINGS.
--- NOTE | 2019-01-17 14:00 | NUR ---
RESTING IN BED. NO SIGNS OF PAIN OR AGITATION NOTED. TOLERATING VENTILATOR WELL. O2 SAT 94-96%. SR ON MONITOR. SBP IN 100'S-130. LEVOPHED DRIP DECREASE TO 1 MCG/MIN. PRBC TRANSFUSION GOING-ON, TOLERATING WELL. NO REACTION TO THE BLOOD NOTED. HOB ELEVATED. AND DAUGHTER AT BEDSIDE. UPDATED OF PLAN OF CARE. WILL CONTINUE TO MONITOR.
--- NOTE | 2019-01-17 14:20 | NUR ---
TRANSFUSION OF 1ST UNIT OF PRBC DONE AT THIS TIME. TOLERATED THE ENTIRE TRANSFUSION WELL. NO REACTION TO THE BLOOD NOTED. WILL CONTINUE TO MONITOR.
--- NOTE | 2019-01-17 14:30 | NUR ---
STARTED TRANSFUSION OF 2ND UNIT OF PRBC AT THIS TIME AFTER PROPERLY CHECKING WITH OTHER RN, RN EDUARDO.
--- NOTE | 2019-01-17 14:45 | NUR ---
PRBC TRANSFUSION GOING-ON, TOLERATING WELL. NO REACTION TO THE BLOOD NOTED. WILL CONTINUE TO MONITOR.
--- NOTE | 2019-01-17 15:15 | NUR ---
SBP IN 130'S. LEVOPHED DRIP TURN OFF. WILL CONTINUE TO MONITOR.
--- NOTE | 2019-01-17 16:00 | NUR ---
REASSESSMENT DONE. NEURO STATUS UNCHANGED. NO SIGNS OF PAIN OR AGITATION NOTED. TOLERATING CURRENT VENTILATOR SETTINGS WELL. O2 SAT 94-96%. SR ON MONITOR. SBP IN 100'S-120'S. TOLERATING TUBE FEEDING WELL. NO RESIDUALS NOTED. HOB ELEVATED. PRBC #2 GOING-ON, TOLERATING WELL. NO REACTION TO THE BLOOD NOTED. UPDATED OF PLAN OF CARE. WILL CONTINUE TO MONITOR.
--- NOTE | 2019-01-17 16:30 | NUR ---
TRANSFUSION OF 2ND UNIT OF PRBC DONE AT THIS TIME, TOLERATED WELL. NO REACTION TO THE BLOOD NOTED. WILL CONTINUE TO MONITOR.
--- NOTE | 2019-01-17 18:00 | NUR ---
RESTING IN BED. NO SIGNS OF PAIN OR AGITATION NOTED. TOLERATING VENTILATOR WELL. O2 SAT 93-96%. SR ON MONITOR. SBP IN 100'S-120'S. NO ECTOPY NOTED. HOB ELEVATED. WILL CONTINUE TO MONITOR.
--- NOTE | 2019-01-17 19:20 | NUR ---
RECEIVED BEDSIDE REPORT FROM MORNING NURSE. PATIENT SPONTANEOUSLY EYES OPEN BUT NOT TRACKING. UNRESPONSIVE. FLACC 0. SR TO ST ON THE MONITOR. TRACH TO VENT WITH VENT SETTING AC MODE, FIO2 45%, VT 450, RATE 14, PEEP 5. SMALL AMOUNT OF BLOODY SPUTUM NOTED. HX OF SQUAMOUS CELL CARCINOMA OF EPIGLOTTIS. RIGHT UPPER CHEST PORT A CATH WITH RUNNING NS 150ML/HR. G TUBE TO FEEDING WITH VITAL AF 65ML/HR WITH FWF 100ML Q6. CONNECTING LEFT CHEST TUBE PIGTAIL TO WATER SEAL CHEST DRAIN BY GRAVITY. FLEMING CATH IN PLACE WITH CLEAR YELLOW URINE NOTED. SWELLING LEFT ARM NOTED. HOB ELEVATED 30 DEGREE, BILATERAL SIDE RAILS UP WITH PADS FOR SEIZURE PRECAUTIONS. CALL LIGHT WITHIN REACH. BED IN LOW POSITION. WILL CONTINUE TO MONITOR.
[2019-01-17] MEDS: ATORVASTATIN 20 MG TAB GT SCH (20:50)
[2019-01-17] MEDS: LATANOPROST 0.005% OP 2.5 ML BTL OP SCH (20:51)
--- NOTE | 2019-01-17 21:45 | NUR ---
ADMINISTERED SCHEDULED MEDICATIONS ORDERED. NO ACUTE DISTRESS NOTED. TOLERATED WELL WITH VENT AND TUBE FEEDING. RESIDUAL CHECKED LESS THAN 10CC NOTED. FLACC 0. WILL CONTINUE TO MONITOR.
--- NOTE | 2019-01-17 23:30 | NUR ---
SR ON THE MONITOR. PATIENT SEEMS GETTING MORE ALERT. NO ACUTE DISTRESS NOTED. ABLE TO OPEN HIS EYES FULLY BUT STILL UNABLE TO TRACK. WILL CONTINUE TO MONITOR.
[2019-01-18] VITALS: BP 97/66
[2019-01-18] MEDS: PIPERACILLIN/TAZOBACTAM 3.375 GM in DEXTROSE 5% 50 ML IV SCH ×2 (00:32→05:15)
[2019-01-18 00:53] VITALS: BP 106/64
[2019-01-18 02:00] VITALS: BP 100/65
[2019-01-18] MEDS: NACL 0.9% 1,000 ML IV SCH ×2 (02:58→22:35)
--- NOTE | 2019-01-18 03:18 | NUR ---
PATIENT IS GETTING MORE ALERT. SPONTANEOUSLY OPEN HIS EYES AND ABLE TO TRACK BUT UNABLE TO MOVE HIS EX'S. NO ACUTE DISTRESS NOTED. TOLERATED WELL WITH VENT. FLACC 0. WILL CONTINUE TO MONITOR.
[2019-01-18 03:27] VITALS: BP 103/72
[2019-01-18 04:00] VITALS: BP 98/69
[2019-01-18] MEDS: MIDODRINE 5 MG TAB PO SCH (04:45)
[2019-01-18] MEDS: MORPHINE SULFATE 2 MG/ML SYR IVP PRN (04:46)
[2019-01-18 06:00] VITALS: BP 87/61
[2019-01-18] MEDS ORDERED: KCL 20 MEQ/WATER INJ PREMIX 100 ML IV ONE (10:07)
[2019-01-18] MEDS ORDERED: Z-GUARD PASTE TP ONE (16:36)
[2019-01-19] MEDS: MIDODRINE 5 MG TAB PO SCH ×3 (05:00→21:00)
[2019-01-19] MEDS: LEVOTHYROXINE 0.075 MG TAB GT SCH (06:30)
[2019-01-19 07:44] VITALS: BP 100/72
[2019-01-19] MEDS ORDERED: Z-GUARD PASTE TP PRN (08:15)
[2019-01-19] MEDS: levETIRAcetam 100 MG/ML ORASYR GT SCH ×2 (08:35→21:00)
[2019-01-19] MEDS: MULTIVITAMIN/MINERALS 1 TAB GT SCH (08:36)
[2019-01-19] MEDS: DOCUSATE 100 MG/10 ML UDC GT SCH ×2 (08:38→21:00)
--- NOTE | 2019-01-19 08:50 | NUR ---
WOUND CARE RE-EVALUATION NOTE: REASON FOR RE-EVALUATION: DTI WOUNDS PT'S EYES OPEN BUT NOT RESPONSIVE TO VERBAL AND PHYSICAL STIMULATION, FINGERS AND TOES MOVED AT TIMES, SON AND AT BED SIDE, COMORBIDITIES RELATED TO DELAY WOUND HEALING AND FURTHER SKIN BREAKS EXPLAINED. DTI MAY HAPPEN DUE TO POOR PERFUSION, SONAMINATA VERBALIZES UNDERSTANDING. FAMILY INSTRUCTED WITH FULL CODE, POC DISCUSSED, PRIMARY RN AT BED SIDE AND NOTICED. INTEGUMENTARY: -SACRALCOCCYX PRESSURE ULCER STAGE 1 WITH SURROUNDING SKIN DENUDED -RIGHT BUTTOCK PRESSURE ULCER PRESSURE ULCER DTI WITH 3X3CM 100% MAROON COLOR -RIGHT BUNION PRESSURE ULCER DTI WITH 3X2CM 100% MAROON COLOR -MAD TO SCROTAL AREA WITH EDEMA SKIN INTACT MOIST WITH REDNESS -BLE PURPURA, CLOD TO TOUCH, SKIN INTACT -NECK AND UNDER CHIN SARCOMA LESIONS DRY AT THIS TIME RECOMMENDATIONS: -CLEANSE MAD TO SCROTAL WITH SOAP AND WATER, PAT DRY, APPLY HYDRAGUARD BID AND PRN IF SOILING, MAY USE ROLLED PILLOW CASE TO ELEVATED SCROTAL AREA -APPLY OPTIFORM TO SACRALCOCCYX, RIGHT BUTTOCK AND RIGHT BUNION AND CHANGE Q5D AND PRN IF DISLODGED -CONTINUE ALGINATE DRESSING TO NECK AND UNDER CHIN SARCOMA LESIONS -KEEP SKIN DRY AND CLEAN AT ALL TIMES -OFFLOAD BILATERAL HEELS BY PLACING PILLOWS UNDER CALVES UNLESS OTHERWISE CONTRAINDICATED -HEEL PROTECTORS TO BILATERAL HEELS AT ALL TIMES -PRESSURE REDISTRIBUTION SURFACE THERAPY -TURN AND REPOSITION Q2H, OFFLOAD SACRALCOCCYX BY TURNING RIGHT AND LEFT -MONITOR SKIN CONDITION EACH TIME PT IS REPOSITIONS -CONTINUE TO FOLLOW RD RECOMMENDATIONS ALL ABOVE RECOMMENDATIONS DISCUSSED WITH PRIMARY RN WILL FOLLOW UP PT Q7-10 DAYS. PLEASE CONTACT WOUND CARE NURSE FOR ANY QUESTION AND CHANGE OF WOUND CONDITION.
[2019-01-19] MEDS: HYDROCORTISONE 10 MG GT SCH (09:00)
[2019-01-19] MEDS: HYDROCORTISONE NA SUCC 100 MG/2 ML VIAL IV SCH (09:00)
[2019-01-19] MEDS: PANTOPRAZOLE 40 MG INJ VIAL IVP SCH (09:00)
[2019-01-19] MEDS: MAGNESIUM OXIDE 400 MG TAB GT SCH (09:00)
[2019-01-19] MEDS ORDERED: Z-GUARD PASTE TP SCH (13:00)
--- NOTE | 2019-01-19 19:15 | NUR ---
RECEIVED BEDSIDE REPORT FROM MORNING NURSE. PATIENT SPONTANEOUSLY EYES OPEN AND TRACKING. UNABLE TO FOLLOW COMMANDS, ABLE TO MOVE RIGHT ARM AND RIGHT LEG WITH SEVERE WEAKNESS. FLACC 0. SR WITH PVC'S ON THE MONITOR. TRACH TO VENT WITH VENT SETTING AC MODE, FIO2 35%, VT 450, RATE 14, PEEP 5. SMALL AMOUNT OF BLOODY SPUTUM FROM MOUTH NOTED. HX OF SQUAMOUS CELL CARCINOMA OF EPIGLOTTIS. RIGHT UPPER CHEST PORT A CATH INTACT AND PATENT, BLOOD RETURN CHECKED. G TUBE TO FEEDING WITH VITAL AF 65ML/HR WITH FWF 100ML Q6. PLACEMENT AND RESIDUAL CHECKED. CONNECTING LEFT CHEST TUBE PIGTAIL TO CLAMP. FLEMING CATH IN PLACE WITH CLEAR YELLOW URINE NOTED. GENERALIZED NON FITTING EDEMA, SWELLING LEFT ARM WITH OOZING FLUID NOTED. SCROTAL SWELLING NOTED. PRESSURE INJURY DTI TO RIGHT BUTTOCKS WITH MEPILEX DRESSING ON. HOB ELEVATED 30 DEGREE, BILATERAL SIDE RAILS UP WITH PADS FOR SEIZURE PRECAUTIONS. CALL LIGHT WITHIN REACH. BED IN LOW POSITION. WILL CONTINUE TO MONITOR.
[2019-01-19 20:00] VITALS: BP 104/69
[2019-01-19 20:11] LABS: ANION GAP 11.5 (8-16); CARBON DIOXIDE 25.7 mmol/L (21-32); CHLORIDE 105 mmol/L (98-107); CREATININE 0.6 mg/dL (0.7-1.3); GLUCOSE 170 mg/dL (74-106); POTASSIUM 3.2 mmol/L (3.5-5.1); SODIUM SERUM 139 mmol/L (136-145); UREA NITROGEN, BLOOD 23 mg/dL (7-18)
[2019-01-19] MEDS: ATORVASTATIN 20 MG TAB GT SCH (21:00)
[2019-01-19] MEDS: LATANOPROST 0.005% OP 2.5 ML BTL OP SCH (21:00)
--- NOTE | 2019-01-19 21:00 | NUR ---
ADMINISTERED SCHEDULED MEDICATIONS ORDERED. NO ACUTE DISTRESS NOTED. TOLERATED WELL WITH VENT SETTING. SMALL AMOUNT BLOOD IN PATIENT'S MOUTH NOTED. FLACC 0. WILL CONTINUE TO MONITOR.
[2019-01-19 22:00] VITALS: BP 124/76
[2019-01-19] MEDS ORDERED: HYDRAGUARD CREAM TP ONE (23:07)
[2019-01-19 23:45] VITALS: BP 108/76
--- NOTE | 2019-01-19 23:50 | NUR ---
PATIENT HAD MODERATE AMOUNT BROWN LIQUID STOOL NOTED. NO ACUTE DISTRESS NOTE. SR WITH PVC'S NOTED ON MONITOR. FLACC 0. WILL CONTINUE TO MONITOR.
[2019-01-20] VITALS (23 sets, daily range): BP systolic 87–117; BP diastolic 52–82
--- NOTE | 2019-01-20 02:00 | NUR ---
PATIENT TOLERATED WELL WITH TUBE FEEDING, LESS THAN 10CC RESIDUAL NOTED. NO ACUTE RESPIRATORY DISTRESS NOTED. FLACC 0. STILL BLEEDING FROM MOUTH NOTED. WILL CONTINUE TO MONITOR.
[2019-01-20] MEDS: MIDODRINE 5 MG TAB PO SCH ×3 (05:31→21:08)
[2019-01-20] MEDS: LEVOTHYROXINE 0.075 MG TAB GT SCH (05:31)
[2019-01-20 06:00] LABS: ANION GAP 12.6 (8-16); CARBON DIOXIDE 24.6 mmol/L (21-32); CHLORIDE 105 mmol/L (98-107); CREATININE 0.5 mg/dL (0.7-1.3); GLUCOSE 193 mg/dL (74-106); POTASSIUM 3.2 mmol/L (3.5-5.1); SODIUM SERUM 139 mmol/L (136-145); UREA NITROGEN, BLOOD 25 mg/dL (7-18)
--- NOTE | 2019-01-20 06:20 | NUR ---
PATIENT HAD BM NOTED. AFTER MORNING CARE RENDERED, DECREASED O2 SAT TO 86%. CALL RT TO CHECK TH PATIENT.
[2019-01-20 06:44] LABS: EOSINOPHILS % (AUTO) 0.2 % (0.0-4.0); HEMATOCRIT 29.7 % (36-52); HEMOGLOBIN 9.8 g/dL (12.0-18.0); LYMPHOCYTES # (AUTO) 0.6 K/uL (2.0-11.5); LYMPHOCYTES % (AUTO) 8.4 % (20.5-51.1); MEAN CORPUSCULAR HEMOGLOBIN 33 pg (27-31); MEAN CORPUSCULAR HGB CONC 33 g/dL (33-37); MEAN CORPUSCULAR VOLUME 99.1 fL (80-94); MONOCYTES # (AUTO) 0.8 K/uL (0.8-1.0); MONOCYTES % (AUTO) 10.9 % (1.7-9.3); NEUTROPHILS # (AUTO) 6.2 K/uL (1.8-7.7); NEUTROPHILS % (AUTO) 80.5 % (42.2-75.2); PLATELET COUNT (AUTO) 216 K/uL (140-450); RED CELL DISTRIBUTION WIDTH 23.5 % (11.6-13.7); WHITE BLOOD COUNT (AUTO) 7.7 K/uL (4.8-10.8)
--- NOTE | 2019-01-20 06:48 | NUR ---
RECEIVED PT ON CARESCAPE ON DOCUMENTED SETTINGS, ALARMS ARE ON AND AUDIBLE, PTS TRACH PORTEX 8 IS SECURE, BS DIMINISHED PT IN HF NOT ALERT BMV HOB VENT PLUGGED INTO RED OUTLET, WILL CONTINUE TO MONITOR
--- NOTE | 2019-01-20 06:50 | NUR ---
NOTIFIED TO DR. JAIME ABOUT DESATURATION, RECEIVED ORDERS: CHEST X-RAY, ABG, TITRATE FIO2.
--- NOTE | 2019-01-20 07:15 | NUR ---
NOTIFIED TO DR. RICHARDSON ABOUT ABG RESULTS. NO NEW ORDERS RECEIVED.
--- NOTE | 2019-01-20 07:30 | NUR ---
RECEIVED BEDSIDE REPORT FROM METER/RELAY TECHNICIAN RN. PATIENT OPENS EYES SPONTANEOUSLY AND TRACKING, UNABLE TO FOLLOW COMMANDS OR MAKE NEEDS KNOWN. AFEBRILE, FLACC 0. SR WITH PVCS ON MONITOR. TRACH TO VENT WITH SETTING AC/VC FIO2 100%, VT 450, RR 14, PEEP 5. RIGHT LUNG SOUNDS CLEAR, LEFT LUNGS DIMINISHED. SMALL AMOUNT OF BLOODY ORAL SECRETIONS NOTED. HX EPIGLOTTIS CA. SKIN LESIONS NOTED AROUND TRACH AREA. NO SOB NOTED. BREATHING EVEN AND UNLABORED. PORT A CATH IN PLACE TO RIGHT UPPER CHEST RUNNING NORMAL SALINE TKO. ABDOMEN SOFT, FLAT, NONTENDER W/ ACTIVE BOWEL SOUNDS. GT TO TUBE FEEDING VITAL AT AT 60 ML/HR, FWF 100 ML Q6H. LEFT CHEST TUBE IN PLACE AND CLAMPED AT THIS TIME. SKIN TEAR TO RIGHT ARM AND SWELLING/WEEPING LEFT ARM NOTED. FLEMING CATH IN PLACE DRAINING YELLOW URINE TO GRAVITY. HOB ELEVATED 30 DEGREES, BED IN LOW POSITION LOCKED. CALL LIGHT WITHIN REACH. NO SIGNS OF DISTRESS NOTED. WILL CONTINUE TO MONITOR.
[2019-01-20] MEDS: levETIRAcetam 100 MG/ML ORASYR GT SCH ×2 (08:29→21:08)
[2019-01-20] MEDS: PANTOPRAZOLE 40 MG INJ VIAL IVP SCH (08:29)
[2019-01-20] MEDS: DOCUSATE 100 MG/10 ML UDC GT SCH ×2 (08:29→21:08)
[2019-01-20] MEDS: MAGNESIUM OXIDE 400 MG TAB GT SCH (08:29)
[2019-01-20] MEDS: HYDROCORTISONE NA SUCC 100 MG/2 ML VIAL IV SCH (08:29)
[2019-01-20] MEDS: MULTIVITAMIN/MINERALS 1 TAB GT SCH (08:29)
[2019-01-20] MEDS: HYDROCORTISONE 10 MG GT SCH (08:46)
--- NOTE | 2019-01-20 09:00 | NUR ---
MEDICATIONS ADMINISTERED ORDERED. PT TOLERATED WELL.
--- NOTE | 2019-01-20 10:01 | NUR ---
PT SEEN AND EXAMINED BY DR. RICHARDSON. WILL FOLLOW UP ON ORDERS.
[2019-01-20 11:09] LABS: HEMATOCRIT 29.2 % (36-52); HEMOGLOBIN 9.3 g/dL (12.0-18.0); LYMPHOCYTES % (AUTO) 10.9 % (20.5-51.1); MEAN CORPUSCULAR HEMOGLOBIN 31 pg (27-31); MEAN CORPUSCULAR HGB CONC 32 g/dL (33-37); MEAN CORPUSCULAR VOLUME 97.1 fL (80-94); MONOCYTES % (AUTO) 18.1 % (1.7-9.3); NEUTROPHILS % (AUTO) 70.9 % (42.2-75.2); PLATELET COUNT (AUTO) 222 K/uL (140-450); RED BLOOD CELL COUNT(AUTO) 3.01 MIL/uL (4.20-6.10); WHITE BLOOD COUNT (AUTO) 7.5 K/uL (4.8-10.8)
[2019-01-20 11:10] LABS: BASOPHILS % (AUTO) 0.1 % (0.0-2.0); LYMPHOCYTES # (AUTO) 0.8 K/uL (2.0-11.5); MONOCYTES # (AUTO) 1.4 K/uL (0.8-1.0); NEUTROPHILS # (AUTO) 5.3 K/uL (1.8-7.7)
[2019-01-20] MEDS ORDERED: POTASSIUM CHLORIDE 20% 40 MEQ/15 ML UDC GT SCH (12:00)
--- NOTE | 2019-01-20 12:02 | NUR ---
TURNED AND REPOSITIONED PT. NO S/SX OF DISTRESS NOTED AT THIS TIME. SAFETY PRECAUTIONS IN PLACE.
--- NOTE | 2019-01-20 14:30 | NUR ---
PT HAD MODERATE AMOUNT OF BROWN SOFT BOWEL MOVEMENT. CLEANED AND LINENS AND GOWN CHANGED. PT TOLERATED WELL. VSS. SAFETY MEASURES IN PLACE. CALL LIGHT WITHIN REACH. WILL CONTINUE TO MONITOR.
--- NOTE | 2019-01-20 17:40 | NUR ---
SON AND DAUGHTER AT BEDSIDE. UPDATES GIVEN ON PT'S CONDITION.
--- NOTE | 2019-01-20 19:28 | NUR ---
REPORT GIVEN TO AUXILIARY ENGINEER RN FOR CONTINUITY OF CARE. NO SIGNS OF DISTRESS NOTED AT THIS TIME.
--- NOTE | 2019-01-20 19:30 | NUR ---
RECEIVED REPORT FROM AM SHIFT RN. PATIENT OPENS EYES SPONTANEOUSLY AND UNABLE TO FOLLOW COMMANDS. NO S/S OF DISTRESS,NO FEVER, FLACC 0,SKIN WARM TO TOUCH. SR WITH PVCS ON MONITOR. TRACH TO VENT WITH SETTING AC/VC FIO2 100%, VT 450, RR 14, PEEP 5. RIGHT LUNG SOUNDS CLEAR, LEFT LUNGS DIMINISHED. HX EPIGLOTTIS CA. SKIN LESIONS NOTED AROUND TRACH AREA. NO SOB NOTED. BREATHING EVEN AND UNLABORED. PORT A CATH IN PLACE TO RIGHT UPPER CHEST . ABDOMEN SOFT, NONTENDER W/ ACTIVE BOWEL SOUNDS. GT TO TUBE FEEDING VITAL AT AT 60 ML/HR, WATER FLUSH 100 ML Q6H. LEFT CHEST TUBE IN PLACE AND CLAMPED AT THIS TIME. SKIN TEAR TO RIGHT ARM AND SWELLING/WEEPING LEFT ARM NOTED. FLEMING CATH IN PLACE DRAINING YELLOW URINE TO GRAVITY. BED IN LOW POSITION LOCKED. CALL LIGHT WITHIN REACH. WILL CONTINUE TO MONITOR.
--- NOTE | 2019-01-20 19:36 | NUR ---
Received pt on vent support at documented settings, no suctioning indicated at this time, no resp distress or SOB noted at this time, Portex 8 trach secured/patent/midline, alarms set and audible, ambu bag at bedside, vent plugged into red outlet and wiped down, cont pulse ox on, will cont to monitor.
[2019-01-20] MEDS: LATANOPROST 0.005% OP 2.5 ML BTL OP SCH (21:00)
[2019-01-20] MEDS: ATORVASTATIN 20 MG TAB GT SCH (21:08)
[2019-01-20] MEDS: HYDRAGUARD CREAM TP SCH (21:09)
--- NOTE | 2019-01-20 21:50 | NUR ---
NIGHT MEDS GIVEN TOLERATED WELL, GT FEEDING RESIDUAL 5 CC.
[2019-01-20] MEDS: ALBUTEROL 0.083% 2.5 MG/3 ML NEBU INH PRN (23:04)
--- NOTE | 2019-01-20 23:50 | NUR ---
PT NO DISTRESS. CONTINUE TO MONITOR CLOSELY.
[2019-01-21] VITALS (23 sets, daily range): BP systolic 84–119; BP diastolic 50–81
[2019-01-21] MEDS: ALBUTEROL 0.083% 2.5 MG/3 ML NEBU INH PRN (01:20)
[2019-01-21] MEDS ORDERED: MORPHINE SULFATE 2 MG/ML SYR IVP PRN (02:50)
--- NOTE | 2019-01-21 02:52 | NUR ---
REPOSITION PT FOR COMFORT AND TOLERATED WELL.
--- NOTE | 2019-01-21 05:20 | NUR ---
AM CARE GIVEN, SPONGE BATH,ORAL CARE, AND F/C CARE. PT B, LARGE X1 LIQUIDS STOOL.NO BLEEDING NOTED AT THIS TIME. KEPT PT CLEAN AND DRY.
[2019-01-21] MEDS: MIDODRINE 5 MG TAB PO SCH ×3 (05:57→20:11)
[2019-01-21] MEDS: LEVOTHYROXINE 0.075 MG TAB GT SCH (05:57)
--- NOTE | 2019-01-21 05:58 | NUR ---
AM MEDS GIVEN TO PT
[2019-01-21 06:03] LABS: ALBUMIN 1.3 g/dL (3.4-5.0); ANION GAP 11.8 (8-16); ASPARTATE AMINOTRANSFERASE 12 U/L (15-37); CHLORIDE 105 mmol/L (98-107); CREATININE 0.6 mg/dL (0.7-1.3); GLUCOSE 205 mg/dL (74-106); POTASSIUM 3.8 mmol/L (3.5-5.1); SODIUM SERUM 140 mmol/L (136-145); TOTAL BILIRUBIN 0.3 mg/dL (0.0-1.0); UREA NITROGEN, BLOOD 27 mg/dL (7-18)
--- NOTE | 2019-01-21 07:06 | NUR ---
REC'D PT ON CARESCAPE VENT SETTINGS AC 14 VT 450 PEEP 5 FIO2 100% ALARMS ON AND AUDIBLE AND AMBU BAG AT SIDE OF VENT AND VENT IS PLUGGED INTO RED OUTLET, NO HHN REQUIRED AT THIS TIME NO SOB OR DISTRESS NOTED AT THIS TIME, B\S ARE DIMINISHED BILATERALLY, PT IS TRACH WITH PORTEX 8 SXN PT SMALL AMT OF BLOODY SECRETIONS, PT IS RESTING
--- NOTE | 2019-01-21 07:15 | NUR ---
RECEIVED BEDSIDE REPORT FROM HEADING REPAIRER RN, REGISTRY NURSE. PATIENT OPENS EYES SPONTANEOUSLY AND TRACKING, UNABLE TO FOLLOW COMMANDS. AFEBRILE, FLACC 0. ST WITH PVCS ON MONITOR. TRACH TO VENT WITH SETTING AC/VC FIO2 100%, VT 450, RR 14, PEEP 5. LUNGS CLEAR AND DIMINISHED. HX EPIGLOTTIS CA. SKIN LESIONS NOTED AROUND TRACH AREA. BREATHING EVEN AND UNLABORED, HOWEVER, TACHYPNEA. MEDIPORT IN PLACE TO RIGHT UPPER CHEST, PATENT AND ASYMPTOMATIC, SL. ABDOMEN SOFT, NONTENDER. BOWEL SOUNDS ACTIVE. G TUBE FEEDING VITAL AF AT 60 ML/HR, WATER FLUSH 100 ML Q6H. LEFT CHEST TUBE CLAMPED, DRESSING INTACT AND DRY. FLEMING CATH IN PLACE DRAINING CLOUDY YELLOW URINE. BED IN LOWEST POSITION. CALL LIGHT WITHIN REACH. WILL CONTINUE TO MONITOR.
--- NOTE | 2019-01-21 07:25 | NUR ---
REPORT GIVEN TO SANDY BOO MORNING SHIFT. PT IS CONT FOR CLOSE MONITORING.
--- NOTE | 2019-01-21 07:59 | NUR ---
PAGED DR RICHARDSON REGARDING PT'S O2 SAT, RR AND X RAY RESULT.
[2019-01-21] MEDS: HYDROCORTISONE NA SUCC 100 MG/2 ML VIAL IV SCH (08:18)
[2019-01-21] MEDS: PANTOPRAZOLE 40 MG INJ VIAL IVP SCH (08:19)
[2019-01-21] MEDS: DOCUSATE 100 MG/10 ML UDC GT SCH ×2 (08:19→21:00)
[2019-01-21] MEDS: MAGNESIUM OXIDE 400 MG TAB GT SCH (08:20)
[2019-01-21] MEDS: MULTIVITAMIN/MINERALS 1 TAB GT SCH (08:20)
--- NOTE | 2019-01-21 08:35 | NUR ---
SPOKE WITH DR RICHARDSON OVER THE PHONE. REPORTED SPO2 83% WITH FIO2 100%, CHEST X RAY SHOWED INCREASED PLEURAL EFFUSION. DR RICHARDSON ORDERED TO DRAIN NOT MORE THAN 2L. WILL CONNECT PT'S LEFT CHEST TUBE TO DRAINAGE SYSTEM.
[2019-01-21] MEDS: HYDROCORTISONE 10 MG GT SCH (08:42)
--- NOTE | 2019-01-21 08:55 | NUR ---
CHEST TUBE DRAINAGE SYSTEM SET UP, CONNECTED TO PT'S CHEST TUBE ON THE LEFT SIDE.
[2019-01-21] MEDS: levETIRAcetam 100 MG/ML ORASYR GT SCH ×2 (08:57→20:11)
[2019-01-21] MEDS: HYDRAGUARD CREAM TP SCH ×3 (09:19→20:13)
--- NOTE | 2019-01-21 10:33 | NUR ---
DR RICHARDSON IS HERE, ASSESSED PT. DISCONNECTED THE WATER SEAL DRAINAGE SYSTEM AND CONNECTED CHEST TUBE TO VACUUM EVACUATE BOTTLE. DR RICHARDSON ORDERED TO DRAIN 1L TODAY. MAYBE ANOTHER LITER TOMORROW.
[2019-01-21] MEDS ORDERED: MAG SULF 2000 MG/WATER PREMIX 50 ML IV SCH (11:30)
--- NOTE | 2019-01-21 11:50 | NUR ---
1 L CHEST DRAINAGE OBTAINED, LIGHT RED AT TOP OF THE BOTTLE AND DARK RED AT THE BOTTOM OF THE BOTTLE. CLAMPED CHEST TUBE. AND DISCONNECTED THE VACUUM BOTTLE. DISCARDED TO BIOHAZARD WASTE BIN.
--- NOTE | 2019-01-21 16:59 | NUR ---
01/21/19 RD FOLLOW UP COMPLETED PLEASE REFER TO NUTRITION PROGRESS NOTE UNDER CARE ACTIVITY FOR ESTIMATED NUTRITION NEEDS. RD RECOMMENDATIONS: 1. RECOMMEND CONTINUE VITAL AF 1.2 @ 65 ML/HR -THIS WILL PROVIDE 1440 ML OF VOLUME, 1872 KCAL, AND 117 GM OF PROTEIN WHICH MEETS 100% OF ESTIMATED NEEDS 2. RECOMMEND CONTINUE FREE WATER FLUSH OF [address] TO FOLLOW-UP 2-3 DAYS, HIGH RISK IRVIN QUIJANO MBA, RD
--- NOTE | 2019-01-21 19:10 | NUR ---
RECEIVED REPORT FROM AM NURSE. PT AT BED AWAKE, PERRL 3MM, BRISK, OPENS EYES SPONTANEOUSLY, PT TRACH TO VENT BREATHING REGULARLY ON VENT SETTINGS AC/VC FI02 90% TV 450 RR 14 PEEP 5 FLOW 50, LUNG SOUNDS CLEAR ON RIGHT UPPER AND MIDDLE LOBE, DIMINISHED AT BASES, DIMINISHED LUNG SOUNDS ON LEFT UPPER AND MIDDLE LOBES, CHEST TUBE IN PLACE, CLAMPED, HEART RATE REGULAR, SINUS RHYTHM WITH PVC, S1S2 PRESENT, CAP REFILL <3S, PULSES 2+ BILATERAL UPPER AND LOWER EXTREMITIES, EDEMA ON LEFT ARM, WEEPING SEROUS FLUID, SCROTUM EDEMATOUS, ABDOMEN SOFT, ROUND, NONDISTENDED, NONTENDER, GTUBE IN PLACE, RUNNING VITAL AF 1.2 AT 65 ML/HR, WATER FLUSH AT 100 ML Q6H, BLADDER, SOFT, ROUND, NONDISTENDED, NONTENDER, FLEMING CATHETER IN PLACE, DRAINING CLEAR, YELLOW, URINE WITH SEDIMENTATION, SKIN WARM, DRY, NON INTACT, DTI ON BUTTOCK, PT HAS RIGHT UPPER CHEST MEDIPORT. HOB 30 DEGREES, SIDE RAILS UP X2, BED AT LOWEST POSITION, WILL CONTINUE TO MONITOR.
--- NOTE | 2019-01-21 19:35 | NUR ---
Received pt stable on vent support at documented settings, suctioned small amount of thick red blood tinged secretions, no resp distress or SOB noted at this time, Portex 8 trach secured/patent/midline, alarms set and audible, ambu bag at bedside, vent plugged into red outlet and wiped down, cont pulse ox on, will cont to monitor.
[2019-01-21] MEDS: ATORVASTATIN 20 MG TAB GT SCH (20:11)
[2019-01-21] MEDS: LATANOPROST 0.005% OP 2.5 ML BTL OP SCH (20:13)
--- NOTE | 2019-01-21 21:00 | NUR ---
MEDICATIONS GIVEN. VAP ORAL CARE PERFORMED. SUCTIONED SCANT WHITE MUCOUS, PT TOLERATED PROCEDURE WELL. Addendum: 01/23/19 at 0150 by Pedro Benavides RN SUCTIONED MUCOUS OUTSIDE THE MOUTH
--- NOTE | 2019-01-21 23:00 | NUR ---
PT AT BED EYES CLOSED, BREATHING REGULARLY, TRACH TO VENT. VS AT STABLE CONDITION. WILL CONTINUE TO MONITOR.
[2019-01-22] VITALS (60 sets, daily range): BP systolic 74–143; BP diastolic 40–93
--- NOTE | 2019-01-22 01:00 | NUR ---
REPOSITIONED PT. VAP ORAL CARE PERFORMED. PT TOLERATED PROCEDURE WELL.
--- NOTE | 2019-01-22 03:47 | NUR ---
VAP ORAL CARE PERFORMED. SUCTIONED SCANT WHITE MUCOUS. PT TOLERATED PROCEDURE WELL. Addendum: 01/23/19 at 0150 by Pedro Benavides RN SUCTIONED MUCOUS OUTSIDE THE MOUTH
--- NOTE | 2019-01-22 05:25 | NUR ---
ADL PERFORMED. MEDICATIONS GIVEN. SUCTIONED PT WITH SCANT WHITE MUCOUS, PT TOLERATED PROCEDURE WELL, WILL CONTINUE TO MONITOR. Addendum: 01/23/19 at 0150 by Pedro Benavides RN SUCTIONED MUCOUS OUTSIDE THE MOUTH
[2019-01-22] MEDS: MIDODRINE 5 MG TAB PO SCH ×3 (05:36→20:13)
[2019-01-22] MEDS: LEVOTHYROXINE 0.075 MG TAB GT SCH (05:37)
--- NOTE | 2019-01-22 06:46 | NUR ---
RECEIVED PT ON CARESCAPE ON DOCUMENTED SETTINGS, ALARMS ARE ON AND AUDIBLE, PTS TRACH PORTEX 8 IS SECURE PT HAS COPIOUS AMTS OF BLOOD COMING FROM TRACH EQUIPMENT CHANGED ICE LAVAGE PLACED AT BEDSIDE, RN BEDSIDE BS COARSE PT IN HF APPEARS AWAKE, BMV HOB, VENT PLUGGED INTO RED OUTLET, WILL CONTINUE TO MONITOR
--- NOTE | 2019-01-22 07:12 | NUR ---
RECEIVED BEDSIDE REPORT FROM COMMERCIAL BAKER HELPER RNSAGRARIO. PATIENT OPENS EYES SPONTANEOUSLY AND TRACKING, UNABLE TO FOLLOW COMMANDS. TACHYCARDIA ST WITH PACS AND PVCS ON MONITOR. TRACH TO VENT WITH SETTING AC/VC FIO2 100%, VT 450, RR 14, PEEP 5, BLOODY MUCUS IN TRACH TUBE, SUCTION PERFORMED X1. LUNGS COARSE AND DIMINISHED. HX EPIGLOTTIS CANCER. SKIN LESIONS NOTED AROUND TRACH AREA. TACHYPNEA. ACCORDING TO NIGHT RN, TRACH DRESSING WAS CHANGED EARLIER. MEDIPORT IN PLACE TO RIGHT UPPER CHEST, PATENT AND ASYMPTOMATIC, SL. ABDOMEN SOFT, NONTENDER. BOWEL SOUNDS ACTIVE. G TUBE FEEDING VITAL AF AT 65 ML/HR, WATER FLUSH 100 ML Q6H. LEFT CHEST TUBE CLAMPED, DRESSING INTACT AND DRY. FLEMING CATH IN PLACE DRAINING CLOUDY YELLOW URINE. BED IN LOWEST POSITION. CALL LIGHT WITHIN REACH. WILL CONTINUE TO MONITOR.
[2019-01-22] MEDS: MORPHINE SULFATE 2 MG/ML SYR IVP PRN (07:15)
--- NOTE | 2019-01-22 07:35 | NUR ---
CHANGE OF SHIFT REPORT GIVEN TO AM NURSE.
--- NOTE | 2019-01-22 08:00 | NUR ---
PAGED DR RICHARDSON REGARDING PT'S HR IN 140S AND O2 SAT.
--- NOTE | 2019-01-22 08:20 | NUR ---
SPOKE WITH DR RICHARDSON OVER THE PHONE. MADE HIM AWARE OF THE HR IN 140S, AND O2 SAT 90% WITH FIO2 AT 100%. DR RICHARDSON ORDERED 15MG CARDIZEM IVP. AND CONNECT PT'S CHEST TUBE TO VACUUM BOTTLE TO DRAIN.
[2019-01-22] MEDS ORDERED: DILTIAZEM 25 MG/5 ML VIAL IVP ONE ×2 (08:25→09:07)
[2019-01-22] MEDS: HYDROCORTISONE NA SUCC 100 MG/2 ML VIAL IV SCH (08:30)
[2019-01-22] MEDS: PANTOPRAZOLE 40 MG INJ VIAL IVP SCH (08:30)
--- NOTE | 2019-01-22 08:30 | NUR ---
CONNECTED PT'S CHEST TUBE TO VACUUM BOTTLE, STERILE TECHNIQUES APPLIED.
[2019-01-22] MEDS: MAGNESIUM OXIDE 400 MG TAB GT SCH (08:31)
[2019-01-22] MEDS: MULTIVITAMIN/MINERALS 1 TAB GT SCH (08:32)
[2019-01-22] MEDS: levETIRAcetam 100 MG/ML ORASYR GT SCH ×2 (08:32→20:13)
[2019-01-22] MEDS: HYDRAGUARD CREAM TP SCH ×3 (08:33→20:14)
[2019-01-22] MEDS: DOCUSATE 100 MG/10 ML UDC GT SCH ×2 (08:33→21:00)
--- NOTE | 2019-01-22 08:35 | NUR ---
PHARMACIST JARAD WANTS TO SPREAD OUT CARDIZEM 5MG Q15MIN FOR TOTAL OF 15MG THAT DR RICHARDSON ORDERED..
[2019-01-22] MEDS: HYDROCORTISONE 10 MG GT SCH (09:00)
[2019-01-22] MEDS ORDERED: DILTIAZEM 25 MG/5 ML VIAL IVP SCH (09:15)
[2019-01-22] MEDS: DILTIAZEM 25 MG/5 ML VIAL IVP SCH ×2 (09:34→09:53)
[2019-01-22 10:04] LABS: HEMATOCRIT 33.8 % (36-52); HEMOGLOBIN 10.6 g/dL (12.0-18.0); MEAN CORPUSCULAR HEMOGLOBIN 31 pg (27-31); MEAN CORPUSCULAR HGB CONC 31 g/dL (33-37); MEAN CORPUSCULAR VOLUME 99.7 fL (80-94); PLATELET COUNT (AUTO) 303 K/uL (140-450); RED BLOOD CELL COUNT(AUTO) 3.39 MIL/uL (4.20-6.10); RED CELL DISTRIBUTION WIDTH 23.2 % (11.6-13.7); WHITE BLOOD COUNT (AUTO) 7.8 K/uL (4.8-10.8)
--- NOTE | 2019-01-22 10:10 | NUR ---
PT HAD YELLOW SOFT STOOL, X1. CLEANED PT, SACRAL AND R BUTTOCK DTI WOUND PIC TAKEN. Z GUARD APPLIED, OPTIFOAM DRESSING CHANGED.
--- NOTE | 2019-01-22 10:25 | NUR ---
DR RICHARDSON CAME AND ASSESSED PT. MADE DR RICHARDSON AWARE THAT PT'S LEFT CHEST DRAINAGE IS 200ML SO FAR AND CARDIZEM HAS BEEN GIVEN. 2MG MORPHINE WAS ALSO GIVEN FRANCHISE BROKER AROUND 0730.
[2019-01-22 10:27] LABS: ANION GAP 11.6 (8-16); CARBON DIOXIDE 28.6 mmol/L (21-32); CHLORIDE 104 mmol/L (98-107); CREATININE 0.6 mg/dL (0.7-1.3); GLUCOSE 184 mg/dL (74-106); POTASSIUM 4.2 mmol/L (3.5-5.1); SODIUM SERUM 140 mmol/L (136-145); UREA NITROGEN, BLOOD 29 mg/dL (7-18)
[2019-01-22] MEDS ORDERED: DILTIAZEM 25 MG/5 ML VIAL IVP PRN (10:35)
[2019-01-22 10:48] LABS: LYMPHOCYTES % (MANUAL) 11 % (20-46); MONOCYTES % (MANUAL) 6 % (5-12)
[2019-01-22] MEDS ORDERED: MORPHINE SULFATE 2 MG/ML SYR IVP PRN (11:50)
--- NOTE | 2019-01-22 13:15 | NUR ---
PAGED DR RICHARDSON. FAMILY SPOKE WITH DR RICHARDSON OVER THE PHONE. MADE DR RICHARDSON AWARE ANOTHER 15MG OF CARDIZEM WAS GIVEN, PT'S HEART RATE STILL FLUCTUATES BETWEEN 120-140S, AND O2 IS 88% ON FIO2 100%. ORDERS RECEIVED CARDIZEM DRIP START NOW TO TITRATE HR <110 AND LEVOPHED 8MG DRIP PRN.
[2019-01-22] MEDS ORDERED: DILTIAZEM 125 MG in DEXTROSE 5% 100 ML IV SCH ×2 (13:25→14:40)
--- NOTE | 2019-01-22 14:05 | NUR ---
PT TEMP 100.5, ICE PACK PLACE UNDER NECK, AND TYLENOL GIVEN.
[2019-01-22] MEDS: NOREPINEPHRINE 8 MG in DEXTROSE 5% 250 ML IV PRN (14:34)
--- NOTE | 2019-01-22 15:06 | NUR ---
REMOVED ICE PACK.
--- NOTE | 2019-01-22 18:35 | NUR ---
SPOKE WITH DR TELLO OVER THE PHONE, REPORT O2 SAT 84% WITH FIO2 AT 100%. HR 116, ON CARDIZEM DRIP AND LEVOPHED DRIP. ALSO REPORT URINE OUTPUT HAS BEEN LOW AND PT IS NOT ON IVF. DR TELLO ORDERED TO CHANGE PEEP TO 10, NS 50ML/HR AND MG OX 400MG FOR MG 1.7
[2019-01-22] MEDS ORDERED: NACL 0.9% 1,000 ML IV SCH (18:45)
--- NOTE | 2019-01-22 18:59 | NUR ---
INCREASED MECHANICAL VENTILATOR PEEP TO [address] SPOKE WITH DR. TELLO OVER PHONE. TRBO TO MAINTAIN SATURATION 88% OR GREATER. FAMILY AT BEDSIDE. WILL CONTINUE TO MONITOR.
[2019-01-22] MEDS ORDERED: MAGNESIUM OXIDE 400 MG TAB PO SCH (19:00)
--- NOTE | 2019-01-22 19:05 | NUR ---
RECEIVED REPORT FROM AM NURSE. PT AT BED AWAKE, PERRL 3MM, BRISK, OPENS EYES SPONTANEOUSLY, PT TRACH TO VENT BREATHING REGULARLY ON VENT SETTINGS AC/VC FI02 100% TV 450 RR 14 PEEP 10 FLOW 60, LUNG SOUNDS CLEAR ON RIGHT UPPER AND MIDDLE LOBE, DIMINISHED AT BASES, DIMINISHED LUNG SOUNDS ON LEFT UPPER AND MIDDLE LOBES, CHEST TUBE IN PLACE DRAINING SCANT, HEART RATE REGULAR, SINUS RHYTHM WITH PVC, S1S2 PRESENT, CAP REFILL <3S, PULSES 2+ BILATERAL UPPER AND LOWER EXTREMITIES, EDEMA ON LEFT ARM, WEEPING SEROUS FLUID, SCROTUM EDEMATOUS, ABDOMEN SOFT, ROUND, NONDISTENDED, NONTENDER, GTUBE IN PLACE, RUNNING VITAL AF 1.2 AT 65 ML/HR, WATER FLUSH AT 100 ML Q6H, BLADDER, SOFT, ROUND, NONDISTENDED, NONTENDER, FLEMING CATHETER IN PLACE, DRAINING CLEAR, YELLOW, URINE WITH SEDIMENTATION, SKIN WARM, DRY, NON INTACT, DTI ON BUTTOCK, PT HAS RIGHT UPPER CHEST MEDIPORT RUNNING LEVOPHED AT 21 MCG/HR, CARDIZEM AT 15 MG/HR, HOB 30 DEGREES, SIDE RAILS UP X2, BED AT LOWEST POSITION, WILL CONTINUE TO MONITOR.
--- NOTE | 2019-01-22 19:06 | NUR ---
RECEIVED PATIENT TRACH TO MECHANICAL VENTILATOR AT DOCUMENTED SETTINGS. VENT CHECK DONE. VENT ALARMS ON AND AUDIBLE. VENT PLUGGED INTO RED OUTLET WITH WHEELS LOCKED. AMBU BAG AT [facility]. PRN HHN NOT INDICATED AT THIS TIME. AIRWAY SECURE. FAMILY AT BEDSIDE. WILL CONTINUE TO MONITOR CLOSELY.
[2019-01-22] MEDS: ATORVASTATIN 20 MG TAB GT SCH (20:13)
[2019-01-22] MEDS: LATANOPROST 0.005% OP 2.5 ML BTL OP SCH (20:13)
--- NOTE | 2019-01-22 21:15 | NUR ---
MEDICATIONS GIVEN. REPOSITIONED PT. PT AT STABLE CONDITION AT THIS TIME
[2019-01-22] MEDS: ALBUTEROL 0.083% 2.5 MG/3 ML NEBU INH PRN (21:38)
[2019-01-22] MEDS ORDERED: DILTIAZEM 125 MG/25 ML VIAL IV ONE (22:40)
--- NOTE | 2019-01-22 23:20 | NUR ---
PT AT BED EYES CLOSED, BREATHING REGULARLY TRACH TO VENT. WILL CONTINUE TO MONITOR. Addendum: 01/23/19 at 0643 by Pedro Benavides RN O2 SAT 80%
[2019-01-23] VITALS (57 sets, daily range): BP systolic 50–85; BP diastolic 32–53
[2019-01-23] MEDS: NOREPINEPHRINE 8 MG in DEXTROSE 5% 250 ML IV PRN ×3 (02:08→11:49)
--- NOTE | 2019-01-23 02:30 | NUR ---
PT BREATHING TACHYPNEIC TRACH TO VENT. O2 SAT 74%
--- NOTE | 2019-01-23 03:20 | NUR ---
PT BREATHING TACHYPNEIC TRACH TO VENT, O2 SAT 72%
[2019-01-23] MEDS: MIDODRINE 5 MG TAB PO SCH ×2 (05:21→12:56)
[2019-01-23] MEDS: LEVOTHYROXINE 0.075 MG TAB GT SCH (05:32)
--- NOTE | 2019-01-23 05:51 | NUR ---
DAUGHTER AT BEDSIDE, UPDATED DAUGHTER ON PT CONDITION. PT AT UNSTABLE CONDITION AT THIS TIME. O2 SAT AT 75%.
--- NOTE | 2019-01-23 06:10 | NUR ---
SPOKE WITH DR TELLO. UPDATED MD WITH PT CONDITION. DAUGHTER SPOKE WITH MD, UPDATED DAUGHTER WITH PT CONDITION.
--- NOTE | 2019-01-23 07:01 | NUR ---
RECEIVED PT ON CARESCAPE ON DOCUMENTED SETTINGS, ALARMS ARE ON AND AUDIBLE, PTS TRACH PORTEX 8 IS SECURE, PT IN HF NOT ALERT , FAMILY AT BEDSIDE, BS DIMINISHED, BMV HOB, VENT PLUGGED INTO RED OUTLET , WILL CONTUNE TO MONITOR
[2019-01-23] MEDS ORDERED: DILTIAZEM 125 MG/25 ML VIAL IV ONE (07:11)
--- NOTE | 2019-01-23 07:30 | NUR ---
Dr abad called back and notified about vital signs unstable especially bp=71/44,saturation 61 percent.Orders received.Pt on 100 percent fio2 thru trache to vent.Respiratory therapist made aware.Cortez to gravity with low urine output.Per shift supervisor rn only 100 ml total shift.Md aware.Right subclavian portacath with levophed drip at 30 mcg/min,Ns at 50 ml/h.Flacc=0.left arm weeping and swollen-elevated .Dr abad aware.Cardizem drip was dc as ordered.Feeding on hold as ordered.Family especially Hiteshd updated about patients condition especially pt is unstable especially the saturation and bp.per son he is aware and wanted everything to be done which is full code.dr abad made aware.
--- NOTE | 2019-01-23 07:32 | NUR ---
CHANGE OF SHIFT REPORT GIVEN TO AM NURSE. PT AT UNSTABLE CONDITION AT THIS TIME.
--- NOTE | 2019-01-23 07:34 | NUR ---
CALLED TO ICU4 TO BAG PT SPO2 LOW 55 BMV WITH 100% ADDED PEEP VALVE SET AT TEN CODE BLUE EVENTUALLY CALLED, RETURNED TO VENT [address] ALVAREZ
--- NOTE | 2019-01-23 07:50 | NUR ---
code blue was activated because pt saturation was low-19 percent.RT in the room and bagging the patient.Pt had pulse dr plaza cancelled the code blue and asked the RT to put back on trache to vent.
[2019-01-23] MEDS: PHENYLEPHRINE 20 MG in NACL 0.9% 250 ML IV PRN ×2 (08:12→10:57)
[2019-01-23] MEDS: HYDROCORTISONE NA SUCC 100 MG/2 ML VIAL IV SCH (08:45)
[2019-01-23] MEDS: MULTIVITAMIN/MINERALS 1 TAB GT SCH (08:45)
[2019-01-23] MEDS: DOCUSATE 100 MG/10 ML UDC GT SCH (08:45)
[2019-01-23] MEDS: MAGNESIUM OXIDE 400 MG TAB GT SCH (08:46)
[2019-01-23] MEDS: PANTOPRAZOLE 40 MG INJ VIAL IVP SCH (08:46)
[2019-01-23] MEDS: levETIRAcetam 100 MG/ML ORASYR GT SCH (08:46)
[2019-01-23] MEDS: HYDRAGUARD CREAM TP SCH ×2 (08:50)
[2019-01-23] MEDS: HYDROCORTISONE 10 MG GT SCH (09:00)
--- NOTE | 2019-01-23 09:47 | NUR ---
PHARMACY NOTIFIED NEED HYDRCORTISONE NOT AVAILABLE .PER PHARMACY PT OWN SUPPLY AND RUN OUT OF IT.
[2019-01-23] MEDS ORDERED: VASOPRESSIN 20 UNITS in NACL 0.9% 250 ML IV SCH (10:00)
--- NOTE | 2019-01-23 13:06 | NUR ---
Heart rate is 43 and went to asystole.Code blue activated and cpr initiated.Family at the bedside and aware of patients condition and code blue activated.See code blue sheet.
--- NOTE | 2019-01-23 13:18 | NUR ---
Code completed by dr plaza .pt .
--- NOTE | 2019-01-23 13:40 | NUR ---
Spoke to Adrianna dickerson coroners case and officer will call back
--- NOTE | 2019-01-23 15:00 | NUR ---
HALIE THE HOUSE SUPP CALLED THE PRODUCE LABORER OFFICE REGARDING THE CASE SAID WILL CALL BACK.
--- NOTE | 2019-01-23 16:00 | NUR ---
SB TILE TRIMMER CALLED SAID WE HAVE TO WAIT FOR CALL BACK.
--- NOTE | 2019-01-23 17:00 | NUR ---
Post mortem care done as coroners released the body.Left lateral chest tube left ,gtube clamped and left,tracheostomy left.Cortez removed.
--- NOTE | 2019-01-23 19:50 | NUR ---
PHONE CALL TO MARY, ( SON),MADE AWARE THAT BODY WILL BE TRANSFERRED TO ROOM 18 IN MED SURG AFTER LEAD JAVASCRIPT ENGINEER SPOKE WITH YONI ([phone]) OF [employer] THAT [employer]ING MACHINE HELPER ETA IS 2300. MARY SAID OK NOT TO CALL HIM WHEN BODY WILL BE PICKED UP, MORTUARY WILL BE THE ONE TO LET HIM KNOW.
--- NOTE | 2019-01-24 | NUR ---
PHONE CALL TO [facility]; SPOKE WITH YONI; HE SAID THE DAIRY STORE MANAGER IS LESS THAN 35 MINUTES AWAY.
--- NOTE | 2019-01-24 01:00 | NUR ---
PHONE CALL TO [facility] AGAIN; CALLED YONI'S NUMBER; NO ANSWER
--- NOTE | 2019-01-24 01:25 | NUR ---
BODY RELEASED TO [facility].PAPER WORK SIGNED BY JONATHAN CHARGE NURSE RN AND SENIOR VICE PRESIDENT AND CHIEF INFORMATION OFFICER.
== END 2019-01-24 01:25 | disposition expired | DRG 870 ==
LOC: MED 17:44 → MIC 20:53
PROVIDERS: ADMIT Internal Medicine Pulmonary Disease; ATTEND Internal Medicine Pulmonary Disease
PROC: 5A1955Z Respiratory Ventilation, Greater than 96 Consecutive Hours (ICD-10-PCS; principal; 2019-01-14)
PROC: 5A12012 Performance of Cardiac Output, Single, Manual (ICD-10-PCS; 2019-01-14)
PROC: 4A00X4Z Measurement of Central Nervous Electrical Activity, External Approach (ICD-10-PCS; 2019-01-17)
PROC: 30233N1 Transfusion of Nonautologous Red Blood Cells into Peripheral Vein, Percutaneous Approach (ICD-10-PCS; 2019-01-17)
PROC: 5A12012 Performance of Cardiac Output, Single, Manual (ICD-10-PCS; 2019-01-23)
DX: A41.9 Sepsis, unspecified organism (principal); J69.0 Pneumonitis due to inhalation of food and vomit; J96.21 Acute and chronic respiratory failure with hypoxia; J96.20 Acute and chronic respiratory failure, unspecified whether with hypoxia or hypercapnia; E44.0 Moderate protein-calorie malnutrition; G93.1 Anoxic brain damage, not elsewhere classified; J91.0 Malignant pleural effusion; J95.01 Hemorrhage from tracheostomy stoma; D62 Acute posthemorrhagic anemia; R04.89 Hemorrhage from other sites in respiratory passages; I46.9 Cardiac arrest, cause unspecified; C32.1 Malignant neoplasm of supraglottis; E03.9 Hypothyroidism, unspecified; E78.5 Hyperlipidemia, unspecified; R13.10 Dysphagia, unspecified; I10 Essential (primary) hypertension; G40.909 Epilepsy, unspecified, not intractable, without status epilepticus; Y83.8 Other surgical procedures as the cause of abnormal reaction of the patient, or of later complication, without mention of misadventure at the time of the procedure; Z87.891 Personal history of nicotine dependence; Z85.118 Personal history of other malignant neoplasm of bronchus and lung; Z79.82 Long term (current) use of aspirin; Z79.899 Other long term (current) drug therapy; Z95.1 Presence of aortocoronary bypass graft; Z92.21 Personal history of antineoplastic chemotherapy; Z68.21 Body mass index [BMI] 21.0-21.9, adult
CPT/HCPCS: 36415; 70450; 71045; 80048; 80053; 81001; 82140; 83735; 83880; 84484; 85025; 86886; 86900; 86901; 86920; 87070; 87081; 87186; 87205; 89220; 92950; 93005; 94003; 94640; 95816; 99285; C9113; J1720; J2270; J2370; J2543; J2930; J3475; J3480; J3490; J7030; J7060; J7613; P9016; P9041; Q0092